=== PATIENT | male | born 1965 | race Caucasian/White ===

== ENCOUNTER → 2017-12-08 09:07 | Day surgery (SDC) | payer MEDICARE, MEDICAID, SELFPAY ==
[2017-12-07 08:44] VITALS: BMI 56.6
[2017-12-08 09:28] LABS: Hematocrit 47.7 % (40-54); Hemoglobin 14.8 g/dl (13.0-16.5); Mean Corpuscular Hgb 25.6 pg (27.0-32.0); Mean Corpuscular Volume 82.5 fL (80-94); Mean Platelet Vol. 8.6 fl (6.2-12.0); Platelet Count 389 K/mm3 (150-450); RBC Distribution Width CV 14.2 % (11.6-14.6); RBC Distribution Width SD 42.3 fl (35.1-43.9); Red Blood Count 5.78 M/mm3 (4.6-6.2)
[2017-12-08 09:31] LABS: Scan Indicated on CBC? Y/N NO
[2017-12-08 09:52] LABS: Albumin, Serum 3.7 g/dL (3.2-5.0); BUN 19 mg/dL (7-18); BUN/Creat Ratio 35.6 RATIO (10-20); Calcium,Total 9.1 mg/dL (8.5-10.1); Chloride 105 mmol/L (98-107); Creatinine, Serum 0.53 mg/dL (0.70-1.30); EST Glomerular Filtration Rate 173 mL/min (>60); Est Glom Filt Rate - Afr Amer 210 mL/min (>60); Estimated Creatinine Clearance 117.92 ml/min; Glucose 90 mg/dL (74-106); Phosphorus 3.8 mg/dL (2.5-4.9); Potassium 3.9 mmol/L (3.5-5.1); Sodium Level 138 mmol/L (136-145)
--- NOTE | 2017-12-08 11:00 | PCM.OPRPT ---
Problem List (1) Venous stasis Status: Acute Report of Operation Date of Procedure: 12/08/17 Pre-Operative Diagnosis: Patient with duplex report at his facility stating SFA popliteal occlusive disease Post-Operative Diagnosis: Normal right lower extremity arterial angiogram no stenosis visualized Surgery/Procedure Performed:: 1. Ultrasound-guided access left common femoral artery. 2. Right lower extremity angiogram with catheter placed in the third order right popliteal artery. 3. Closure with Star close Type of Anesthesia:: Sedation,Conscious Description of Procedure: Patient brought to the Audio/Video Technician. Underwent the appropriate timeout consent. Underwent sedation. We did ultrasound-guided access retrograde left common femoral artery and put in a 6 Romanian sheath. We used an Omni and got up and over the bifurcation and placed this to the right external iliac artery. We gave 5000 units of heparin. We then did an angiogram from here showing the common femoral artery profunda SFA widely patent with good flow. With the wire and catheter down into the popliteal artery imaged from there showing the popliteal to all 3 tibial vessels were widely patent all the way into the foot filling the arch little bit incomplete at the level of the plantars but had good filling throughout. We then removed out the catheter over a wire and removed the sheath brought in a Star close deflated with good hemostasis. He was brought to recovery in stable condition. Sedation: This 52-year-old gentleman underwent moderate sedation given by Dr. Ke Pearl. He was monitored with EKG blood pressure and pulse ox. He was given fentanyl and versed. See the EMR for more complete record. He tolerated the procedure well was brought to recovery in stable condition
== END ==
PROVIDERS: Family Provider Family Medicine; PCP Family Medicine; Visit Provider Surgery Vascular Surgery
DX: I70.235 Atherosclerosis of native arteries of right leg with ulceration of other part of foot (principal); M79.671 Pain in right foot; M79.89 Other specified soft tissue disorders; G80.9 Cerebral palsy, unspecified; Z79.899 Other long term (current) drug therapy
CPT/HCPCS: 36245; 36415; 75710; 76937; 80069; 85027; 99152; J7040; Q9967; C1760; C1769; C1887

== ENCOUNTER 2018-06-17 14:30 | Outpatient (RCR) | payer MEDICAID, SELFPAY ==
[2018-06-10 14:03] VITALS: BP 135/81; PULSE 111; RESP 16; TEMP 37.4; BMI 33.2
--- NOTE | 2018-06-10 14:38 | WC ---
ADMIT ASSESSMENT VERY LIMITED D/T PT'S EXTREME ANXIETY/PAIN. CAME IN W/C FROM [facility], VERY DIFFICULT FOR HIM TO MOVE HIS LEGS FOR STAFF TO VIEW WOUNDS. NOT RECEPTIVE TO STAFF ASSISTING W/ MOVEMENT OF LEGS D/T PAIN. 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
--- NOTE | 2018-06-10 17:57 | HP.PCM_ITS ---
(1) Spina bifida Status: Chronic Current Visit: Yes Qualifiers: Spinal region: unspecified Presence of hydrocephalus: without hydrocephalus Qualified Code(s): Q05.9 - Spina bifida, unspecified Code(s): Q05.9 - Spina bifida, unspecified (2) Venous stasis dermatitis of both lower extremities Status: Chronic Current Visit: Yes Code(s): I83.11 - Varicose veins of right lower extremity with inflammation; I83.12 - Varicose veins of left lower extremity with inflammation (3) History of cerebral palsy Status: Chronic Current Visit: Yes Code(s): Z86.69 - Personal history of other diseases of the nervous system and sense organs (4) Venous stasis ulcer of right ankle with fat layer exposed Status: Chronic Current Visit: Yes Qualifiers: Varicose vein presence: without varicose veins Qualified Code(s): I87.2 - Venous insufficiency (chronic) (peripheral); L97.312 - Non-pressure chronic ulc er of right ankle with fat layer exposed Code(s): I83.013 - Varicose veins of right lower extremity with ulcer of ankle; L97.312 - Non-pressure chronic ulcer of right ankle with fat layer exposed History of Present Illness Date of Service: 06/10/18 Chief Complaint: recurrent R posterior and lateral ankle, 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 He has very damaged tissues of his legs and this is one of multiple recurrent pressure ulcers that he develops in this edematous R lower leg/ankle. He isn't sure when this reoccurred but thinks it has been since January or February. He has been treated by wound care nurse at [facility] where he resides. He has almost been healed several times but has never healed completely. It looks like Drawtex is what they have been using on the ulcer. A culture was done April 2018 which was positive for Pseudomonas. He was on an antibiotic but is no longer taking it. He reports that the ulcer is very painful. He reports that he has been in his bed mostly and elevates his legs/feet with a pillow under his calf and denies pressure on his heel. He also states that he has tubigrips that he usually wears but did not wear them today due to coming here for evaluation. Past Medical History Past Medical History: Chronic Problems Venous stasis ulcer of right ankle with fat layer exposed (Chronic) Spina bifida (Chronic) Venous stasis dermatitis of both lower extremities (Chronic) History of cerebral palsy (Chronic) Surgical History: - - fasciotomies to both feet, surgical debridement Allergies/Adverse Reactions: Allergies clindamycin Allergy (Verified 06/10/18 14:54) Other Penicillins Allergy (Verified 06/10/18 14:54) Other Home Medications: Ambulatory Orders Medication Instructions Recorded Acetaminophen [Tylenol Suppository] 650 mg RECTAL Q4H PRN PRN 01/23/13 Acetaminophen [Tylenol Tablet] 325 - 650 mg PO Q6H PRN PRN 01/23/13 Montelukast [Singulair] 10 mg PO DAILY 01/23/13 Multivitamins,Ther W-Minerals 1 tab PO DAILY 01/23/13 Omeprazole [Prilosec] 20 mg PO DAILY 01/23/13 Pseudoephedrine [Sudafed] 60 mg PO Q4H PRN PRN 01/23/13 Magnesium Hydroxide [Milk Of 30 ml PO DAILY PRN PRN 06/05/14 Magnesia] Ammonium Lactate [Amlactin] 1 applicatio TP UD 12/07/17 Bisacodyl 10 mg RC DAILY PRN 12/07/17 Fluticasone/Vilanterol [Breo 1 each IH DAILY 12/07/17 Ellipta Inhaler] Guaifenesin [Robitussin] 10 ml PO Q4H PRN PRN 12/07/17 Nystatin Powder 1 dose TOPICAL BID 12/07/17 Tramadol HCl [Ultram] 100 mg PO Q8H PRN 12/07/17 Cholecalciferol (Vitamin D3) 2,000 unit PO DAILY 06/10/18 [Vitamin D3] Gabapentin [Neurontin] 300 mg PO BIDCM 06/10/18 Ibuprofen 600 mg PO 4X/DAY PRN 06/10/18 Mag Hydrox/Al Hydrox/Simeth 30 ml PO Q4H PRN PRN 06/10/18 [Mylanta II] Na Phos,M-B/Na Phos,Di-Ba [Fleet 1 bottle RECTAL DAILY PRN 06/10/18 Enema] - Family History Paternal Dementia Maternal No pertinent history Lives: Detention Smoking Status: Never smoker Tobacco Use: Non-smoker Alcohol: None Drugs: None Review of Systems Constitutional: Denies: Chills, Fever, Weight Change Eyes: Denies: Pain, Vision Change HEENT: Denies: Difficulty Hearing, Difficulty Swallowing, Sinus Congestion Cardiovascular: Denies: Chest Pain, Palpitations Respiratory: Denies: Cough, Shortness of Breath Gastrointestinal: Denies: Diarrhea, Nausea, Vomiting Genitourinary: Denies: Dysuria, Hematuria Musculoskeletal: Reports: Leg Pain Neurological: Reports: Numbness, Tingling Endocrine: Denies: Heat/ Cold Intolerance, Polydipsia, Polyuria Hematologic/ Lymphatic: Denies: Easy Bruising, Easy Bleeding - Physical Exam Vital Signs Temp Pulse Resp BP 99.3 F H 111 H 16 135/81 H 06/10/18 14:03 06/10/18 14:03 06/10/18 14:03 06/10/18 14:03 General: Alert, Oriented x3, Cooperative, No apparent distress HEENT: Atraumatic, Normocephalic Oral: Moist Mucosa Lungs: Clear to auscultation Cardiovascular: Regular rate, Regular Rhythm Abdomen: Obese Extremities: Edema Skin: Ulcer/ Wound Wound Measurements and Assessment WC - Nurse 1 - General Ulcer Measurement Start: 06/10/18 14:02 Freq: Status: Active Protocol: Activity Type Activity Date Activity User E-Sign Co-Sign Detail Recorded Client Recorded Date Recorded By Document 06/10/18 14:03 [facility] [id number] 06/10/18 14:38 [facility] 06/10/18 14:03 Wound Center Nurse 1 [Ulcer Assessment] #4 Right Achilles -Current Size (cm) - Length 9.7 -Current Size (cm) - Width 9.0 -Current Size (cm) - Depth 0.2 -Total Square Cm 87.30 -Date of Last Picture (Recall this 06/10/18 field) -Photo Taken Yes -Epithelialization None Present -Tunneling No -Undermining/Tunneling No -Circular Undermining No -Exudate Amt Large -Exudate Type Sanguineous -Wound Margin Flat & Intact -Granulation Amt Large (67-100%) -Granulation Quality Red -Slough/Fibrin No -Necrosis Amt None Present (0 %) -Texture (Sanam-wound Skin Appearance) Scarring -Moisture (Sanam-wound Skin Appearance Dry/Scaly ) -Color (Sanam-wound Skin Appearance) Erythema Hemosiderin Staining -Temperature (Sanam-wound Skin No Abnormality Appearance) (Pt Warm) -Tenderness on Palpation (Sanam-wound Yes Skin Appearance) -Ulcer Cleansing Wound Cleanser -Foul Odor after Cleansing No -Anesthetic Used 4% Lidocaine Solution 5% Lidocaine Gel #3 Lateral RLE -Current Size (cm) - Length 5 -Current Size (cm) - Width 6 -Current Size (cm) - Depth 0.1 -Total Square Cm 30 -Date of Last Picture (Recall this 06/10/18 field) -Photo Taken Yes -Exudate Amt Large -Exudate Type Sanguineous -Wound Margin Flat & Intact -Granulation Amt Large (67-100%) -Granulation Quality Red -Texture (Sanam-wound Skin Appearance) Assessed -Moisture (Sanam-wound Skin Appearance Assessed ) -Color (Sanam-wound Skin Appearance) Assessed Ecchymosis Hemosiderin Staining -Temperature (Sanam-wound Skin No Abnormality Appearance) (Pt Warm) -Tenderness on Palpation (Sanam-wound No Skin Appearance) -Ulcer Cleansing Wound Cleanser -Foul Odor after Cleansing No -Anesthetic Used 4% Lidocaine Solution [Edema Assessment] -Right Calf (cm) 42.1 -Right Ankle (cm) 25.5 WC - Nurse 2 - General Ulcer CM Notes Start: 06/10/18 14:02 Freq: Status: Active Protocol: Activity Type Activity Date Activity User E-Sign Co-Sign Detail Recorded Client Recorded Date Recorded By Document 06/10/18 16:17 DV [id number] 06/10/18 16:26 DV 06/10/18 16:17 Wound Center Nurse 2 [Procedure/Treatment] #4 Right Achilles -Time 16:18 -Correct Patient Yes -Correct Side, Site, Position Yes -Procedure Performed No -Wound/Ulcer Outcome Not Healed #3 Lateral RLE -Time 16:22 -Correct Patient Yes -Correct Side, Site, Position Yes -Procedure Performed No -Wound/Ulcer Outcome Not Healed [See Physician Procedure note for Specifics] Pain Scale: 0-10 Numeric [Pain] -Is Patient Pain Free? Yes Psych/Mental Status: Normal Affect, Appropriate Debridement Note Post-Debridement Measurements/Treatment WC - Nurse 2 - General Ulcer CM Notes Start: 06/10/18 14:02 Freq: Status: Active Protocol: Activity Type Activity Date Activity User E-Sign Co-Sign Detail Recorded Client Recorded Date Recorded By Document 06/10/18 16:17 DV [id number] 06/10/18 16:26 DV 06/10/18 16:17 Wound Center Nurse 2 #4 Right Achilles -Time 16:18 -Correct Patient Yes -Correct Side, Site, Position Yes -Procedure Performed No -Wound/Ulcer Outcome Not Healed #3 Lateral RLE -Time 16:22 -Correct Patient Yes -Correct Side, Site, Position Yes -Procedure Performed No -Wound/Ulcer Outcome Not Healed Pain Scale: 0-10 Numeric Is Patient Pain Free? Yes Wound debrided: right achilles Laterality: Right No debridement was completed today - due to nothing to debride - Additional Wound Wound debrided: lateral RLE Laterality: Right Operative Diagnosis: no debridement completed as there is nothing to debride Assessment/Plan Active Problems Venous stasis ulcer of right ankle with fat layer exposed (Chronic) Spina bifida (Chronic) Venous stasis dermatitis of both lower extremities (Chronic) History of cerebral palsy (Chronic) Assessment: 1) recurrent pressure ulcer of posterior leg in paraplegic w/spina bifida. Healing is very slow and likely because of poor quality of tissues. Offload boots seem very adequate. 2) venous stasis and edema Plan: Shahzad's ulcers were evaluated today. He has chronic edema and noncompliance. His dressings were adherent to his ulcers today. Will change his dressings to Santyl changed daily and prescribe offloading booties to decrease pressure to his heels. He will continue tubigrips for compression. A wound culture was also taken today and will treat based on results. Will f/u in 1 week.
[2018-06-10 23:52] LABS: M R Staph aureus DNA By PCR Negative (Negative); Staph aureus DNA By PCR POSITIVE (Negative)
[2018-06-10 23:53] LABS: Probe Check PASS; Specimen Processing Control PASS
[2018-06-17 15:33] VITALS: BP 132/76; PULSE 101; RESP 20; TEMP 37.2; BMI 33.2
--- NOTE | 2018-06-17 19:10 | PCM.WC.PN ---
(1) Spina bifida Status: Chronic Current Visit: Yes Qualifiers: Spinal region: unspecified Presence of hydrocephalus: without hydrocephalus Qualified Code(s): Q05.9 - Spina bifida, unspecified Code(s): Q05.9 - Spina bifida, unspecified (2) Venous stasis dermatitis of both lower extremities Status: Chronic Current Visit: Yes Code(s): I83.11 - Varicose veins of right lower extremity with inflammation; I83.12 - Varicose veins of left lower extremity with inflammation (3) History of cerebral palsy Status: Chronic Current Visit: Yes Code(s): Z86.69 - Personal history of other diseases of the nervous system and sense organs (4) Venous stasis ulcer of right ankle with fat layer exposed Status: Chronic Current Visit: Yes Qualifiers: Varicose vein presence: without varicose veins Qualified Code(s): I87.2 - Venous insufficiency (chronic) (peripheral); L97.312 - Non-pressure chronic ulcer of right ankle with fat layer exposed Code(s): I83.013 - Varicose veins of right lower extremity with ulcer of ankle; L97.312 - Non-pressure chronic ulcer of right ankle with fat layer exposed Type of Wound Date of Service: 06/17/18 Chief Complaint: recurrent R posterior and lateral ankle, 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 He has very damaged tissues of his legs and this is one of multiple recurrent pressure ulcers that he develops in this edematous R lower leg/ankle. He isn't sure when this reoccurred but thinks it has been since January or February. He has been treated by wound care nurse at [facility] where he resides. He has almost been healed several times but has never healed completely. It looks like Drawtex is what they have been using on the ulcer. A culture was done April 2018 which was positive for Pseudomonas. He was on an antibiotic but is no longer taking it. He reports that the ulcer is very painful. He reports that he has been in his bed mostly and elevates his legs/feet with a pillow under his calf and denies pressure on his heel. He also states that he has tubigrips that he usually wears but did not wear them today due to coming here for evaluation. Progress of Wound: Shahzad is here for follow up for wound care of ulcers of his right lower leg. He had positive wound cultures and was started on ciprofloxacin for Pseudomonas and MRSA. He is tolerating antibiotics but still is in pain. He is tolerating Santyl and tubigrips and using a foam bootie to offload his posterior leg. He denies fever or chills, increased drainage. - Physical Exam Vital Signs Temp Pulse Resp BP 98.9 F 101 H 20 H 132/76 H 06/17/18 15:33 06/17/18 15:33 06/17/18 15:33 06/17/18 15:33 General: Alert, Oriented x3, Cooperative, No apparent distress HEENT: Atraumatic, Normocephalic Oral: Moist Mucosa Extremities: Edema Skin: Ulcer/ Wound Wound Measurements and Assessment WC - Nurse 1 - General Ulcer Measurement Start: 06/10/18 14:02 Freq: Status: Active Protocol: Activity Type Activity Date Activity User E-Sign Co-Sign Detail Recorded Client Recorded Date Recorded By Document 06/17/18 15:33 AN [id number] 06/17/18 15:48 AN 06/17/18 15:33 Wound Center Nurse 1 [Ulcer Assessment] #5 Right Achilles -Current Size (cm) - Length 8.2 -Current Size (cm) - Width 8.8 -Current Size (cm) - Depth 0.1 -Total Square Cm 72.16 -Classification - Thickness Full Thickness without Exposed Support Structure -Exudate Amt Medium -Exudate Type Serosanguineous -Wound Margin Distinct, Outline Attached -Granulation Amt Large (67-100%) -Granulation Quality Red -Slough/Fibrin Yes -Necrosis Amt Small (1-33%) -Necrotic Tissue Type Adherent Slough -Texture (Sanam-wound Skin Appearance) Assessed Localized Edema -Moisture (Sanam-wound Skin Appearance Assessed ) Maceration -Color (Sanam-wound Skin Appearance) Assessed Erythema -Temperature (Sanam-wound Skin No Abnormality Appearance) (Pt Warm) -Tenderness on Palpation (Sanam-wound Yes Skin Appearance) -Ulcer Cleansing Rinsed/ Irrigated with Saline -Foul Odor after Cleansing No -Anesthetic Used 4% Lidocaine Solution #4 Lateral RLE -Current Size (cm) - Length 5.5 -Current Size (cm) - Width 5.5 -Current Size (cm) - Depth 0.1 -Total Square Cm 30.25 -Classification - Thickness Full Thickness without Exposed Support Structure -Exudate Amt Medium -Exudate Type Serosanguineous -Wound Margin Distinct, Outline Attached -Granulation Amt Large (67-100%) -Granulation Quality Red -Slough/Fibrin Yes -Necrosis Amt Small (1-33%) -Necrotic Tissue Type Adherent Slough -Structure Exposed None/Limited to Skin Breakdown -Texture (Sanam-wound Skin Appearance) Assessed Localized Edema -Moisture (Sanam-wound Skin Appearance Assessed ) -Color (Sanam-wound Skin Appearance) Assessed Erythema -Temperature (Sanam-wound Skin No Abnormality Appearance) (Pt Warm) -Tenderness on Palpation (Sanam-wound Yes Skin Appearance) -Ulcer Cleansing Rinsed/ Irrigated with Saline -Foul Odor after Cleansing No -Anesthetic Used 4% Lidocaine Solution WC - Nurse 2 - General Ulcer CM Notes Start: 06/10/18 14:02 Freq: Status: Active Protocol: Activity Type Activity Date Activity User E-Sign Co-Sign Detail Recorded Client Recorded Date Recorded By Document 06/17/18 16:17 DV [id number] 06/17/18 16:21 DV 06/17/18 16:17 Wound Center Nurse 2 [Procedure/Treatment] #5 Right Achilles -Time 16:17 -Correct Patient Yes -Correct Side, Site, Position Yes -Correct Procedure Yes -Procedure Performed Yes -Type of Procedure Debridement -Clinical Debridement Subcutaneous -Post Debridement Size (cm) - Length 10.4 -Post Debridement Size (cm) - Width 8.2 -Post Debridement Size (cm) - Depth 0.2 -Total Square Cm 85.28 -Wound/Ulcer Outcome Not Healed -Ulcer Cleansing Rinsed/ Irrigated with Saline -Foul Odor after Cleansing No -Bioengineered Tissue No -Bleeding Controlled with Pressure -Offloading Yes -Treatment Response Procedure Tolerated Well #4 Lateral RLE -Time 16:18 -Correct Patient Yes -Correct Side, Site, Position Yes -Correct Procedure Yes -Procedure Performed Yes -Type of Procedure Debridement -Clinical Debridement Subcutaneous -Post Debridement Size (cm) - Length 6.0 -Post Debridement Size (cm) - Width 6.2 -Post Debridement Size (cm) - Depth 0.1 -Total Square Cm 37.20 -Wound/Ulcer Outcome Not Healed -Ulcer Cleansing Rinsed/ Irrigated with Saline -Foul Odor after Cleansing No -Bioengineered Tissue No -Bleeding Controlled with Pressure -Offloading No -Treatment Response Procedure Tolerated Well [See Physician Procedure note for Specifics] Pain Scale: 0-10 Numeric [Pain] -Is Patient Pain Free? Yes Psych/Mental Status: Normal Affect, Appropriate Debridement Note Post-Debridement Measurements/Treatment WC - Nurse 2 - General Ulcer CM Notes Start: 06/10/18 14:02 Freq: Status: Active Protocol: Activity Type Activity Date Activity User E-Sign Co-Sign Detail Recorded Client Recorded Date Recorded By Document 06/10/18 16:17 DV [id number] 06/10/18 16:26 DV Document 06/17/18 16:17 DV [id number] 06/17/18 16:21 DV 06/10/18 06/17/18 16:17 16:17 Wound Center Nurse 2 #5 Right Achilles -Time 16:18 16:17 -Correct Patient Yes Yes -Correct Side, Site, Position Yes Yes -Correct Procedure Yes -Procedure Performed No Yes -Type of Procedure Debridement -Clinical Debridement Subcutaneous -Post Debridement Size (cm) - Length 10.4 -Post Debridement Size (cm) - Width 8.2 -Post Debridement Size (cm) - Depth 0.2 -Total Square Cm 85.28 -Wound/Ulcer Outcome Not Healed Not Healed -Ulcer Cleansing Rinsed/ Irrigated with Saline -Foul Odor after Cleansing No -Bioengineered Tissue No -Bleeding Controlled with Pressure -Offloading Yes -Treatment Response Procedure Tolerated Well #4 Lateral RLE -Time 16:22 16:18 -Correct Patient Yes Yes -Correct Side, Site, Position Yes Yes -Correct Procedure Yes -Procedure Performed No Yes -Type of Procedure Debridement -Clinical Debridement Subcutaneous -Post Debridement Size (cm) - Length 6.0 -Post Debridement Size (cm) - Width 6.2 -Post Debridement Size (cm) - Depth 0.1 -Total Square Cm 37.20 -Wound/Ulcer Outcome Not Healed Not Healed -Ulcer Cleansing Rinsed/ Irrigated with Saline -Foul Odor after Cleansing No -Bioengineered Tissue No -Bleeding Controlled with Pressure -Offloading No -Treatment Response Procedure Tolerated Well Pain Scale: 0-10 Numeric Is Patient Pain Free? Yes Yes Wound debrided: right Achilles Laterality: Right Wound Grade/Stage: Stage 2 Type of Debridement: Excisional debridement Anesthesia Used: 4% Lidocaine Solution, 5% Lidocaine Gel Depth: Down to and including healthy tissue, in the subcutaneous layer Percentage of wound debrided: 100 Instrument Used: 5mm curette Tissue Removed: yellow slough, devitalized tissue Severity: Fat Layer Exposed Amount of bleeding with debridement: Mild Bleeding Controlled with: Compression and gauze Patient tolerated procedure well - Additional Wound Wound debrided: Lateral R LE Laterality: Right Wound Grade/Stage: Stage 2 Type of Debridement: Excisional debridement Anesthesia Used: 4% Lidocaine Solution, 5% Lidocaine Gel Depth: Down to and including healthy tissue, in the subcutaneous layer Percentage of wound debrided: 100 Instrument Used: 5mm curette Tissue Removed: yellow slough, devitalized tissue Severity: Fat Layer Exposed Amount of bleeding with debridement: Mild Bleeding Controlled with: Compression and gauze Patient tolerated procedure: Patient tolerated procedure well Assessment/Plan Active Problems Venous stasis ulcer of right ankle with fat layer exposed (Chronic) Spina bifida (Chronic) Venous stasis dermatitis of both lower extremities (Chronic) History of cerebral palsy (Chronic) Assessment: 1) recurrent pressure ulcer of posterior leg in paraplegic w/spina bifida. Healing is very slow and likely because of poor quality of tissues. Offload boots seem very adequate. 2) venous stasis and edema Plan: Shahzad's ulcers were evaluated today. He has chronic edema and noncompliance. He tolerated Santyl changed daily and offloading booties to decrease pressure to his heels. He will continue tubigrips for compression. Continue antibiotics for positive wound cultures. Encouraged increased protein intake and offloading. Will f/u in 1 week.
== END 2018-06-23 23:59 ==
LOC: WC 14:30
PROVIDERS: Family Provider Family Medicine; PCP Family Medicine; Visit Provider Family Medicine
DX: I83.013 Varicose veins of right lower extremity with ulcer of ankle (principal); L97.312 Non-pressure chronic ulcer of right ankle with fat layer exposed; Q05.9 Spina bifida, unspecified; G80.9 Cerebral palsy, unspecified; Z91.19 Patient's noncompliance with other medical treatment and regimen; L89.892 Pressure ulcer of other site, stage 2
CPT/HCPCS: 11042; 11045; 87070; 87075; 87077; 87186; 87205; 87640; 97602; 99214; G0463

== ENCOUNTER 2018-07-22 13:00 | Outpatient (RCR) | payer MEDICARE, MEDICAID, SELFPAY ==
[2018-06-24 01:38] VITALS: BP 132/76; PULSE 101; RESP 20; TEMP 37.2
[2018-06-24 12:18] VITALS: BP 161/97; PULSE 97; RESP 18; TEMP 36.1; BMI 33.2
[2018-06-24 17:23] LABS: M R Staph aureus DNA By PCR POSITIVE (Negative); Probe Check PASS; Staph aureus DNA By PCR POSITIVE (Negative)
--- NOTE | 2018-06-24 19:32 | PN.PCM_ITS ---
(1) Venous stasis ulcer of right ankle with fat layer exposed Status: Chronic Current Visit: Yes Qualifiers: Varicose vein presence: without varicose veins Code(s): I83.013 - Varicose veins of right lower extremity with ulcer of ankle; L97.312 - Non-pressure chronic ulcer of right ankle with fat layer exposed Comment: posterior and medial ankle (2) MRSA cellulitis Status: Acute Current Visit: Yes Code(s): L03.90 - Cellulitis, unspecified; B95.62 - Methicillin resistant Staphylococcus aureus infection as the cause of diseases classified elsewhere (3) Spina bifida Status: Chronic Current Visit: Yes Qualifiers: Spinal region: unspecified Presence of hydrocephalus: unspecified hydrocephalus presence Qualified Code(s): Q05.9 - Spina bifida, unspecified Code(s): Q05.9 - Spina bifida, unspecified (4) Venous stasis dermatitis of both lower extremities Status: Chronic Current Visit: Yes Code(s): I83.11 - Varicose veins of right lower extremity with inflammation; I83.12 - Varicose veins of left lower extremity with inflammation (5) History of cerebral palsy Status: Chronic Current Visit: Yes Code(s): Z86.69 - Personal history of other diseases of the nervous system and sense organs Type of Wound Date of Service: 06/24/18 Chief Complaint: recurrent R posterior and lateral ankle, 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 He has very damaged tissues of his legs and this is one of multiple recurrent pressure ulcers that he develops in this edematous R lower leg/ankle. He isn't sure when this reoccurred but thinks it has been since January or February. He has been treated by wound care nurse at [facility] where he resides. He has almost been healed several times but has never healed completely. It looks like Drawtex is what they have been using on the ulcer. A culture was done April 2018 which was positive for Pseudomonas. He was on an antibiotic but is no longer taking it. He reports that the ulcer is very painful. He reports that he has been in his bed mostly and elevates his legs/feet with a pillow under his calf and denies pressure on his heel. He also states that he has tubigrips that he usually wears but did not wear them today due to coming here for evaluation. Progress of Wound: Shahzad is here for follow up for wound care of ulcers of his right lower leg. He had positive wound cultures and was treated with ciprofloxacin for Pseudomonas and MRSA but he has increased erythema and pain today. He is completed antibiotics but still is in pain. He is tolerating Santyl and tubigrips and using a foam bootie to offload his posterior leg. He denies fever or chills, increased drainage. - Physical Exam Vital Signs Temp Pulse Resp BP 97.0 F L 97 18 161/97 H 06/24/18 12:18 06/24/18 12:18 06/24/18 12:18 06/24/18 12:18 General: Alert, Oriented x3, Cooperative, No apparent distress HEENT: Atraumatic, Normocephalic Oral: Moist Mucosa Abdomen: Obese Extremities: Edema Skin: Ulcer/ Wound Wound Measurements and Assessment WC - Nurse 1 - General Ulcer Measurement Start: 06/24/18 12:18 Freq: Status: Active Protocol: Activity Type Activity Date Activity User E-Sign Co-Sign Detail Recorded Client Recorded Date Recorded By Document 06/24/18 12:18 MW [id number] 06/24/18 12:33 MW 06/24/18 12:18 Wound Center Nurse 1 [Ulcer Assessment] #5 Right Achilles -Combined with other wound No -Current Size (cm) - Length 10.0 -Current Size (cm) - Width 8.2 -Current Size (cm) - Depth 0.1 -Total Square Cm 82.00 -Photo Taken No -Epithelialization None Present -Tunneling No -Undermining/Tunneling No -Circular Undermining No -Exudate Amt Large -Exudate Type Yellow/Green -Wound Margin Flat & Intact -Granulation Amt Medium (34-66%) -Granulation Quality Red -Slough/Fibrin Yes -Necrosis Amt Medium (34-66%) -Necrotic Tissue Type Adherent Slough -Structure Exposed N/A -Texture (Sanam-wound Skin Appearance) Assessed Localized Edema -Moisture (Sanam-wound Skin Appearance No Abnormality ) Assessed -Color (Sanam-wound Skin Appearance) Assessed Rubor -Temperature (Sanam-wound Skin Hot Appearance) -Tenderness on Palpation (Sanam-wound Yes Skin Appearance) -Ulcer Cleansing SOAP AND WATER -Foul Odor after Cleansing No -Anesthetic Used 4% Lidocaine Solution 5% Lidocaine Gel #4 Lateral RLE -Combined with other wound No -Current Size (cm) - Length 5.7 -Current Size (cm) - Width 5.5 -Current Size (cm) - Depth 0.1 -Total Square Cm 31.35 -Photo Taken No -Epithelialization None Present -Tunneling No -Undermining/Tunneling No -Circular Undermining No -Exudate Amt Large -Exudate Type Yellow/Green -Wound Margin Flat & Intact -Granulation Amt Medium (34-66%) -Granulation Quality Red -Slough/Fibrin Yes -Necrosis Amt Medium (34-66%) -Necrotic Tissue Type Adherent Slough -Structure Exposed N/A -Texture (Sanam-wound Skin Appearance) Assessed Localized Edema -Moisture (Sanam-wound Skin Appearance No Abnormality ) Assessed -Color (Sanam-wound Skin Appearance) Assessed Rubor -Temperature (Sanam-wound Skin Hot Appearance) -Tenderness on Palpation (Sanam-wound Yes Skin Appearance) -Ulcer Cleansing SOAP AND WATER -Anesthetic Used 4% Lidocaine Solution 5% Lidocaine Gel [Edema Assessment] -Lower Limb Edema Present Yes -Right Calf (cm) 44.0 -Right Ankle (cm) 23.2 WC - Nurse 2 - General Ulcer CM Notes Start: 06/24/18 12:18 Freq: Status: Active Protocol: Activity Type Activity Date Activity User E-Sign Co-Sign Detail Recorded Client Recorded Date Recorded By Document 06/24/18 13:17 DV [id number] 06/24/18 13:25 DV 06/24/18 13:17 Wound Center Nurse 2 [Procedure/Treatment] #5 Right Achilles -Time 13:19 -Correct Patient Yes -Correct Side, Site, Position Yes -Correct Procedure Yes -Procedure Performed Yes -Type of Procedure Debridement -Clinical Debridement Subcutaneous -Post Debridement Size (cm) - Length 9.8 -Post Debridement Size (cm) - Width 7.7 -Post Debridement Size (cm) - Depth 0.1 -Total Square Cm 75.46 -Wound/Ulcer Outcome Not Healed -Ulcer Cleansing Rinsed/ Irrigated with Saline -Foul Odor after Cleansing No -Bioengineered Tissue No -Bleeding Controlled with Pressure -Offloading No -Treatment Response Procedure Tolerated Well #4 Lateral RLE -Time 13:19 -Correct Patient Yes -Correct Side, Site, Position Yes -Correct Procedure Yes -Procedure Performed Yes -Type of Procedure Debridement -Clinical Debridement Subcutaneous -Post Debridement Size (cm) - Length 5.6 -Post Debridement Size (cm) - Width 6.0 -Post Debridement Size (cm) - Depth 0.1 -Total Square Cm 33.60 -Wound/Ulcer Outcome Not Healed -Ulcer Cleansing Rinsed/ Irrigated with Saline -Foul Odor after Cleansing No -Bioengineered Tissue No -Bleeding Controlled with Pressure -Offloading No -Treatment Response Procedure Tolerated Well [See Physician Procedure note for Specifics] Pain Scale: 0-10 Numeric [Pain] -Is Patient Pain Free? Yes Psych/Mental Status: Normal Affect, Appropriate Debridement Note Post-Debridement Measurements/Treatment WC - Nurse 2 - General Ulcer CM Notes Start: 06/24/18 12:18 Freq: Status: Active Protocol: Activity Type Activity Date Activity User E-Sign Co-Sign Detail Recorded Client Recorded Date Recorded By Document 06/24/18 13:17 DV [id number] 06/24/18 13:25 DV 06/24/18 13:17 Wound Center Nurse 2 #5 Right Achilles -Time 13:19 -Correct Patient Yes -Correct Side, Site, Position Yes -Correct Procedure Yes -Procedure Performed Yes -Type of Procedure Debridement -Clinical Debridement Subcutaneous -Post Debridement Size (cm) - Length 9.8 -Post Debridement Size (cm) - Width 7.7 -Post Debridement Size (cm) - Depth 0.1 -Total Square Cm 75.46 -Wound/Ulcer Outcome Not Healed -Ulcer Cleansing Rinsed/ Irrigated with Saline -Foul Odor after Cleansing No -Bioengineered Tissue No -Bleeding Controlled with Pressure -Offloading No -Treatment Response Procedure Tolerated Well #4 Lateral RLE -Time 13:19 -Correct Patient Yes -Correct Side, Site, Position Yes -Correct Procedure Yes -Procedure Performed Yes -Type of Procedure Debridement -Clinical Debridement Subcutaneous -Post Debridement Size (cm) - Length 5.6 -Post Debridement Size (cm) - Width 6.0 -Post Debridement Size (cm) - Depth 0.1 -Total Square Cm 33.60 -Wound/Ulcer Outcome Not Healed -Ulcer Cleansing Rinsed/ Irrigated with Saline -Foul Odor after Cleansing No -Bioengineered Tissue No -Bleeding Controlled with Pressure -Offloading No -Treatment Response Procedure Tolerated Well Pain Scale: 0-10 Numeric Is Patient Pain Free? Yes Wound debrided: right achilles Laterality: Right Type of Debridement: Excisional debridement Anesthesia Used: 4% Lidocaine Solution, 5% Lidocaine Gel Depth: Down to and including healthy tissue, in the subcutaneous layer Percentage of wound debrided: 100 Instrument Used: 5mm curette Tissue Removed: yellow slough, devitalized tissue Severity: Fat Layer Exposed Amount of bleeding with debridement: Mild Bleeding Controlled with: Compression and gauze Patient tolerated procedure well - Additional Wound Wound debrided: right lateral LE Laterality: Right Type of Debridement: Excisional debridement Anesthesia Used: 4% Lidocaine Solution, 5% Lidocaine Gel Depth: Down to and including healthy tissue, in the subcutaneous layer Percentage of wound debrided: 100 Instrument Used: 5mm curette Tissue Removed: yellow slough, devitalized tissue Severity: Fat Layer Exposed Amount of bleeding with debridement: Mild Bleeding Controlled with: Compression and gauze Patient tolerated procedure: Patient tolerated procedure well Assessment/Plan Active Problems Venous stasis ulcer of right ankle with fat layer exposed (Chronic) posterior and medial ankle MRSA cellulitis (Acute) Spina bifida (Chronic) Venous stasis dermatitis of both lower extremities (Chronic) History of cerebral palsy (Chronic) Assessment: 1) recurrent pressure ulcer of posterior leg in paraplegic w/spina bifida. Healing is very slow and likely because of poor quality of tissues. Offload boots seem very adequate. 2) venous stasis and edema Plan: Shahzad's ulcers were evaluated today. He has chronic edema and noncompliance. He is tolerating Santyl changed daily and offloading booties to decrease pressure to his heels. He will continue tubigrips for compression. Wound culture repeated today and will treat based on results. Encouraged increased protein intake and offloading. Will f/u in 1 week.
[2018-07-01 13:48] VITALS: BP 168/92; PULSE 110; RESP 16; TEMP 36.6; BMI 33.2
--- NOTE | 2018-07-01 18:00 | PCM.WC.PN ---
(1) Venous stasis ulcer of right ankle with fat layer exposed Status: Chronic Current Visit: Yes Qualifiers: Varicose vein presence: without varicose veins Code(s): I83.013 - Varicose veins of right lower extremity with ulcer of ankle; L97.312 - Non-pressure chronic ulcer of right ankle with fat layer exposed Comment: posterior and medial ankle (2) MRSA cellulitis Status: Acute Current Visit: Yes Code(s): L03.90 - Cellulitis, unspecified; B95.62 - Methicillin resistant Staphylococcus aureus infection as the cause of diseases classified elsewhere (3) Spina bifida Status: Chronic Current Visit: Yes Qualifiers: Spinal region: unspecified Presence of hydrocephalus: unspecified hydrocephalus presence Qualified Code(s): Q05.9 - Spina bifida, unspecified Code(s): Q05.9 - Spina bifida, unspecified (4) Venous stasis dermatitis of both lower extremities Status: Chronic Current Visit: Yes Code(s): I83.11 - Varicose veins of right lower extremity with inflammation; I83.12 - Varicose veins of left lower extremity with inflammation (5) History of cerebral palsy Status: Chronic Current Visit: Yes Code(s): Z86.69 - Personal history of other diseases of the nervous system and sense organs Type of Wound Date of Service: 07/01/18 Chief Complaint: recurrent R posterior and lateral ankle, 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 He has very damaged tissues of his legs and this is one of multiple recurrent pressure ulcers that he develops in this edematous R lower leg/ankle. He isn't sure when this reoccurred but thinks it has been since January or February. He has been treated by wound care nurse at [facility] where he resides. He has almost been healed several times but has never healed completely. It looks like Drawtex is what they have been using on the ulcer. A culture was done April 2018 which was positive for Pseudomonas. He was on an antibiotic but is no longer taking it. He reports that the ulcer is very painful. He reports that he has been in his bed mostly and elevates his legs/feet with a pillow under his calf and denies pressure on his heel. He also states that he has tubigrips that he usually wears but did not wear them today due to coming here for evaluation. Progress of Wound: Shahzad is here for follow up for wound care of ulcers of his right lower leg. He had positive wound cultures and is tolerating antibiotic treatment with cefdinir. He is tolerating Aquacel xtra and tubigrips and using a foam bootie to offload his posterior leg. He denies fever or chills, increased drainage. - Physical Exam Vital Signs Temp Pulse Resp BP 97.8 F 110 H 16 168/92 H 07/01/18 13:48 07/01/18 13:48 07/01/18 13:48 07/01/18 13:48 General: Alert, Oriented x3, Cooperative, No apparent distress HEENT: Atraumatic, Normocephalic Oral: Moist Mucosa Abdomen: Obese Extremities: Edema Skin: Ulcer/ Wound Wound Measurements and Assessment WC - Nurse 1 - General Ulcer Measurement Start: 06/24/18 12:18 Freq: Status: Active Protocol: Activity Type Activity Date Activity User E-Sign Co-Sign Detail Recorded Client Recorded Date Recorded By Document 07/01/18 13:48 [facility] [id number] 07/01/18 13:55 [facility] 07/01/18 13:48 Wound Center Nurse 1 [Ulcer Assessment] #5 Right Achilles -Combined with other wound No -Current Size (cm) - Length 9.5 -Current Size (cm) - Width 7.5 -Current Size (cm) - Depth 0.1 -Total Square Cm 71.25 -Photo Taken No -Epithelialization Small 1-33% -Tunneling No -Undermining/Tunneling No -Circular Undermining No -Exudate Amt Large -Exudate Type Purulent -Wound Margin Flat & Intact -Granulation Amt Large (67-100%) -Granulation Quality Red -Slough/Fibrin Yes -Necrosis Amt Small (1-33%) -Necrotic Tissue Type Adherent Slough -Texture (Sanam-wound Skin Appearance) Assessed Scarring -Moisture (Sanam-wound Skin Appearance Assessed ) Dry/Scaly -Color (Sanam-wound Skin Appearance) Assessed -Temperature (Sanam-wound Skin No Abnormality Appearance) (Pt Warm) -Tenderness on Palpation (Sanam-wound Yes Skin Appearance) -Ulcer Cleansing Wound Cleanser -Foul Odor after Cleansing No -Anesthetic Used 4% Lidocaine Solution 5% Lidocaine Gel #4 Lateral RLE -Combined with other wound No -Current Size (cm) - Length 5.5 -Current Size (cm) - Width 5.2 -Current Size (cm) - Depth 0.1 -Total Square Cm 28.60 -Photo Taken No -Epithelialization Small 1-33% -Tunneling No -Undermining/Tunneling No -Circular Undermining No -Exudate Amt Large -Exudate Type Purulent -Wound Margin Flat & Intact -Granulation Amt Large (67-100%) -Granulation Quality Red -Slough/Fibrin Yes -Necrosis Amt Small (1-33%) -Necrotic Tissue Type Adherent Slough -Texture (Sanam-wound Skin Appearance) Scarring -Moisture (Sanam-wound Skin Appearance Dry/Scaly ) -Color (Sanam-wound Skin Appearance) Assessed -Temperature (Sanam-wound Skin No Abnormality Appearance) (Pt Warm) -Tenderness on Palpation (Sanam-wound Yes Skin Appearance) -Ulcer Cleansing Wound Cleanser -Foul Odor after Cleansing No -Anesthetic Used 4% Lidocaine Solution 5% Lidocaine Gel [Edema Assessment] -Lower Limb Edema Present Yes -Right Calf (cm) 39.5 -Right Ankle (cm) 21 WC - Nurse 2 - General Ulcer CM Notes Start: 06/24/18 12:18 Freq: Status: Active Protocol: Activity Type Activity Date Activity User E-Sign Co-Sign Detail Recorded Client Recorded Date Recorded By Document 07/01/18 14:14 DV [id number] 07/01/18 14:29 DV 07/01/18 14:14 Wound Center Nurse 2 [Procedure/Treatment] #5 Right Achilles -Time 14:14 -Correct Patient Yes -Correct Side, Site, Position Yes -Correct Procedure Yes -Procedure Performed Yes -Type of Procedure Debridement -Clinical Debridement Subcutaneous -Post Debridement Size (cm) - Length 9.7 -Post Debridement Size (cm) - Width 7.5 -Post Debridement Size (cm) - Depth 0.1 -Total Square Cm 72.75 -Wound/Ulcer Outcome Not Healed -Ulcer Cleansing Rinsed/ Irrigated with Saline -Foul Odor after Cleansing No -Bioengineered Tissue No -Bleeding Controlled with Pressure -Offloading No -Treatment Response Procedure Tolerated Well #4 Lateral RLE -Time 14:16 -Correct Patient Yes -Correct Side, Site, Position Yes -Correct Procedure Yes -Procedure Performed Yes -Type of Procedure Debridement -Clinical Debridement Subcutaneous -Post Debridement Size (cm) - Length 5.4 -Post Debridement Size (cm) - Width 5.1 -Post Debridement Size (cm) - Depth 0.1 -Total Square Cm 27.54 -Wound/Ulcer Outcome Not Healed -Ulcer Cleansing Rinsed/ Irrigated with Saline -Foul Odor after Cleansing No -Bioengineered Tissue No -Bleeding Controlled with Pressure -Offloading No -Treatment Response Procedure Tolerated Well [See Physician Procedure note for Specifics] Pain Scale: 0-10 Numeric [Pain] -Is Patient Pain Free? Yes Psych/Mental Status: Normal Affect, Appropriate Debridement Note Post-Debridement Measurements/Treatment WC - Nurse 2 - General Ulcer CM Notes Start: 06/24/18 12:18 Freq: Status: Active Protocol: Activity Type Activity Date Activity User E-Sign Co-Sign Detail Recorded Client Recorded Date Recorded By Document 06/24/18 13:17 DV [id number] 06/24/18 13:25 DV Document 07/01/18 14:14 DV [id number] 07/01/18 14:29 DV 06/24/18 07/01/18 13:17 14:14 Wound Center Nurse 2 #5 Right Achilles -Time 13:19 14:14 -Correct Patient Yes Yes -Correct Side, Site, Position Yes Yes -Correct Procedure Yes Yes -Procedure Performed Yes Yes -Type of Procedure Debridement Debridement -Clinical Debridement Subcutaneous Subcutaneous -Post Debridement Size (cm) - Length 9.8 9.7 -Post Debridement Size (cm) - Width 7.7 7.5 -Post Debridement Size (cm) - Depth 0.1 0.1 -Total Square Cm 75.46 72.75 -Wound/Ulcer Outcome Not Healed Not Healed -Ulcer Cleansing Rinsed/ Rinsed/ Irrigated with Irrigated with Saline Saline -Foul Odor after Cleansing No No -Bioengineered Tissue No No -Bleeding Controlled with Pressure Pressure -Offloading No No -Treatment Response Procedure Procedure Tolerated Well Tolerated Well #4 Lateral RLE -Time 13:19 14:16 -Correct Patient Yes Yes -Correct Side, Site, Position Yes Yes -Correct Procedure Yes Yes -Procedure Performed Yes Yes -Type of Procedure Debridement Debridement -Clinical Debridement Subcutaneous Subcutaneous -Post Debridement Size (cm) - Length 5.6 5.4 -Post Debridement Size (cm) - Width 6.0 5.1 -Post Debridement Size (cm) - Depth 0.1 0.1 -Total Square Cm 33.60 27.54 -Wound/Ulcer Outcome Not Healed Not Healed -Ulcer Cleansing Rinsed/ Rinsed/ Irrigated with Irrigated with Saline Saline -Foul Odor after Cleansing No No -Bioengineered Tissue No No -Bleeding Controlled with Pressure Pressure -Offloading No No -Treatment Response Procedure Procedure Tolerated Well Tolerated Well Pain Scale: 0-10 Numeric Is Patient Pain Free? Yes Yes Wound debrided: right achilles Laterality: Right Type of Debridement: Excisional debridement Anesthesia Used: 4% Lidocaine Solution, 5% Lidocaine Gel Depth: Down to and including healthy tissue, in the subcutaneous layer Percentage of wound debrided: 100 Instrument Used: 5mm curette Tissue Removed: yellow slough, devitalized tissue Severity: Fat Layer Exposed Amount of bleeding with debridement: Mild Bleeding Controlled with: Compression and gauze Patient tolerated procedure well - Additional Wound Wound debrided: right medial LE Laterality: Right Type of Debridement: Excisional debridement Anesthesia Used: 4% Lidocaine Solution, 5% Lidocaine Gel Depth: Down to and including healthy tissue, in the subcutaneous layer Percentage of wound debrided: 100 Instrument Used: 5mm curette Tissue Removed: yellow slough, devitalized tissue Severity: Fat Layer Exposed Amount of bleeding with debridement: Mild Bleeding Controlled with: Compression and gauze Patient tolerated procedure: Patient tolerated procedure well Assessment/Plan Active Problems Venous stasis ulcer of right ankle with fat layer exposed (Chronic) posterior and medial ankle MRSA cellulitis (Acute) Spina bifida (Chronic) Venous stasis dermatitis of both lower extremities (Chronic) History of cerebral palsy (Chronic) Assessment: 1) recurrent pressure ulcer of posterior leg in paraplegic w/spina bifida. Healing is very slow and likely because of poor quality of tissues. Offload boots seem very adequate. 2) venous stasis and edema Plan: Shahzad's ulcers were evaluated today. He has chronic edema and noncompliance. He is tolerating Aquacel Extra changed daily and offloading booties to decrease pressure to his heels. He will continue tubigrips for compression. Encouraged increased protein intake and offloading. Will f/u in 1 week.
[2018-07-08 12:50] VITALS: BP 141/72; PULSE 118; RESP 20; TEMP 36.9; BMI 33.2
--- NOTE | 2018-07-08 17:08 | PCM.WC.PN ---
(1) Venous stasis ulcer of right ankle with fat layer exposed Status: Chronic Current Visit: Yes Qualifiers: Varicose vein presence: without varicose veins Code(s): I83.013 - Varicose veins of right lower extremity with ulcer of ankle; L97.312 - Non-pressure chronic ulcer of right ankle with fat layer exposed Comment: posterior and medial ankle (2) MRSA cellulitis Status: Acute Current Visit: Yes Code(s): L03.90 - Cellulitis, unspecified; B95.62 - Methicillin resistant Staphylococcus aureus infection as the cause of diseases classified elsewhere (3) Spina bifida Status: Chronic Current Visit: Yes Qualifiers: Spinal region: unspecified Presence of hydrocephalus: unspecified hydrocephalus presence Qualified Code(s): Q05.9 - Spina bifida, unspecified Code(s): Q05.9 - Spina bifida, unspecified (4) Venous stasis dermatitis of both lower extremities Status: Chronic Current Visit: Yes Code(s): I83.11 - Varicose veins of right lower extremity with inflammation; I83.12 - Varicose veins of left lower extremity with inflammation (5) History of cerebral palsy Status: Chronic Current Visit: Yes Code(s): Z86.69 - Personal history of other diseases of the nervous system and sense organs Type of Wound Date of Service: 07/08/18 Chief Complaint: recurrent R posterior and lateral ankle, 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 He has very damaged tissues of his legs and this is one of multiple recurrent pressure ulcers that he develops in this edematous R lower leg/ankle. He isn't sure when this reoccurred but thinks it has been since January or February. He has been treated by wound care nurse at [facility] where he resides. He has almost been healed several times but has never healed completely. It looks like Drawtex is what they have been using on the ulcer. A culture was done April 2018 which was positive for Pseudomonas. He was on an antibiotic but is no longer taking it. He reports that the ulcer is very painful. He reports that he has been in his bed mostly and elevates his legs/feet with a pillow under his calf and denies pressure on his heel. He also states that he has tubigrips that he usually wears but did not wear them today due to coming here for evaluation. Progress of Wound: Shahzad is here for follow up for wound care of ulcers of his right lower leg. He completed antibiotic treatment. There has been improvement of his ulcers. He is tolerating Aquacel xtra and tubigrips and using a foam bootie to offload his posterior leg. He denies fever or chills, increased drainage. - Physical Exam Vital Signs Temp Pulse Resp BP 98.4 F 118 H 20 H 141/72 H 07/08/18 12:50 07/08/18 12:50 07/08/18 12:50 07/08/18 12:50 General: Alert, Oriented x3, Cooperative, No apparent distress HEENT: Atraumatic, Normocephalic Oral: Moist Mucosa Extremities: Edema Skin: Ulcer/ Wound Wound Measurements and Assessment WC - Nurse 1 - General Ulcer Measurement Start: 06/24/18 12:18 Freq: Status: Active Protocol: Activity Type Activity Date Activity User E-Sign Co-Sign Detail Recorded Client Recorded Date Recorded By Document 07/08/18 12:50 [facility] [id number] 07/08/18 12:58 [facility] 07/08/18 12:50 Wound Center Nurse 1 [Ulcer Assessment] #5 Right Achilles -Combined with other wound No -Current Size (cm) - Length 6.8 -Current Size (cm) - Width 5.3 -Current Size (cm) - Depth 0.1 -Total Square Cm 36.04 -Date of Last Picture (Recall this 07/08/18 field) -Photo Taken Yes -Epithelialization Small 1-33% -Tunneling No -Undermining/Tunneling No -Circular Undermining No -Exudate Amt Medium -Exudate Type Serosanguineous -Wound Margin Flat & Intact -Granulation Amt Large (67-100%) -Granulation Quality Red -Slough/Fibrin Yes -Necrosis Amt Small (1-33%) -Necrotic Tissue Type Adherent Slough -Texture (Sanam-wound Skin Appearance) Scarring -Moisture (Sanam-wound Skin Appearance Dry/Scaly ) -Color (Sanam-wound Skin Appearance) Ecchymosis Erythema -Temperature (Sanam-wound Skin No Abnormality Appearance) (Pt Warm) -Tenderness on Palpation (Sanam-wound Yes Skin Appearance) -Ulcer Cleansing Wound Cleanser -Foul Odor after Cleansing No -Anesthetic Used 4% Lidocaine Solution 5% Lidocaine Gel #4 Lateral RLE -Combined with other wound No -Current Size (cm) - Length 4.6 -Current Size (cm) - Width 3.9 -Current Size (cm) - Depth 0.1 -Total Square Cm 17.94 -Date of Last Picture (Recall this 07/08/18 field) -Photo Taken Yes -Epithelialization Small 1-33% -Tunneling No -Undermining/Tunneling No -Circular Undermining No -Exudate Amt Medium -Exudate Type Serosanguineous -Wound Margin Flat & Intact -Granulation Amt Large (67-100%) -Granulation Quality Red -Slough/Fibrin Yes -Necrosis Amt Small (1-33%) -Necrotic Tissue Type Adherent Slough -Texture (Sanam-wound Skin Appearance) Scarring -Moisture (Sanam-wound Skin Appearance Dry/Scaly ) -Color (Sanam-wound Skin Appearance) Ecchymosis Erythema -Temperature (Sanam-wound Skin No Abnormality Appearance) (Pt Warm) -Tenderness on Palpation (Sanam-wound Yes Skin Appearance) -Ulcer Cleansing Wound Cleanser -Foul Odor after Cleansing No -Anesthetic Used 4% Lidocaine Solution 5% Lidocaine Gel [Edema Assessment] -Lower Limb Edema Present Yes -Right Calf (cm) 43.7 -Right Ankle (cm) 21.7 WC - Nurse 2 - General Ulcer CM Notes Start: 06/24/18 12:18 Freq: Status: Active Protocol: Activity Type Activity Date Activity User E-Sign Co-Sign Detail Recorded Client Recorded Date Recorded By Document 07/08/18 14:06 DV [id number] 07/08/18 14:15 DV 07/08/18 14:06 Wound Center Nurse 2 [Procedure/Treatment] #5 Right Achilles -Time 14:08 -Correct Patient Yes -Correct Side, Site, Position Yes -Correct Procedure Yes -Procedure Performed Yes -Type of Procedure Debridement -Clinical Debridement Subcutaneous -Post Debridement Size (cm) - Length 6.8 -Post Debridement Size (cm) - Width 6.8 -Post Debridement Size (cm) - Depth 0.1 -Total Square Cm 46.24 -Wound/Ulcer Outcome Healed- Epithelialized -Ulcer Cleansing Rinsed/ Irrigated with Saline -Foul Odor after Cleansing No -Bleeding Controlled with Pressure -Offloading No -Treatment Response Procedure Tolerated Well #4 Lateral RLE -Time 14:10 -Correct Patient Yes -Correct Side, Site, Position Yes -Correct Procedure Yes -Procedure Performed Yes -Type of Procedure Debridement -Clinical Debridement Subcutaneous -Post Debridement Size (cm) - Length 4.4 -Post Debridement Size (cm) - Width 4.0 -Post Debridement Size (cm) - Depth 0.1 -Total Square Cm 17.60 -Wound/Ulcer Outcome Not Healed -Ulcer Cleansing Rinsed/ Irrigated with Saline -Foul Odor after Cleansing No -Bioengineered Tissue No -Bleeding Controlled with Pressure -Offloading No -Treatment Response Procedure Tolerated Well [See Physician Procedure note for Specifics] Pain Scale: 0-10 Numeric [Pain] -Is Patient Pain Free? Yes Psych/Mental Status: Normal Affect, Appropriate Debridement Note Post-Debridement Measurements/Treatment WC - Nurse 2 - General Ulcer CM Notes Start: 06/24/18 12:18 Freq: Status: Active Protocol: Activity Type Activity Date Activity User E-Sign Co-Sign Detail Recorded Client Recorded Date Recorded By Document 06/24/18 13:17 DV [id number] 06/24/18 13:25 DV Document 07/01/18 14:14 DV [id number] 07/01/18 14:29 DV Document 07/08/18 14:06 DV [id number] 07/08/18 14:15 DV 06/24/18 07/01/18 07/08/18 13:17 14:14 14:06 Wound Center Nurse 2 #5 Right Achilles -Time 13:19 14:14 14:08 -Correct Patient Yes Yes Yes -Correct Side, Site, Position Yes Yes Yes -Correct Procedure Yes Yes Yes -Procedure Performed Yes Yes Yes -Type of Procedure Debridement Debridement Debridement -Clinical Debridement Subcutaneous Subcutaneous Subcutaneous -Post Debridement Size (cm) - Length 9.8 9.7 6.8 -Post Debridement Size (cm) - Width 7.7 7.5 6.8 -Post Debridement Size (cm) - Depth 0.1 0.1 0.1 -Total Square Cm 75.46 72.75 46.24 -Wound/Ulcer Outcome Not Healed Not Healed Healed- Epithelialized -Ulcer Cleansing Rinsed/ Rinsed/ Rinsed/ Irrigated with Irrigated with Irrigated with Saline Saline Saline -Foul Odor after Cleansing No No No -Bioengineered Tissue No No -Bleeding Controlled with Pressure Pressure Pressure -Offloading No No No -Treatment Response Procedure Procedure Procedure Tolerated Well Tolerated Well Tolerated Well #4 Lateral RLE -Time 13:19 14:16 14:10 -Correct Patient Yes Yes Yes -Correct Side, Site, Position Yes Yes Yes -Correct Procedure Yes Yes Yes -Procedure Performed Yes Yes Yes -Type of Procedure Debridement Debridement Debridement -Clinical Debridement Subcutaneous Subcutaneous Subcutaneous -Post Debridement Size (cm) - Length 5.6 5.4 4.4 -Post Debridement Size (cm) - Width 6.0 5.1 4.0 -Post Debridement Size (cm) - Depth 0.1 0.1 0.1 -Total Square Cm 33.60 27.54 17.60 -Wound/Ulcer Outcome Not Healed Not Healed Not Healed -Ulcer Cleansing Rinsed/ Rinsed/ Rinsed/ Irrigated with Irrigated with Irrigated with Saline Saline Saline -Foul Odor after Cleansing No No No -Bioengineered Tissue No No No -Bleeding Controlled with Pressure Pressure Pressure -Offloading No No No -Treatment Response Procedure Procedure Procedure Tolerated Well Tolerated Well Tolerated Well Pain Scale: 0-10 Numeric Is Patient Pain Free? Yes Yes Yes Wound debrided: right achilles Laterality: Right Type of Debridement: Excisional debridement Anesthesia Used: 4% Lidocaine Solution, 5% Lidocaine Gel Depth: Down to and including healthy tissue, in the subcutaneous layer Percentage of wound debrided: 100 Instrument Used: 5mm curette Tissue Removed: yellow slough, devitalized tissue Severity: Fat Layer Exposed Amount of bleeding with debridement: Mild Bleeding Controlled with: Compression and gauze Patient tolerated procedure well - Additional Wound Wound debrided: lateral RLE Laterality: Right Type of Debridement: Excisional debridement Anesthesia Used: 4% Lidocaine Solution, 5% Lidocaine Gel Depth: Down to and including healthy tissue, in the subcutaneous layer Percentage of wound debrided: 100 Instrument Used: 5mm curette Tissue Removed: yellow slough, devitalized tissue Severity: Fat Layer Exposed Amount of bleeding with debridement: Mild Bleeding Controlled with: Compression and gauze Patient tolerated procedure: Patient tolerated procedure well Assessment/Plan Active Problems Venous stasis ulcer of right ankle with fat layer exposed (Chronic) posterior and medial ankle MRSA cellulitis (Acute) Spina bifida (Chronic) Venous stasis dermatitis of both lower extremities (Chronic) History of cerebral palsy (Chronic) Assessment: 1) recurrent pressure ulcer of posterior leg in paraplegic w/spina bifida. Healing is very slow and likely because of poor quality of tissues. Offload boots seem very adequate. 2) venous stasis and edema Plan: Shahzad's ulcers were evaluated today. He has chronic edema and noncompliance. He is tolerating Aquacel Extra changed daily and offloading booties to decrease pressure to his heels. Will add adaptic to the right lateral ulcer. He will continue tubigrips for compression. Encouraged increased protein intake and offloading. Will f/u in 1 week.
--- NOTE | 2018-07-08 17:13 | PN.PCM_ITS ---
(1) Venous stasis ulcer of right ankle with fat layer exposed Status: Chronic Current Visit: Yes Qualifiers: Varicose vein presence: without varicose veins Code(s): I83.013 - Varicose veins of right lower extremity with ulcer of ankle; L97.312 - Non-pressure chronic ulcer of right ankle with fat layer exposed Comment: posterior and medial ankle (2) MRSA cellulitis Status: Acute Current Visit: Yes Code(s): L03.90 - Cellulitis, unspecified; B95.62 - Methicillin resistant Staphylococcus aureus infection as the cause of diseases classified elsewhere (3) Spina bifida Status: Chronic Current Visit: Yes Qualifiers: Spinal region: unspecified Presence of hydrocephalus: unspecified hydrocephalus presence Qualified Code(s): Q05.9 - Spina bifida, unspecified Code(s): Q05.9 - Spina bifida, unspecified (4) Venous stasis dermatitis of both lower extremities Status: Chronic Current Visit: Yes Code(s): I83.11 - Varicose veins of right lower extremity with inflammation; I83.12 - Varicose veins of left lower extremity with inflammation (5) History of cerebral palsy Status: Chronic Current Visit: Yes Code(s): Z86.69 - Personal history of other diseases of the nervous system and sense organs Type of Wound Date of Service: 07/08/18 Chief Complaint: recurrent R posterior and lateral ankle, 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 He has very damaged tissues of his legs and this is one of multiple recurrent pressure ulcers that he develops in this edematous R lower leg/ankle. He isn't sure when this reoccurred but thinks it has been since January or February. He has been treated by wound care nurse at [facility] where he resides. He has almost been healed several times but has never healed completely. It looks like Drawtex is what they have been using on the ulcer. A culture was done April 2018 which was positive for Pseudomonas. He was on an antibiotic but is no longer taking it. He reports that the ulcer is very painful. He reports that he has been in his bed mostly and elevates his legs/feet with a pillow under his calf and denies pressure on his heel. He also states that he has tubigrips that he usually wears but did not wear them today due to coming here for evaluation. Progress of Wound: Shahzad is here for follow up for wound care of ulcers of his right lower leg. He completed antibiotic treatment. There has been improvement of his ulcers. He is tolerating Aquacel xtra and tubigrips and using a foam bootie to offload his posterior leg. He denies fever or chills, increased drainage. - Physical Exam Vital Signs Temp Pulse Resp BP 98.4 F 118 H 20 H 141/72 H 07/08/18 12:50 07/08/18 12:50 07/08/18 12:50 07/08/18 12:50 General: Alert, Oriented x3, Cooperative, No apparent distress HEENT: Atraumatic, Normocephalic Oral: Moist Mucosa Extremities: Edema Skin: Ulcer/ Wound Wound Measurements and Assessment WC - Nurse 1 - General Ulcer Measurement Start: 06/24/18 12:18 Freq: Status: Active Protocol: Activity Type Activity Date Activity User E-Sign Co-Sign Detail Recorded Client Recorded Date Recorded By Document 07/08/18 12:50 [facility] [id number] 07/08/18 12:58 [facility] 07/08/18 12:50 Wound Center Nurse 1 [Ulcer Assessment] #5 Right Achilles -Combined with other wound No -Current Size (cm) - Length 6.8 -Current Size (cm) - Width 5.3 -Current Size (cm) - Depth 0.1 -Total Square Cm 36.04 -Date of Last Picture (Recall this 07/08/18 field) -Photo Taken Yes -Epithelialization Small 1-33% -Tunneling No -Undermining/Tunneling No -Circular Undermining No -Exudate Amt Medium -Exudate Type Serosanguineous -Wound Margin Flat & Intact -Granulation Amt Large (67-100%) -Granulation Quality Red -Slough/Fibrin Yes -Necrosis Amt Small (1-33%) -Necrotic Tissue Type Adherent Slough -Texture (Sanam-wound Skin Appearance) Scarring -Moisture (Sanam-wound Skin Appearance Dry/Scaly ) -Color (Sanam-wound Skin Appearance) Ecchymosis Erythema -Temperature (Sanam-wound Skin No Abnormality Appearance) (Pt Warm) -Tenderness on Palpation (Sanam-wound Yes Skin Appearance) -Ulcer Cleansing Wound Cleanser -Foul Odor after Cleansing No -Anesthetic Used 4% Lidocaine Solution 5% Lidocaine Gel #4 Lateral RLE -Combined with other wound No -Current Size (cm) - Length 4.6 -Current Size (cm) - Width 3.9 -Current Size (cm) - Depth 0.1 -Total Square Cm 17.94 -Date of Last Picture (Recall this 07/08/18 field) -Photo Taken Yes -Epithelialization Small 1-33% -Tunneling No -Undermining/Tunneling No -Circular Undermining No -Exudate Amt Medium -Exudate Type Serosanguineous -Wound Margin Flat & Intact -Granulation Amt Large (67-100%) -Granulation Quality Red -Slough/Fibrin Yes -Necrosis Amt Small (1-33%) -Necrotic Tissue Type Adherent Slough -Texture (Sanam-wound Skin Appearance) Scarring -Moisture (Sanam-wound Skin Appearance Dry/Scaly ) -Color (Sanam-wound Skin Appearance) Ecchymosis Erythema -Temperature (Sanam-wound Skin No Abnormality Appearance) (Pt Warm) -Tenderness on Palpation (Sanam-wound Yes Skin Appearance) -Ulcer Cleansing Wound Cleanser -Foul Odor after Cleansing No -Anesthetic Used 4% Lidocaine Solution 5% Lidocaine Gel [Edema Assessment] -Lower Limb Edema Present Yes -Right Calf (cm) 43.7 -Right Ankle (cm) 21.7 WC - Nurse 2 - General Ulcer CM Notes Start: 06/24/18 12:18 Freq: Status: Active Protocol: Activity Type Activity Date Activity User E-Sign Co-Sign Detail Recorded Client Recorded Date Recorded By Document 07/08/18 14:06 DV [id number] 07/08/18 14:15 DV 07/08/18 14:06 Wound Center Nurse 2 [Procedure/Treatment] #5 Right Achilles -Time 14:08 -Correct Patient Yes -Correct Side, Site, Position Yes -Correct Procedure Yes -Procedure Performed Yes -Type of Procedure Debridement -Clinical Debridement Subcutaneous -Post Debridement Size (cm) - Length 6.8 -Post Debridement Size (cm) - Width 6.8 -Post Debridement Size (cm) - Depth 0.1 -Total Square Cm 46.24 -Wound/Ulcer Outcome Healed- Epithelialized -Ulcer Cleansing Rinsed/ Irrigated with Saline -Foul Odor after Cleansing No -Bleeding Controlled with Pressure -Offloading No -Treatment Response Procedure Tolerated Well #4 Lateral RLE -Time 14:10 -Correct Patient Yes -Correct Side, Site, Position Yes -Correct Procedure Yes -Procedure Performed Yes -Type of Procedure Debridement -Clinical Debridement Subcutaneous -Post Debridement Size (cm) - Length 4.4 -Post Debridement Size (cm) - Width 4.0 -Post Debridement Size (cm) - Depth 0.1 -Total Square Cm 17.60 -Wound/Ulcer Outcome Not Healed -Ulcer Cleansing Rinsed/ Irrigated with Saline -Foul Odor after Cleansing No -Bioengineered Tissue No -Bleeding Controlled with Pressure -Offloading No -Treatment Response Procedure Tolerated Well [See Physician Procedure note for Specifics] Pain Scale: 0-10 Numeric [Pain] -Is Patient Pain Free? Yes Psych/Mental Status: Normal Affect, Appropriate Debridement Note Post-Debridement Measurements/Treatment WC - Nurse 2 - General Ulcer CM Notes Start: 06/24/18 12:18 Freq: Status: Active Protocol: Activity Type Activity Date Activity User E-Sign Co-Sign Detail Recorded Client Recorded Date Recorded By Document 06/24/18 13:17 DV [id number] 06/24/18 13:25 DV Document 07/01/18 14:14 DV [id number] 07/01/18 14:29 DV Document 07/08/18 14:06 DV [id number] 07/08/18 14:15 DV 06/24/18 07/01/18 07/08/18 13:17 14:14 14:06 Wound Center Nurse 2 #5 Right Achilles -Time 13:19 14:14 14:08 -Correct Patient Yes Yes Yes -Correct Side, Site, Position Yes Yes Yes -Correct Procedure Yes Yes Yes -Procedure Performed Yes Yes Yes -Type of Procedure Debridement Debridement Debridement -Clinical Debridement Subcutaneous Subcutaneous Subcutaneous -Post Debridement Size (cm) - Length 9.8 9.7 6.8 -Post Debridement Size (cm) - Width 7.7 7.5 6.8 -Post Debridement Size (cm) - Depth 0.1 0.1 0.1 -Total Square Cm 75.46 72.75 46.24 -Wound/Ulcer Outcome Not Healed Not Healed Healed- Epithelialized -Ulcer Cleansing Rinsed/ Rinsed/ Rinsed/ Irrigated with Irrigated with Irrigated with Saline Saline Saline -Foul Odor after Cleansing No No No -Bioengineered Tissue No No -Bleeding Controlled with Pressure Pressure Pressure -Offloading No No No -Treatment Response Procedure Procedure Procedure Tolerated Well Tolerated Well Tolerated Well #4 Lateral RLE -Time 13:19 14:16 14:10 -Correct Patient Yes Yes Yes -Correct Side, Site, Position Yes Yes Yes -Correct Procedure Yes Yes Yes -Procedure Performed Yes Yes Yes -Type of Procedure Debridement Debridement Debridement -Clinical Debridement Subcutaneous Subcutaneous Subcutaneous -Post Debridement Size (cm) - Length 5.6 5.4 4.4 -Post Debridement Size (cm) - Width 6.0 5.1 4.0 -Post Debridement Size (cm) - Depth 0.1 0.1 0.1 -Total Square Cm 33.60 27.54 17.60 -Wound/Ulcer Outcome Not Healed Not Healed Not Healed -Ulcer Cleansing Rinsed/ Rinsed/ Rinsed/ Irrigated with Irrigated with Irrigated with Saline Saline Saline -Foul Odor after Cleansing No No No -Bioengineered Tissue No No No -Bleeding Controlled with Pressure Pressure Pressure -Offloading No No No -Treatment Response Procedure Procedure Procedure Tolerated Well Tolerated Well Tolerated Well Pain Scale: 0-10 Numeric Is Patient Pain Free? Yes Yes Yes Wound debrided: right achilles Laterality: Right Type of Debridement: Excisional debridement Anesthesia Used: 4% Lidocaine Solution, 5% Lidocaine Gel Depth: Down to and including healthy tissue, in the subcutaneous layer Percentage of wound debrided: 100 Instrument Used: 5mm curette Tissue Removed: yellow slough, devitalized tissue Severity: Fat Layer Exposed Amount of bleeding with debridement: Mild Bleeding Controlled with: Compression and gauze Patient tolerated procedure well - Additional Wound Wound debrided: lateral RLE Laterality: Right Type of Debridement: Excisional debridement Anesthesia Used: 4% Lidocaine Solution, 5% Lidocaine Gel Depth: Down to and including healthy tissue, in the subcutaneous layer Percentage of wound debrided: 100 Instrument Used: 5mm curette Tissue Removed: yellow slough, devitalized tissue Severity: Fat Layer Exposed Amount of bleeding with debridement: Mild Bleeding Controlled with: Compression and gauze Patient tolerated procedure: Patient tolerated procedure well Assessment/Plan Active Problems Venous stasis ulcer of right ankle with fat layer exposed (Chronic) posterior and medial ankle MRSA cellulitis (Acute) Spina bifida (Chronic) Venous stasis dermatitis of both lower extremities (Chronic) History of cerebral palsy (Chronic) Assessment: 1) recurrent pressure ulcer of posterior leg in paraplegic w/spina bifida. Healing is very slow and likely because of poor quality of tissues. Offload boots seem very adequate. 2) venous stasis and edema Plan: Shahzad's ulcers were evaluated today. He has chronic edema and noncompliance. He is tolerating Aquacel Extra changed daily and offloading booties to decrease pressure to his heels. Will add adaptic to the right lateral ulcer. He will continue tubigrips for compression. Encouraged increased protein intake and offloading. Will f/u in 1 week.
[2018-07-15 13:00] VITALS: BP 126/69; PULSE 112; RESP 16; TEMP 36.4; BMI 33.2
--- NOTE | 2018-07-15 17:27 | PCM.WC.PN ---
(1) Venous stasis ulcer of right ankle with fat layer exposed Status: Chronic Current Visit: Yes Qualifiers: Varicose vein presence: without varicose veins Code(s): I83.013 - Varicose veins of right lower extremity with ulcer of ankle; L97.312 - Non-pressure chronic ulcer of right ankle with fat layer exposed Comment: posterior and medial ankle (2) MRSA cellulitis Status: Resolved Current Visit: Yes Code(s): L03.90 - Cellulitis, unspecified; B95.62 - Methicillin resistant Staphylococcus aureus infection as the cause of diseases classified elsewhere (3) Spina bifida Status: Chronic Current Visit: Yes Qualifiers: Spinal region: unspecified Presence of hydrocephalus: unspecified hydrocephalus presence Qualified Code(s): Q05.9 - Spina bifida, unspecified Code(s): Q05.9 - Spina bifida, unspecified (4) Venous stasis dermatitis of both lower extremities Status: Chronic Current Visit: Yes Code(s): I83.11 - Varicose veins of right lower extremity with inflammation; I83.12 - Varicose veins of left lower extremity with inflammation (5) History of cerebral palsy Status: Chronic Current Visit: Yes Code(s): Z86.69 - Personal history of other diseases of the nervous system and sense organs Type of Wound Date of Service: 07/15/18 Chief Complaint: recurrent R posterior and lateral ankle, 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 He has very damaged tissues of his legs and this is one of multiple recurrent pressure ulcers that he develops in this edematous R lower leg/ankle. He isn't sure when this reoccurred but thinks it has been since January or February. He has been treated by wound care nurse at [facility] where he resides. He has almost been healed several times but has never healed completely. It looks like Drawtex is what they have been using on the ulcer. A culture was done April 2018 which was positive for Pseudomonas. He was on an antibiotic but is no longer taking it. He reports that the ulcer is very painful. He reports that he has been in his bed mostly and elevates his legs/feet with a pillow under his calf and denies pressure on his heel. He also states that he has tubigrips that he usually wears but did not wear them today due to coming here for evaluation. Progress of Wound: Shahzad is here for follow up for wound care of ulcers of his right lower leg. He completed antibiotic treatment. There has been improvement of his ulcers. He is tolerating Aquacel xtra and tubigrips and using a foam bootie to offload his posterior leg. He denies fever or chills, increased drainage. - Physical Exam Vital Signs Temp Pulse Resp BP 97.5 F L 112 H 16 126/69 H 07/15/18 13:00 07/15/18 13:00 07/15/18 13:00 07/15/18 13:00 General: Alert, Oriented x3, Cooperative, No apparent distress HEENT: Atraumatic, Normocephalic Oral: Moist Mucosa Abdomen: Obese Extremities: Edema Skin: Ulcer/ Wound Wound Measurements and Assessment WC - Nurse 1 - General Ulcer Measurement Start: 06/24/18 12:18 Freq: Status: Active Protocol: Activity Type Activity Date Activity User E-Sign Co-Sign Detail Recorded Client Recorded Date Recorded By Document 07/15/18 13:00 [facility] [id number] 07/15/18 13:09 [facility] 07/15/18 13:00 Wound Center Nurse 1 [Ulcer Assessment] #5 Right Achilles -Combined with other wound No -Current Size (cm) - Length 6.7 -Current Size (cm) - Width 5 -Current Size (cm) - Depth 0.1 -Total Square Cm 33.5 -Photo Taken No -Epithelialization Small 1-33% -Tunneling No -Undermining/Tunneling No -Circular Undermining No -Exudate Amt Large -Exudate Type Purulent -Wound Margin Distinct, Outline Attached -Granulation Amt Large (67-100%) -Granulation Quality Red -Slough/Fibrin Yes -Necrosis Amt Small (1-33%) -Necrotic Tissue Type Adherent Slough -Texture (Sanam-wound Skin Appearance) Assessed Scarring -Moisture (Sanam-wound Skin Appearance Assessed ) Maceration -Color (Sanam-wound Skin Appearance) Assessed Erythema Hemosiderin Staining Palor -Temperature (Sanam-wound Skin No Abnormality Appearance) (Pt Warm) -Tenderness on Palpation (Sanam-wound Yes Skin Appearance) -Ulcer Cleansing Wound Cleanser -Foul Odor after Cleansing No -Anesthetic Used 4% Lidocaine Solution #4 Lateral RLE -Combined with other wound No -Current Size (cm) - Length 4.1 -Current Size (cm) - Width 4.1 -Current Size (cm) - Depth 0.1 -Total Square Cm 16.81 -Photo Taken No -Epithelialization Small 1-33% -Tunneling No -Undermining/Tunneling No -Circular Undermining No -Exudate Amt Large -Exudate Type Purulent -Wound Margin Distinct, Outline Attached -Granulation Amt Large (67-100%) -Granulation Quality Red -Slough/Fibrin Yes -Necrosis Amt Small (1-33%) -Necrotic Tissue Type Adherent Slough -Texture (Sanam-wound Skin Appearance) Assessed Scarring -Moisture (Sanam-wound Skin Appearance Assessed ) Maceration Dry/Scaly -Color (Sanam-wound Skin Appearance) Assessed Erythema Hemosiderin Staining Palor -Temperature (Sanam-wound Skin No Abnormality Appearance) (Pt Warm) -Tenderness on Palpation (Sanam-wound Yes Skin Appearance) -Ulcer Cleansing Wound Cleanser -Foul Odor after Cleansing No -Anesthetic Used 4% Lidocaine Solution [Edema Assessment] -Lower Limb Edema Present Yes -Right Calf (cm) 45 -Right Ankle (cm) 21.8 WC - Nurse 2 - General Ulcer CM Notes Start: 06/24/18 12:18 Freq: Status: Active Protocol: Activity Type Activity Date Activity User E-Sign Co-Sign Detail Recorded Client Recorded Date Recorded By Document 07/15/18 13:44 DV [id number] 07/15/18 13:51 DV 07/15/18 13:44 Wound Center Nurse 2 [Procedure/Treatment] #5 Right Achilles -Time 13:44 -Correct Patient Yes -Correct Side, Site, Position Yes -Correct Procedure Yes -Procedure Performed Yes -Type of Procedure Debridement -Clinical Debridement Subcutaneous -Post Debridement Size (cm) - Length 7.5 -Post Debridement Size (cm) - Width 7.0 -Post Debridement Size (cm) - Depth 0.1 -Total Square Cm 52.50 -Wound/Ulcer Outcome Not Healed -Ulcer Cleansing Rinsed/ Irrigated with Saline -Foul Odor after Cleansing No -Bioengineered Tissue No -Bleeding Controlled with Pressure -Offloading Yes -Treatment Response Procedure Not Tolerated Well #4 Lateral RLE -Time 13:44 -Correct Patient Yes -Correct Side, Site, Position Yes -Correct Procedure Yes -Procedure Performed Yes -Type of Procedure Debridement -Clinical Debridement Subcutaneous -Post Debridement Size (cm) - Length 4.3 -Post Debridement Size (cm) - Width 3.8 -Post Debridement Size (cm) - Depth 0.1 -Total Square Cm 16.34 -Wound/Ulcer Outcome Not Healed -Ulcer Cleansing Rinsed/ Irrigated with Saline -Foul Odor after Cleansing No -Bioengineered Tissue No -Bleeding Controlled with Pressure -Offloading Yes -Treatment Response Procedure Not Tolerated Well [See Physician Procedure note for Specifics] Pain Scale: 0-10 Numeric [Pain] -Is Patient Pain Free? Yes Psych/Mental Status: Normal Affect, Appropriate Debridement Note Post-Debridement Measurements/Treatment WC - Nurse 2 - General Ulcer CM Notes Start: 06/24/18 12:18 Freq: Status: Active Protocol: Activity Type Activity Date Activity User E-Sign Co-Sign Detail Recorded Client Recorded Date Recorded By Document 06/24/18 13:17 DV [id number] 06/24/18 13:25 DV Document 07/01/18 14:14 DV [id number] 07/01/18 14:29 DV Document 07/08/18 14:06 DV [id number] 07/08/18 14:15 DV Document 07/15/18 13:44 DV [id number] 07/15/18 13:51 DV 06/24/18 07/01/18 07/08/18 13:17 14:14 14:06 Wound Center Nurse 2 #5 Right Achilles -Time 13:19 14:14 14:08 -Correct Patient Yes Yes Yes -Correct Side, Site, Position Yes Yes Yes -Correct Procedure Yes Yes Yes -Procedure Performed Yes Yes Yes -Type of Procedure Debridement Debridement Debridement -Clinical Debridement Subcutaneous Subcutaneous Subcutaneous -Post Debridement Size (cm) - Length 9.8 9.7 6.8 -Post Debridement Size (cm) - Width 7.7 7.5 6.8 -Post Debridement Size (cm) - Depth 0.1 0.1 0.1 -Total Square Cm 75.46 72.75 46.24 -Wound/Ulcer Outcome Not Healed Not Healed Healed- Epithelialized -Ulcer Cleansing Rinsed/ Rinsed/ Rinsed/ Irrigated with Irrigated with Irrigated with Saline Saline Saline -Foul Odor after Cleansing No No No -Bioengineered Tissue No No -Bleeding Controlled with Pressure Pressure Pressure -Offloading No No No -Treatment Response Procedure Procedure Procedure Tolerated Well Tolerated Well Tolerated Well #4 Lateral RLE -Time 13:19 14:16 14:10 -Correct Patient Yes Yes Yes -Correct Side, Site, Position Yes Yes Yes -Correct Procedure Yes Yes Yes -Procedure Performed Yes Yes Yes -Type of Procedure Debridement Debridement Debridement -Clinical Debridement Subcutaneous Subcutaneous Subcutaneous -Post Debridement Size (cm) - Length 5.6 5.4 4.4 -Post Debridement Size (cm) - Width 6.0 5.1 4.0 -Post Debridement Size (cm) - Depth 0.1 0.1 0.1 -Total Square Cm 33.60 27.54 17.60 -Wound/Ulcer Outcome Not Healed Not Healed Not Healed -Ulcer Cleansing Rinsed/ Rinsed/ Rinsed/ Irrigated with Irrigated with Irrigated with Saline Saline Saline -Foul Odor after Cleansing No No No -Bioengineered Tissue No No No -Bleeding Controlled with Pressure Pressure Pressure -Offloading No No No -Treatment Response Procedure Procedure Procedure Tolerated Well Tolerated Well Tolerated Well Pain Scale: 0-10 Numeric Is Patient Pain Free? Yes Yes Yes 07/15/18 13:44 Wound Center Nurse 2 #5 Right Achilles -Time 13:44 -Correct Patient Yes -Correct Side, Site, Position Yes -Correct Procedure Yes -Procedure Performed Yes -Type of Procedure Debridement -Clinical Debridement Subcutaneous -Post Debridement Size (cm) - Length 7.5 -Post Debridement Size (cm) - Width 7.0 -Post Debridement Size (cm) - Depth 0.1 -Total Square Cm 52.50 -Wound/Ulcer Outcome Not Healed -Ulcer Cleansing Rinsed/ Irrigated with Saline -Foul Odor after Cleansing No -Bioengineered Tissue No -Bleeding Controlled with Pressure -Offloading Yes -Treatment Response Procedure Not Tolerated Well #4 Lateral RLE -Time 13:44 -Correct Patient Yes -Correct Side, Site, Position Yes -Correct Procedure Yes -Procedure Performed Yes -Type of Procedure Debridement -Clinical Debridement Subcutaneous -Post Debridement Size (cm) - Length 4.3 -Post Debridement Size (cm) - Width 3.8 -Post Debridement Size (cm) - Depth 0.1 -Total Square Cm 16.34 -Wound/Ulcer Outcome Not Healed -Ulcer Cleansing Rinsed/ Irrigated with Saline -Foul Odor after Cleansing No -Bioengineered Tissue No -Bleeding Controlled with Pressure -Offloading Yes -Treatment Response Procedure Not Tolerated Well Pain Scale: 0-10 Numeric Is Patient Pain Free? Yes Wound debrided: right Achilles Laterality: Right Type of Debridement: Excisional debridement Anesthesia Used: 4% Lidocaine Solution Depth: Down to and including healthy tissue, in the subcutaneous layer Percentage of wound debrided: 100 Instrument Used: 5mm curette Tissue Removed: yellow slough, devitalized tissue Severity: Fat Layer Exposed Amount of bleeding with debridement: Mild Bleeding Controlled with: Compression and gauze Patient tolerated procedure well - Additional Wound Wound debrided: lateral RLE Laterality: Right Type of Debridement: Excisional debridement Anesthesia Used: 4% Lidocaine Solution Depth: Down to and including healthy tissue, in the subcutaneous layer Percentage of wound debrided: 100 Instrument Used: 5mm curette Tissue Removed: yellow slough, devitalized tissue Severity: Fat Layer Exposed Amount of bleeding with debridement: Mild Bleeding Controlled with: Compression and gauze Patient tolerated procedure: Patient tolerated procedure well Assessment/Plan Active Problems Venous stasis ulcer of right ankle with fat layer exposed (Chronic) posterior and medial ankle Spina bifida (Chronic) Venous stasis dermatitis of both lower extremities (Chronic) History of cerebral palsy (Chronic) Assessment: 1) recurrent pressure ulcer of posterior leg in paraplegic w/spina bifida. Healing is very slow and likely because of poor quality of tissues. Offload boots seem very adequate. 2) venous stasis and edema Plan: Shahzad's ulcers were evaluated today. He has chronic edema and noncompliance. He is tolerating Aquacel Extra changed daily and offloading booties to decrease pressure to his heels. His wounds are more granulated/hypergranulated. Will try Hydrofera blue instead of the Aquacel Extra to see if this improves the hypergranulation. He will continue tubigrips for compression. Encouraged increased protein intake and offloading. Will f/u in 1 week.
--- NOTE | 2018-07-15 17:32 | PN.PCM_ITS ---
(1) Venous stasis ulcer of right ankle with fat layer exposed Status: Chronic Current Visit: Yes Qualifiers: Varicose vein presence: without varicose veins Code(s): I83.013 - Varicose veins of right lower extremity with ulcer of ankle; L97.312 - Non-pressure chronic ulcer of right ankle with fat layer exposed Comment: posterior and medial ankle (2) MRSA cellulitis Status: Resolved Current Visit: Yes Code(s): L03.90 - Cellulitis, unspecified; B95.62 - Methicillin resistant Staphylococcus aureus infection as the cause of diseases classified elsewhere (3) Spina bifida Status: Chronic Current Visit: Yes Qualifiers: Spinal region: unspecified Presence of hydrocephalus: unspecified hydrocephalus presence Qualified Code(s): Q05.9 - Spina bifida, unspecified Code(s): Q05.9 - Spina bifida, unspecified (4) Venous stasis dermatitis of both lower extremities Status: Chronic Current Visit: Yes Code(s): I83.11 - Varicose veins of right lower extremity with inflammation; I83.12 - Varicose veins of left lower extremity with inflammation (5) History of cerebral palsy Status: Chronic Current Visit: Yes Code(s): Z86.69 - Personal history of other diseases of the nervous system and sense organs Type of Wound Date of Service: 07/15/18 Chief Complaint: recurrent R posterior and lateral ankle, lower leg pressure 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 He has very damaged tissues of his legs and this is one of multiple recurrent pressure ulcers that he develops in this edematous R lower leg/ankle. He isn't sure when this reoccurred but thinks it has been since January or February. He has been treated by wound care nurse at [facility] [place] where he resides. He has almost been healed several times but has never healed completely. It looks like Drawtex is what they have been using on the ulcer. A culture was done April 2018 which was positive for Pseudomonas. He was on an antibiotic but is no longer taking it. He reports that the ulcer is very painful. He reports that he has been in his bed mostly and elevates his legs/feet with a pillow under his calf and denies pressure on his heel. He also states that he has tubigrips that he usually wears but did not wear them today due to coming here for evaluation. Progress of Wound: Shahzad is here for follow up for wound care of ulcers of his right lower leg. He completed antibiotic treatment. There has been improvement of his ulcers. He is tolerating Aquacel xtra and tubigrips and using a foam bootie to offload his posterior leg. He denies fever or chills, increased drainage. - Physical Exam Vital Signs Temp Pulse Resp BP 97.5 F L 112 H 16 126/69 H 07/15/18 13:00 07/15/18 13:00 07/15/18 13:00 07/15/18 13:00 General: Alert, Oriented x3, Cooperative, No apparent distress HEENT: Atraumatic, Normocephalic Oral: Moist Mucosa Abdomen: Obese Extremities: Edema Skin: Ulcer/ Wound Wound Measurements and Assessment WC - Nurse 1 - General Ulcer Measurement Start: 06/24/18 12:18 Freq: Status: Active Protocol: Activity Type Activity Date Activity User E-Sign Co-Sign Detail Recorded Client Recorded Date Recorded By Document 07/15/18 13:00 [facility] [id number] 07/15/18 13:09 [facility] 07/15/18 13:00 Wound Center Nurse 1 [Ulcer Assessment] #5 Right Achilles -Combined with other wound No -Current Size (cm) - Length 6.7 -Current Size (cm) - Width 5 -Current Size (cm) - Depth 0.1 -Total Square Cm 33.5 -Photo Taken No -Epithelialization Small 1-33% -Tunneling No -Undermining/Tunneling No -Circular Undermining No -Exudate Amt Large -Exudate Type Purulent -Wound Margin Distinct, Outline Attached -Granulation Amt Large (67-100%) -Granulation Quality Red -Slough/Fibrin Yes -Necrosis Amt Small (1-33%) -Necrotic Tissue Type Adherent Slough -Texture (Sanam-wound Skin Appearance) Assessed Scarring -Moisture (Sanam-wound Skin Appearance Assessed ) Maceration -Color (Sanam-wound Skin Appearance) Assessed Erythema Hemosiderin Staining Palor -Temperature (Sanam-wound Skin No Abnormality Appearance) (Pt Warm) -Tenderness on Palpation (Sanam-wound Yes Skin Appearance) -Ulcer Cleansing Wound Cleanser -Foul Odor after Cleansing No -Anesthetic Used 4% Lidocaine Solution #4 Lateral RLE -Combined with other wound No -Current Size (cm) - Length 4.1 -Current Size (cm) - Width 4.1 -Current Size (cm) - Depth 0.1 -Total Square Cm 16.81 -Photo Taken No -Epithelialization Small 1-33% -Tunneling No -Undermining/Tunneling No -Circular Undermining No -Exudate Amt Large -Exudate Type Purulent -Wound Margin Distinct, Outline Attached -Granulation Amt Large (67-100%) -Granulation Quality Red -Slough/Fibrin Yes -Necrosis Amt Small (1-33%) -Necrotic Tissue Type Adherent Slough -Texture (Sanam-wound Skin Appearance) Assessed Scarring -Moisture (Sanam-wound Skin Appearance Assessed ) Maceration Dry/Scaly -Color (Sanam-wound Skin Appearance) Assessed Erythema Hemosiderin Staining Palor -Temperature (Sanam-wound Skin No Abnormality Appearance) (Pt Warm) -Tenderness on Palpation (Sanam-wound Yes Skin Appearance) -Ulcer Cleansing Wound Cleanser -Foul Odor after Cleansing No -Anesthetic Used 4% Lidocaine Solution [Edema Assessment] -Lower Limb Edema Present Yes -Right Calf (cm) 45 -Right Ankle (cm) 21.8 WC - Nurse 2 - General Ulcer CM Notes Start: 06/24/18 12:18 Freq: Status: Active Protocol: Activity Type Activity Date Activity User E-Sign Co-Sign Detail Recorded Client Recorded Date Recorded By Document 07/15/18 13:44 DV [id number] 07/15/18 13:51 DV 07/15/18 13:44 Wound Center Nurse 2 [Procedure/Treatment] #5 Right Achilles -Time 13:44 -Correct Patient Yes -Correct Side, Site, Position Yes -Correct Procedure Yes -Procedure Performed Yes -Type of Procedure Debridement -Clinical Debridement Subcutaneous -Post Debridement Size (cm) - Length 7.5 -Post Debridement Size (cm) - Width 7.0 -Post Debridement Size (cm) - Depth 0.1 -Total Square Cm 52.50 -Wound/Ulcer Outcome Not Healed -Ulcer Cleansing Rinsed/ Irrigated with Saline -Foul Odor after Cleansing No -Bioengineered Tissue No -Bleeding Controlled with Pressure -Offloading Yes -Treatment Response Procedure Not Tolerated Well #4 Lateral RLE -Time 13:44 -Correct Patient Yes -Correct Side, Site, Position Yes -Correct Procedure Yes -Procedure Performed Yes -Type of Procedure Debridement -Clinical Debridement Subcutaneous -Post Debridement Size (cm) - Length 4.3 -Post Debridement Size (cm) - Width 3.8 -Post Debridement Size (cm) - Depth 0.1 -Total Square Cm 16.34 -Wound/Ulcer Outcome Not Healed -Ulcer Cleansing Rinsed/ Irrigated with Saline -Foul Odor after Cleansing No -Bioengineered Tissue No -Bleeding Controlled with Pressure -Offloading Yes -Treatment Response Procedure Not Tolerated Well [See Physician Procedure note for Specifics] Pain Scale: 0-10 Numeric [Pain] -Is Patient Pain Free? Yes Psych/Mental Status: Normal Affect, Appropriate Debridement Note Post-Debridement Measurements/Treatment WC - Nurse 2 - General Ulcer CM Notes Start: 06/24/18 12:18 Freq: Status: Active Protocol: Activity Type Activity Date Activity User E-Sign Co-Sign Detail Recorded Client Recorded Date Recorded By Document 06/24/18 13:17 DV [id number] 06/24/18 13:25 DV Document 07/01/18 14:14 DV [id number] 07/01/18 14:29 DV Document 07/08/18 14:06 DV [id number] 07/08/18 14:15 DV Document 07/15/18 13:44 DV [id number] 07/15/18 13:51 DV 06/24/18 07/01/18 07/08/18 13:17 14:14 14:06 Wound Center Nurse 2 #5 Right Achilles -Time 13:19 14:14 14:08 -Correct Patient Yes Yes Yes -Correct Side, Site, Position Yes Yes Yes -Correct Procedure Yes Yes Yes -Procedure Performed Yes Yes Yes -Type of Procedure Debridement Debridement Debridement -Clinical Debridement Subcutaneous Subcutaneous Subcutaneous -Post Debridement Size (cm) - Length 9.8 9.7 6.8 -Post Debridement Size (cm) - Width 7.7 7.5 6.8 -Post Debridement Size (cm) - Depth 0.1 0.1 0.1 -Total Square Cm 75.46 72.75 46.24 -Wound/Ulcer Outcome Not Healed Not Healed Healed- Epithelialized -Ulcer Cleansing Rinsed/ Rinsed/ Rinsed/ Irrigated with Irrigated with Irrigated with Saline Saline Saline -Foul Odor after Cleansing No No No -Bioengineered Tissue No No -Bleeding Controlled with Pressure Pressure Pressure -Offloading No No No -Treatment Response Procedure Procedure Procedure Tolerated Well Tolerated Well Tolerated Well #4 Lateral RLE -Time 13:19 14:16 14:10 -Correct Patient Yes Yes Yes -Correct Side, Site, Position Yes Yes Yes -Correct Procedure Yes Yes Yes -Procedure Performed Yes Yes Yes -Type of Procedure Debridement Debridement Debridement -Clinical Debridement Subcutaneous Subcutaneous Subcutaneous -Post Debridement Size (cm) - Length 5.6 5.4 4.4 -Post Debridement Size (cm) - Width 6.0 5.1 4.0 -Post Debridement Size (cm) - Depth 0.1 0.1 0.1 -Total Square Cm 33.60 27.54 17.60 -Wound/Ulcer Outcome Not Healed Not Healed Not Healed -Ulcer Cleansing Rinsed/ Rinsed/ Rinsed/ Irrigated with Irrigated with Irrigated with Saline Saline Saline -Foul Odor after Cleansing No No No -Bioengineered Tissue No No No -Bleeding Controlled with Pressure Pressure Pressure -Offloading No No No -Treatment Response Procedure Procedure Procedure Tolerated Well Tolerated Well Tolerated Well Pain Scale: 0-10 Numeric Is Patient Pain Free? Yes Yes Yes 07/15/18 13:44 Wound Center Nurse 2 #5 Right Achilles -Time 13:44 -Correct Patient Yes -Correct Side, Site, Position Yes -Correct Procedure Yes -Procedure Performed Yes -Type of Procedure Debridement -Clinical Debridement Subcutaneous -Post Debridement Size (cm) - Length 7.5 -Post Debridement Size (cm) - Width 7.0 -Post Debridement Size (cm) - Depth 0.1 -Total Square Cm 52.50 -Wound/Ulcer Outcome Not Healed -Ulcer Cleansing Rinsed/ Irrigated with Saline -Foul Odor after Cleansing No -Bioengineered Tissue No -Bleeding Controlled with Pressure -Offloading Yes -Treatment Response Procedure Not Tolerated Well #4 Lateral RLE -Time 13:44 -Correct Patient Yes -Correct Side, Site, Position Yes -Correct Procedure Yes -Procedure Performed Yes -Type of Procedure Debridement -Clinical Debridement Subcutaneous -Post Debridement Size (cm) - Length 4.3 -Post Debridement Size (cm) - Width 3.8 -Post Debridement Size (cm) - Depth 0.1 -Total Square Cm 16.34 -Wound/Ulcer Outcome Not Healed -Ulcer Cleansing Rinsed/ Irrigated with Saline -Foul Odor after Cleansing No -Bioengineered Tissue No -Bleeding Controlled with Pressure -Offloading Yes -Treatment Response Procedure Not Tolerated Well Pain Scale: 0-10 Numeric Is Patient Pain Free? Yes Wound debrided: right Achilles Laterality: Right Type of Debridement: Excisional debridement Anesthesia Used: 4% Lidocaine Solution Depth: Down to and including healthy tissue, in the subcutaneous layer Percentage of wound debrided: 100 Instrument Used: 5mm curette Tissue Removed: yellow slough, devitalized tissue Severity: Fat Layer Exposed Amount of bleeding with debridement: Mild Bleeding Controlled with: Compression and gauze Patient tolerated procedure well - Additional Wound Wound debrided: lateral RLE Laterality: Right Type of Debridement: Excisional debridement Anesthesia Used: 4% Lidocaine Solution Depth: Down to and including healthy tissue, in the subcutaneous layer Percentage of wound debrided: 100 Instrument Used: 5mm curette Tissue Removed: yellow slough, devitalized tissue Severity: Fat Layer Exposed Amount of bleeding with debridement: Mild Bleeding Controlled with: Compression and gauze Patient tolerated procedure: Patient tolerated procedure well Assessment/Plan Active Problems Venous stasis ulcer of right ankle with fat layer exposed (Chronic) posterior and medial ankle Spina bifida (Chronic) Venous stasis dermatitis of both lower extremities (Chronic) History of cerebral palsy (Chronic) Assessment: 1) recurrent pressure ulcer of posterior leg in paraplegic w/spina bifida. Healing is very slow and likely because of poor quality of tissues. Offload boots seem very adequate. 2) venous stasis and edema Plan: Shahzad's ulcers were evaluated today. He has chronic edema and noncompliance. He is tolerating Aquacel Extra changed daily and offloading booties to decrease pressure to his heels. His wounds are more granulated/hypergranulated. Will try Hydrofera blue instead of the Aquacel Extra to see if this improves the hypergranulation. He will continue tubigrips for compression. Encouraged increased protein intake and offloading. Will f/u in 1 week.
[2018-07-22 13:01] VITALS: BP 122/78; PULSE 118; RESP 20; TEMP 37.3; BMI 33.2
--- NOTE | 2018-07-22 17:57 | PCM.WC.PN ---
(1) Venous stasis ulcer of right ankle with fat layer exposed Status: Chronic Current Visit: Yes Qualifiers: Varicose vein presence: without varicose veins Code(s): I83.013 - Varicose veins of right lower extremity with ulcer of ankle; L97.312 - Non-pressure chronic ulcer of right ankle with fat layer exposed Comment: posterior and medial ankle (2) MRSA cellulitis Status: Resolved Current Visit: Yes Code(s): L03.90 - Cellulitis, unspecified; B95.62 - Methicillin resistant Staphylococcus aureus infection as the cause of diseases classified elsewhere (3) Spina bifida Status: Chronic Current Visit: Yes Qualifiers: Spinal region: unspecified Presence of hydrocephalus: unspecified hydrocephalus presence Qualified Code(s): Q05.9 - Spina bifida, unspecified Code(s): Q05.9 - Spina bifida, unspecified (4) Venous stasis dermatitis of both lower extremities Status: Chronic Current Visit: Yes Code(s): I83.11 - Varicose veins of right lower extremity with inflammation; I83.12 - Varicose veins of left lower extremity with inflammation (5) History of cerebral palsy Status: Chronic Current Visit: Yes Code(s): Z86.69 - Personal history of other diseases of the nervous system and sense organs Type of Wound Date of Service: 07/22/18 Chief Complaint: recurrent R posterior and lateral ankle, 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 He has very damaged tissues of his legs and this is one of multiple recurrent pressure ulcers that he develops in this edematous R lower leg/ankle. He isn't sure when this reoccurred but thinks it has been since January or February. He has been treated by wound care nurse at [facility] where he resides. He has almost been healed several times but has never healed completely. It looks like Drawtex is what they have been using on the ulcer. A culture was done April 2018 which was positive for Pseudomonas. He was on an antibiotic but is no longer taking it. He reports that the ulcer is very painful. He reports that he has been in his bed mostly and elevates his legs/feet with a pillow under his calf and denies pressure on his heel. He also states that he has tubigrips that he usually wears but did not wear them today due to coming here for evaluation. Progress of Wound: Shahzad is here for follow up for wound care of ulcers of his right lower leg. He tolerated the change to hydrofera blue dressings. There has been improvement of his ulcers. He is tolerating tubigrips and using a foam bootie to offload his posterior leg. He denies fever or chills, increased drainage. - Physical Exam Vital Signs Temp Pulse Resp BP 99.1 F 118 H 20 H 122/78 H 07/22/18 13:01 07/22/18 13:01 07/22/18 13:01 07/22/18 13:01 General: Alert, Oriented x3, Cooperative, No apparent distress HEENT: Atraumatic, Normocephalic Oral: Moist Mucosa Abdomen: Obese Extremities: Edema Skin: Ulcer/ Wound Wound Measurements and Assessment WC - Nurse 1 - General Ulcer Measurement Start: 06/24/18 12:18 Freq: Status: Active Protocol: Activity Type Activity Date Activity User E-Sign Co-Sign Detail Recorded Client Recorded Date Recorded By Document 07/22/18 13:01 [facility] [id number] 07/22/18 13:06 [facility] 07/22/18 13:01 Wound Center Nurse 1 [Ulcer Assessment] #5 Right Achilles -Combined with other wound No -Current Size (cm) - Length 6.2 -Current Size (cm) - Width 3 -Current Size (cm) - Depth 0.1 -Total Square Cm 18.6 -Photo Taken No -Epithelialization Small 1-33% -Tunneling No -Undermining/Tunneling No -Circular Undermining No -Exudate Amt Medium -Exudate Type Serosanguineous -Wound Margin Flat & Intact -Granulation Amt Large (67-100%) -Granulation Quality Red -Slough/Fibrin Yes -Necrosis Amt Small (1-33%) -Necrotic Tissue Type Adherent Slough -Texture (Sanam-wound Skin Appearance) Assessed Scarring -Moisture (Sanam-wound Skin Appearance Assessed ) -Color (Sanam-wound Skin Appearance) Assessed -Temperature (Sanam-wound Skin No Abnormality Appearance) (Pt Warm) -Tenderness on Palpation (Sanam-wound Yes Skin Appearance) -Ulcer Cleansing Wound Cleanser -Foul Odor after Cleansing No -Anesthetic Used 4% Lidocaine Solution #4 Lateral RLE -Combined with other wound No -Current Size (cm) - Length 3.7 -Current Size (cm) - Width 3.4 -Current Size (cm) - Depth 0.1 -Total Square Cm 12.58 -Photo Taken No -Epithelialization Small 1-33% -Tunneling No -Undermining/Tunneling No -Circular Undermining No -Exudate Amt Medium -Exudate Type Serosanguineous -Wound Margin Flat & Intact -Granulation Amt Large (67-100%) -Granulation Quality Red -Slough/Fibrin Yes -Necrosis Amt Small (1-33%) -Necrotic Tissue Type Adherent Slough -Texture (Sanam-wound Skin Appearance) Assessed Scarring -Moisture (Sanam-wound Skin Appearance Assessed ) Dry/Scaly -Color (Sanam-wound Skin Appearance) Assessed Ecchymosis Erythema -Tenderness on Palpation (Sanam-wound Yes Skin Appearance) -Ulcer Cleansing Wound Cleanser -Foul Odor after Cleansing No -Anesthetic Used 4% Lidocaine Solution [Edema Assessment] -Lower Limb Edema Present Yes -Right Calf (cm) 42.5 -Right Ankle (cm) 25.5 WC - Nurse 2 - General Ulcer CM Notes Start: 06/24/18 12:18 Freq: Status: Active Protocol: Activity Type Activity Date Activity User E-Sign Co-Sign Detail Recorded Client Recorded Date Recorded By Document 07/22/18 14:03 DV [id number] 07/22/18 14:10 DV 07/22/18 14:03 Wound Center Nurse 2 [Procedure/Treatment] #5 Right Achilles -Time 14:04 -Correct Patient Yes -Correct Side, Site, Position Yes -Correct Procedure Yes -Procedure Performed Yes -Type of Procedure Debridement -Clinical Debridement Subcutaneous -Post Debridement Size (cm) - Length 6.3 -Post Debridement Size (cm) - Width 5.0 -Post Debridement Size (cm) - Depth 0.1 -Total Square Cm 31.50 -Wound/Ulcer Outcome Not Healed -Ulcer Cleansing Rinsed/ Irrigated with Saline -Foul Odor after Cleansing No -Bioengineered Tissue No -Bleeding Controlled with Pressure -Offloading No -Treatment Response Procedure Tolerated Well #4 Lateral RLE -Time 14:05 -Correct Patient Yes -Correct Side, Site, Position Yes -Correct Procedure Yes -Procedure Performed Yes -Type of Procedure Debridement -Clinical Debridement Subcutaneous -Post Debridement Size (cm) - Length 3.9 -Post Debridement Size (cm) - Width 3.0 -Post Debridement Size (cm) - Depth 0.1 -Total Square Cm 11.70 -Wound/Ulcer Outcome Failed Flap -Ulcer Cleansing Rinsed/ Irrigated with Saline -Foul Odor after Cleansing No -Bioengineered Tissue No -Bleeding Controlled with Pressure -Offloading No -Treatment Response Procedure Tolerated Well [See Physician Procedure note for Specifics] Pain Scale: 0-10 Numeric [Pain] -Is Patient Pain Free? Yes Psych/Mental Status: Normal Affect, Appropriate Debridement Note Post-Debridement Measurements/Treatment WC - Nurse 2 - General Ulcer CM Notes Start: 06/24/18 12:18 Freq: Status: Active Protocol: Activity Type Activity Date Activity User E-Sign Co-Sign Detail Recorded Client Recorded Date Recorded By Document 06/24/18 13:17 DV [id number] 06/24/18 13:25 DV Document 07/01/18 14:14 DV [id number] 07/01/18 14:29 DV Document 07/08/18 14:06 DV [id number] 07/08/18 14:15 DV Document 07/15/18 13:44 DV [id number] 07/15/18 13:51 DV Document 07/22/18 14:03 DV [id number] 07/22/18 14:10 DV 06/24/18 07/01/18 07/08/18 13:17 14:14 14:06 Wound Center Nurse 2 #5 Right Achilles -Time 13:19 14:14 14:08 -Correct Patient Yes Yes Yes -Correct Side, Site, Position Yes Yes Yes -Correct Procedure Yes Yes Yes -Procedure Performed Yes Yes Yes -Type of Procedure Debridement Debridement Debridement -Clinical Debridement Subcutaneous Subcutaneous Subcutaneous -Post Debridement Size (cm) - Length 9.8 9.7 6.8 -Post Debridement Size (cm) - Width 7.7 7.5 6.8 -Post Debridement Size (cm) - Depth 0.1 0.1 0.1 -Total Square Cm 75.46 72.75 46.24 -Wound/Ulcer Outcome Not Healed Not Healed Healed- Epithelialized -Ulcer Cleansing Rinsed/ Rinsed/ Rinsed/ Irrigated with Irrigated with Irrigated with Saline Saline Saline -Foul Odor after Cleansing No No No -Bioengineered Tissue No No -Bleeding Controlled with Pressure Pressure Pressure -Offloading No No No -Treatment Response Procedure Procedure Procedure Tolerated Well Tolerated Well Tolerated Well #4 Lateral RLE -Time 13:19 14:16 14:10 -Correct Patient Yes Yes Yes -Correct Side, Site, Position Yes Yes Yes -Correct Procedure Yes Yes Yes -Procedure Performed Yes Yes Yes -Type of Procedure Debridement Debridement Debridement -Clinical Debridement Subcutaneous Subcutaneous Subcutaneous -Post Debridement Size (cm) - Length 5.6 5.4 4.4 -Post Debridement Size (cm) - Width 6.0 5.1 4.0 -Post Debridement Size (cm) - Depth 0.1 0.1 0.1 -Total Square Cm 33.60 27.54 17.60 -Wound/Ulcer Outcome Not Healed Not Healed Not Healed -Ulcer Cleansing Rinsed/ Rinsed/ Rinsed/ Irrigated with Irrigated with Irrigated with Saline Saline Saline -Foul Odor after Cleansing No No No -Bioengineered Tissue No No No -Bleeding Controlled with Pressure Pressure Pressure -Offloading No No No -Treatment Response Procedure Procedure Procedure Tolerated Well Tolerated Well Tolerated Well Pain Scale: 0-10 Numeric Is Patient Pain Free? Yes Yes Yes 07/15/18 03 13:44 14:03 Wound Center Nurse 2 #5 Right Achilles -Time 13:44 14:04 -Correct Patient Yes Yes -Correct Side, Site, Position Yes Yes -Correct Procedure Yes Yes -Procedure Performed Yes Yes -Type of Procedure Debridement Debridement -Clinical Debridement Subcutaneous Subcutaneous -Post Debridement Size (cm) - Length 7.5 6.3 -Post Debridement Size (cm) - Width 7.0 5.0 -Post Debridement Size (cm) - Depth 0.1 0.1 -Total Square Cm 52.50 31.50 -Wound/Ulcer Outcome Not Healed Not Healed -Ulcer Cleansing Rinsed/ Rinsed/ Irrigated with Irrigated with Saline Saline -Foul Odor after Cleansing No No -Bioengineered Tissue No No -Bleeding Controlled with Pressure Pressure -Offloading Yes No -Treatment Response Procedure Not Procedure Tolerated Well Tolerated Well #4 Lateral RLE -Time 13:44 14:05 -Correct Patient Yes Yes -Correct Side, Site, Position Yes Yes -Correct Procedure Yes Yes -Procedure Performed Yes Yes -Type of Procedure Debridement Debridement -Clinical Debridement Subcutaneous Subcutaneous -Post Debridement Size (cm) - Length 4.3 3.9 -Post Debridement Size (cm) - Width 3.8 3.0 -Post Debridement Size (cm) - Depth 0.1 0.1 -Total Square Cm 16.34 11.70 -Wound/Ulcer Outcome Not Healed Failed Flap -Ulcer Cleansing Rinsed/ Rinsed/ Irrigated with Irrigated with Saline Saline -Foul Odor after Cleansing No No -Bioengineered Tissue No No -Bleeding Controlled with Pressure Pressure -Offloading Yes No -Treatment Response Procedure Not Procedure Tolerated Well Tolerated Well Pain Scale: 0-10 Numeric Is Patient Pain Free? Yes Yes Wound debrided: right lateral LE Laterality: Right Type of Debridement: Excisional debridement Anesthesia Used: 4% Lidocaine Solution, 5% Lidocaine Gel Depth: Down to and including healthy tissue, in the subcutaneous layer Percentage of wound debrided: 100 Instrument Used: 5mm curette Tissue Removed: yellow slough, devitalized tissue Severity: Fat Layer Exposed Amount of bleeding with debridement: Mild Bleeding Controlled with: Compression and gauze Patient tolerated procedure well - Additional Wound Wound debrided: right achilles Type of Debridement: Excisional debridement Anesthesia Used: 4% Lidocaine Solution, 5% Lidocaine Gel Depth: Down to and including healthy tissue, in the subcutaneous layer Percentage of wound debrided: 100 Instrument Used: 5mm curette Tissue Removed: yellow slough, devitalized tissue Severity: Fat Layer Exposed Amount of bleeding with debridement: Mild Bleeding Controlled with: Compression and gauze Patient tolerated procedure: Patient tolerated procedure well Assessment/Plan Active Problems Venous stasis ulcer of right ankle with fat layer exposed (Chronic) posterior and medial ankle Spina bifida (Chronic) Venous stasis dermatitis of both lower extremities (Chronic) History of cerebral palsy (Chronic) Assessment: 1) recurrent pressure ulcer of posterior leg in paraplegic w/spina bifida. Healing is very slow and likely because of poor quality of tissues. Offload boots seem very adequate. 2) venous stasis and edema Plan: Shahzad's ulcers were evaluated and debrided today. He has chronic edema and noncompliance. He is wearing offloading booties to decrease pressure to his heels. His wounds are improved. Will continue Hydrofera blue. He will continue tubigrips for compression. Encouraged increased protein intake and offloading. Will f/u in 1 week.
--- NOTE | 2018-07-22 18:02 | PN.PCM_ITS ---
(1) Venous stasis ulcer of right ankle with fat layer exposed Status: Chronic Current Visit: Yes Qualifiers: Varicose vein presence: without varicose veins Code(s): I83.013 - Varicose veins of right lower extremity with ulcer of ankle; L97.312 - Non-pressure chronic ulcer of right ankle with fat layer exposed Comment: posterior and medial ankle (2) MRSA cellulitis Status: Resolved Current Visit: Yes Code(s): L03.90 - Cellulitis, unspecified; B95.62 - Methicillin resistant Staphylococcus aureus infection as the cause of diseases classified elsewhere (3) Spina bifida Status: Chronic Current Visit: Yes Qualifiers: Spinal region: unspecified Presence of hydrocephalus: unspecified hydrocephalus presence Qualified Code(s): Q05.9 - Spina bifida, unspecified Code(s): Q05.9 - Spina bifida, unspecified (4) Venous stasis dermatitis of both lower extremities Status: Chronic Current Visit: Yes Code(s): I83.11 - Varicose veins of right lower extremity with inflammation; I83.12 - Varicose veins of left lower extremity with inflammation (5) History of cerebral palsy Status: Chronic Current Visit: Yes Code(s): Z86.69 - Personal history of other diseases of the nervous system and sense organs Type of Wound Date of Service: 07/22/18 Chief Complaint: recurrent R posterior and lateral ankle, 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 He has very damaged tissues of his legs and this is one of multiple recurrent pressure ulcers that he develops in this edematous R lower leg/ankle. He isn't sure when this reoccurred but thinks it has been since January or February. He has been treated by wound care nurse at [facility] where he resides. He has almost been healed several times but has never healed completely. It looks like Drawtex is what they have been using on the ulcer. A culture was done April 2018 which was positive for Pseudomonas. He was on an antibiotic but is no longer taking it. He reports that the ulcer is very painful. He reports that he has been in his bed mostly and elevates his legs/feet with a pillow under his calf and denies pressure on his heel. He also states that he has tubigrips that he usually wears but did not wear them today due to coming here for evaluation. Progress of Wound: Shahzad is here for follow up for wound care of ulcers of his right lower leg. He tolerated the change to hydrofera blue dressings. There has been improvement of his ulcers. He is tolerating tubigrips and using a foam bootie to offload his posterior leg. He denies fever or chills, increased drainage. - Physical Exam Vital Signs Temp Pulse Resp BP 99.1 F 118 H 20 H 122/78 H 07/22/18 13:01 07/22/18 13:01 07/22/18 13:01 07/22/18 13:01 General: Alert, Oriented x3, Cooperative, No apparent distress HEENT: Atraumatic, Normocephalic Oral: Moist Mucosa Abdomen: Obese Extremities: Edema Skin: Ulcer/ Wound Wound Measurements and Assessment WC - Nurse 1 - General Ulcer Measurement Start: 06/24/18 12:18 Freq: Status: Active Protocol: Activity Type Activity Date Activity User E-Sign Co-Sign Detail Recorded Client Recorded Date Recorded By Document 07/22/18 13:01 [facility] [id number] 07/22/18 13:06 [facility] 07/22/18 13:01 Wound Center Nurse 1 [Ulcer Assessment] #5 Right Achilles -Combined with other wound No -Current Size (cm) - Length 6.2 -Current Size (cm) - Width 3 -Current Size (cm) - Depth 0.1 -Total Square Cm 18.6 -Photo Taken No -Epithelialization Small 1-33% -Tunneling No -Undermining/Tunneling No -Circular Undermining No -Exudate Amt Medium -Exudate Type Serosanguineous -Wound Margin Flat & Intact -Granulation Amt Large (67-100%) -Granulation Quality Red -Slough/Fibrin Yes -Necrosis Amt Small (1-33%) -Necrotic Tissue Type Adherent Slough -Texture (Sanam-wound Skin Appearance) Assessed Scarring -Moisture (Sanam-wound Skin Appearance Assessed ) -Color (Sanam-wound Skin Appearance) Assessed -Temperature (Sanam-wound Skin No Abnormality Appearance) (Pt Warm) -Tenderness on Palpation (Sanam-wound Yes Skin Appearance) -Ulcer Cleansing Wound Cleanser -Foul Odor after Cleansing No -Anesthetic Used 4% Lidocaine Solution #4 Lateral RLE -Combined with other wound No -Current Size (cm) - Length 3.7 -Current Size (cm) - Width 3.4 -Current Size (cm) - Depth 0.1 -Total Square Cm 12.58 -Photo Taken No -Epithelialization Small 1-33% -Tunneling No -Undermining/Tunneling No -Circular Undermining No -Exudate Amt Medium -Exudate Type Serosanguineous -Wound Margin Flat & Intact -Granulation Amt Large (67-100%) -Granulation Quality Red -Slough/Fibrin Yes -Necrosis Amt Small (1-33%) -Necrotic Tissue Type Adherent Slough -Texture (Sanam-wound Skin Appearance) Assessed Scarring -Moisture (Sanam-wound Skin Appearance Assessed ) Dry/Scaly -Color (Sanam-wound Skin Appearance) Assessed Ecchymosis Erythema -Tenderness on Palpation (Sanam-wound Yes Skin Appearance) -Ulcer Cleansing Wound Cleanser -Foul Odor after Cleansing No -Anesthetic Used 4% Lidocaine Solution [Edema Assessment] -Lower Limb Edema Present Yes -Right Calf (cm) 42.5 -Right Ankle (cm) 25.5 WC - Nurse 2 - General Ulcer CM Notes Start: 06/24/18 12:18 Freq: Status: Active Protocol: Activity Type Activity Date Activity User E-Sign Co-Sign Detail Recorded Client Recorded Date Recorded By Document 07/22/18 14:03 DV [id number] 07/22/18 14:10 DV 07/22/18 14:03 Wound Center Nurse 2 [Procedure/Treatment] #5 Right Achilles -Time 14:04 -Correct Patient Yes -Correct Side, Site, Position Yes -Correct Procedure Yes -Procedure Performed Yes -Type of Procedure Debridement -Clinical Debridement Subcutaneous -Post Debridement Size (cm) - Length 6.3 -Post Debridement Size (cm) - Width 5.0 -Post Debridement Size (cm) - Depth 0.1 -Total Square Cm 31.50 -Wound/Ulcer Outcome Not Healed -Ulcer Cleansing Rinsed/ Irrigated with Saline -Foul Odor after Cleansing No -Bioengineered Tissue No -Bleeding Controlled with Pressure -Offloading No -Treatment Response Procedure Tolerated Well #4 Lateral RLE -Time 14:05 -Correct Patient Yes -Correct Side, Site, Position Yes -Correct Procedure Yes -Procedure Performed Yes -Type of Procedure Debridement -Clinical Debridement Subcutaneous -Post Debridement Size (cm) - Length 3.9 -Post Debridement Size (cm) - Width 3.0 -Post Debridement Size (cm) - Depth 0.1 -Total Square Cm 11.70 -Wound/Ulcer Outcome Failed Flap -Ulcer Cleansing Rinsed/ Irrigated with Saline -Foul Odor after Cleansing No -Bioengineered Tissue No -Bleeding Controlled with Pressure -Offloading No -Treatment Response Procedure Tolerated Well [See Physician Procedure note for Specifics] Pain Scale: 0-10 Numeric [Pain] -Is Patient Pain Free? Yes Psych/Mental Status: Normal Affect, Appropriate Debridement Note Post-Debridement Measurements/Treatment WC - Nurse 2 - General Ulcer CM Notes Start: 06/24/18 12:18 Freq: Status: Active Protocol: Activity Type Activity Date Activity User E-Sign Co-Sign Detail Recorded Client Recorded Date Recorded By Document 06/24/18 13:17 DV [id number] 06/24/18 13:25 DV Document 07/01/18 14:14 DV [id number] 07/01/18 14:29 DV Document 07/08/18 14:06 DV [id number] 07/08/18 14:15 DV Document 07/15/18 13:44 DV [id number] 07/15/18 13:51 DV Document 07/22/18 14:03 DV [id number] 07/22/18 14:10 DV 06/24/18 07/01/18 07/08/18 13:17 14:14 14:06 Wound Center Nurse 2 #5 Right Achilles -Time 13:19 14:14 14:08 -Correct Patient Yes Yes Yes -Correct Side, Site, Position Yes Yes Yes -Correct Procedure Yes Yes Yes -Procedure Performed Yes Yes Yes -Type of Procedure Debridement Debridement Debridement -Clinical Debridement Subcutaneous Subcutaneous Subcutaneous -Post Debridement Size (cm) - Length 9.8 9.7 6.8 -Post Debridement Size (cm) - Width 7.7 7.5 6.8 -Post Debridement Size (cm) - Depth 0.1 0.1 0.1 -Total Square Cm 75.46 72.75 46.24 -Wound/Ulcer Outcome Not Healed Not Healed Healed- Epithelialized -Ulcer Cleansing Rinsed/ Rinsed/ Rinsed/ Irrigated with Irrigated with Irrigated with Saline Saline Saline -Foul Odor after Cleansing No No No -Bioengineered Tissue No No -Bleeding Controlled with Pressure Pressure Pressure -Offloading No No No -Treatment Response Procedure Procedure Procedure Tolerated Well Tolerated Well Tolerated Well #4 Lateral RLE -Time 13:19 14:16 14:10 -Correct Patient Yes Yes Yes -Correct Side, Site, Position Yes Yes Yes -Correct Procedure Yes Yes Yes -Procedure Performed Yes Yes Yes -Type of Procedure Debridement Debridement Debridement -Clinical Debridement Subcutaneous Subcutaneous Subcutaneous -Post Debridement Size (cm) - Length 5.6 5.4 4.4 -Post Debridement Size (cm) - Width 6.0 5.1 4.0 -Post Debridement Size (cm) - Depth 0.1 0.1 0.1 -Total Square Cm 33.60 27.54 17.60 -Wound/Ulcer Outcome Not Healed Not Healed Not Healed -Ulcer Cleansing Rinsed/ Rinsed/ Rinsed/ Irrigated with Irrigated with Irrigated with Saline Saline Saline -Foul Odor after Cleansing No No No -Bioengineered Tissue No No No -Bleeding Controlled with Pressure Pressure Pressure -Offloading No No No -Treatment Response Procedure Procedure Procedure Tolerated Well Tolerated Well Tolerated Well Pain Scale: 0-10 Numeric Is Patient Pain Free? Yes Yes Yes 07/15/18 03 13:44 14:03 Wound Center Nurse 2 #5 Right Achilles -Time 13:44 14:04 -Correct Patient Yes Yes -Correct Side, Site, Position Yes Yes -Correct Procedure Yes Yes -Procedure Performed Yes Yes -Type of Procedure Debridement Debridement -Clinical Debridement Subcutaneous Subcutaneous -Post Debridement Size (cm) - Length 7.5 6.3 -Post Debridement Size (cm) - Width 7.0 5.0 -Post Debridement Size (cm) - Depth 0.1 0.1 -Total Square Cm 52.50 31.50 -Wound/Ulcer Outcome Not Healed Not Healed -Ulcer Cleansing Rinsed/ Rinsed/ Irrigated with Irrigated with Saline Saline -Foul Odor after Cleansing No No -Bioengineered Tissue No No -Bleeding Controlled with Pressure Pressure -Offloading Yes No -Treatment Response Procedure Not Procedure Tolerated Well Tolerated Well #4 Lateral RLE -Time 13:44 14:05 -Correct Patient Yes Yes -Correct Side, Site, Position Yes Yes -Correct Procedure Yes Yes -Procedure Performed Yes Yes -Type of Procedure Debridement Debridement -Clinical Debridement Subcutaneous Subcutaneous -Post Debridement Size (cm) - Length 4.3 3.9 -Post Debridement Size (cm) - Width 3.8 3.0 -Post Debridement Size (cm) - Depth 0.1 0.1 -Total Square Cm 16.34 11.70 -Wound/Ulcer Outcome Not Healed Failed Flap -Ulcer Cleansing Rinsed/ Rinsed/ Irrigated with Irrigated with Saline Saline -Foul Odor after Cleansing No No -Bioengineered Tissue No No -Bleeding Controlled with Pressure Pressure -Offloading Yes No -Treatment Response Procedure Not Procedure Tolerated Well Tolerated Well Pain Scale: 0-10 Numeric Is Patient Pain Free? Yes Yes Wound debrided: right lateral LE Laterality: Right Type of Debridement: Excisional debridement Anesthesia Used: 4% Lidocaine Solution, 5% Lidocaine Gel Depth: Down to and including healthy tissue, in the subcutaneous layer Percentage of wound debrided: 100 Instrument Used: 5mm curette Tissue Removed: yellow slough, devitalized tissue Severity: Fat Layer Exposed Amount of bleeding with debridement: Mild Bleeding Controlled with: Compression and gauze Patient tolerated procedure well - Additional Wound Wound debrided: right achilles Type of Debridement: Excisional debridement Anesthesia Used: 4% Lidocaine Solution, 5% Lidocaine Gel Depth: Down to and including healthy tissue, in the subcutaneous layer Percentage of wound debrided: 100 Instrument Used: 5mm curette Tissue Removed: yellow slough, devitalized tissue Severity: Fat Layer Exposed Amount of bleeding with debridement: Mild Bleeding Controlled with: Compression and gauze Patient tolerated procedure: Patient tolerated procedure well Assessment/Plan Active Problems Venous stasis ulcer of right ankle with fat layer exposed (Chronic) posterior and medial ankle Spina bifida (Chronic) Venous stasis dermatitis of both lower extremities (Chronic) History of cerebral palsy (Chronic) Assessment: 1) recurrent pressure ulcer of posterior leg in paraplegic w/spina bifida. Healing is very slow and likely because of poor quality of tissues. Offload boots seem very adequate. 2) venous stasis and edema Plan: Shahzad's ulcers were evaluated and debrided today. He has chronic edema and noncompliance. He is wearing offloading booties to decrease pressure to his heels. His wounds are improved. Will continue Hydrofera blue. He will continue tubigrips for compression. Encouraged increased protein intake and offloading. Will f/u in 1 week.
== END 2018-07-24 23:59 ==
LOC: WC 13:00
PROVIDERS: Family Provider Family Medicine; PCP Family Medicine; Visit Provider Family Medicine
DX: I83.013 Varicose veins of right lower extremity with ulcer of ankle (principal); L97.312 Non-pressure chronic ulcer of right ankle with fat layer exposed; Q05.9 Spina bifida, unspecified; L89.892 Pressure ulcer of other site, stage 2; Z91.19 Patient's noncompliance with other medical treatment and regimen; L03.115 Cellulitis of right lower limb; Z86.69 Personal history of other diseases of the nervous system and sense organs
CPT/HCPCS: 11042; 11045; 87070; 87075; 87077; 87186; 87205; 87640

== ENCOUNTER 2018-08-12 13:30 | Outpatient (RCR) | payer MEDICARE, MEDICAID, SELFPAY ==
[2018-07-25 01:15] VITALS: BP 122/78; PULSE 118; RESP 20; TEMP 37.3
[2018-07-29 12:49] VITALS: BP 125/81; PULSE 123; RESP 16; TEMP 37; BMI 33.2
--- NOTE | 2018-07-29 18:37 | PN.PCM_ITS ---
(1) Venous stasis ulcer of right ankle with fat layer exposed Status: Chronic Current Visit: Yes Qualifiers: Varicose vein presence: with varicose veins Qualified Code(s): I83.013 - Varicose veins of right lower extremity with ulcer of ankle; L97.312 - Non-pressure chronic ulcer of right ankle with fat layer exposed Code(s): I83.013 - Varicose veins of right lower extremity with ulcer of ankle; L97.312 - Non-pressure chronic ulcer of right ankle with fat layer exposed Comment: posterior and medial ankle (2) MRSA cellulitis Status: Acute Current Visit: Yes Code(s): L03.90 - Cellulitis, unspecified; B95.62 - Methicillin resistant Staphylococcus aureus infection as the cause of diseases classified elsewhere (3) Venous stasis dermatitis of both lower extremities Status: Chronic Current Visit: Yes Code(s): I83.11 - Varicose veins of right lower extremity with inflammation; I83.12 - Varicose veins of left lower extremity with inflammation Type of Wound Date of Service: 07/29/18 Chief Complaint: recurrent R posterior and lateral ankle, 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 He has very damaged tissues of his legs and this is one of multiple recurrent pressure ulcers that he develops in this edematous R lower leg/ankle. He isn't sure when this reoccurred but thinks it has been since January or February. He has been treated by wound care nurse at [facility] where he resides. He has almost been healed several times but has never healed completely. It looks like Drawtex is what they have been using on the ulcer. A culture was done April 2018 which was positive for Pseudomonas. He was on an antibiotic but is no longer taking it. He reports that the ulcer is very painful. He reports that he has been in his bed mostly and elevates his legs/feet with a pillow under his calf and denies pressure on his heel. He also states that he has tubigrips that he usually wears but did not wear them today due to coming here for evaluation. Progress of Wound: Shahzad is here for follow up for wound care of ulcers of his right lower leg. He tolerated hydrofera blue dressings. There has been less improvement of his ulcers. He has had increased drainage and has erythema surrounding his wounds. He is tolerating tubigrips and using a foam bootie to offload his posterior leg. He denies fever or chills. - Physical Exam Vital Signs Temp Pulse Resp BP 98.6 F 123 H 16 125/81 H 07/29/18 12:49 07/29/18 12:49 07/29/18 12:49 07/29/18 12:49 General: Alert, Oriented x3, Cooperative, No apparent distress HEENT: Atraumatic, Normocephalic Oral: Moist Mucosa Abdomen: Obese Extremities: Edema Skin: Ulcer/ Wound Wound Measurements and Assessment WC - Nurse 1 - General Ulcer Measurement Start: 07/29/18 12:47 Freq: Status: Active Protocol: Activity Type Activity Date Activity User E-Sign Co-Sign Detail Recorded Client Recorded Date Recorded By Document 07/29/18 12:49 OK [id number] 07/29/18 12:56 OK 07/29/18 12:49 Wound Center Nurse 1 [Ulcer Assessment] #5 Right Achilles -Combined with other wound No -Current Size (cm) - Length 7.3 -Current Size (cm) - Width 7 -Current Size (cm) - Depth 0.1 -Total Square Cm 51.1 -Photo Taken No -Epithelialization Small 1-33% -Tunneling No -Undermining/Tunneling No -Circular Undermining No -Classification - Thickness Full Thickness without Exposed Support Structure -Exudate Amt Medium -Exudate Type Serosanguineous -Wound Margin Distinct, Outline Attached -Granulation Amt Large (67-100%) -Granulation Quality Red -Slough/Fibrin Yes -Necrosis Amt Small (1-33%) -Necrotic Tissue Type Adherent Slough -Texture (Sanam-wound Skin Appearance) Assessed Scarring -Moisture (Sanam-wound Skin Appearance Assessed ) Dry/Scaly -Color (Sanam-wound Skin Appearance) Assessed Erythema -Temperature (Sanam-wound Skin No Abnormality Appearance) (Pt Warm) -Tenderness on Palpation (Sanam-wound Yes Skin Appearance) -Ulcer Cleansing Wound Cleanser -Foul Odor after Cleansing No -Anesthetic Used 4% Lidocaine Solution #4 Lateral RLE -Combined with other wound No -Current Size (cm) - Length 3.9 -Current Size (cm) - Width 3.9 -Current Size (cm) - Depth 0.1 -Total Square Cm 15.21 -Photo Taken No -Epithelialization Small 1-33% -Tunneling No -Undermining/Tunneling No -Circular Undermining No -Classification - Thickness Full Thickness without Exposed Support Structure -Exudate Amt Medium -Exudate Type Serosanguineous -Wound Margin Distinct, Outline Attached -Granulation Amt Large (67-100%) -Granulation Quality Red -Slough/Fibrin Yes -Necrosis Amt Small (1-33%) -Necrotic Tissue Type Adherent Slough -Texture (Sanam-wound Skin Appearance) Assessed Scarring -Moisture (Sanam-wound Skin Appearance Assessed ) Dry/Scaly -Color (Sanam-wound Skin Appearance) Assessed Erythema -Temperature (Sanam-wound Skin No Abnormality Appearance) (Pt Warm) -Tenderness on Palpation (Sanam-wound Yes Skin Appearance) -Ulcer Cleansing Wound Cleanser -Foul Odor after Cleansing No -Anesthetic Used 4% Lidocaine Solution [Edema Assessment] -Lower Limb Edema Present Yes -Right Calf (cm) 41.5 -Right Ankle (cm) 23 -Left Calf (cm) 36 -Left Ankle (cm) 23.5 WC - Nurse 2 - General Ulcer CM Notes Start: 07/29/18 12:47 Freq: Status: Active Protocol: Activity Type Activity Date Activity User E-Sign Co-Sign Detail Recorded Client Recorded Date Recorded By Document 07/29/18 13:42 DV [id number] 07/29/18 13:46 DV 07/29/18 13:42 Wound Center Nurse 2 [Procedure/Treatment] #5 Right Achilles -Time 13:43 -Correct Patient Yes -Correct Side, Site, Position Yes -Correct Procedure Yes -Procedure Performed Yes -Type of Procedure Debridement -Clinical Debridement Subcutaneous -Post Debridement Size (cm) - Length 7.3 -Post Debridement Size (cm) - Width 5.2 -Post Debridement Size (cm) - Depth 0.1 -Total Square Cm 37.96 -Wound/Ulcer Outcome Not Healed -Ulcer Cleansing Rinsed/ Irrigated with Saline -Bleeding Controlled with Pressure -Offloading No -Treatment Response Procedure Tolerated Well #4 Lateral RLE -Time 13:44 -Correct Patient Yes -Correct Side, Site, Position Yes -Correct Procedure Yes -Procedure Performed Yes -Type of Procedure Debridement -Clinical Debridement Subcutaneous -Post Debridement Size (cm) - Length 3.4 -Post Debridement Size (cm) - Width 3.4 -Post Debridement Size (cm) - Depth 0.1 -Total Square Cm 11.56 -Wound/Ulcer Outcome Not Healed -Bioengineered Tissue No -Bleeding Controlled with Pressure -Offloading No -Treatment Response Procedure Tolerated Well [See Physician Procedure note for Specifics] Pain Scale: 0-10 Numeric [Pain] -Is Patient Pain Free? Yes Psych/Mental Status: Normal Affect, Appropriate Debridement Note Post-Debridement Measurements/Treatment WC - Nurse 2 - General Ulcer CM Notes Start: 07/29/18 12:47 Freq: Status: Active Protocol: Activity Type Activity Date Activity User E-Sign Co-Sign Detail Recorded Client Recorded Date Recorded By Document 07/29/18 13:42 DV [id number] 07/29/18 13:46 DV 07/29/18 13:42 Wound Center Nurse 2 #5 Right Achilles -Time 13:43 -Correct Patient Yes -Correct Side, Site, Position Yes -Correct Procedure Yes -Procedure Performed Yes -Type of Procedure Debridement -Clinical Debridement Subcutaneous -Post Debridement Size (cm) - Length 7.3 -Post Debridement Size (cm) - Width 5.2 -Post Debridement Size (cm) - Depth 0.1 -Total Square Cm 37.96 -Wound/Ulcer Outcome Not Healed -Ulcer Cleansing Rinsed/ Irrigated with Saline -Bleeding Controlled with Pressure -Offloading No -Treatment Response Procedure Tolerated Well #4 Lateral RLE -Time 13:44 -Correct Patient Yes -Correct Side, Site, Position Yes -Correct Procedure Yes -Procedure Performed Yes -Type of Procedure Debridement -Clinical Debridement Subcutaneous -Post Debridement Size (cm) - Length 3.4 -Post Debridement Size (cm) - Width 3.4 -Post Debridement Size (cm) - Depth 0.1 -Total Square Cm 11.56 -Wound/Ulcer Outcome Not Healed -Bioengineered Tissue No -Bleeding Controlled with Pressure -Offloading No -Treatment Response Procedure Tolerated Well Pain Scale: 0-10 Numeric Is Patient Pain Free? Yes Wound debrided: right achilles Laterality: Right Type of Debridement: Excisional debridement Anesthesia Used: 4% Lidocaine Solution, 5% Lidocaine Gel Depth: Down to and including healthy tissue, in the subcutaneous layer Percentage of wound debrided: 100 Instrument Used: 5mm curette Tissue Removed: yellow slough, devitalized tissue Severity: Fat Layer Exposed Amount of bleeding with debridement: Mild Bleeding Controlled with: Compression and gauze Patient tolerated procedure well - Additional Wound Wound debrided: right lateral LE Laterality: Right Type of Debridement: Excisional debridement Anesthesia Used: 4% Lidocaine Solution, 5% Lidocaine Gel Depth: Down to and including healthy tissue, in the subcutaneous layer Percentage of wound debrided: 100 Instrument Used: 5mm curette Tissue Removed: yellow slough, devitalized tissue Severity: Fat Layer Exposed Amount of bleeding with debridement: Mild Bleeding Controlled with: Compression and gauze Patient tolerated procedure: Patient tolerated procedure well Assessment/Plan Active Problems Venous stasis ulcer of right ankle with fat layer exposed (Chronic) posterior and medial ankle MRSA cellulitis (Acute) Venous stasis dermatitis of both lower extremities (Chronic) Assessment: 1) recurrent pressure ulcer of posterior leg in paraplegic w/spina bifida. Healing is very slow and likely because of poor quality of tissues. Offload boots seem very adequate. 2) venous stasis and edema Plan: Shahzad's ulcers were evaluated and debrided today. He has chronic edema and noncompliance. He is wearing offloading booties to decrease pressure to his heels. His wounds are only slightly improved. Will restart treatment with cefdinir for possible infection. Will continue Hydrofera blue. He will continue tubigrips for compression. Encouraged increased protein intake and offloading. Will f/u in 1 week.
[2018-08-05 13:04] VITALS: BP 127/79; PULSE 119; RESP 20; TEMP 37.3; BMI 33.2
--- NOTE | 2018-08-05 16:36 | PN.PCM_ITS ---
(1) Venous stasis ulcer of right ankle with fat layer exposed Status: Chronic Current Visit: Yes Qualifiers: Varicose vein presence: with varicose veins Qualified Code(s): I83.013 - Varicose veins of right lower extremity with ulcer of ankle; L97.312 - Non-pressure chronic ulcer of right ankle with fat layer exposed Code(s): I83.013 - Varicose veins of right lower extremity with ulcer of ankle; L97.312 - Non-pressure chronic ulcer of right ankle with fat layer exposed Comment: posterior and medial ankle (2) MRSA cellulitis Status: Acute Current Visit: Yes Code(s): L03.90 - Cellulitis, unspecified; B95.62 - Methicillin resistant Staphylococcus aureus infection as the cause of diseases classified elsewhere (3) Venous stasis dermatitis of both lower extremities Status: Chronic Current Visit: Yes Code(s): I83.11 - Varicose veins of right lower extremity with inflammation; I83.12 - Varicose veins of left lower extremity with inflammation Type of Wound Date of Service: 08/05/18 Chief Complaint: recurrent R posterior and lateral ankle, 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 He has very damaged tissues of his legs and this is one of multiple recurrent pressure ulcers that he develops in this edematous R lower leg/ankle. He isn't sure when this reoccurred but thinks it has been since January or February. He has been treated by wound care nurse at [facility] where he resides. He has almost been healed several times but has never healed completely. It looks like Drawtex is what they have been using on the ulcer. A culture was done April 2018 which was positive for Pseudomonas. He was on an antibiotic but is no longer taking it. He reports that the ulcer is very painful. He reports that he has been in his bed mostly and elevates his legs/feet with a pillow under his calf and denies pressure on his heel. He also states that he has tubigrips that he usually wears but did not wear them today due to coming here for evaluation. Progress of Wound: Shahzad is here for follow up for wound care of ulcers of his right lower leg. He tolerated hydrofera blue dressings. There has been less improvement of his ulcers as far as size but they look healthier. He is tolerating tubigrips and using a foam bootie to offload his posterior leg. He denies fever or chills. - Physical Exam Vital Signs Temp Pulse Resp BP 99.1 F 119 H 20 H 127/79 H 08/05/18 13:04 08/05/18 13:04 08/05/18 13:04 08/05/18 13:04 General: Alert, Oriented x3, Cooperative, No apparent distress HEENT: Atraumatic, Normocephalic Oral: Moist Mucosa Abdomen: Obese Extremities: Edema Skin: Ulcer/ Wound Wound Measurements and Assessment WC - Nurse 1 - General Ulcer Measurement Start: 07/29/18 12:47 Freq: Status: Active Protocol: Activity Type Activity Date Activity User E-Sign Co-Sign Detail Recorded Client Recorded Date Recorded By Document 08/05/18 13:04 AN [id number] 08/05/18 13:11 AN 08/05/18 13:04 Wound Center Nurse 1 [Ulcer Assessment] #5 Right Achilles -Current Size (cm) - Length 7 -Current Size (cm) - Width 7 -Current Size (cm) - Depth 0.1 -Total Square Cm 49 -Epithelialization None Present -Tunneling No -Undermining/Tunneling No -Classification - Thickness Full Thickness without Exposed Support Structure -Exudate Amt Medium -Exudate Type Serosanguineous -Wound Margin Flat & Intact -Granulation Amt Large (67-100%) -Granulation Quality Red -Slough/Fibrin Yes -Necrosis Amt Small (1-33%) -Necrotic Tissue Type Adherent Slough -Structure Exposed None/Limited to Skin Breakdown -Texture (Sanam-wound Skin Appearance) Assessed -Moisture (Sanam-wound Skin Appearance Assessed ) Maceration -Color (Sanam-wound Skin Appearance) Assessed Erythema -Temperature (Sanam-wound Skin Hot Appearance) -Foul Odor after Cleansing No -Anesthetic Used 4% Lidocaine Solution #4 Lateral RLE -Current Size (cm) - Length 4.0 -Current Size (cm) - Width 4.4 -Current Size (cm) - Depth 0.1 -Total Square Cm 17.60 -Epithelialization None Present -Tunneling No -Undermining/Tunneling No -Classification - Thickness Full Thickness without Exposed Support Structure -Exudate Amt Medium -Exudate Type Serosanguineous -Wound Margin Flat & Intact -Granulation Amt Large (67-100%) -Granulation Quality Red -Slough/Fibrin Yes -Necrosis Amt Small (1-33%) -Necrotic Tissue Type Adherent Slough -Structure Exposed None/Limited to Skin Breakdown -Texture (Sanam-wound Skin Appearance) Assessed -Moisture (Sanam-wound Skin Appearance Assessed ) Maceration -Color (Sanam-wound Skin Appearance) Erythema -Temperature (Sanam-wound Skin Hot Appearance) -Tenderness on Palpation (Sanam-wound Yes Skin Appearance) -Ulcer Cleansing Rinsed/ Irrigated with Saline -Foul Odor after Cleansing No -Anesthetic Used 4% Lidocaine Solution [Edema Assessment] -Right Calf (cm) 43.5 -Right Ankle (cm) 21.2 WC - Nurse 2 - General Ulcer CM Notes Start: 07/29/18 12:47 Freq: Status: Active Protocol: Activity Type Activity Date Activity User E-Sign Co-Sign Detail Recorded Client Recorded Date Recorded By Document 08/05/18 13:52 DV [id number] 08/05/18 13:59 DV 08/05/18 13:52 Wound Center Nurse 2 [Procedure/Treatment] #5 Right Achilles -Time 13:52 -Correct Patient Yes -Correct Side, Site, Position Yes -Correct Procedure Yes -Procedure Performed Yes -Type of Procedure Debridement -Clinical Debridement Subcutaneous -Post Debridement Size (cm) - Length 8.5 -Post Debridement Size (cm) - Width 6.4 -Post Debridement Size (cm) - Depth 0.1 -Total Square Cm 54.40 -Wound/Ulcer Outcome Not Healed -Ulcer Cleansing Rinsed/ Irrigated with Saline -Foul Odor after Cleansing No -Bioengineered Tissue No -Bleeding Controlled with Pressure -Offloading No -Treatment Response Procedure Tolerated Well #4 Lateral RLE -Time 13:53 -Correct Patient Yes -Correct Side, Site, Position Yes -Correct Procedure Yes -Procedure Performed Yes -Type of Procedure Debridement -Clinical Debridement Subcutaneous -Post Debridement Size (cm) - Length 4.3 -Post Debridement Size (cm) - Width 4.2 -Post Debridement Size (cm) - Depth 0.1 -Total Square Cm 18.06 -Wound/Ulcer Outcome Not Healed -Ulcer Cleansing Rinsed/ Irrigated with Saline -Foul Odor after Cleansing No -Bioengineered Tissue No -Bleeding Controlled with Pressure -Offloading No -Treatment Response Procedure Tolerated Well [See Physician Procedure note for Specifics] Pain Scale: 0-10 Numeric [Pain] -Is Patient Pain Free? Yes Psych/Mental Status: Normal Affect, Appropriate Debridement Note Post-Debridement Measurements/Treatment WC - Nurse 2 - General Ulcer CM Notes Start: 07/29/18 12:47 Freq: Status: Active Protocol: Activity Type Activity Date Activity User E-Sign Co-Sign Detail Recorded Client Recorded Date Recorded By Document 07/29/18 13:42 DV [id number] 07/29/18 13:46 DV Document 08/05/18 13:52 DV [id number] 08/05/18 13:59 DV 07/29/18 08/05/18 13:42 13:52 Wound Center Nurse 2 #5 Right Achilles -Time 13:43 13:52 -Correct Patient Yes Yes -Correct Side, Site, Position Yes Yes -Correct Procedure Yes Yes -Procedure Performed Yes Yes -Type of Procedure Debridement Debridement -Clinical Debridement Subcutaneous Subcutaneous -Post Debridement Size (cm) - Length 7.3 8.5 -Post Debridement Size (cm) - Width 5.2 6.4 -Post Debridement Size (cm) - Depth 0.1 0.1 -Total Square Cm 37.96 54.40 -Wound/Ulcer Outcome Not Healed Not Healed -Ulcer Cleansing Rinsed/ Rinsed/ Irrigated with Irrigated with Saline Saline -Foul Odor after Cleansing No -Bioengineered Tissue No -Bleeding Controlled with Pressure Pressure -Offloading No No -Treatment Response Procedure Procedure Tolerated Well Tolerated Well #4 Lateral RLE -Time 13:44 13:53 -Correct Patient Yes Yes -Correct Side, Site, Position Yes Yes -Correct Procedure Yes Yes -Procedure Performed Yes Yes -Type of Procedure Debridement Debridement -Clinical Debridement Subcutaneous Subcutaneous -Post Debridement Size (cm) - Length 3.4 4.3 -Post Debridement Size (cm) - Width 3.4 4.2 -Post Debridement Size (cm) - Depth 0.1 0.1 -Total Square Cm 11.56 18.06 -Wound/Ulcer Outcome Not Healed Not Healed -Ulcer Cleansing Rinsed/ Irrigated with Saline -Foul Odor after Cleansing No -Bioengineered Tissue No No -Bleeding Controlled with Pressure Pressure -Offloading No No -Treatment Response Procedure Procedure Tolerated Well Tolerated Well Pain Scale: 0-10 Numeric Is Patient Pain Free? Yes Yes Wound debrided: right achilles Laterality: Right Type of Debridement: Excisional debridement Anesthesia Used: 4% Lidocaine Solution, 5% Lidocaine Gel Depth: Down to and including healthy tissue, in the subcutaneous layer Percentage of wound debrided: 100 Instrument Used: 5mm curette Tissue Removed: yellow slough, devitalized tissue Severity: Fat Layer Exposed Amount of bleeding with debridement: Mild Bleeding Controlled with: Compression and gauze Patient tolerated procedure well - Additional Wound Wound debrided: Lateral right LE Laterality: Right Type of Debridement: Excisional debridement Anesthesia Used: 4% Lidocaine Solution, 5% Lidocaine Gel Depth: Down to and including healthy tissue, in the subcutaneous layer Percentage of wound debrided: 100 Instrument Used: 5mm curette Tissue Removed: yellow slough, devitalized tissue Severity: Fat Layer Exposed Amount of bleeding with debridement: Mild Bleeding Controlled with: Compression and gauze Patient tolerated procedure: Patient tolerated procedure well Assessment/Plan Active Problems Venous stasis ulcer of right ankle with fat layer exposed (Chronic) posterior and medial ankle MRSA cellulitis (Acute) Venous stasis dermatitis of both lower extremities (Chronic) Assessment: 1) recurrent pressure ulcer of posterior leg in paraplegic w/spina bifida. Healing is very slow and likely because of poor quality of tissues. Offload boots seem very adequate. 2) venous stasis and edema Plan: Shahzad's ulcers were evaluated and debrided today. He has chronic edema and noncompliance. He is wearing offloading booties to decrease pressure to his heels. His wounds are only slightly improved. Will continue with cefdinir. Will continue Hydrofera blue to wounds. He will continue tubigrips for compression. Encouraged increased protein intake and offloading. Will f/u in 1 week.
[2018-08-12 13:20] VITALS: BP 111/45; PULSE 116; RESP 18; TEMP 35.8; BMI 33.2
--- NOTE | 2018-08-12 17:41 | PCM.WC.PN ---
(1) Venous stasis ulcer of right ankle with fat layer exposed Status: Chronic Current Visit: Yes Qualifiers: Varicose vein presence: with varicose veins Qualified Code(s): I83.013 - Varicose veins of right lower extremity with ulcer of ankle; L97.312 - Non-pressure chronic ulcer of right ankle with fat layer exposed Code(s): I83.013 - Varicose veins of right lower extremity with ulcer of ankle; L97.312 - Non-pressure chronic ulcer of right ankle with fat layer exposed Comment: posterior and medial ankle (2) MRSA cellulitis Status: Acute Current Visit: Yes Code(s): L03.90 - Cellulitis, unspecified; B95.62 - Methicillin resistant Staphylococcus aureus infection as the cause of diseases classified elsewhere (3) Venous stasis dermatitis of both lower extremities Status: Chronic Current Visit: Yes Code(s): I83.11 - Varicose veins of right lower extremity with inflammation; I83.12 - Varicose veins of left lower extremity with inflammation (4) Pressure ulcer of right ankle, stage 2 Status: Chronic Current Visit: Yes Code(s): L89.512 - Pressure ulcer of right ankle, stage 2 Type of Wound Date of Service: 08/12/18 Chief Complaint: recurrent R posterior and lateral ankle, 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 He has very damaged tissues of his legs and this is one of multiple recurrent pressure ulcers that he develops in this edematous R lower leg/ankle. He isn't sure when this reoccurred but thinks it has been since January or February. He has been treated by wound care nurse at [facility] where he resides. He has almost been healed several times but has never healed completely. It looks like Drawtex is what they have been using on the ulcer. A culture was done April 2018 which was positive for Pseudomonas. He was on an antibiotic but is no longer taking it. He reports that the ulcer is very painful. He reports that he has been in his bed mostly and elevates his legs/feet with a pillow under his calf and denies pressure on his heel. He also states that he has tubigrips that he usually wears but did not wear them today due to coming here for evaluation. Progress of Wound: Shahzad is here for follow up for wound care of ulcers of his right lower leg. He tolerated hydrofera blue dressings. There has been less improvement of his ulcers as far as size but they look healthier. He is tolerating tubigrips and using a foam bootie to offload his posterior leg. He denies fever or chills. He completed antibiotics. - Physical Exam Vital Signs Temp Pulse Resp BP 96.4 F L 116 H 18 111/45 L 08/12/18 13:20 08/12/18 13:20 08/12/18 13:20 08/12/18 13:20 General: Alert, Oriented x3, Cooperative, No apparent distress HEENT: Atraumatic, Normocephalic Oral: Moist Mucosa Abdomen: Obese Extremities: Edema Skin: Ulcer/ Wound Wound Measurements and Assessment WC - Nurse 1 - General Ulcer Measurement Start: 07/29/18 12:47 Freq: Status: Active Protocol: Activity Type Activity Date Activity User E-Sign Co-Sign Detail Recorded Client Recorded Date Recorded By Document 08/12/18 13:20 [facility] [id number] 08/12/18 13:32 [facility] 08/12/18 13:20 Wound Center Nurse 1 [Ulcer Assessment] #5 Right Achilles -Current Size (cm) - Length 7.2 -Current Size (cm) - Width 6.8 -Current Size (cm) - Depth 0.2 -Total Square Cm 48.96 -Photo Taken No -Exudate Amt Medium -Exudate Type Serosanguineous -Wound Margin Flat & Intact -Granulation Amt Large (67-100%) -Granulation Quality Red -Necrosis Amt Small (1-33%) -Necrotic Tissue Type Adherent Slough -Structure Exposed N/A -Texture (Sanam-wound Skin Appearance) Scarring -Moisture (Sanam-wound Skin Appearance No Abnormality ) -Color (Sanam-wound Skin Appearance) Hemosiderin Staining Rubor -Temperature (Sanam-wound Skin No Abnormality Appearance) (Pt Warm) -Tenderness on Palpation (Sanam-wound No Skin Appearance) -Ulcer Cleansing Wound Cleanser -Foul Odor after Cleansing No -Anesthetic Used 5% Lidocaine Gel #4 Lateral RLE -Current Size (cm) - Length 4 -Current Size (cm) - Width 3.2 -Current Size (cm) - Depth 0.1 -Total Square Cm 12.8 -Photo Taken No -Exudate Amt Small -Exudate Type Serosanguineous -Wound Margin Flat & Intact -Granulation Amt Large (67-100%) -Granulation Quality Red -Necrosis Amt Small (1-33%) -Necrotic Tissue Type Adherent Slough -Texture (Sanam-wound Skin Appearance) Scarring -Moisture (Sanam-wound Skin Appearance No Abnormality ) -Color (Sanam-wound Skin Appearance) Hemosiderin Staining Rubor -Temperature (Sanam-wound Skin No Abnormality Appearance) (Pt Warm) -Tenderness on Palpation (Sanam-wound No Skin Appearance) -Ulcer Cleansing Wound Cleanser -Foul Odor after Cleansing No -Anesthetic Used 5% Lidocaine Gel [Edema Assessment] -Lower Limb Edema Present Yes -Right Calf (cm) 43.3 -Right Ankle (cm) 21.2 WC - Nurse 2 - General Ulcer CM Notes Start: 07/29/18 12:47 Freq: Status: Active Protocol: Activity Type Activity Date Activity User E-Sign Co-Sign Detail Recorded Client Recorded Date Recorded By Document 08/12/18 13:48 DV [id number] 08/12/18 13:51 DV 08/12/18 13:48 Wound Center Nurse 2 [Procedure/Treatment] #5 Right Achilles -Time 13:48 -Correct Patient Yes -Correct Side, Site, Position Yes -Correct Procedure Yes -Procedure Performed Yes -Type of Procedure Debridement -Clinical Debridement Subcutaneous -Post Debridement Size (cm) - Length 3.1 -Post Debridement Size (cm) - Width 7.0 -Post Debridement Size (cm) - Depth 0.1 -Total Square Cm 21.70 -Wound/Ulcer Outcome Not Healed -Ulcer Cleansing Rinsed/ Irrigated with Saline -Foul Odor after Cleansing No -Bioengineered Tissue No -Bleeding Controlled with Pressure -Offloading Yes -Treatment Response Procedure Tolerated Well #4 Lateral RLE -Time 13:50 -Correct Patient Yes -Correct Side, Site, Position Yes -Correct Procedure Yes -Procedure Performed Yes -Type of Procedure Debridement -Clinical Debridement Subcutaneous -Post Debridement Size (cm) - Length 4.2 -Post Debridement Size (cm) - Width 2.8 -Post Debridement Size (cm) - Depth 0.1 -Total Square Cm 11.76 -Wound/Ulcer Outcome Not Healed -Ulcer Cleansing Rinsed/ Irrigated with Saline -Foul Odor after Cleansing No -Bioengineered Tissue No -Bleeding Controlled with Pressure -Offloading Yes -Treatment Response Procedure Tolerated Well [See Physician Procedure note for Specifics] Pain Scale: 0-10 Numeric [Pain] -Is Patient Pain Free? Yes Psych/Mental Status: Normal Affect, Appropriate Debridement Note Post-Debridement Measurements/Treatment WC - Nurse 2 - General Ulcer CM Notes Start: 07/29/18 12:47 Freq: Status: Active Protocol: Activity Type Activity Date Activity User E-Sign Co-Sign Detail Recorded Client Recorded Date Recorded By Document 07/29/18 13:42 DV [id number] 07/29/18 13:46 DV Document 08/05/18 13:52 DV [id number] 08/05/18 13:59 DV Document 08/12/18 13:48 DV [id number] 08/12/18 13:51 DV 07/29/18 08/05/18 08/12/18 13:42 13:52 13:48 Wound Center Nurse 2 #5 Right Achilles -Time 13:43 13:52 13:48 -Correct Patient Yes Yes Yes -Correct Side, Site, Position Yes Yes Yes -Correct Procedure Yes Yes Yes -Procedure Performed Yes Yes Yes -Type of Procedure Debridement Debridement Debridement -Clinical Debridement Subcutaneous Subcutaneous Subcutaneous -Post Debridement Size (cm) - Length 7.3 8.5 3.1 -Post Debridement Size (cm) - Width 5.2 6.4 7.0 -Post Debridement Size (cm) - Depth 0.1 0.1 0.1 -Total Square Cm 37.96 54.40 21.70 -Wound/Ulcer Outcome Not Healed Not Healed Not Healed -Ulcer Cleansing Rinsed/ Rinsed/ Rinsed/ Irrigated with Irrigated with Irrigated with Saline Saline Saline -Foul Odor after Cleansing No No -Bioengineered Tissue No No -Bleeding Controlled with Pressure Pressure Pressure -Offloading No No Yes -Treatment Response Procedure Procedure Procedure Tolerated Well Tolerated Well Tolerated Well #4 Lateral RLE -Time 13:44 13:53 13:50 -Correct Patient Yes Yes Yes -Correct Side, Site, Position Yes Yes Yes -Correct Procedure Yes Yes Yes -Procedure Performed Yes Yes Yes -Type of Procedure Debridement Debridement Debridement -Clinical Debridement Subcutaneous Subcutaneous Subcutaneous -Post Debridement Size (cm) - Length 3.4 4.3 4.2 -Post Debridement Size (cm) - Width 3.4 4.2 2.8 -Post Debridement Size (cm) - Depth 0.1 0.1 0.1 -Total Square Cm 11.56 18.06 11.76 -Wound/Ulcer Outcome Not Healed Not Healed Not Healed -Ulcer Cleansing Rinsed/ Rinsed/ Irrigated with Irrigated with Saline Saline -Foul Odor after Cleansing No No -Bioengineered Tissue No No No -Bleeding Controlled with Pressure Pressure Pressure -Offloading No No Yes -Treatment Response Procedure Procedure Procedure Tolerated Well Tolerated Well Tolerated Well Pain Scale: 0-10 Numeric Is Patient Pain Free? Yes Yes Yes Wound debrided: right achilles Laterality: Right Wound Grade/Stage: Stage 2 Type of Debridement: Excisional debridement Anesthesia Used: 4% Lidocaine Solution, 5% Lidocaine Gel Depth: Down to and including healthy tissue, in the subcutaneous layer Percentage of wound debrided: 100 Instrument Used: 7mm curette, #10 blade Tissue Removed: yellow slough, devitalized tissue Severity: Fat Layer Exposed Amount of bleeding with debridement: Mild Bleeding Controlled with: Compression and gauze Patient tolerated procedure well - Additional Wound Wound debrided: Latreal right LE Laterality: Right Wound Grade/Stage: Stage 2 Type of Debridement: Excisional debridement Depth: Down to and including healthy tissue, in the subcutaneous layer Percentage of wound debrided: 100 Instrument Used: 7mm curette Tissue Removed: yellow slough, devitalized tissue Severity: Fat Layer Exposed Amount of bleeding with debridement: Mild Bleeding Controlled with: Compression and gauze Patient tolerated procedure: Patient tolerated procedure well Assessment/Plan Active Problems Venous stasis ulcer of right ankle with fat layer exposed (Chronic) posterior and medial ankle Pressure ulcer of right ankle, stage 2 (Chronic) MRSA cellulitis (Acute) Venous stasis dermatitis of both lower extremities (Chronic) Assessment: 1) recurrent pressure ulcer of posterior leg in paraplegic w/spina bifida. Healing is very slow and likely because of poor quality of tissues. Offload boots seem very adequate. 2) venous stasis and edema Plan: Shahzad's ulcers were evaluated and debrided today. He has chronic edema and noncompliance. He is wearing offloading booties to decrease pressure to his heels. His wounds are only slightly improved. Will continue with cefdinir. Will continue Hydrofera blue to wounds. He will continue tubigrips for compression. Encouraged increased protein intake and offloading. Will f/u in 2 weeks.
== END 2018-08-23 23:59 ==
LOC: WC 13:30
PROVIDERS: Family Provider Family Medicine; PCP Family Medicine; Visit Provider Family Medicine
DX: I83.013 Varicose veins of right lower extremity with ulcer of ankle (principal); Q05.9 Spina bifida, unspecified; Z91.19 Patient's noncompliance with other medical treatment and regimen; Z86.69 Personal history of other diseases of the nervous system and sense organs; L03.90 Cellulitis, unspecified; B95.62 Methicillin resistant Staphylococcus aureus infection as the cause of diseases classified elsewhere; R60.0 Localized edema; L89.512 Pressure ulcer of right ankle, stage 2
CPT/HCPCS: 11042; 11045

== ENCOUNTER 2018-09-23 14:00 | Outpatient (RCR) | payer MEDICARE, MEDICAID, SELFPAY ==
[2018-08-24 01:19] VITALS: BP 111/45; PULSE 116; RESP 18; TEMP 35.8
[2018-08-26 13:27] VITALS: BP 119/78; PULSE 111; RESP 16; TEMP 37.4; BMI 33.2
--- NOTE | 2018-08-26 18:04 | PN.PCM_ITS ---
(1) Venous stasis ulcer of right ankle with fat layer exposed Status: Chronic Current Visit: Yes Qualifiers: Varicose vein presence: with varicose veins Code(s): I83.013 - Varicose veins of right lower extremity with ulcer of ankle; L97.312 - Non-pressure chronic ulcer of right ankle with fat layer exposed Comment: posterior and medial ankle (2) Pressure ulcer of right ankle, stage 2 Status: Chronic Current Visit: Yes Code(s): L89.512 - Pressure ulcer of right ankle, stage 2 Type of Wound Date of Service: 08/26/18 Chief Complaint: recurrent R posterior and lateral ankle, 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 He has very damaged tissues of his legs and this is one of multiple recurrent pressure ulcers that he develops in this edematous R lower leg/ankle. He isn't sure when this reoccurred but thinks it has been since January or February. He has been treated by wound care nurse at [facility] where he resides. He has almost been healed several times but has never healed completely. It looks like Drawtex is what they have been using on the ulcer. A culture was done April 2018 which was positive for Pseudomonas. He was on an antibiotic but is no longer taking it. He reports that the ulcer is very painful. He reports that he has been in his bed mostly and elevates his legs/feet with a pillow under his calf and denies pressure on his heel. He also states that he has tubigrips that he usually wears but did not wear them today due to coming here for evaluation. Progress of Wound: Shahzad is here for follow up for wound care of ulcers of his right lower leg. He tolerated hydrofera blue dressings. There has been less improvement of his ulcers as far as size and the achilles ulcer looks like it is suffereing pressure. He is tolerating tubigrips and using a foam bootie to offload his posterior leg. He denies fever or chills. He completed antibiotics. - Physical Exam Vital Signs Temp Pulse Resp BP 99.3 F H 111 H 16 119/78 08/26/18 13:27 08/26/18 13:27 08/26/18 13:27 08/26/18 13:27 General: Alert, Oriented x3, Cooperative, No apparent distress HEENT: Atraumatic, Normocephalic Oral: Moist Mucosa Abdomen: Obese Extremities: Edema Skin: Ulcer/ Wound Wound Measurements and Assessment WC - Nurse 1 - General Ulcer Measurement Start: 08/26/18 13:27 Freq: Status: Active Protocol: Activity Type Activity Date Activity User E-Sign Co-Sign Detail Recorded Client Recorded Date Recorded By Document 08/26/18 13:27 [facility] [id number] 08/26/18 13:37 [facility] 08/26/18 13:27 Wound Center Nurse 1 [Ulcer Assessment] #5 Right Achilles -Combined with other wound No -Current Size (cm) - Length 5.9 -Current Size (cm) - Width 5.1 -Current Size (cm) - Depth 0.1 -Total Square Cm 30.09 -Photo Taken No -Epithelialization Small 1-33% -Tunneling No -Undermining/Tunneling No -Circular Undermining No -Exudate Amt Medium -Exudate Type Serosanguineous -Wound Margin Distinct, Outline Attached -Granulation Amt Large (67-100%) -Granulation Quality Red -Slough/Fibrin Yes -Necrosis Amt Small (1-33%) -Necrotic Tissue Type Adherent Slough -Texture (Sanam-wound Skin Appearance) Assessed Scarring -Moisture (Sanam-wound Skin Appearance Assessed ) Dry/Scaly -Color (Sanam-wound Skin Appearance) Assessed Erythema Hemosiderin Staining -Temperature (Sanam-wound Skin No Abnormality Appearance) (Pt Warm) -Tenderness on Palpation (Sanam-wound No Skin Appearance) -Ulcer Cleansing Wound Cleanser -Foul Odor after Cleansing No -Anesthetic Used 4% Lidocaine Solution #4 Lateral RLE -Combined with other wound No -Current Size (cm) - Length 3.7 -Current Size (cm) - Width 2 -Current Size (cm) - Depth 0.1 -Total Square Cm 7.4 -Photo Taken No -Epithelialization Small 1-33% -Tunneling No -Undermining/Tunneling No -Circular Undermining No -Exudate Amt Medium -Exudate Type Serosanguineous -Wound Margin Flat & Intact -Granulation Amt Large (67-100%) -Granulation Quality Red -Slough/Fibrin Yes -Necrosis Amt Small (1-33%) -Necrotic Tissue Type Adherent Slough -Texture (Sanam-wound Skin Appearance) Assessed Scarring -Moisture (Sanam-wound Skin Appearance Assessed ) -Color (Sanam-wound Skin Appearance) Assessed Erythema Hemosiderin Staining -Temperature (Sanam-wound Skin No Abnormality Appearance) (Pt Warm) -Tenderness on Palpation (Sanam-wound No Skin Appearance) -Ulcer Cleansing Wound Cleanser -Foul Odor after Cleansing No -Anesthetic Used 4% Lidocaine Solution [Edema Assessment] -Lower Limb Edema Present Yes -Right Calf (cm) 39.5 -Right Ankle (cm) 21.1 WC - Nurse 2 - General Ulcer CM Notes Start: 08/26/18 13:27 Freq: Status: Active Protocol: Activity Type Activity Date Activity User E-Sign Co-Sign Detail Recorded Client Recorded Date Recorded By Document 08/26/18 13:54 DV [id number] 08/26/18 13:56 DV 08/26/18 13:54 Wound Center Nurse 2 [Procedure/Treatment] #5 Right Achilles -Time 13:54 -Correct Patient Yes -Correct Side, Site, Position Yes -Correct Procedure Yes -Procedure Performed Yes -Type of Procedure Debridement -Clinical Debridement Subcutaneous -Post Debridement Size (cm) - Length 7.3 -Post Debridement Size (cm) - Width 6.0 -Post Debridement Size (cm) - Depth 0.1 -Total Square Cm 43.80 -Wound/Ulcer Outcome Not Healed -Ulcer Cleansing Rinsed/ Irrigated with Saline -Foul Odor after Cleansing No -Bioengineered Tissue No -Bleeding Controlled with Pressure -Offloading Yes -Treatment Response Procedure Tolerated Well #4 Lateral RLE -Time 13:55 -Correct Patient Yes -Correct Side, Site, Position Yes -Correct Procedure Yes -Procedure Performed Yes -Type of Procedure Debridement -Clinical Debridement Subcutaneous -Post Debridement Size (cm) - Length 3.2 -Post Debridement Size (cm) - Width 2.0 -Post Debridement Size (cm) - Depth 0.1 -Total Square Cm 6.40 -Wound/Ulcer Outcome Not Healed -Ulcer Cleansing Rinsed/ Irrigated with Saline -Foul Odor after Cleansing No -Bioengineered Tissue No -Bleeding Controlled with Pressure -Offloading Yes -Treatment Response Procedure Tolerated Well [See Physician Procedure note for Specifics] Pain Scale: 0-10 Numeric [Pain] -Is Patient Pain Free? Yes Psych/Mental Status: Normal Affect, Appropriate Debridement Note Post-Debridement Measurements/Treatment WC - Nurse 2 - General Ulcer CM Notes Start: 08/26/18 13:27 Freq: Status: Active Protocol: Activity Type Activity Date Activity User E-Sign Co-Sign Detail Recorded Client Recorded Date Recorded By Document 08/26/18 13:54 DV [id number] 08/26/18 13:56 DV 08/26/18 13:54 Wound Center Nurse 2 #5 Right Achilles -Time 13:54 -Correct Patient Yes -Correct Side, Site, Position Yes -Correct Procedure Yes -Procedure Performed Yes -Type of Procedure Debridement -Clinical Debridement Subcutaneous -Post Debridement Size (cm) - Length 7.3 -Post Debridement Size (cm) - Width 6.0 -Post Debridement Size (cm) - Depth 0.1 -Total Square Cm 43.80 -Wound/Ulcer Outcome Not Healed -Ulcer Cleansing Rinsed/ Irrigated with Saline -Foul Odor after Cleansing No -Bioengineered Tissue No -Bleeding Controlled with Pressure -Offloading Yes -Treatment Response Procedure Tolerated Well #4 Lateral RLE -Time 13:55 -Correct Patient Yes -Correct Side, Site, Position Yes -Correct Procedure Yes -Procedure Performed Yes -Type of Procedure Debridement -Clinical Debridement Subcutaneous -Post Debridement Size (cm) - Length 3.2 -Post Debridement Size (cm) - Width 2.0 -Post Debridement Size (cm) - Depth 0.1 -Total Square Cm 6.40 -Wound/Ulcer Outcome Not Healed -Ulcer Cleansing Rinsed/ Irrigated with Saline -Foul Odor after Cleansing No -Bioengineered Tissue No -Bleeding Controlled with Pressure -Offloading Yes -Treatment Response Procedure Tolerated Well Pain Scale: 0-10 Numeric Is Patient Pain Free? Yes Wound debrided: right achilles Laterality: Right Wound Grade/Stage: Stage 2 Type of Debridement: Excisional debridement Anesthesia Used: 4% Lidocaine Solution, 5% Lidocaine Gel Depth: Down to and including healthy tissue, in the subcutaneous layer Percentage of wound debrided: 100 Instrument Used: 5mm curette Tissue Removed: yellow slough, devitalized tissue Severity: Fat Layer Exposed Amount of bleeding with debridement: Mild Bleeding Controlled with: Compression and gauze Patient tolerated procedure well - Additional Wound Wound debrided: right lateral LE Laterality: Right Wound Grade/Stage: Stage 2 Type of Debridement: Excisional debridement Anesthesia Used: 4% Lidocaine Solution, 5% Lidocaine Gel Depth: Down to and including healthy tissue, in the subcutaneous layer Percentage of wound debrided: 100 Instrument Used: 7mm curette Tissue Removed: yellow slough, devitalized tissue Severity: Fat Layer Exposed Amount of bleeding with debridement: Mild Bleeding Controlled with: Compression and gauze Patient tolerated procedure: Patient tolerated procedure well Assessment/Plan Active Problems Venous stasis ulcer of right ankle with fat layer exposed (Chronic) posterior and medial ankle Pressure ulcer of right ankle, stage 2 (Chronic) Assessment: 1) recurrent pressure ulcer of posterior leg in paraplegic w/spina bifida. Healing is very slow and likely because of poor quality of tissues. Offload boots seem very adequate. 2) venous stasis and edema Plan: Shahzad's ulcers were evaluated and debrided today. He has chronic edema and noncompliance. He is wearing offloading booties to decrease pressure to his heels. His wounds are only slightly improved. Will check wound culture of Achilles and treat accordingly. Will continue Hydrofera blue to wounds. He will continue tubigrips for compression. Encouraged increased protein intake and offloading was again reviewed. Will f/u in 1 week.
[2018-09-02 13:17] VITALS: BP 116/75; PULSE 99; RESP 16; TEMP 37.4; BMI 33.2
--- NOTE | 2018-09-02 17:02 | PCM.WC.PN ---
(1) Venous stasis ulcer of right ankle with fat layer exposed Status: Chronic Qualifiers: Varicose vein presence: with varicose veins Code(s): I83.013 - Varicose veins of right lower extremity with ulcer of ankle; L97.312 - Non-pressure chronic ulcer of right ankle with fat layer exposed Comment: posterior and medial ankle (2) Pressure ulcer of right ankle, stage 2 Status: Chronic Code(s): L89.512 - Pressure ulcer of right ankle, stage 2 Type of Wound Date of Service: 09/02/18 Chief Complaint: recurrent R posterior and lateral ankle, 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 He has very damaged tissues of his legs and this is one of multiple recurrent pressure ulcers that he develops in this edematous R lower leg/ankle. He isn't sure when this reoccurred but thinks it has been since January or February. He has been treated by wound care nurse at [facility] where he resides. He has almost been healed several times but has never healed completely. It looks like Drawtex is what they have been using on the ulcer. A culture was done April 2018 which was positive for Pseudomonas. He was on an antibiotic but is no longer taking it. He reports that the ulcer is very painful. He reports that he has been in his bed mostly and elevates his legs/feet with a pillow under his calf and denies pressure on his heel. He also states that he has tubigrips that he usually wears but did not wear them today due to coming here for evaluation. Progress of Wound: Shahzad is here for follow up for wound care of ulcers of his right lower leg. He is tolerating hydrofera blue dressings. There has been significant improvement of his ulcers. His wound culture was positive for multiple bacteria. He is tolerating tubigrips and using a foam bootie to offload his posterior leg. He denies fever or chills. He started IV antibiotics yesterday and is tolerating them so far. PICC is in place right antecubital fossa. - Physical Exam Vital Signs Temp Pulse Resp BP 99.3 F H 99 16 116/75 09/02/18 13:17 09/02/18 13:17 09/02/18 13:17 09/02/18 13:17 General: Alert, Oriented x3, Cooperative, No apparent distress HEENT: Atraumatic, Normocephalic Oral: Moist Mucosa Abdomen: Obese Extremities: Edema Skin: Ulcer/ Wound Wound Measurements and Assessment WC - Nurse 1 - General Ulcer Measurement Start: 08/26/18 13:27 Freq: Status: Active Protocol: Activity Type Activity Date Activity User E-Sign Co-Sign Detail Recorded Client Recorded Date Recorded By Document 09/02/18 13:17 [facility] [id number] 09/02/18 13:26 [facility] 09/02/18 13:17 Wound Center Nurse 1 [Ulcer Assessment] #5 Right Achilles -Combined with other wound No -Current Size (cm) - Length 3.8 -Current Size (cm) - Width 5.3 -Current Size (cm) - Depth 0.1 -Total Square Cm 20.14 -Photo Taken No -Epithelialization Medium 34-66% -Tunneling No -Undermining/Tunneling No -Circular Undermining No -Exudate Amt Small -Exudate Type Sanguineous -Wound Margin Flat & Intact -Granulation Amt Large (67-100%) -Granulation Quality Red -Slough/Fibrin Yes -Necrosis Amt Small (1-33%) -Necrotic Tissue Type Adherent Slough -Texture (Sanam-wound Skin Appearance) Assessed Scarring -Moisture (Sanam-wound Skin Appearance Assessed ) -Color (Sanam-wound Skin Appearance) Assessed Hemosiderin Staining -Temperature (Sanam-wound Skin No Abnormality Appearance) (Pt Warm) -Tenderness on Palpation (Sanam-wound Yes Skin Appearance) -Ulcer Cleansing Wound Cleanser -Foul Odor after Cleansing No -Anesthetic Used 4% Lidocaine Solution #4 Lateral RLE -Combined with other wound No -Current Size (cm) - Length 0.5 -Current Size (cm) - Width 0.4 -Current Size (cm) - Depth 0.1 -Total Square Cm 0.20 -Photo Taken No -Epithelialization Medium 34-66% -Tunneling No -Undermining/Tunneling No -Circular Undermining No -Exudate Amt Small -Exudate Type Sanguineous -Wound Margin Flat & Intact -Granulation Amt Large (67-100%) -Granulation Quality Red -Slough/Fibrin Yes -Necrosis Amt Small (1-33%) -Necrotic Tissue Type Adherent Slough -Texture (Sanam-wound Skin Appearance) Assessed Scarring -Moisture (Sanam-wound Skin Appearance Assessed ) -Color (Sanam-wound Skin Appearance) Assessed Hemosiderin Staining -Temperature (Sanam-wound Skin No Abnormality Appearance) (Pt Warm) -Tenderness on Palpation (Sanam-wound Yes Skin Appearance) -Ulcer Cleansing Wound Cleanser -Foul Odor after Cleansing No -Anesthetic Used 4% Lidocaine Solution [Edema Assessment] -Lower Limb Edema Present Yes -Right Calf (cm) 43 -Right Ankle (cm) 20.7 WC - Nurse 2 - General Ulcer CM Notes Start: 08/26/18 13:27 Freq: Status: Active Protocol: Activity Type Activity Date Activity User E-Sign Co-Sign Detail Recorded Client Recorded Date Recorded By Document 09/02/18 14:02 MW [id number] 09/02/18 14:06 MW 09/02/18 14:02 Wound Center Nurse 2 [Procedure/Treatment] #5 Right Achilles -Time 14:02 -Correct Patient Yes -Correct Side, Site, Position Yes -Correct Procedure Yes -Procedure Performed Yes -Type of Procedure Debridement -Clinical Debridement Subcutaneous -Post Debridement Size (cm) - Length 5.0 -Post Debridement Size (cm) - Width 4.8 -Post Debridement Size (cm) - Depth 0.1 -Total Square Cm 24.00 -Wound/Ulcer Outcome Not Healed -Ulcer Cleansing Rinsed/ Irrigated with Saline -Foul Odor after Cleansing No -Bioengineered Tissue No -Bleeding Controlled with Pressure -Offloading No -Treatment Response Procedure Tolerated Well #4 Lateral RLE -Time 14:02 -Correct Patient Yes -Correct Side, Site, Position Yes -Correct Procedure Yes -Procedure Performed Yes -Type of Procedure Debridement -Clinical Debridement Subcutaneous -Post Debridement Size (cm) - Length 0.7 -Post Debridement Size (cm) - Width 0.3 -Post Debridement Size (cm) - Depth 0.1 -Total Square Cm 0.21 -Wound/Ulcer Outcome Not Healed -Ulcer Cleansing Rinsed/ Irrigated with Saline -Foul Odor after Cleansing No -Bioengineered Tissue No -Bleeding Controlled with Pressure -Offloading No -Treatment Response Procedure Tolerated Well [See Physician Procedure note for Specifics] Pain Scale: 0-10 Numeric [Pain] -Is Patient Pain Free? Yes Psych/Mental Status: Normal Affect, Appropriate Debridement Note Post-Debridement Measurements/Treatment WC - Nurse 2 - General Ulcer CM Notes Start: 08/26/18 13:27 Freq: Status: Active Protocol: Activity Type Activity Date Activity User E-Sign Co-Sign Detail Recorded Client Recorded Date Recorded By Document 08/26/18 13:54 DV [id number] 08/26/18 13:56 DV Document 09/02/18 14:02 MW [id number] 09/02/18 14:06 MW 08/26/18 09/02/18 13:54 14:02 Wound Center Nurse 2 #5 Right Achilles -Time 13:54 14:02 -Correct Patient Yes Yes -Correct Side, Site, Position Yes Yes -Correct Procedure Yes Yes -Procedure Performed Yes Yes -Type of Procedure Debridement Debridement -Clinical Debridement Subcutaneous Subcutaneous -Post Debridement Size (cm) - Length 7.3 5.0 -Post Debridement Size (cm) - Width 6.0 4.8 -Post Debridement Size (cm) - Depth 0.1 0.1 -Total Square Cm 43.80 24.00 -Wound/Ulcer Outcome Not Healed Not Healed -Ulcer Cleansing Rinsed/ Rinsed/ Irrigated with Irrigated with Saline Saline -Foul Odor after Cleansing No No -Bioengineered Tissue No No -Bleeding Controlled with Pressure Pressure -Offloading Yes No -Treatment Response Procedure Procedure Tolerated Well Tolerated Well #4 Lateral RLE -Time 13:55 14:02 -Correct Patient Yes Yes -Correct Side, Site, Position Yes Yes -Correct Procedure Yes Yes -Procedure Performed Yes Yes -Type of Procedure Debridement Debridement -Clinical Debridement Subcutaneous Subcutaneous -Post Debridement Size (cm) - Length 3.2 0.7 -Post Debridement Size (cm) - Width 2.0 0.3 -Post Debridement Size (cm) - Depth 0.1 0.1 -Total Square Cm 6.40 0.21 -Wound/Ulcer Outcome Not Healed Not Healed -Ulcer Cleansing Rinsed/ Rinsed/ Irrigated with Irrigated with Saline Saline -Foul Odor after Cleansing No No -Bioengineered Tissue No No -Bleeding Controlled with Pressure Pressure -Offloading Yes No -Treatment Response Procedure Procedure Tolerated Well Tolerated Well Pain Scale: 0-10 Numeric Is Patient Pain Free? Yes Yes Wound debrided: right achilles Laterality: Right Wound Grade/Stage: stage 2 Type of Debridement: Excisional debridement Anesthesia Used: 4% Lidocaine Solution, 5% Lidocaine Gel Depth: Down to and including healthy tissue, in the subcutaneous layer Percentage of wound debrided: 100 Instrument Used: 5mm curette Tissue Removed: yellow slough, devitalized tissue Severity: Fat Layer Exposed Amount of bleeding with debridement: Mild Bleeding Controlled with: Compression and gauze Patient tolerated procedure well - Additional Wound Wound debrided: lateral right LE Laterality: Right Wound Grade/Stage: Stage 2 Type of Debridement: Excisional debridement Anesthesia Used: 4% Lidocaine Solution Depth: Down to and including healthy tissue, in the subcutaneous layer Percentage of wound debrided: 100 Instrument Used: 5mm curette Tissue Removed: yellow slough, devitalized tissue Severity: Fat Layer Exposed Amount of bleeding with debridement: Mild Bleeding Controlled with: Compression and gauze Patient tolerated procedure: Patient tolerated procedure well Assessment/Plan Assessment: 1) recurrent pressure ulcer of posterior leg in paraplegic w/spina bifida. Healing is very slow and likely because of poor quality of tissues. Offload boots seem very adequate. 2) venous stasis and edema Plan: Shahzad's ulcers were evaluated and debrided today. He has chronic edema and noncompliance. He is wearing offloading booties to decrease pressure to his heels. His wounds are much improved. Will continue IV antibiotics. Will continue Hydrofera blue to wounds. He will continue tubigrips for compression. Encouraged increased protein intake and offloading was again reviewed. Will f/u in 1 week.
--- NOTE | 2018-09-02 17:06 | PN.PCM_ITS ---
(1) Venous stasis ulcer of right ankle with fat layer exposed Status: Chronic Qualifiers: Varicose vein presence: with varicose veins Code(s): I83.013 - Varicose veins of right lower extremity with ulcer of ankle; L97.312 - Non-pressure chronic ulcer of right ankle with fat layer exposed Comment: posterior and medial ankle (2) Pressure ulcer of right ankle, stage 2 Status: Chronic Code(s): L89.512 - Pressure ulcer of right ankle, stage 2 Type of Wound Date of Service: 09/02/18 Chief Complaint: recurrent R posterior and lateral ankle, 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 He has very damaged tissues of his legs and this is one of multiple recurrent pressure ulcers that he develops in this edematous R lower leg/ankle. He isn't sure when this reoccurred but thinks it has been since January or February. He has been treated by wound care nurse at [facility] where he resides. He has almost been healed several times but has never healed completely. It looks like Drawtex is what they have been using on the ulcer. A culture was done April 2018 which was positive for Pseudomonas. He was on an antibiotic but is no longer taking it. He reports that the ulcer is very painful. He reports that he has been in his bed mostly and elevates his legs/feet with a pillow under his calf and denies pressure on his heel. He also states that he has tubigrips that he usually wears but did not wear them today due to coming here for evaluation. Progress of Wound: Shahzad is here for follow up for wound care of ulcers of his right lower leg. He is tolerating hydrofera blue dressings. There has been sign ificant improvement of his ulcers. His wound culture was positive for multiple bacteria. He is tolerating tubigrips and using a foam bootie to offload his posterior leg. He denies fever or chills. He started IV antibiotics yesterday and is tolerating them so far. PICC is in place right antecubital fossa. - Physical Exam Vital Signs Temp Pulse Resp BP 99.3 F H 99 16 116/75 09/02/18 13:17 09/02/18 13:17 09/02/18 13:17 09/02/18 13:17 General: Alert, Oriented x3, Cooperative, No apparent distress HEENT: Atraumatic, Normocephalic Oral: Moist Mucosa Abdomen: Obese Extremities: Edema Skin: Ulcer/ Wound Wound Measurements and Assessment WC - Nurse 1 - General Ulcer Measurement Start: 08/26/18 13:27 Freq: Status: Active Protocol: Activity Type Activity Date Activity User E-Sign Co-Sign Detail Recorded Client Recorded Date Recorded By Document 09/02/18 13:17 [facility] [id number] 09/02/18 13:26 [facility] 09/02/18 13:17 Wound Center Nurse 1 [Ulcer Assessment] #5 Right Achilles -Combined with other wound No -Current Size (cm) - Length 3.8 -Current Size (cm) - Width 5.3 -Current Size (cm) - Depth 0.1 -Total Square Cm 20.14 -Photo Taken No -Epithelialization Medium 34-66% -Tunneling No -Undermining/Tunneling No -Circular Undermining No -Exudate Amt Small -Exudate Type Sanguineous -Wound Margin Flat & Intact -Granulation Amt Large (67-100%) -Granulation Quality Red -Slough/Fibrin Yes -Necrosis Amt Small (1-33%) -Necrotic Tissue Type Adherent Slough -Texture (Sanam-wound Skin Appearance) Assessed Scarring -Moisture (Sanam-wound Skin Appearance Assessed ) -Color (Sanam-wound Skin Appearance) Assessed Hemosiderin Staining -Temperature (Sanam-wound Skin No Abnormality Appearance) (Pt Warm) -Tenderness on Palpation (Sanam-wound Yes Skin Appearance) -Ulcer Cleansing Wound Cleanser -Foul Odor after Cleansing No -Anesthetic Used 4% Lidocaine Solution #4 Lateral RLE -Combined with other wound No -Current Size (cm) - Length 0.5 -Current Size (cm) - Width 0.4 -Current Size (cm) - Depth 0.1 -Total Square Cm 0.20 -Photo Taken No -Epithelialization Medium 34-66% -Tunneling No -Undermining/Tunneling No -Circular Undermining No -Exudate Amt Small -Exudate Type Sanguineous -Wound Margin Flat & Intact -Granulation Amt Large (67-100%) -Granulation Quality Red -Slough/Fibrin Yes -Necrosis Amt Small (1-33%) -Necrotic Tissue Type Adherent Slough -Texture (Sanam-wound Skin Appearance) Assessed Scarring -Moisture (Sanam-wound Skin Appearance Assessed ) -Color (Sanam-wound Skin Appearance) Assessed Hemosiderin Staining -Temperature (Sanam-wound Skin No Abnormality Appearance) (Pt Warm) -Tenderness on Palpation (Sanam-wound Yes Skin Appearance) -Ulcer Cleansing Wound Cleanser -Foul Odor after Cleansing No -Anesthetic Used 4% Lidocaine Solution [Edema Assessment] -Lower Limb Edema Present Yes -Right Calf (cm) 43 -Right Ankle (cm) 20.7 WC - Nurse 2 - General Ulcer CM Notes Start: 08/26/18 13:27 Freq: Status: Active Protocol: Activity Type Activity Date Activity User E-Sign Co-Sign Detail Recorded Client Recorded Date Recorded By Document 09/02/18 14:02 MW [id number] 09/02/18 14:06 MW 09/02/18 14:02 Wound Center Nurse 2 [Procedure/Treatment] #5 Right Achilles -Time 14:02 -Correct Patient Yes -Correct Side, Site, Position Yes -Correct Procedure Yes -Procedure Performed Yes -Type of Procedure Debridement -Clinical Debridement Subcutaneous -Post Debridement Size (cm) - Length 5.0 -Post Debridement Size (cm) - Width 4.8 -Post Debridement Size (cm) - Depth 0.1 -Total Square Cm 24.00 -Wound/Ulcer Outcome Not Healed -Ulcer Cleansing Rinsed/ Irrigated with Saline -Foul Odor after Cleansing No -Bioengineered Tissue No -Bleeding Controlled with Pressure -Offloading No -Treatment Response Procedure Tolerated Well #4 Lateral RLE -Time 14:02 -Correct Patient Yes -Correct Side, Site, Position Yes -Correct Procedure Yes -Procedure Performed Yes -Type of Procedure Debridement -Clinical Debridement Subcutaneous -Post Debridement Size (cm) - Length 0.7 -Post Debridement Size (cm) - Width 0.3 -Post Debridement Size (cm) - Depth 0.1 -Total Square Cm 0.21 -Wound/Ulcer Outcome Not Healed -Ulcer Cleansing Rinsed/ Irrigated with Saline -Foul Odor after Cleansing No -Bioengineered Tissue No -Bleeding Controlled with Pressure -Offloading No -Treatment Response Procedure Tolerated Well [See Physician Procedure note for Specifics] Pain Scale: 0-10 Numeric [Pain] -Is Patient Pain Free? Yes Psych/Mental Status: Normal Affect, Appropriate Debridement Note Post-Debridement Measurements/Treatment WC - Nurse 2 - General Ulcer CM Notes Start: 08/26/18 13:27 Freq: Status: Active Protocol: Activity Type Activity Date Activity User E-Sign Co-Sign Detail Recorded Client Recorded Date Recorded By Document 08/26/18 13:54 DV [id number] 08/26/18 13:56 DV Document 09/02/18 14:02 MW [id number] 09/02/18 14:06 MW 08/26/18 09/02/18 13:54 14:02 Wound Center Nurse 2 #5 Right Achilles -Time 13:54 14:02 -Correct Patient Yes Yes -Correct Side, Site, Position Yes Yes -Correct Procedure Yes Yes -Procedure Performed Yes Yes -Type of Procedure Debridement Debridement -Clinical Debridement Subcutaneous Subcutaneous -Post Debridement Size (cm) - Length 7.3 5.0 -Post Debridement Size (cm) - Width 6.0 4.8 -Post Debridement Size (cm) - Depth 0.1 0.1 -Total Square Cm 43.80 24.00 -Wound/Ulcer Outcome Not Healed Not Healed -Ulcer Cleansing Rinsed/ Rinsed/ Irrigated with Irrigated with Saline Saline -Foul Odor after Cleansing No No -Bioengineered Tissue No No -Bleeding Controlled with Pressure Pressure -Offloading Yes No -Treatment Response Procedure Procedure Tolerated Well Tolerated Well #4 Lateral RLE -Time 13:55 14:02 -Correct Patient Yes Yes -Correct Side, Site, Position Yes Yes -Correct Procedure Yes Yes -Procedure Performed Yes Yes -Type of Procedure Debridement Debridement -Clinical Debridement Subcutaneous Subcutaneous -Post Debridement Size (cm) - Length 3.2 0.7 -Post Debridement Size (cm) - Width 2.0 0.3 -Post Debridement Size (cm) - Depth 0.1 0.1 -Total Square Cm 6.40 0.21 -Wound/Ulcer Outcome Not Healed Not Healed -Ulcer Cleansing Rinsed/ Rinsed/ Irrigated with Irrigated with Saline Saline -Foul Odor after Cleansing No No -Bioengineered Tissue No No -Bleeding Controlled with Pressure Pressure -Offloading Yes No -Treatment Response Procedure Procedure Tolerated Well Tolerated Well Pain Scale: 0-10 Numeric Is Patient Pain Free? Yes Yes Wound debrided: right achilles Laterality: Right Wound Grade/Stage: stage 2 Type of Debridement: Excisional debridement Anesthesia Used: 4% Lidocaine Solution, 5% Lidocaine Gel Depth: Down to and including healthy tissue, in the subcutaneous layer Percentage of wound debrided: 100 Instrument Used: 5mm curette Tissue Removed: yellow slough, devitalized tissue Severity: Fat Layer Exposed Amount of bleeding with debridement: Mild Bleeding Controlled with: Compression and gauze Patient tolerated procedure well - Additional Wound Wound debrided: lateral right LE Laterality: Right Wound Grade/Stage: Stage 2 Type of Debridement: Excisional debridement Anesthesia Used: 4% Lidocaine Solution Depth: Down to and including healthy tissue, in the subcutaneous layer Percentage of wound debrided: 100 Instrument Used: 5mm curette Tissue Removed: yellow slough, devitalized tissue Severity: Fat Layer Exposed Amount of bleeding with debridement: Mild Bleeding Controlled with: Compression and gauze Patient tolerated procedure: Patient tolerated procedure well Assessment/Plan Assessment: 1) recurrent pressure ulcer of posterior leg in paraplegic w/spina bifida. Healing is very slow and likely because of poor quality of tissues. Offload boots seem very adequate. 2) venous stasis and edema Plan: Shahzad's ulcers were evaluated and debrided today. He has chronic edema and noncompliance. He is wearing offloading booties to decrease pressure to his heels. His wounds are much improved. Will continue IV antibiotics. Will continue Hydrofera blue to wounds. He will continue tubigrips for compression. Encouraged increased protein intake and offloading was again reviewed. Will f/u in 1 week.
[2018-09-09 13:44] VITALS: BP 112/70; PULSE 110; RESP 18; TEMP 36.8; BMI 33.2
--- NOTE | 2018-09-09 19:35 | PN.PCM_ITS ---
(1) Venous stasis ulcer of right ankle with fat layer exposed Status: Chronic Current Visit: Yes Qualifiers: Varicose vein presence: with varicose veins Code(s): I83.013 - Varicose veins of right lower extremity with ulcer of ankle; L97.312 - Non-pressure chronic ulcer of right ankle with fat layer exposed Comment: posterior and medial ankle (2) Pressure ulcer of right ankle, stage 2 Status: Chronic Current Visit: Yes Code(s): L89.512 - Pressure ulcer of right ankle, stage 2 Type of Wound Date of Service: 09/09/18 Chief Complaint: recurrent R posterior and lateral ankle, 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 He has very damaged tissues of his legs and this is one of multiple recurrent pressure ulcers that he develops in this edematous R lower leg/ankle. He isn't sure when this reoccurred but thinks it has been since January or February. He has been treated by wound care nurse at [facility] where he resides. He has almost been healed several times but has never healed completely. It looks like Drawtex is what they have been using on the ulcer. A culture was done April 2018 which was positive for Pseudomonas. He was on an antibiotic but is no longer taking it. He reports that the ulcer is very painful. He reports that he has been in his bed mostly and elevates his legs/feet with a pillow under his calf and denies pressure on his heel. He also states that he has tubigrips that he usually wears but did not wear them today due to coming here for evaluation. Progress of Wound: Shahzad is here for follow up for wound care of ulcers of his right lower leg. He is tolerating hydrofera blue dressings. There has been significant improvement of his ulcers overall but they are measuring larger due to new pressure injuries to the areas around the ulcers. He also has developed a rash likely from the Cefepime. This started on Wednesday and is itchy and all over his chest and legs and arms. He is tolerating tubigrips and using a foam bootie to offload his posterior leg and he insists that he does not have any pressure on his leg. He denies fever or chills. PICC is in place right antecubital fossa but was removed in clinic today by nursing staff because the dressing was coming off. - Physical Exam Vital Signs Temp Pulse Resp BP 98.2 F 110 H 18 112/70 09/09/18 13:44 09/09/18 13:44 09/09/18 13:44 09/09/18 13:44 General: Alert, Oriented x3, Cooperative, No apparent distress HEENT: Atraumatic, Normocephalic Oral: Moist Mucosa Abdomen: Soft, Obese Extremities: Edema Skin: Ulcer/ Wound Wound Measurements and Assessment WC - Nurse 1 - General Ulcer Measurement Start: 08/26/18 13:27 Freq: Status: Active Protocol: Activity Type Activity Date Activity User E-Sign Co-Sign Detail Recorded Client Recorded Date Recorded By Document 09/09/18 13:44 [id number] 09/09/18 13:54 09/09/18 13:44 Wound Center Nurse 1 [Ulcer Assessment] #5 Right Achilles -Combined with other wound No -Current Size (cm) - Length 3.4 -Current Size (cm) - Width 3.7 -Current Size (cm) - Depth 0.1 -Total Square Cm 12.58 -Photo Taken No -Epithelialization Small 1-33% -Tunneling No -Undermining/Tunneling No -Circular Undermining No -Exudate Amt Small -Exudate Type Serosanguineous -Wound Margin Flat & Intact -Granulation Amt Medium (34-66%) -Granulation Quality Pale Zachary -Necrosis Amt Medium (34-66%) -Necrotic Tissue Type Adherent Slough -Structure Exposed None/Limited to Skin Breakdown -Texture (Sanam-wound Skin Appearance) Scarring -Moisture (Sanam-wound Skin Appearance Dry/Scaly ) -Color (Sanam-wound Skin Appearance) Erythema -Temperature (Sanam-wound Skin No Abnormality Appearance) (Pt Warm) -Tenderness on Palpation (Sanam-wound Yes Skin Appearance) -Ulcer Cleansing Rinsed/ Irrigated with Saline -Foul Odor after Cleansing No -Anesthetic Used 4% Lidocaine Solution #4 Lateral RLE -Combined with other wound No -Current Size (cm) - Length 2.4 -Current Size (cm) - Width 1.3 -Current Size (cm) - Depth 0.1 -Total Square Cm 3.12 -Photo Taken No -Epithelialization Small 1-33% -Tunneling No -Undermining/Tunneling No -Circular Undermining No -Exudate Amt Small -Exudate Type Serosanguineous -Wound Margin Flat & Intact -Granulation Amt Medium (34-66%) -Granulation Quality Red -Slough/Fibrin Yes -Necrosis Amt Large (67-100%) -Necrotic Tissue Type Eschar -Structure Exposed None/Limited to Skin Breakdown -Texture (Sanam-wound Skin Appearance) Assessed Scarring -Moisture (Sanam-wound Skin Appearance Dry/Scaly ) -Color (Sanam-wound Skin Appearance) No Abnormality Assessed -Temperature (Sanam-wound Skin No Abnormality Appearance) (Pt Warm) -Tenderness on Palpation (Sanam-wound Yes Skin Appearance) -Ulcer Cleansing Rinsed/ Irrigated with Saline -Foul Odor after Cleansing No -Anesthetic Used 4% Lidocaine Solution WC - Nurse 2 - General Ulcer CM Notes Start: 08/26/18 13:27 Freq: Status: Active Protocol: Activity Type Activity Date Activity User E-Sign Co-Sign Detail Recorded Client Recorded Date Recorded By Document 09/09/18 14:09 DV [id number] 09/09/18 14:18 DV 09/09/18 14:09 Wound Center Nurse 2 [Procedure/Treatment] #5 Right Achilles -Time 14:10 -Correct Patient Yes -Correct Side, Site, Position Yes -Correct Procedure Yes -Procedure Performed Yes -Type of Procedure Debridement -Clinical Debridement Subcutaneous -Post Debridement Size (cm) - Length 6.5 -Post Debridement Size (cm) - Width 3.5 -Post Debridement Size (cm) - Depth 0.1 -Total Square Cm 22.75 -Wound/Ulcer Outcome Not Healed -Ulcer Cleansing Rinsed/ Irrigated with Saline -Foul Odor after Cleansing No -Bioengineered Tissue No -Bleeding Controlled with Pressure -Offloading Yes -Treatment Response Procedure Tolerated Well #4 Lateral RLE -Time 14:10 -Correct Patient Yes -Correct Side, Site, Position Yes -Correct Procedure Yes -Procedure Performed Yes -Type of Procedure Debridement -Clinical Debridement Subcutaneous -Post Debridement Size (cm) - Length 1.8 -Post Debridement Size (cm) - Width 2.2 -Post Debridement Size (cm) - Depth 0.1 -Total Square Cm 3.96 -Wound/Ulcer Outcome Not Healed -Ulcer Cleansing Rinsed/ Irrigated with Saline -Foul Odor after Cleansing No -Bioengineered Tissue No -Bleeding Controlled with Pressure -Offloading Yes -Treatment Response Procedure Tolerated Well [See Physician Procedure note for Specifics] Pain Scale: 0-10 Numeric [Pain] -Is Patient Pain Free? Yes Psych/Mental Status: Normal Affect, Appropriate Debridement Note Post-Debridement Measurements/Treatment WC - Nurse 2 - General Ulcer CM Notes Start: 08/26/18 13:27 Freq: Status: Active Protocol: Activity Type Activity Date Activity User E-Sign Co-Sign Detail Recorded Client Recorded Date Recorded By Document 08/26/18 13:54 DV [id number] 08/26/18 13:56 DV Document 09/02/18 14:02 MW [id number] 09/02/18 14:06 MW Document 09/09/18 14:09 DV [id number] 09/09/18 14:18 DV 08/26/18 09/02/18 09/09/18 13:54 14:02 14:09 Wound Center Nurse 2 #5 Right Achilles -Time 13:54 14:02 14:10 -Correct Patient Yes Yes Yes -Correct Side, Site, Position Yes Yes Yes -Correct Procedure Yes Yes Yes -Procedure Performed Yes Yes Yes -Type of Procedure Debridement Debridement Debridement -Clinical Debridement Subcutaneous Subcutaneous Subcutaneous -Post Debridement Size (cm) - Length 7.3 5.0 6.5 -Post Debridement Size (cm) - Width 6.0 4.8 3.5 -Post Debridement Size (cm) - Depth 0.1 0.1 0.1 -Total Square Cm 43.80 24.00 22.75 -Wound/Ulcer Outcome Not Healed Not Healed Not Healed -Ulcer Cleansing Rinsed/ Rinsed/ Rinsed/ Irrigated with Irrigated with Irrigated with Saline Saline Saline -Foul Odor after Cleansing No No No -Bioengineered Tissue No No No -Bleeding Controlled with Pressure Pressure Pressure -Offloading Yes No Yes -Treatment Response Procedure Procedure Procedure Tolerated Well Tolerated Well Tolerated Well #4 Lateral RLE -Time 13:55 14:02 14:10 -Correct Patient Yes Yes Yes -Correct Side, Site, Position Yes Yes Yes -Correct Procedure Yes Yes Yes -Procedure Performed Yes Yes Yes -Type of Procedure Debridement Debridement Debridement -Clinical Debridement Subcutaneous Subcutaneous Subcutaneous -Post Debridement Size (cm) - Length 3.2 0.7 1.8 -Post Debridement Size (cm) - Width 2.0 0.3 2.2 -Post Debridement Size (cm) - Depth 0.1 0.1 0.1 -Total Square Cm 6.40 0.21 3.96 -Wound/Ulcer Outcome Not Healed Not Healed Not Healed -Ulcer Cleansing Rinsed/ Rinsed/ Rinsed/ Irrigated with Irrigated with Irrigated with Saline Saline Saline -Foul Odor after Cleansing No No No -Bioengineered Tissue No No No -Bleeding Controlled with Pressure Pressure Pressure -Offloading Yes No Yes -Treatment Response Procedure Procedure Procedure Tolerated Well Tolerated Well Tolerated Well Pain Scale: 0-10 Numeric Is Patient Pain Free? Yes Yes Yes Wound debrided: right achilles Laterality: Right Wound Grade/Stage: Stage 2 Type of Debridement: Excisional debridement Anesthesia Used: 4% Lidocaine Solution, 5% Lidocaine Gel Depth: Down to and including healthy tissue, in the subcutaneous layer Percentage of wound debrided: 100 Instrument Used: 5mm curette Tissue Removed: yellow slough, devitalized tissue Severity: Fat Layer Exposed Amount of bleeding with debridement: Mild Bleeding Controlled with: Compression and gauze Patient tolerated procedure well - Additional Wound Wound debrided: right lateral LE Laterality: Right Wound Grade/Stage: Stage 2 Type of Debridement: Excisional debridement Anesthesia Used: 4% Lidocaine Solution, 5% Lidocaine Gel Depth: Down to and including healthy tissue, in the subcutaneous layer Percentage of wound debrided: 100 Instrument Used: 5mm curette Tissue Removed: yellow slough, devitalized tissue Severity: Fat Layer Exposed Amount of bleeding with debridement: Mild Bleeding Controlled with: Compression and gauze Patient tolerated procedure: Patient tolerated procedure well Assessment/Plan Active Problems Venous stasis ulcer of right ankle with fat layer exposed (Chronic) posterior and medial ankle Pressure ulcer of right ankle, stage 2 (Chronic) Assessment: 1) recurrent pressure ulcer of posterior leg in paraplegic w/spina bifida. Healing is very slow and likely because of poor quality of tissues. Offload boots seem very adequate. 2) venous stasis and edema Plan: Shahzad's ulcers were evaluated and debrided today. He has chronic edema and noncompliance. He is wearing offloading booties to decrease pressure to his heels. His wounds are somewhat improved. Will discontinue IV antibiotics due to rash. Picc line was removed today. Will continue Hydrofera blue to wounds and have them apply gentamicin ointment topically when changing dressings. He will continue tubigrips for compression. Encouraged increased protein intake and offloading was again reviewed. Will f/u in 1 week.
[2018-09-16 13:42] VITALS: BP 122/70; PULSE 100; RESP 18; TEMP 36.2; BMI 33.2
--- NOTE | 2018-09-16 19:49 | PCM.WC.PN ---
(1) Venous stasis ulcer of right ankle with fat layer exposed Status: Chronic Current Visit: Yes Qualifiers: Varicose vein presence: with varicose veins Code(s): I83.013 - Varicose veins of right lower extremity with ulcer of ankle; L97.312 - Non-pressure chronic ulcer of right ankle with fat layer exposed Comment: posterior and medial ankle (2) Pressure ulcer of right ankle, stage 2 Status: Chronic Current Visit: Yes Code(s): L89.512 - Pressure ulcer of right ankle, stage 2 Type of Wound Date of Service: 09/16/18 Chief Complaint: recurrent R posterior and lateral ankle, 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 He has very damaged tissues of his legs and this is one of multiple recurrent pressure ulcers that he develops in this edematous R lower leg/ankle. He isn't sure when this reoccurred but thinks it has been since January or February. He has been treated by wound care nurse at [facility], [place] where he resides. He has almost been healed several times but has never healed completely. It looks like Drawtex is what they have been using on the ulcer. A culture was done April 2018 which was positive for Pseudomonas. He was on an antibiotic but is no longer taking it. He reports that the ulcer is very painful. He reports that he has been in his bed mostly and elevates his legs/feet with a pillow under his calf and denies pressure on his heel. He also states that he has tubigrips that he usually wears but did not wear them today due to coming here for evaluation. Progress of Wound: Shahzad is here for follow up for wound care of ulcers of his right lower leg. He is tolerating hydrofera blue dressings. There has been significant improvement of his ulcers overall. He is tolerating tubigrips and using a foam bootie to offload his posterior leg and he insists that he does not have any pressure on his leg. He denies fever or chills. - Physical Exam Vital Signs Temp Pulse Resp BP 97.1 F L 100 18 122/70 H 09/16/18 13:42 09/16/18 13:42 09/16/18 13:42 09/16/18 13:42 General: Alert, Oriented x3, Cooperative, No apparent distress HEENT: Atraumatic, Normocephalic Oral: Moist Mucosa Neck: Supple Abdomen: Obese Extremities: Edema Skin: Ulcer/ Wound Wound Measurements and Assessment WC - Nurse 1 - General Ulcer Measurement Start: 08/26/18 13:27 Freq: Status: Active Protocol: Activity Type Activity Date Activity User E-Sign Co-Sign Detail Recorded Client Recorded Date Recorded By Document 09/16/18 13:42 MW [id number] 09/16/18 13:57 MW 09/16/18 13:42 Wound Center Nurse 1 [Ulcer Assessment] #5 Right Achilles -Combined with other wound No -Current Size (cm) - Length 4.0 -Current Size (cm) - Width 5.0 -Current Size (cm) - Depth 0.1 -Total Square Cm 20.00 -Photo Taken No -Epithelialization None Present -Tunneling No -Undermining/Tunneling No -Circular Undermining No -Exudate Amt Small -Exudate Type Serosanguineous -Wound Margin Flat & Intact -Granulation Amt None Present (0 %) -Granulation Quality [place] -Slough/Fibrin Yes -Necrosis Amt Large (67-100%) -Necrotic Tissue Type Adherent Slough -Structure Exposed N/A -Texture (Sanam-wound Skin Appearance) Assessed Localized Edema Scarring -Moisture (Sanam-wound Skin Appearance Assessed ) Dry/Scaly -Color (Sanam-wound Skin Appearance) Assessed Hemosiderin Staining -Temperature (Sanam-wound Skin No Abnormality Appearance) (Pt Warm) -Tenderness on Palpation (Sanam-wound Yes Skin Appearance) -Ulcer Cleansing soap and water -Foul Odor after Cleansing No -Anesthetic Used 4% Lidocaine Solution 5% Lidocaine Gel #4 Lateral RLE -Combined with other wound No -Current Size (cm) - Length 0.5 -Current Size (cm) - Width 1.0 -Current Size (cm) - Depth 0.1 -Total Square Cm 0.50 -Photo Taken No -Epithelialization None Present -Tunneling No -Undermining/Tunneling No -Circular Undermining No -Exudate Amt Small -Exudate Type Serosanguineous -Wound Margin Flat & Intact -Granulation Amt Large (67-100%) -Granulation Quality [place] -Slough/Fibrin Yes -Necrosis Amt None Present (0 %) -Necrotic Tissue Type Adherent Slough -Structure Exposed N/A -Texture (Sanam-wound Skin Appearance) Assessed Localized Edema Scarring -Moisture (Sanam-wound Skin Appearance Assessed ) Dry/Scaly -Color (Sanam-wound Skin Appearance) Assessed Hemosiderin Staining -Temperature (Sanam-wound Skin No Abnormality Appearance) (Pt Warm) -Tenderness on Palpation (Sanam-wound Yes Skin Appearance) -Ulcer Cleansing soap and water -Foul Odor after Cleansing No -Anesthetic Used 4% Lidocaine Solution 5% Lidocaine Gel [Edema Assessment] -Lower Limb Edema Present No WC - Nurse 2 - General Ulcer CM Notes Start: 08/26/18 13:27 Freq: Status: Active Protocol: Activity Type Activity Date Activity User E-Sign Co-Sign Detail Recorded Client Recorded Date Recorded By Document 09/16/18 14:50 DV [id number] 09/16/18 14:57 DV 09/16/18 14:50 Wound Center Nurse 2 [Procedure/Treatment] #5 Right Achilles -Time 14:51 -Correct Patient Yes -Correct Side, Site, Position Yes -Correct Procedure Yes -Procedure Performed Yes -Type of Procedure Debridement -Clinical Debridement Subcutaneous -Post Debridement Size (cm) - Length 2.4 -Post Debridement Size (cm) - Width 0.7 -Post Debridement Size (cm) - Depth 0.1 -Total Square Cm 1.68 -Wound/Ulcer Outcome Not Healed -Ulcer Cleansing Rinsed/ Irrigated with Saline -Foul Odor after Cleansing No -Bioengineered Tissue No -Bleeding Controlled with Pressure -Offloading Yes -Treatment Response Procedure Tolerated Well #4 Lateral RLE -Time 14:51 -Correct Patient Yes -Correct Side, Site, Position Yes -Correct Procedure Yes -Procedure Performed Yes -Type of Procedure Debridement -Clinical Debridement Subcutaneous -Post Debridement Size (cm) - Length 0.5 -Post Debridement Size (cm) - Width 1.5 -Post Debridement Size (cm) - Depth 0.1 -Total Square Cm 0.75 -Wound/Ulcer Outcome Not Healed -Ulcer Cleansing Rinsed/ Irrigated with Saline -Foul Odor after Cleansing No -Bioengineered Tissue No -Bleeding Controlled with Pressure -Offloading Yes -Treatment Response Procedure Tolerated Well [See Physician Procedure note for Specifics] Pain Scale: 0-10 Numeric [Pain] -Is Patient Pain Free? Yes Psych/Mental Status: Normal Affect, Appropriate Debridement Note Post-Debridement Measurements/Treatment WC - Nurse 2 - General Ulcer CM Notes Start: 08/26/18 13:27 Freq: Status: Active Protocol: Activity Type Activity Date Activity User E-Sign Co-Sign Detail Recorded Client Recorded Date Recorded By Document 08/26/18 13:54 DV [id number] 08/26/18 13:56 DV Document 09/02/18 14:02 MW [id number] 09/02/18 14:06 MW Document 09/09/18 14:09 DV [id number] 09/09/18 14:18 DV Document 09/16/18 14:50 DV [id number] 09/16/18 14:57 DV 08/26/18 09/02/18 09/09/18 13:54 14:02 14:09 Wound Center Nurse 2 #5 Right Achilles -Time 13:54 14:02 14:10 -Correct Patient Yes Yes Yes -Correct Side, Site, Position Yes Yes Yes -Correct Procedure Yes Yes Yes -Procedure Performed Yes Yes Yes -Type of Procedure Debridement Debridement Debridement -Clinical Debridement Subcutaneous Subcutaneous Subcutaneous -Post Debridement Size (cm) - Length 7.3 5.0 6.5 -Post Debridement Size (cm) - Width 6.0 4.8 3.5 -Post Debridement Size (cm) - Depth 0.1 0.1 0.1 -Total Square Cm 43.80 24.00 22.75 -Wound/Ulcer Outcome Not Healed Not Healed Not Healed -Ulcer Cleansing Rinsed/ Rinsed/ Rinsed/ Irrigated with Irrigated with Irrigated with Saline Saline Saline -Foul Odor after Cleansing No No No -Bioengineered Tissue No No No -Bleeding Controlled with Pressure Pressure Pressure -Offloading Yes No Yes -Treatment Response Procedure Procedure Procedure Tolerated Well Tolerated Well Tolerated Well #4 Lateral RLE -Time 13:55 14:02 14:10 -Correct Patient Yes Yes Yes -Correct Side, Site, Position Yes Yes Yes -Correct Procedure Yes Yes Yes -Procedure Performed Yes Yes Yes -Type of Procedure Debridement Debridement Debridement -Clinical Debridement Subcutaneous Subcutaneous Subcutaneous -Post Debridement Size (cm) - Length 3.2 0.7 1.8 -Post Debridement Size (cm) - Width 2.0 0.3 2.2 -Post Debridement Size (cm) - Depth 0.1 0.1 0.1 -Total Square Cm 6.40 0.21 3.96 -Wound/Ulcer Outcome Not Healed Not Healed Not Healed -Ulcer Cleansing Rinsed/ Rinsed/ Rinsed/ Irrigated with Irrigated with Irrigated with Saline Saline Saline -Foul Odor after Cleansing No No No -Bioengineered Tissue No No No -Bleeding Controlled with Pressure Pressure Pressure -Offloading Yes No Yes -Treatment Response Procedure Procedure Procedure Tolerated Well Tolerated Well Tolerated Well Pain Scale: 0-10 Numeric Is Patient Pain Free? Yes Yes Yes 09/16/18 14:50 Wound Center Nurse 2 #5 Right Achilles -Time 14:51 -Correct Patient Yes -Correct Side, Site, Position Yes -Correct Procedure Yes -Procedure Performed Yes -Type of Procedure Debridement -Clinical Debridement Subcutaneous -Post Debridement Size (cm) - Length 2.4 -Post Debridement Size (cm) - Width 0.7 -Post Debridement Size (cm) - Depth 0.1 -Total Square Cm 1.68 -Wound/Ulcer Outcome Not Healed -Ulcer Cleansing Rinsed/ Irrigated with Saline -Foul Odor after Cleansing No -Bioengineered Tissue No -Bleeding Controlled with Pressure -Offloading Yes -Treatment Response Procedure Tolerated Well #4 Lateral RLE -Time 14:51 -Correct Patient Yes -Correct Side, Site, Position Yes -Correct Procedure Yes -Procedure Performed Yes -Type of Procedure Debridement -Clinical Debridement Subcutaneous -Post Debridement Size (cm) - Length 0.5 -Post Debridement Size (cm) - Width 1.5 -Post Debridement Size (cm) - Depth 0.1 -Total Square Cm 0.75 -Wound/Ulcer Outcome Not Healed -Ulcer Cleansing Rinsed/ Irrigated with Saline -Foul Odor after Cleansing No -Bioengineered Tissue No -Bleeding Controlled with Pressure -Offloading Yes -Treatment Response Procedure Tolerated Well Pain Scale: 0-10 Numeric Is Patient Pain Free? Yes Wound debrided: right achilles Laterality: Right Wound Grade/Stage: Stage 2 Type of Debridement: Excisional debridement Anesthesia Used: 4% Lidocaine Solution Depth: Down to and including healthy tissue, in the subcutaneous layer Percentage of wound debrided: 100 Instrument Used: 5mm curette Tissue Removed: yellow slough, devitalized tissue Severity: Fat Layer Exposed Amount of bleeding with debridement: Mild Bleeding Controlled with: Compression and gauze Patient tolerated procedure well - Additional Wound Wound debrided: right lateral LE Laterality: Right Wound Grade/Stage: Stage 2 Type of Debridement: Excisional debridement Anesthesia Used: 4% Lidocaine Solution, 5% Lidocaine Gel Depth: Down to and including healthy tissue, in the subcutaneous layer Percentage of wound debrided: 100 Instrument Used: 5mm curette Tissue Removed: yellow slough, devitalized tissue Severity: Fat Layer Exposed Amount of bleeding with debridement: Mild Bleeding Controlled with: Compression and gauze Patient tolerated procedure: Patient tolerated procedure well Assessment/Plan Active Problems Venous stasis ulcer of right ankle with fat layer exposed (Chronic) posterior and medial ankle Pressure ulcer of right ankle, stage 2 (Chronic) Assessment: 1) recurrent pressure ulcer of posterior leg in paraplegic w/spina bifida. Healing is very slow and likely because of poor quality of tissues. Offload boots seem very adequate. 2) venous stasis and edema Plan: Shahzad's ulcers were evaluated and debrided today. He has chronic edema and noncompliance. He is wearing offloading booties to decrease pressure to his heels. His wounds are improved. Will change to [place]n to wounds and have them apply gentamicin ointment topically when changing dressings. He will continue tubigrips for compression. Encouraged increased protein intake and offloading was again reviewed. Will f/u in 1 week.
--- NOTE | 2018-09-16 19:54 | PN.PCM_ITS ---
(1) Venous stasis ulcer of right ankle with fat layer exposed Status: Chronic Current Visit: Yes Qualifiers: Varicose vein presence: with varicose veins Code(s): I83.013 - Varicose veins of right lower extremity with ulcer of ankle; L97.312 - Non-pressure chronic ulcer of right ankle with fat layer exposed Comment: posterior and medial ankle (2) Pressure ulcer of right ankle, stage 2 Status: Chronic Current Visit: Yes Code(s): L89.512 - Pressure ulcer of right ankle, stage 2 Type of Wound Date of Service: 09/16/18 Chief Complaint: recurrent R posterior and lateral ankle, 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 He has very damaged tissues of his legs and this is one of multiple recurrent pressure ulcers that he develops in this edematous R lower leg/ankle. He isn't sure when this reoccurred but thinks it has been since January or February. He has been treated by wound care nurse at [facility] where he resides. He has almost been healed several times but has never healed completely. It looks like Drawtex is what they have been using on the ulcer. A culture was done April 2018 which was positive for Pseudomonas. He was on an antibiotic but is no longer taking it. He reports that the ulcer is very painful. He reports that he has been in his bed mostly and elevates his legs/feet with a pillow under his calf and denies pressure on his heel. He also states that he has tubigrips that he usually wears but did not wear them today due to coming here for evaluation. Progress of Wound: Shahzad is here for follow up for wound care of ulcers of his right lower leg. He is tolerating hydrofera blue dressings. There has been significant improvement of his ulcers overall. He is tolerating tubigrips and using a foam bootie to offload his posterior leg and he insists that he does not have any pressure on his leg. He denies fever or chills. - Physical Exam Vital Signs Temp Pulse Resp BP 97.1 F L 100 18 122/70 H 09/16/18 13:42 09/16/18 13:42 09/16/18 13:42 09/16/18 13:42 General: Alert, Oriented x3, Cooperative, No apparent distress HEENT: Atraumatic, Normocephalic Oral: Moist Mucosa Neck: Supple Abdomen: Obese Extremities: Edema Skin: Ulcer/ Wound Wound Measurements and Assessment WC - Nurse 1 - General Ulcer Measurement Start: 08/26/18 13:27 Freq: Status: Active Protocol: Activity Type Activity Date Activity User E-Sign Co-Sign Detail Recorded Client Recorded Date Recorded By Document 09/16/18 13:42 MW [id number] 09/16/18 13:57 MW 09/16/18 13:42 Wound Center Nurse 1 [Ulcer Assessment] #5 Right Achilles -Combined with other wound No -Current Size (cm) - Length 4.0 -Current Size (cm) - Width 5.0 -Current Size (cm) - Depth 0.1 -Total Square Cm 20.00 -Photo Taken No -Epithelialization None Present -Tunneling No -Undermining/Tunneling No -Circular Undermining No -Exudate Amt Small -Exudate Type Serosanguineous -Wound Margin Flat & Intact -Granulation Amt None Present (0 %) -Granulation Quality [place] -Slough/Fibrin Yes -Necrosis Amt Large (67-100%) -Necrotic Tissue Type Adherent Slough -Structure Exposed N/A -Texture (Sanam-wound Skin Appearance) Assessed Localized Edema Scarring -Moisture (Sanam-wound Skin Appearance Assessed ) Dry/Scaly -Color (Sanam-wound Skin Appearance) Assessed Hemosiderin Staining -Temperature (Sanam-wound Skin No Abnormality Appearance) (Pt Warm) -Tenderness on Palpation (Sanam-wound Yes Skin Appearance) -Ulcer Cleansing soap and water -Foul Odor after Cleansing No -Anesthetic Used 4% Lidocaine Solution 5% Lidocaine Gel #4 Lateral RLE -Combined with other wound No -Current Size (cm) - Length 0.5 -Current Size (cm) - Width 1.0 -Current Size (cm) - Depth 0.1 -Total Square Cm 0.50 -Photo Taken No -Epithelialization None Present -Tunneling No -Undermining/Tunneling No -Circular Undermining No -Exudate Amt Small -Exudate Type Serosanguineous -Wound Margin Flat & Intact -Granulation Amt Large (67-100%) -Granulation Quality [place] -Slough/Fibrin Yes -Necrosis Amt None Present (0 %) -Necrotic Tissue Type Adherent Slough -Structure Exposed N/A -Texture (Sanam-wound Skin Appearance) Assessed Localized Edema Scarring -Moisture (Sanam-wound Skin Appearance Assessed ) Dry/Scaly -Color (Sanam-wound Skin Appearance) Assessed Hemosiderin Staining -Temperature (Sanam-wound Skin No Abnormality Appearance) (Pt Warm) -Tenderness on Palpation (Sanam-wound Yes Skin Appearance) -Ulcer Cleansing soap and water -Foul Odor after Cleansing No -Anesthetic Used 4% Lidocaine Solution 5% Lidocaine Gel [Edema Assessment] -Lower Limb Edema Present No WC - Nurse 2 - General Ulcer CM Notes Start: 08/26/18 13:27 Freq: Status: Active Protocol: Activity Type Activity Date Activity User E-Sign Co-Sign Detail Recorded Client Recorded Date Recorded By Document 09/16/18 14:50 DV [id number] 09/16/18 14:57 DV 09/16/18 14:50 Wound Center Nurse 2 [Procedure/Treatment] #5 Right Achilles -Time 14:51 -Correct Patient Yes -Correct Side, Site, Position Yes -Correct Procedure Yes -Procedure Performed Yes -Type of Procedure Debridement -Clinical Debridement Subcutaneous -Post Debridement Size (cm) - Length 2.4 -Post Debridement Size (cm) - Width 0.7 -Post Debridement Size (cm) - Depth 0.1 -Total Square Cm 1.68 -Wound/Ulcer Outcome Not Healed -Ulcer Cleansing Rinsed/ Irrigated with Saline -Foul Odor after Cleansing No -Bioengineered Tissue No -Bleeding Controlled with Pressure -Offloading Yes -Treatment Response Procedure Tolerated Well #4 Lateral RLE -Time 14:51 -Correct Patient Yes -Correct Side, Site, Position Yes -Correct Procedure Yes -Procedure Performed Yes -Type of Procedure Debridement -Clinical Debridement Subcutaneous -Post Debridement Size (cm) - Length 0.5 -Post Debridement Size (cm) - Width 1.5 -Post Debridement Size (cm) - Depth 0.1 -Total Square Cm 0.75 -Wound/Ulcer Outcome Not Healed -Ulcer Cleansing Rinsed/ Irrigated with Saline -Foul Odor after Cleansing No -Bioengineered Tissue No -Bleeding Controlled with Pressure -Offloading Yes -Treatment Response Procedure Tolerated Well [See Physician Procedure note for Specifics] Pain Scale: 0-10 Numeric [Pain] -Is Patient Pain Free? Yes Psych/Mental Status: Normal Affect, Appropriate Debridement Note Post-Debridement Measurements/Treatment WC - Nurse 2 - General Ulcer CM Notes Start: 08/26/18 13:27 Freq: Status: Active Protocol: Activity Type Activity Date Activity User E-Sign Co-Sign Detail Recorded Client Recorded Date Recorded By Document 08/26/18 13:54 DV [id number] 08/26/18 13:56 DV Document 09/02/18 14:02 MW [id number] 09/02/18 14:06 MW Document 09/09/18 14:09 DV [id number] 09/09/18 14:18 DV Document 09/16/18 14:50 DV [id number] 09/16/18 14:57 DV 08/26/18 09/02/18 09/09/18 13:54 14:02 14:09 Wound Center Nurse 2 #5 Right Achilles -Time 13:54 14:02 14:10 -Correct Patient Yes Yes Yes -Correct Side, Site, Position Yes Yes Yes -Correct Procedure Yes Yes Yes -Procedure Performed Yes Yes Yes -Type of Procedure Debridement Debridement Debridement -Clinical Debridement Subcutaneous Subcutaneous Subcutaneous -Post Debridement Size (cm) - Length 7.3 5.0 6.5 -Post Debridement Size (cm) - Width 6.0 4.8 3.5 -Post Debridement Size (cm) - Depth 0.1 0.1 0.1 -Total Square Cm 43.80 24.00 22.75 -Wound/Ulcer Outcome Not Healed Not Healed Not Healed -Ulcer Cleansing Rinsed/ Rinsed/ Rinsed/ Irrigated with Irrigated with Irrigated with Saline Saline Saline -Foul Odor after Cleansing No No No -Bioengineered Tissue No No No -Bleeding Controlled with Pressure Pressure Pressure -Offloading Yes No Yes -Treatment Response Procedure Procedure Procedure Tolerated Well Tolerated Well Tolerated Well #4 Lateral RLE -Time 13:55 14:02 14:10 -Correct Patient Yes Yes Yes -Correct Side, Site, Position Yes Yes Yes -Correct Procedure Yes Yes Yes -Procedure Performed Yes Yes Yes -Type of Procedure Debridement Debridement Debridement -Clinical Debridement Subcutaneous Subcutaneous Subcutaneous -Post Debridement Size (cm) - Length 3.2 0.7 1.8 -Post Debridement Size (cm) - Width 2.0 0.3 2.2 -Post Debridement Size (cm) - Depth 0.1 0.1 0.1 -Total Square Cm 6.40 0.21 3.96 -Wound/Ulcer Outcome Not Healed Not Healed Not Healed -Ulcer Cleansing Rinsed/ Rinsed/ Rinsed/ Irrigated with Irrigated with Irrigated with Saline Saline Saline -Foul Odor after Cleansing No No No -Bioengineered Tissue No No No -Bleeding Controlled with Pressure Pressure Pressure -Offloading Yes No Yes -Treatment Response Procedure Procedure Procedure Tolerated Well Tolerated Well Tolerated Well Pain Scale: 0-10 Numeric Is Patient Pain Free? Yes Yes Yes 09/16/18 14:50 Wound Center Nurse 2 #5 Right Achilles -Time 14:51 -Correct Patient Yes -Correct Side, Site, Position Yes -Correct Procedure Yes -Procedure Performed Yes -Type of Procedure Debridement -Clinical Debridement Subcutaneous -Post Debridement Size (cm) - Length 2.4 -Post Debridement Size (cm) - Width 0.7 -Post Debridement Size (cm) - Depth 0.1 -Total Square Cm 1.68 -Wound/Ulcer Outcome Not Healed -Ulcer Cleansing Rinsed/ Irrigated with Saline -Foul Odor after Cleansing No -Bioengineered Tissue No -Bleeding Controlled with Pressure -Offloading Yes -Treatment Response Procedure Tolerated Well #4 Lateral RLE -Time 14:51 -Correct Patient Yes -Correct Side, Site, Position Yes -Correct Procedure Yes -Procedure Performed Yes -Type of Procedure Debridement -Clinical Debridement Subcutaneous -Post Debridement Size (cm) - Length 0.5 -Post Debridement Size (cm) - Width 1.5 -Post Debridement Size (cm) - Depth 0.1 -Total Square Cm 0.75 -Wound/Ulcer Outcome Not Healed -Ulcer Cleansing Rinsed/ Irrigated with Saline -Foul Odor after Cleansing No -Bioengineered Tissue No -Bleeding Controlled with Pressure -Offloading Yes -Treatment Response Procedure Tolerated Well Pain Scale: 0-10 Numeric Is Patient Pain Free? Yes Wound debrided: right achilles Laterality: Right Wound Grade/Stage: Stage 2 Type of Debridement: Excisional debridement Anesthesia Used: 4% Lidocaine Solution Depth: Down to and including healthy tissue, in the subcutaneous layer Percentage of wound debrided: 100 Instrument Used: 5mm curette Tissue Removed: yellow slough, devitalized tissue Severity: Fat Layer Exposed Amount of bleeding with debridement: Mild Bleeding Controlled with: Compression and gauze Patient tolerated procedure well - Additional Wound Wound debrided: right lateral LE Laterality: Right Wound Grade/Stage: Stage 2 Type of Debridement: Excisional debridement Anesthesia Used: 4% Lidocaine Solution, 5% Lidocaine Gel Depth: Down to and including healthy tissue, in the subcutaneous layer Percentage of wound debrided: 100 Instrument Used: 5mm curette Tissue Removed: yellow slough, devitalized tissue Severity: Fat Layer Exposed Amount of bleeding with debridement: Mild Bleeding Controlled with: Compression and gauze Patient tolerated procedure: Patient tolerated procedure well Assessment/Plan Active Problems Venous stasis ulcer of right ankle with fat layer exposed (Chronic) posterior and medial ankle Pressure ulcer of right ankle, stage 2 (Chronic) Assessment: 1) recurrent pressure ulcer of posterior leg in paraplegic w/spina bifida. Healing is very slow and likely because of poor quality of tissues. Offload boots seem very adequate. 2) venous stasis and edema Plan: Shahzad's ulcers were evaluated and debrided today. He has chronic edema and noncompliance. He is wearing offloading booties to decrease pressure to his heels. His wounds are improved. Will change to [place]yn to wounds and have them apply gentamicin ointment topically when changing dressings. He will continue tubigrips for compression. Encouraged increased protein intake and offloading was again reviewed. Will f/u in 1 week.
[2018-09-23 14:06] VITALS: BP 107/76; PULSE 98; RESP 16; TEMP 36.6; BMI 33.2
--- NOTE | 2018-09-23 16:59 | PCM.WC.PN ---
(1) Venous stasis ulcer of right ankle with fat layer exposed Status: Chronic Current Visit: Yes Qualifiers: Varicose vein presence: with varicose veins Code(s): I83.013 - Varicose veins of right lower extremity with ulcer of ankle; L97.312 - Non-pressure chronic ulcer of right ankle with fat layer exposed Comment: posterior and medial ankle (2) Pressure ulcer of right ankle, stage 2 Status: Chronic Current Visit: Yes Code(s): L89.512 - Pressure ulcer of right ankle, stage 2 Type of Wound Date of Service: 09/23/18 Chief Complaint: recurrent R posterior and lateral ankle, 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 He has very damaged tissues of his legs and this is one of multiple recurrent pressure ulcers that he develops in this edematous R lower leg/ankle. He isn't sure when this reoccurred but thinks it has been since January or February. He has been treated by wound care nurse at [facility] where he resides. He has almost been healed several times but has never healed completely. It looks like Drawtex is what they have been using on the ulcer. A culture was done April 2018 which was positive for Pseudomonas. He was on an antibiotic but is no longer taking it. He reports that the ulcer is very painful. He reports that he has been in his bed mostly and elevates his legs/feet with a pillow under his calf and denies pressure on his heel. He also states that he has tubigrips that he usually wears but did not wear them today due to coming here for evaluation. Progress of Wound: Shahzad is here for follow up for wound care of ulcers of his right lower leg. He tolerated Marlyn dressings but there was not significant improvement. He is tolerating tubigrips and using a foam bootie to offload his posterior leg and he insists that he does not have any pressure on his ulcers but there continues to be evidence of pressure. He denies fever or chills. - Physical Exam Vital Signs Temp Pulse Resp BP 97.8 F 98 16 107/76 09/23/18 14:06 09/23/18 14:06 09/23/18 14:06 09/23/18 14:06 General: Alert, Oriented x3, Cooperative, No apparent distress HEENT: Atraumatic, Normocephalic Oral: Moist Mucosa Abdomen: Obese Extremities: Edema Skin: Ulcer/ Wound Wound Measurements and Assessment WC - Nurse 1 - General Ulcer Measurement Start: 08/26/18 13:27 Freq: Status: Active Protocol: Activity Type Activity Date Activity User E-Sign Co-Sign Detail Recorded Client Recorded Date Recorded By Document 09/23/18 14:[address] [facility] [id number] 09/23/18 14:[address] [facility] 09/23/18 14:06 Wound Center Nurse 1 [Ulcer Assessment] #5 Right Achilles -Combined with other wound No -Current Size (cm) - Length 1.1 -Current Size (cm) - Width 1 -Current Size (cm) - Depth 0.1 -Total Square Cm 1.1 -Photo Taken No -Epithelialization None Present -Tunneling No -Undermining/Tunneling No -Circular Undermining No -Exudate Amt None Present -Wound Margin Flat & Intact -Granulation Amt None Present (0 %) -Slough/Fibrin Yes -Necrosis Amt Large (67-100%) -Necrotic Tissue Type Adherent Slough -Texture (Sanam-wound Skin Appearance) Assessed Scarring -Moisture (Sanam-wound Skin Appearance Assessed ) Dry/Scaly -Color (Sanam-wound Skin Appearance) Assessed Erythema -Temperature (Sanam-wound Skin No Abnormality Appearance) (Pt Warm) -Tenderness on Palpation (Sanam-wound Yes Skin Appearance) -Ulcer Cleansing Rinsed/ Irrigated with Saline -Foul Odor after Cleansing No -Anesthetic Used 5% Lidocaine Gel #4 Lateral RLE -Combined with other wound No -Current Size (cm) - Length 0.1 -Current Size (cm) - Width 0.1 -Current Size (cm) - Depth 0.1 -Total Square Cm 0.01 -Photo Taken No -Epithelialization Large 67-100% -Tunneling No -Undermining/Tunneling No -Circular Undermining No -Exudate Amt None Present -Texture (Sanam-wound Skin Appearance) Assessed Scarring -Moisture (Sanam-wound Skin Appearance Assessed ) Dry/Scaly -Color (Sanam-wound Skin Appearance) Assessed -Temperature (Sanam-wound Skin No Abnormality Appearance) (Pt Warm) -Tenderness on Palpation (Sanam-wound Yes Skin Appearance) -Ulcer Cleansing Rinsed/ Irrigated with Saline -Foul Odor after Cleansing No -Anesthetic Used 5% Lidocaine Gel [Edema Assessment] -Lower Limb Edema Present Yes -Right Calf (cm) 42.8 -Right Ankle (cm) 21.5 WC - Nurse 2 - General Ulcer CM Notes Start: 08/26/18 13:27 Freq: Status: Active Protocol: Activity Type Activity Date Activity User E-Sign Co-Sign Detail Recorded Client Recorded Date Recorded By Document 09/23/18 14:54 MW [id number] 09/23/18 15:06 MW 09/23/18 14:54 Wound Center Nurse 2 [Procedure/Treatment] #5 Right Achilles -Time 14:54 -Correct Patient Yes -Correct Side, Site, Position Yes -Correct Procedure Yes -Procedure Performed Yes -Type of Procedure Debridement -Clinical Debridement Subcutaneous -Post Debridement Size (cm) - Length 3.4 -Post Debridement Size (cm) - Width 5.5 -Post Debridement Size (cm) - Depth 0.1 -Total Square Cm 18.70 -Wound/Ulcer Outcome Not Healed -Ulcer Cleansing Rinsed/ Irrigated with Saline -Foul Odor after Cleansing No -Bioengineered Tissue No -Bleeding Controlled with Pressure -Offloading No -Treatment Response Procedure Tolerated Well #4 Lateral RLE -Time 14:54 -Correct Patient Yes -Correct Side, Site, Position Yes -Correct Procedure Yes -Procedure Performed Yes -Type of Procedure Debridement -Clinical Debridement Subcutaneous -Post Debridement Size (cm) - Length 2.5 -Post Debridement Size (cm) - Width 2.0 -Post Debridement Size (cm) - Depth 0.1 -Total Square Cm 5.00 -Wound/Ulcer Outcome Not Healed -Ulcer Cleansing Rinsed/ Irrigated with Saline -Foul Odor after Cleansing No -Bioengineered Tissue No -Bleeding Controlled with Pressure -Offloading No -Treatment Response Procedure Tolerated Well [See Physician Procedure note for Specifics] Pain Scale: 0-10 Numeric [Pain] -Is Patient Pain Free? Yes Psych/Mental Status: Normal Affect, Appropriate Debridement Note Post-Debridement Measurements/Treatment WC - Nurse 2 - General Ulcer CM Notes Start: 08/26/18 13:27 Freq: Status: Active Protocol: Activity Type Activity Date Activity User E-Sign Co-Sign Detail Recorded Client Recorded Date Recorded By Document 08/26/18 13:54 DV [id number] 08/26/18 13:56 DV Document 09/02/18 14:02 MW [id number] 09/02/18 14:06 MW Document 09/09/18 14:09 DV [id number] 09/09/18 14:18 DV Document 09/16/18 14:50 DV [id number] 09/16/18 14:57 DV Document 09/23/18 14:54 MW [id number] 09/23/18 15:06 MW 08/26/18 09/02/18 09/09/18 13:54 14:02 14:09 Wound Center Nurse 2 #5 Right Achilles -Time 13:54 14:02 14:10 -Correct Patient Yes Yes Yes -Correct Side, Site, Position Yes Yes Yes -Correct Procedure Yes Yes Yes -Procedure Performed Yes Yes Yes -Type of Procedure Debridement Debridement Debridement -Clinical Debridement Subcutaneous Subcutaneous Subcutaneous -Post Debridement Size (cm) - Length 7.3 5.0 6.5 -Post Debridement Size (cm) - Width 6.0 4.8 3.5 -Post Debridement Size (cm) - Depth 0.1 0.1 0.1 -Total Square Cm 43.80 24.00 22.75 -Wound/Ulcer Outcome Not Healed Not Healed Not Healed -Ulcer Cleansing Rinsed/ Rinsed/ Rinsed/ Irrigated with Irrigated with Irrigated with Saline Saline Saline -Foul Odor after Cleansing No No No -Bioengineered Tissue No No No -Bleeding Controlled with Pressure Pressure Pressure -Offloading Yes No Yes -Treatment Response Procedure Procedure Procedure Tolerated Well Tolerated Well Tolerated Well #4 Lateral RLE -Time 13:55 14:02 14:10 -Correct Patient Yes Yes Yes -Correct Side, Site, Position Yes Yes Yes -Correct Procedure Yes Yes Yes -Procedure Performed Yes Yes Yes -Type of Procedure Debridement Debridement Debridement -Clinical Debridement Subcutaneous Subcutaneous Subcutaneous -Post Debridement Size (cm) - Length 3.2 0.7 1.8 -Post Debridement Size (cm) - Width 2.0 0.3 2.2 -Post Debridement Size (cm) - Depth 0.1 0.1 0.1 -Total Square Cm 6.40 0.21 3.96 -Wound/Ulcer Outcome Not Healed Not Healed Not Healed -Ulcer Cleansing Rinsed/ Rinsed/ Rinsed/ Irrigated with Irrigated with Irrigated with Saline Saline Saline -Foul Odor after Cleansing No No No -Bioengineered Tissue No No No -Bleeding Controlled with Pressure Pressure Pressure -Offloading Yes No Yes -Treatment Response Procedure Procedure Procedure Tolerated Well Tolerated Well Tolerated Well Pain Scale: 0-10 Numeric Is Patient Pain Free? Yes Yes Yes 09/16/18 09/23/18 14:50 14:54 Wound Center Nurse 2 #5 Right Achilles -Time 14:51 14:54 -Correct Patient Yes Yes -Correct Side, Site, Position Yes Yes -Correct Procedure Yes Yes -Procedure Performed Yes Yes -Type of Procedure Debridement Debridement -Clinical Debridement Subcutaneous Subcutaneous -Post Debridement Size (cm) - Length 2.4 3.4 -Post Debridement Size (cm) - Width 0.7 5.5 -Post Debridement Size (cm) - Depth 0.1 0.1 -Total Square Cm 1.68 18.70 -Wound/Ulcer Outcome Not Healed Not Healed -Ulcer Cleansing Rinsed/ Rinsed/ Irrigated with Irrigated with Saline Saline -Foul Odor after Cleansing No No -Bioengineered Tissue No No -Bleeding Controlled with Pressure Pressure -Offloading Yes No -Treatment Response Procedure Procedure Tolerated Well Tolerated Well #4 Lateral RLE -Time 14:51 14:54 -Correct Patient Yes Yes -Correct Side, Site, Position Yes Yes -Correct Procedure Yes Yes -Procedure Performed Yes Yes -Type of Procedure Debridement Debridement -Clinical Debridement Subcutaneous Subcutaneous -Post Debridement Size (cm) - Length 0.5 2.5 -Post Debridement Size (cm) - Width 1.5 2.0 -Post Debridement Size (cm) - Depth 0.1 0.1 -Total Square Cm 0.75 5.00 -Wound/Ulcer Outcome Not Healed Not Healed -Ulcer Cleansing Rinsed/ Rinsed/ Irrigated with Irrigated with Saline Saline -Foul Odor after Cleansing No No -Bioengineered Tissue No No -Bleeding Controlled with Pressure Pressure -Offloading Yes No -Treatment Response Procedure Procedure Tolerated Well Tolerated Well Pain Scale: 0-10 Numeric Is Patient Pain Free? Yes Yes Wound debrided: right achilles Laterality: Right Type of Debridement: Excisional debridement Anesthesia Used: 4% Lidocaine Solution, 5% Lidocaine Gel Depth: Down to and including healthy tissue, in the subcutaneous layer Percentage of wound debrided: 50 Instrument Used: 5mm curette Tissue Removed: yellow slough, devitalized tissue Severity: Fat Layer Exposed Amount of bleeding with debridement: Mild Bleeding Controlled with: Compression and gauze Patient tolerated procedure well - Additional Wound Wound debrided: right lateral LE Laterality: Right Type of Debridement: Excisional debridement Anesthesia Used: 4% Lidocaine Solution, 5% Lidocaine Gel Depth: Down to and including healthy tissue, in the subcutaneous layer Percentage of wound debrided: 50 Instrument Used: 5mm curette Tissue Removed: yellow slough, devitalized tissue Severity: Fat Layer Exposed Amount of bleeding with debridement: Mild Bleeding Controlled with: Pressure Patient tolerated procedure: Patient tolerated procedure well Assessment/Plan Active Problems Venous stasis ulcer of right ankle with fat layer exposed (Chronic) posterior and medial ankle Pressure ulcer of right ankle, stage 2 (Chronic) Assessment: 1) recurrent pressure ulcer of posterior leg in paraplegic w/spina bifida. Healing is very slow and likely because of poor quality of tissues. Offload boots seem very adequate. 2) venous stasis and edema Plan: Shahzad's ulcers were evaluated and debrided today. He has chronic edema and noncompliance. He is wearing offloading booties to decrease pressure to his heels. His wounds are improved. Will change back to Hydrofera Blue to his wounds and have them apply gentamicin ointment topically when changing dressings. He will continue tubigrips for compression. Encouraged increased protein intake and offloading was again reviewed. Will f/u in 1 week.
--- NOTE | 2018-09-23 17:03 | PN.PCM_ITS ---
(1) Venous stasis ulcer of right ankle with fat layer exposed Status: Chronic Current Visit: Yes Qualifiers: Varicose vein presence: with varicose veins Code(s): I83.013 - Varicose veins of right lower extremity with ulcer of ankle; L97.312 - Non-pressure chronic ulcer of right ankle with fat layer exposed Comment: posterior and medial ankle (2) Pressure ulcer of right ankle, stage 2 Status: Chronic Current Visit: Yes Code(s): L89.512 - Pressure ulcer of right ankle, stage 2 Type of Wound Date of Service: 09/23/18 Chief Complaint: recurrent R posterior and lateral ankle, 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 He has very damaged tissues of his legs and this is one of multiple recurrent pressure ulcers that he develops in this edematous R lower leg/ankle. He isn't sure when this reoccurred but thinks it has been since January or February. He has been treated by wound care nurse at [facility] where he resides. He has almost been healed several times but has never healed completely. It looks like Drawtex is what they have been using on the ulcer. A culture was done April 2018 which was positive for Pseudomonas. He was on an antibiotic but is no longer taking it. He reports that the ulcer is very painful. He reports that he has been in his bed mostly and elevates his legs/feet with a pillow under his calf and denies pressure on his heel. He also states that he has tubigrips that he usually wears but did not wear them today due to coming here for evaluation. Progress of Wound: Shahzad is here for follow up for wound care of ulcers of his right lower leg. He tolerated Marlyn dressings but there was not significant improvement. He is tolerating tubigrips and using a foam bootie to offload his posterior leg and he insists that he does not have any pressure on his ulcers but there continues to be evidence of pressure. He denies fever or chills. - Physical Exam Vital Signs Temp Pulse Resp BP 97.8 F 98 16 107/76 09/23/18 14:06 09/23/18 14:06 09/23/18 14:06 09/23/18 14:06 General: Alert, Oriented x3, Cooperative, No apparent distress HEENT: Atraumatic, Normocephalic Oral: Moist Mucosa Abdomen: Obese Extremities: Edema Skin: Ulcer/ Wound Wound Measurements and Assessment WC - Nurse 1 - General Ulcer Measurement Start: 08/26/18 13:27 Freq: Status: Active Protocol: Activity Type Activity Date Activity User E-Sign Co-Sign Detail Recorded Client Recorded Date Recorded By Document 09/23/18 14:06 [facility] [id number] 09/23/18 14:14 [facility] 09/23/18 14:06 Wound Center Nurse 1 [Ulcer Assessment] #5 Right Achilles -Combined with other wound No -Current Size (cm) - Length 1.1 -Current Size (cm) - Width 1 -Current Size (cm) - Depth 0.1 -Total Square Cm 1.1 -Photo Taken No -Epithelialization None Present -Tunneling No -Undermining/Tunneling No -Circular Undermining No -Exudate Amt None Present -Wound Margin Flat & Intact -Granulation Amt None Present (0 %) -Slough/Fibrin Yes -Necrosis Amt Large (67-100%) -Necrotic Tissue Type Adherent Slough -Texture (Sanam-wound Skin Appearance) Assessed Scarring -Moisture (Sanam-wound Skin Appearance Assessed ) Dry/Scaly -Color (Sanam-wound Skin Appearance) Assessed Erythema -Temperature (Sanam-wound Skin No Abnormality Appearance) (Pt Warm) -Tenderness on Palpation (Sanam-wound Yes Skin Appearance) -Ulcer Cleansing Rinsed/ Irrigated with Saline -Foul Odor after Cleansing No -Anesthetic Used 5% Lidocaine Gel #4 Lateral RLE -Combined with other wound No -Current Size (cm) - Length 0.1 -Current Size (cm) - Width 0.1 -Current Size (cm) - Depth 0.1 -Total Square Cm 0.01 -Photo Taken No -Epithelialization Large 67-100% -Tunneling No -Undermining/Tunneling No -Circular Undermining No -Exudate Amt None Present -Texture (Sanam-wound Skin Appearance) Assessed Scarring -Moisture (Sanam-wound Skin Appearance Assessed ) Dry/Scaly -Color (Sanam-wound Skin Appearance) Assessed -Temperature (Sanam-wound Skin No Abnormality Appearance) (Pt Warm) -Tenderness on Palpation (Sanam-wound Yes Skin Appearance) -Ulcer Cleansing Rinsed/ Irrigated with Saline -Foul Odor after Cleansing No -Anesthetic Used 5% Lidocaine Gel [Edema Assessment] -Lower Limb Edema Present Yes -Right Calf (cm) 42.8 -Right Ankle (cm) 21.5 WC - Nurse 2 - General Ulcer CM Notes Start: 08/26/18 13:27 Freq: Status: Active Protocol: Activity Type Activity Date Activity User E-Sign Co-Sign Detail Recorded Client Recorded Date Recorded By Document 09/23/18 14:54 MW [id number] 09/23/18 15:06 MW 09/23/18 14:54 Wound Center Nurse 2 [Procedure/Treatment] #5 Right Achilles -Time 14:54 -Correct Patient Yes -Correct Side, Site, Position Yes -Correct Procedure Yes -Procedure Performed Yes -Type of Procedure Debridement -Clinical Debridement Subcutaneous -Post Debridement Size (cm) - Length 3.4 -Post Debridement Size (cm) - Width 5.5 -Post Debridement Size (cm) - Depth 0.1 -Total Square Cm 18.70 -Wound/Ulcer Outcome Not Healed -Ulcer Cleansing Rinsed/ Irrigated with Saline -Foul Odor after Cleansing No -Bioengineered Tissue No -Bleeding Controlled with Pressure -Offloading No -Treatment Response Procedure Tolerated Well #4 Lateral RLE -Time 14:54 -Correct Patient Yes -Correct Side, Site, Position Yes -Correct Procedure Yes -Procedure Performed Yes -Type of Procedure Debridement -Clinical Debridement Subcutaneous -Post Debridement Size (cm) - Length 2.5 -Post Debridement Size (cm) - Width 2.0 -Post Debridement Size (cm) - Depth 0.1 -Total Square Cm 5.00 -Wound/Ulcer Outcome Not Healed -Ulcer Cleansing Rinsed/ Irrigated with Saline -Foul Odor after Cleansing No -Bioengineered Tissue No -Bleeding Controlled with Pressure -Offloading No -Treatment Response Procedure Tolerated Well [See Physician Procedure note for Specifics] Pain Scale: 0-10 Numeric [Pain] -Is Patient Pain Free? Yes Psych/Mental Status: Normal Affect, Appropriate Debridement Note Post-Debridement Measurements/Treatment WC - Nurse 2 - General Ulcer CM Notes Start: 08/26/18 13:27 Freq: Status: Active Protocol: Activity Type Activity Date Activity User E-Sign Co-Sign Detail Recorded Client Recorded Date Recorded By Document 08/26/18 13:54 DV [id number] 08/26/18 13:56 DV Document 09/02/18 14:02 MW [id number] 09/02/18 14:06 MW Document 09/09/18 14:09 DV [id number] 09/09/18 14:18 DV Document 09/16/18 14:50 DV [id number] 09/16/18 14:57 DV Document 09/23/18 14:54 MW [id number] 09/23/18 15:06 MW 08/26/18 09/02/18 09/09/18 13:54 14:02 14:09 Wound Center Nurse 2 #5 Right Achilles -Time 13:54 14:02 14:10 -Correct Patient Yes Yes Yes -Correct Side, Site, Position Yes Yes Yes -Correct Procedure Yes Yes Yes -Procedure Performed Yes Yes Yes -Type of Procedure Debridement Debridement Debridement -Clinical Debridement Subcutaneous Subcutaneous Subcutaneous -Post Debridement Size (cm) - Length 7.3 5.0 6.5 -Post Debridement Size (cm) - Width 6.0 4.8 3.5 -Post Debridement Size (cm) - Depth 0.1 0.1 0.1 -Total Square Cm 43.80 24.00 22.75 -Wound/Ulcer Outcome Not Healed Not Healed Not Healed -Ulcer Cleansing Rinsed/ Rinsed/ Rinsed/ Irrigated with Irrigated with Irrigated with Saline Saline Saline -Foul Odor after Cleansing No No No -Bioengineered Tissue No No No -Bleeding Controlled with Pressure Pressure Pressure -Offloading Yes No Yes -Treatment Response Procedure Procedure Procedure Tolerated Well Tolerated Well Tolerated Well #4 Lateral RLE -Time 13:55 14:02 14:10 -Correct Patient Yes Yes Yes -Correct Side, Site, Position Yes Yes Yes -Correct Procedure Yes Yes Yes -Procedure Performed Yes Yes Yes -Type of Procedure Debridement Debridement Debridement -Clinical Debridement Subcutaneous Subcutaneous Subcutaneous -Post Debridement Size (cm) - Length 3.2 0.7 1.8 -Post Debridement Size (cm) - Width 2.0 0.3 2.2 -Post Debridement Size (cm) - Depth 0.1 0.1 0.1 -Total Square Cm 6.40 0.21 3.96 -Wound/Ulcer Outcome Not Healed Not Healed Not Healed -Ulcer Cleansing Rinsed/ Rinsed/ Rinsed/ Irrigated with Irrigated with Irrigated with Saline Saline Saline -Foul Odor after Cleansing No No No -Bioengineered Tissue No No No -Bleeding Controlled with Pressure Pressure Pressure -Offloading Yes No Yes -Treatment Response Procedure Procedure Procedure Tolerated Well Tolerated Well Tolerated Well Pain Scale: 0-10 Numeric Is Patient Pain Free? Yes Yes Yes 09/16/18 09/23/18 14:50 14:54 Wound Center Nurse 2 #5 Right Achilles -Time 14:51 14:54 -Correct Patient Yes Yes -Correct Side, Site, Position Yes Yes -Correct Procedure Yes Yes -Procedure Performed Yes Yes -Type of Procedure Debridement Debridement -Clinical Debridement Subcutaneous Subcutaneous -Post Debridement Size (cm) - Length 2.4 3.4 -Post Debridement Size (cm) - Width 0.7 5.5 -Post Debridement Size (cm) - Depth 0.1 0.1 -Total Square Cm 1.68 18.70 -Wound/Ulcer Outcome Not Healed Not Healed -Ulcer Cleansing Rinsed/ Rinsed/ Irrigated with Irrigated with Saline Saline -Foul Odor after Cleansing No No -Bioengineered Tissue No No -Bleeding Controlled with Pressure Pressure -Offloading Yes No -Treatment Response Procedure Procedure Tolerated Well Tolerated Well #4 Lateral RLE -Time 14:51 14:54 -Correct Patient Yes Yes -Correct Side, Site, Position Yes Yes -Correct Procedure Yes Yes -Procedure Performed Yes Yes -Type of Procedure Debridement Debridement -Clinical Debridement Subcutaneous Subcutaneous -Post Debridement Size (cm) - Length 0.5 2.5 -Post Debridement Size (cm) - Width 1.5 2.0 -Post Debridement Size (cm) - Depth 0.1 0.1 -Total Square Cm 0.75 5.00 -Wound/Ulcer Outcome Not Healed Not Healed -Ulcer Cleansing Rinsed/ Rinsed/ Irrigated with Irrigated with Saline Saline -Foul Odor after Cleansing No No -Bioengineered Tissue No No -Bleeding Controlled with Pressure Pressure -Offloading Yes No -Treatment Response Procedure Procedure Tolerated Well Tolerated Well Pain Scale: 0-10 Numeric Is Patient Pain Free? Yes Yes Wound debrided: right achilles Laterality: Right Type of Debridement: Excisional debridement Anesthesia Used: 4% Lidocaine Solution, 5% Lidocaine Gel Depth: Down to and including healthy tissue, in the subcutaneous layer Percentage of wound debrided: 50 Instrument Used: 5mm curette Tissue Removed: yellow slough, devitalized tissue Severity: Fat Layer Exposed Amount of bleeding with debridement: Mild Bleeding Controlled with: Compression and gauze Patient tolerated procedure well - Additional Wound Wound debrided: right lateral LE Laterality: Right Type of Debridement: Excisional debridement Anesthesia Used: 4% Lidocaine Solution, 5% Lidocaine Gel Depth: Down to and including healthy tissue, in the subcutaneous layer Percentage of wound debrided: 50 Instrument Used: 5mm curette Tissue Removed: yellow slough, devitalized tissue Severity: Fat Layer Exposed Amount of bleeding with debridement: Mild Bleeding Controlled with: Pressure Patient tolerated procedure: Patient tolerated procedure well Assessment/Plan Active Problems Venous stasis ulcer of right ankle with fat layer exposed (Chronic) posterior and medial ankle Pressure ulcer of right ankle, stage 2 (Chronic) Assessment: 1) recurrent pressure ulcer of posterior leg in paraplegic w/spina bifida. Healing is very slow and likely because of poor quality of tissues. Offload boots seem very adequate. 2) venous stasis and edema Plan: Shahzad's ulcers were evaluated and debrided today. He has chronic edema and noncompliance. He is wearing offloading booties to decrease pressure to his heels. His wounds are improved. Will change back to Hydrofera Blue to his wounds and have them apply gentamicin ointment topically when changing dressings. He will continue tubigrips for compression. Encouraged increased protein intake and offloading was again reviewed. Will f/u in 1 week.
== END 2018-09-23 23:59 ==
LOC: WC 14:00
PROVIDERS: Family Provider Family Medicine; PCP Family Medicine; Visit Provider Family Medicine
DX: I83.013 Varicose veins of right lower extremity with ulcer of ankle (principal); L89.512 Pressure ulcer of right ankle, stage 2; Q05.9 Spina bifida, unspecified; L89.892 Pressure ulcer of other site, stage 2; Z91.19 Patient's noncompliance with other medical treatment and regimen; G82.20 Paraplegia, unspecified
CPT/HCPCS: 11042; 11045; 87070; 87075; 87077; 87186; 87205

== ENCOUNTER 2018-10-21 13:30 | Outpatient (RCR) | payer MEDICARE, MEDICAID, SELFPAY ==
[2018-09-24 00:53] VITALS: BP 107/76; PULSE 98; RESP 16; TEMP 36.6
[2018-09-30 14:14] VITALS: BP 108/69; PULSE 107; RESP 18; TEMP 36.9; BMI 33.2
--- NOTE | 2018-09-30 18:07 | PCM.WC.PN ---
(1) Venous stasis ulcer of right ankle with fat layer exposed Status: Chronic Current Visit: Yes Qualifiers: Varicose vein presence: without varicose veins Qualified Code(s): I87.2 - Venous insufficiency (chronic) (peripheral); L97.312 - Non-pressure chronic ulcer of right ankle with fat layer exposed Code(s): I83.013 - Varicose veins of right lower extremity with ulcer of ankle; L97.312 - Non-pressure chronic ulcer of right ankle with fat layer exposed Comment: posterior and medial ankle (2) Pressure ulcer of right ankle, stage 2 Status: Chronic Current Visit: Yes Code(s): L89.512 - Pressure ulcer of right ankle, stage 2 (3) Spina bifida Status: Chronic Current Visit: Yes Qualifiers: Code(s): Q05.9 - Spina bifida, unspecified Type of Wound Date of Service: 09/30/18 Chief Complaint: recurrent R posterior and lateral ankle, 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 He has very damaged tissues of his legs and this is one of multiple recurrent pressure ulcers that he develops in this edematous R lower leg/ankle. He isn't sure when this reoccurred but thinks it has been since January or February. He has been treated by wound care nurse at [facility] where he resides. He has almost been healed several times but has never healed completely. It looks like Drawtex is what they have been using on the ulcer. A culture was done April 2018 which was positive for Pseudomonas. He was on an antibiotic but is no longer taking it. He reports that the ulcer is very painful. He reports that he has been in his bed mostly and elevates his legs/feet with a pillow under his calf and denies pressure on his heel. He also states that he has tubigrips that he usually wears but did not wear them today due to coming here for evaluation. Progress of Wound: Shahzad is here for follow up for wound care of ulcers of his right lower leg. He is tolerating dressings and has had significant improvement. He is tolerating tubigrips and using a foam bootie to offload his posterior leg and he insists that he does not have any pressure on his ulcers but there continues to be evidence of pressure. He denies fever or chills. - Physical Exam Vital Signs Temp Pulse Resp BP 98.4 F 107 H 18 108/69 09/30/18 14:14 09/30/18 14:14 09/30/18 14:14 09/30/18 14:14 General: Alert, Oriented x3, Cooperative, No apparent distress HEENT: Atraumatic, Normocephalic Oral: Moist Mucosa Abdomen: Obese Extremities: Edema Skin: Ulcer/ Wound Wound Measurements and Assessment WC - Nurse 1 - General Ulcer Measurement Start: 09/30/18 14:13 Freq: Status: Active Protocol: Activity Type Activity Date Activity User E-Sign Co-Sign Detail Recorded Client Recorded Date Recorded By Document 09/30/18 14:14 RB [id number] 09/30/18 14:17 RB 09/30/18 14:14 Wound Center Nurse 1 [Ulcer Assessment] #5 Right Achilles -Combined with other wound No -Current Size (cm) - Length 1.1 -Current Size (cm) - Width 1 -Current Size (cm) - Depth 0.1 -Total Square Cm 1.1 -Tunneling No -Undermining/Tunneling No -Circular Undermining No -Exudate Amt Small -Exudate Type Serosanguineous -Wound Margin Flat & Intact -Granulation Amt Medium (34-66%) -Granulation Quality [place] -Slough/Fibrin Yes -Necrosis Amt Medium (34-66%) -Necrotic Tissue Type Adherent Slough -Structure Exposed N/A -Texture (Sanam-wound Skin Appearance) Assessed -Moisture (Sanam-wound Skin Appearance Dry/Scaly ) -Color (Sanam-wound Skin Appearance) Assessed -Temperature (Sanam-wound Skin No Abnormality Appearance) (Pt Warm) -Tenderness on Palpation (Sanam-wound No Skin Appearance) -Ulcer Cleansing Rinsed/ Irrigated with Saline -Foul Odor after Cleansing No -Anesthetic Used 5% Lidocaine Gel #4 Lateral RLE -Combined with other wound No -Current Size (cm) - Length 0.1 -Current Size (cm) - Width 0.1 -Current Size (cm) - Depth 0.1 -Total Square Cm 0.01 -Epithelialization Large 67-100% -Tunneling No -Undermining/Tunneling No -Circular Undermining No -Exudate Amt None Present -Wound Margin Flat & Intact -Granulation Amt Large (67-100%) -Granulation Quality [place] -Slough/Fibrin No -Necrosis Amt None Present (0 %) -Structure Exposed N/A -Texture (Sanam-wound Skin Appearance) Assessed -Moisture (Sanam-wound Skin Appearance Assessed ) -Color (Sanam-wound Skin Appearance) Assessed -Temperature (Sanam-wound Skin No Abnormality Appearance) (Pt Warm) -Tenderness on Palpation (Sanam-wound No Skin Appearance) -Ulcer Cleansing Wound Cleanser -Foul Odor after Cleansing No -Anesthetic Used 5% Lidocaine Gel [Edema Assessment] -Lower Limb Edema Present Yes -Right Calf (cm) 43.1 -Right Ankle (cm) 21.5 WC - Nurse 2 - General Ulcer CM Notes Start: 09/30/18 14:13 Freq: Status: Active Protocol: Activity Type Activity Date Activity User E-Sign Co-Sign Detail Recorded Client Recorded Date Recorded By Document 09/30/18 14:58 DV [id number] 09/30/18 15:00 DV 09/30/18 14:58 Wound Center Nurse 2 [Procedure/Treatment] #5 Right Achilles -Time 14:58 -Correct Patient Yes -Correct Side, Site, Position Yes -Correct Procedure Yes -Procedure Performed Yes -Type of Procedure Debridement -Clinical Debridement Subcutaneous -Post Debridement Size (cm) - Length 1.9 -Post Debridement Size (cm) - Width 1.5 -Post Debridement Size (cm) - Depth 0.1 -Total Square Cm 2.85 -Wound/Ulcer Outcome Not Healed -Ulcer Cleansing Rinsed/ Irrigated with Saline -Foul Odor after Cleansing No -Bioengineered Tissue No -Bleeding Controlled with Pressure -Offloading No #4 Lateral RLE -Time 14:58 -Correct Patient Yes -Correct Side, Site, Position Yes -Correct Procedure No -Procedure Performed No -Post Debridement Size (cm) - Length 0 -Post Debridement Size (cm) - Width 0 -Post Debridement Size (cm) - Depth 0 -Total Square Cm 0 -Wound/Ulcer Outcome Healed- Epithelialized [See Physician Procedure note for Specifics] Psych/Mental Status: Normal Affect, Appropriate Debridement Note Post-Debridement Measurements/Treatment WC - Nurse 2 - General Ulcer CM Notes Start: 09/30/18 14:13 Freq: Status: Active Protocol: Activity Type Activity Date Activity User E-Sign Co-Sign Detail Recorded Client Recorded Date Recorded By Document 09/30/18 14:58 DV [id number] 09/30/18 15:00 DV 09/30/18 14:58 Wound Center Nurse 2 #5 Right Achilles -Time 14:58 -Correct Patient Yes -Correct Side, Site, Position Yes -Correct Procedure Yes -Procedure Performed Yes -Type of Procedure Debridement -Clinical Debridement Subcutaneous -Post Debridement Size (cm) - Length 1.9 -Post Debridement Size (cm) - Width 1.5 -Post Debridement Size (cm) - Depth 0.1 -Total Square Cm 2.85 -Wound/Ulcer Outcome Not Healed -Ulcer Cleansing Rinsed/ Irrigated with Saline -Foul Odor after Cleansing No -Bioengineered Tissue No -Bleeding Controlled with Pressure -Offloading No #4 Lateral RLE -Time 14:58 -Correct Patient Yes -Correct Side, Site, Position Yes -Correct Procedure No -Procedure Performed No -Post Debridement Size (cm) - Length 0 -Post Debridement Size (cm) - Width 0 -Post Debridement Size (cm) - Depth 0 -Total Square Cm 0 -Wound/Ulcer Outcome Healed- Epithelialized Wound debrided: right achilles Laterality: Right Wound Grade/Stage: Stage 2 Type of Debridement: Excisional debridement Anesthesia Used: 4% Lidocaine Solution, 5% Lidocaine Gel Depth: Down to and including healthy tissue, in the subcutaneous layer Percentage of wound debrided: 100 Instrument Used: 5mm curette Tissue Removed: yellow slough, devitalized tissue Severity: Fat Layer Exposed Amount of bleeding with debridement: Mild Bleeding Controlled with: Compression and gauze Patient tolerated procedure well - Additional Wound Wound debrided: right lateral LE Laterality: Right Type of Debridement: Excisional debridement Anesthesia Used: 4% Lidocaine Solution, 5% Lidocaine Gel Depth: Down to and including healthy tissue, in the subcutaneous layer Percentage of wound debrided: 100 Instrument Used: 5mm curette Tissue Removed: yellow slough, devitalized tissue Severity: Fat Layer Exposed Amount of bleeding with debridement: Mild Bleeding Controlled with: Compression and gauze Patient tolerated procedure: Patient tolerated procedure well Assessment/Plan Active Problems Venous stasis ulcer of right ankle with fat layer exposed (Chronic) posterior and medial ankle Pressure ulcer of right ankle, stage 2 (Chronic) Spina bifida (Chronic) Assessment: 1) recurrent pressure ulcer of posterior leg in paraplegic w/spina bifida. Healing is very slow and likely because of poor quality of tissues. Offload boots seem very adequate. 2) venous stasis and edema Plan: Shahzad's ulcers were evaluated and debrided today. He has chronic edema and noncompliance. He is wearing offloading booties to decrease pressure to his heels. His wounds are improved, the right lateral LE is healed. Will continue Hydrofera Blue to his wound and have them apply gentamicin ointment topically when changing dressings. He will continue tubigrips for compression. Encouraged increased protein intake and offloading was again reviewed. Will f/u in 1 week.
--- NOTE | 2018-09-30 18:11 | PN.PCM_ITS ---
(1) Venous stasis ulcer of right ankle with fat layer exposed Status: Chronic Current Visit: Yes Qualifiers: Varicose vein presence: without varicose veins Qualified Code(s): I87.2 - Venous insufficiency (chronic) (peripheral); L97.312 - Non-pressure chronic ulce r of right ankle with fat layer exposed Code(s): I83.013 - Varicose veins of right lower extremity with ulcer of ankle; L97.312 - Non-pressure chronic ulcer of right ankle with fat layer exposed Comment: posterior and medial ankle (2) Pressure ulcer of right ankle, stage 2 Status: Chronic Current Visit: Yes Code(s): L89.512 - Pressure ulcer of right ankle, stage 2 (3) Spina bifida Status: Chronic Current Visit: Yes Qualifiers: Code(s): Q05.9 - Spina bifida, unspecified Type of Wound Date of Service: 09/30/18 Chief Complaint: recurrent R posterior and lateral ankle, 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 He has very damaged tissues of his legs and this is one of multiple recurrent pressure ulcers that he develops in this edematous R lower leg/ankle. He isn't sure when this reoc curred but thinks it has been since January or February. He has been treated by wound care nurse at [facility] where he resides. He has almost been healed several times but has never healed completely. It looks like Drawtex is what they have been using on the ulcer. A culture was done April 2018 which was positive for Pseudomonas. He was on an antibiotic but is no longer taking it. He reports that the ulcer is very painful. He reports that he has been in his bed mostly and elevates his legs/feet with a pillow under his calf and denies pressure on his heel. He also states that he has tubigrips that he usually wears but did not wear them today due to coming here for evaluation. Progress of Wound: Shahzad is here for follow up for wound care of ulcers of his r ight lower leg. He is tolerating dressings and has had significant improvement. He is tolerating tubigrips and using a foam bootie to offload his posterior leg and he insists that he does not have any pressure on his ulcers but there continues to be evidence of pressure. He denies fever or chills. - Physical Exam Vital Signs Temp Pulse Resp BP 98.4 F 107 H 18 108/69 09/30/18 14:14 09/30/18 14:14 09/30/18 14:14 09/30/18 14:14 General: Alert, Oriented x3, Cooperative, No apparent distress HEENT: Atraumatic, Normocephalic Oral: Moist Mucosa Abdomen: Obese Extremities: Edema Skin: Ulcer/ Wound Wound Measurements and Assessment WC - Nurse 1 - General Ulcer Measurement Start: 09/30/18 14:13 Freq: Status: Active Protocol: Activity Type Activity Date Activity User E-Sign Co-Sign Detail Recorded Client Recorded Date Recorded By Document 09/30/18 14:14 RB [id number] 09/30/18 14:17 RB 09/30/18 14:14 Wound Center Nurse 1 [Ulcer Assessment] #5 Right Achilles -Combined with other wound No -Current Size (cm) - Length 1.1 -Current Size (cm) - Width 1 -Current Size (cm) - Depth 0.1 -Total Square Cm 1.1 -Tunneling No -Undermining/Tunneling No -Circular Undermining No -Exudate Amt Small -Exudate Type Serosanguineous -Wound Margin Flat & Intact -Granulation Amt Medium (34-66%) -Granulation Quality [place] -Slough/Fibrin Yes -Necrosis Amt Medium (34-66%) -Necrotic Tissue Type Adherent Slough -Structure Exposed N/A -Texture (Sanam-wound Skin Appearance) Assessed -Moisture (Sanam-wound Skin Appearance Dry/Scaly ) -Color (Sanam-wound Skin Appearance) Assessed -Temperature (Sanam-wound Skin No Abnormality Appearance) (Pt Warm) -Tenderness on Palpation (Sanam-wound No Skin Appearance) -Ulcer Cleansing Rinsed/ Irrigated with Saline -Foul Odor after Cleansing No -Anesthetic Used 5% Lidocaine Gel #4 Lateral RLE -Combined with other wound No -Current Size (cm) - Length 0.1 -Current Size (cm) - Width 0.1 -Current Size (cm) - Depth 0.1 -Total Square Cm 0.01 -Epithelialization Large 67-100% -Tunneling No -Undermining/Tunneling No -Circular Undermining No -Exudate Amt None Present -Wound Margin Flat & Intact -Granulation Amt Large (67-100%) -Granulation Quality [place] -Slough/Fibrin No -Necrosis Amt None Present (0 %) -Structure Exposed N/A -Texture (Sanam-wound Skin Appearance) Assessed -Moisture (Sanam-wound Skin Appearance Assessed ) -Color (Sanam-wound Skin Appearance) Assessed -Temperature (Sanam-wound Skin No Abnormality Appearance) (Pt Warm) -Tenderness on Palpation (Sanam-wound No Skin Appearance) -Ulcer Cleansing Wound Cleanser -Foul Odor after Cleansing No -Anesthetic Used 5% Lidocaine Gel [Edema Assessment] -Lower Limb Edema Present Yes -Right Calf (cm) 43.1 -Right Ankle (cm) 21.5 WC - Nurse 2 - General Ulcer CM Notes Start: 09/30/18 14:13 Freq: Status: Active Protocol: Activity Type Activity Date Activity User E-Sign Co-Sign Detail Recorded Client Recorded Date Recorded By Document 09/30/18 14:58 DV [id number] 09/30/18 15:00 DV 09/30/18 14:58 Wound Center Nurse 2 [Procedure/Treatment] #5 Right Achilles -Time 14:58 -Correct Patient Yes -Correct Side, Site, Position Yes -Correct Procedure Yes -Procedure Performed Yes -Type of Procedure Debridement -Clinical Debridement Subcutaneous -Post Debridement Size (cm) - Length 1.9 -Post Debridement Size (cm) - Width 1.5 -Post Debridement Size (cm) - Depth 0.1 -Total Square Cm 2.85 -Wound/Ulcer Outcome Not Healed -Ulcer Cleansing Rinsed/ Irrigated with Saline -Foul Odor after Cleansing No -Bioengineered Tissue No -Bleeding Controlled with Pressure -Offloading No #4 Lateral RLE -Time 14:58 -Correct Patient Yes -Correct Side, Site, Position Yes -Correct Procedure No -Procedure Performed No -Post Debridement Size (cm) - Length 0 -Post Debridement Size (cm) - Width 0 -Post Debridement Size (cm) - Depth 0 -Total Square Cm 0 -Wound/Ulcer Outcome Healed- Epithelialized [See Physician Procedure note for Specifics] Psych/Mental Status: Normal Affect, Appropriate Debridement Note Post-Debridement Measurements/Treatment WC - Nurse 2 - General Ulcer CM Notes Start: 06/07/19 14:13 Freq: Status: Active Protocol: Activity Type Activity Date Activity User E-Sign Co-Sign Detail Recorded Client Recorded Date Recorded By Document 09/30/18 14:58 DV [id number] 09/30/18 15:00 DV 09/30/18 14:58 Wound Center Nurse 2 #5 Right Achilles -Time 14:58 -Correct Patient Yes -Correct Side, Site, Position Yes -Correct Procedure Yes -Procedure Performed Yes -Type of Procedure Debridement -Clinical Debridement Subcutaneous -Post Debridement Size (cm) - Length 1.9 -Post Debridement Size (cm) - Width 1.5 -Post Debridement Size (cm) - Depth 0.1 -Total Square Cm 2.85 -Wound/Ulcer Outcome Not Healed -Ulcer Cleansing Rinsed/ Irrigated with Saline -Foul Odor after Cleansing No -Bioengineered Tissue No -Bleeding Controlled with Pressure -Offloading No #4 Lateral RLE -Time 14:58 -Correct Patient Yes -Correct Side, Site, Position Yes -Correct Procedure No -Procedure Performed No -Post Debridement Size (cm) - Length 0 -Post Debridement Size (cm) - Width 0 -Post Debridement Size (cm) - Depth 0 -Total Square Cm 0 -Wound/Ulcer Outcome Healed- Epithelialized Wound debrided: right achilles Laterality: Right Wound Grade/Stage: Stage 2 Type of Debridement: Excisional debridement Anesthesia Used: 4% Lidocaine Solution, 5% Lidocaine Gel Depth: Down to and including healthy tissue, in the subcutaneous layer Percentage of wound debrided: 100 Instrument Used: 5mm curette Tissue Removed: yellow slough, devitalized tissue Severity: Fat Layer Exposed Amount of bleeding with debridement: Mild Bleeding Controlled with: Compression and gauze Patient tolerated procedure well - Additional Wound Wound debrided: right lateral LE Laterality: Right Type of Debridement: Excisional debridement Anesthesia Used: 4% Lidocaine Solution, 5% Lidocaine Gel Depth: Down to and including healthy tissue, in the subcutaneous layer Percentage of wound debrided: 100 Instrument Used: 5mm curette Tissue Removed: yellow slough, devitalized tissue Severity: Fat Layer Exposed Amount of bleeding with debridement: Mild Bleeding Controlled with: Compression and gauze Patient tolerated procedure: Patient tolerated procedure well Assessment/Plan Active Problems Venous stasis ulcer of right ankle with fat layer exposed (Chronic) posterior and medial ankle Pressure ulcer of right ankle, stage 2 (Chronic) Spina bifida (Chronic) Assessment: 1) recurrent pressure ulcer of posterior leg in paraplegic w/spina bifida. Healing is very slow and likely because of poor quality of tissues. Offload boots seem very adequate. 2) venous stasis and edema Plan: Shahzad's ulcers were evaluated and debrided today. He has chronic edema and noncompliance. He is wearing offloading booties to decrease pressure to his heels. His wounds are improved, the right lateral LE is healed. Will continue Hydrofera Blue to his wound and have them apply gentamicin ointment topically when changing dressings. He will continue tubigrips for compression. Encouraged increased protein intake and offloading was again reviewed. Will f/u in 1 week.
[2018-10-07 13:43] VITALS: BP 125/90; PULSE 108; RESP 16; TEMP 36.5; BMI 33.2
--- NOTE | 2018-10-07 19:29 | PN.PCM_ITS ---
(1) Venous stasis ulcer of right ankle with fat layer exposed Status: Chronic Current Visit: Yes Qualifiers: Varicose vein presence: without varicose veins Qualified Code(s): I87.2 - Venous insufficiency (chronic) (peripheral); L97.312 - Non-pressure chronic ulce r of right ankle with fat layer exposed Code(s): I83.013 - Varicose veins of right lower extremity with ulcer of ankle; L97.312 - Non-pressure chronic ulcer of right ankle with fat layer exposed Comment: posterior and medial ankle (2) Pressure ulcer of right ankle, stage 2 Status: Chronic Current Visit: Yes Code(s): L89.512 - Pressure ulcer of right ankle, stage 2 (3) Spina bifida Status: Chronic Current Visit: Yes Qualifiers: Spinal region: unspecified Presence of hydrocephalus: unspecified hydrocephalus presence Qualified Code(s): Q05.9 - Spina bifida, unspecified Code(s): Q05.9 - Spina bifida, unspecified Type of Wound Date of Service: 10/07/18 Chief Complaint: recurrent R posterior and lateral ankle, 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 He has very damaged tissues of his legs and this is one of multiple recurrent pressure ulcers that he develops in this edematous R lower leg/ankle. He isn't sure when this reoccurred but thinks it has been since January or February. He has been treated by wound care nurse at [facility] where he resides. He has almost been healed several times but has never healed completely. It looks like Drawtex is what they have been using on the ulcer. A culture was done April 2018 which was positive for Pseudomonas. He was on an antibiotic but is no longer taking it. He reports that the ulcer is very painful. He reports that he has been in his bed mostly and elevates his legs/feet with a pillow under his calf and denies pressure on his heel. He also states that he has tubigrips that he usually wears but did not wear them today due to coming here for evaluation. Progress of Wound: Shahzad is here for follow up for wound care of ulcers of his right lower leg. He is tolerating dressings and has significant improvement. He is tolerating tubigrips and using a foam bootie to offload his posterior leg and he insists that he does not have any pressure on his ulcers but there continues to be evidence of pressure. He denies fever or chills. - Physical Exam Vital Signs Temp Pulse Resp BP 97.7 F L 108 H 16 125/90 H 10/07/18 13:43 10/07/18 13:43 10/07/18 13:43 10/07/18 13:43 General: Alert, Oriented x3, Cooperative, No apparent distress HEENT: Atraumatic, Normocephalic Oral: Moist Mucosa Abdomen: Obese Extremities: Edema Skin: Ulcer/ Wound Wound Measurements and Assessment WC - Nurse 1 - General Ulcer Measurement Start: 09/30/18 14:13 Freq: Status: Active Protocol: Activity Type Activity Date Activity User E-Sign Co-Sign Detail Recorded Client Recorded Date Recorded By Document 10/07/18 13:43 [facility] [id number] 10/07/18 13:50 [facility] 10/07/18 13:43 Wound Center Nurse 1 [Ulcer Assessment] #5 Right Achilles -Combined with other wound No -Current Size (cm) - Length 0.7 -Current Size (cm) - Width 0.7 -Current Size (cm) - Depth 0.1 -Total Square Cm 0.49 -Photo Taken No -Epithelialization None Present -Tunneling No -Undermining/Tunneling No -Circular Undermining No -Exudate Amt None Present -Wound Margin Flat & Intact -Granulation Amt Medium (34-66%) -Granulation Quality Red -Slough/Fibrin Yes -Necrosis Amt Small (1-33%) -Necrotic Tissue Type Adherent Slough -Texture (Sanam-wound Skin Appearance) Assessed Scarring Rash -Moisture (Sanam-wound Skin Appearance Assessed ) Dry/Scaly -Color (Sanam-wound Skin Appearance) Assessed Hemosiderin Staining -Temperature (Sanam-wound Skin No Abnormality Appearance) (Pt Warm) -Tenderness on Palpation (Sanam-wound Yes Skin Appearance) -Ulcer Cleansing Rinsed/ Irrigated with Saline -Foul Odor after Cleansing No -Anesthetic Used 5% Lidocaine Gel [Edema Assessment] -Lower Limb Edema Present Yes -Right Calf (cm) 39.6 -Right Ankle (cm) 21 WC - Nurse 2 - General Ulcer CM Notes Start: 09/30/18 14:13 Freq: Status: Active Protocol: Activity Type Activity Date Activity User E-Sign Co-Sign Detail Recorded Client Recorded Date Recorded By Document 10/07/18 15:05 DV [id number] 10/07/18 15:07 DV 10/07/18 15:05 Wound Center Nurse 2 [Procedure/Treatment] #5 Right Achilles -Time 15:05 -Correct Patient Yes -Correct Side, Site, Position Yes -Correct Procedure Yes -Procedure Performed Yes -Type of Procedure Debridement -Clinical Debridement Subcutaneous -Post Debridement Size (cm) - Length 0.8 -Post Debridement Size (cm) - Width 0.8 -Post Debridement Size (cm) - Depth 0.1 -Total Square Cm 0.64 -Wound/Ulcer Outcome Not Healed -Ulcer Cleansing Rinsed/ Irrigated with Saline -Foul Odor after Cleansing No -Bioengineered Tissue No -Bleeding Controlled with Pressure -Offloading No -Treatment Response Procedure Tolerated Well [See Physician Procedure note for Specifics] Pain Scale: 0-10 Numeric [Pain] -Is Patient Pain Free? Yes Psych/Mental Status: Normal Affect, Appropriate Debridement Note Post-Debridement Measurements/Treatment - Nurse 2 - General Ulcer CM Notes Start: 09/30/18 14:13 Freq: Status: Active Protocol: Activity Type Activity Date Activity User E-Sign Co-Sign Detail Recorded Client Recorded Date Recorded By Document 09/30/18 14:58 DV [id number] 09/30/18 15:00 DV Document 10/07/18 15:05 DV [id number] 10/07/18 15:07 DV 09/30/18 10/07/18 14:58 15:05 Wound Center Nurse 2 #5 Right Achilles -Time 14:58 15:05 -Correct Patient Yes Yes -Correct Side, Site, Position Yes Yes -Correct Procedure Yes Yes -Procedure Performed Yes Yes -Type of Procedure Debridement Debridement -Clinical Debridement Subcutaneous Subcutaneous -Post Debridement Size (cm) - Length 1.9 0.8 -Post Debridement Size (cm) - Width 1.5 0.8 -Post Debridement Size (cm) - Depth 0.1 0.1 -Total Square Cm 2.85 0.64 -Wound/Ulcer Outcome Not Healed Not Healed -Ulcer Cleansing Rinsed/ Rinsed/ Irrigated with Irrigated with Saline Saline -Foul Odor after Cleansing No No -Bioengineered Tissue No No -Bleeding Controlled with Pressure Pressure -Offloading No No -Treatment Response Procedure Tolerated Well #4 Lateral RLE -Time 14:58 -Correct Patient Yes -Correct Side, Site, Position Yes -Correct Procedure No -Procedure Performed No -Post Debridement Size (cm) - Length 0 -Post Debridement Size (cm) - Width 0 -Post Debridement Size (cm) - Depth 0 -Total Square Cm 0 -Wound/Ulcer Outcome Healed- Epithelialized Pain Scale: 0-10 Numeric Is Patient Pain Free? Yes Wound debrided: right achilles Laterality: Right Wound Grade/Stage: Stage 2 Type of Debridement: Excisional debridement Anesthesia Used: 4% Lidocaine Solution, 5% Lidocaine Gel Depth: Down to and including healthy tissue, in the subcutaneous layer Percentage of wound debrided: 100 Instrument Used: 5mm curette Tissue Removed: yellow slough, devitalized tissue Severity: Fat Layer Exposed Amount of bleeding with debridement: Mild Bleeding Controlled with: Compression and gauze Patient tolerated procedure well Assessment/Plan Active Problems Venous stasis ulcer of right ankle with fat layer exposed (Chronic) posterior and medial ankle Pressure ulcer of right ankle, stage 2 (Chronic) Spina bifida (Chronic) Assessment: 1) recurrent pressure ulcer of posterior leg in paraplegic w/spina bifida. Healing is very slow and likely because of poor quality of tissues. Offload boots seem very adequate. 2) venous stasis and edema Plan: Shahzad's ulcers were evaluated and debrided today. He has chronic edema and noncompliance. He is wearing offloading booties to decrease pressure to his heels. His wounds are improved. Will continue Hydrofera Blue to his wound and have them apply gentamicin ointment topically when changing dressings. He will continue tubigrips for compression. Encouraged increased protein intake and offloading was again reviewed. Will f/u in 1 week.
[2018-10-14 08:23] VITALS: BP 127/86; PULSE 96; RESP 18; TEMP 36.9; BMI 33.2
--- NOTE | 2018-10-14 10:45 | PCM.WC.PN ---
(1) Venous stasis ulcer of right ankle with fat layer exposed Status: Chronic Current Visit: Yes Qualifiers: Varicose vein presence: without varicose veins Qualified Code(s): I87.2 - Venous insufficiency (chronic) (peripheral); L97.312 - Non-pressure chronic ulcer of right ankle with fat layer exposed Code(s): I83.013 - Varicose veins of right lower extremity with ulcer of ankle; L97.312 - Non-pressure chronic ulcer of right ankle with fat layer exposed Comment: posterior and medial ankle (2) Pressure ulcer of right ankle, stage 2 Status: Chronic Current Visit: Yes Code(s): L89.512 - Pressure ulcer of right ankle, stage 2 (3) Spina bifida Status: Chronic Current Visit: Yes Qualifiers: Spinal region: unspecified Presence of hydrocephalus: unspecified hydrocephalus presence Qualified Code(s): Q05.9 - Spina bifida, unspecified Code(s): Q05.9 - Spina bifida, unspecified Type of Wound Date of Service: 10/14/18 Chief Complaint: recurrent R posterior and lateral ankle, 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 He has very damaged tissues of his legs and this is one of multiple recurrent pressure ulcers that he develops in this edematous R lower leg/ankle. He isn't sure when this reoccurred but thinks it has been since January or February. He has been treated by wound care nurse at [facility] where he resides. He has almost been healed several times but has never healed completely. It looks like Drawtex is what they have been using on the ulcer. A culture was done April 2018 which was positive for Pseudomonas. He was on an antibiotic but is no longer taking it. He reports that the ulcer is very painful. He reports that he has been in his bed mostly and elevates his legs/feet with a pillow under his calf and denies pressure on his heel. He also states that he has tubigrips that he usually wears but did not wear them today due to coming here for evaluation. Progress of Wound: Shahzad is here for follow up for wound care of ulcers of his right lower leg. He is tolerating dressings and has significant improvement. He is tolerating tubigrips and using a foam bootie to offload his posterior leg and he insists that he does not have any pressure on his ulcers but there continues to be evidence of pressure. He denies fever or chills. - Physical Exam Vital Signs Temp Pulse Resp BP 98.4 F 96 18 127/86 H 10/14/18 08:23 10/14/18 08:23 10/14/18 08:23 10/14/18 08:23 General: Alert, Oriented x3, Cooperative, No apparent distress HEENT: Atraumatic, Normocephalic Oral: Moist Mucosa Abdomen: Obese Extremities: Edema Skin: Ulcer/ Wound Wound Measurements and Assessment - Nurse 1 - General Ulcer Measurement Start: 09/30/18 14:13 Freq: Status: Active Protocol: Activity Type Activity Date Activity User E-Sign Co-Sign Detail Recorded Client Recorded Date Recorded By Document 10/14/18 08:23 RB [id number] 10/14/18 08:25 RB 10/14/18 08:23 Wound Center Nurse 1 [Ulcer Assessment] #5 Right Achilles -Combined with other wound No -Current Size (cm) - Length 0.7 -Current Size (cm) - Width 0.7 -Current Size (cm) - Depth 0.1 -Total Square Cm 0.49 -Photo Taken No -Tunneling No -Undermining/Tunneling No -Circular Undermining No -Exudate Amt Small -Exudate Type Serosanguineous -Wound Margin Distinct, Outline Attached -Granulation Amt Medium (34-66%) -Granulation Quality [place] -Slough/Fibrin Yes -Necrosis Amt Large (67-100%) -Necrotic Tissue Type Adherent Slough -Structure Exposed N/A -Texture (Sanam-wound Skin Appearance) Assessed, Scarring -Moisture (Sanam-wound Skin Appearance Assessed,Dry/ ) Scaly -Color (Sanam-wound Skin Appearance) Assessed -Temperature (Sanam-wound Skin No Abnormality Appearance) (Pt Warm) -Ulcer Cleansing Wound Cleanser -Foul Odor after Cleansing No -Anesthetic Used 5% Lidocaine Gel [Edema Assessment] -Lower Limb Edema Present Yes -Right Calf (cm) 45 -Right Ankle (cm) 21 - Nurse 2 - General Ulcer CM Notes Start: 09/30/18 14:13 Freq: Status: Active Protocol: Activity Type Activity Date Activity User E-Sign Co-Sign Detail Recorded Client Recorded Date Recorded By Document 10/14/18 08:32 AN [id number] 10/14/18 08:38 AN 10/14/18 08:32 Wound Center Nurse 2 [Procedure/Treatment] #5 Right Achilles -Time 08:36 -Correct Patient Yes -Correct Side, Site, Position Yes -Correct Procedure Yes -Procedure Performed Yes -Type of Procedure Debridement -Clinical Debridement Subcutaneous -Post Debridement Size (cm) - Length 0.8 -Post Debridement Size (cm) - Width 0.4 -Post Debridement Size (cm) - Depth 0.1 -Total Square Cm 0.32 -Wound/Ulcer Outcome Not Healed -Ulcer Cleansing Rinsed/ Irrigated with Saline -Foul Odor after Cleansing No -Bioengineered Tissue No -Bleeding Controlled with Pressure -Offloading No -Treatment Response Procedure Tolerated Well [See Physician Procedure note for Specifics] Pain Scale: 0-10 Numeric [Pain] -Is Patient Pain Free? Yes Psych/Mental Status: Normal Affect, Appropriate Debridement Note Post-Debridement Measurements/Treatment WC - Nurse 2 - General Ulcer CM Notes Start: 09/30/18 14:13 Freq: Status: Active Protocol: Activity Type Activity Date Activity User E-Sign Co-Sign Detail Recorded Client Recorded Date Recorded By Document 09/30/18 14:58 DV [id number] 09/30/18 15:00 DV Document 10/07/18 15:05 DV [id number] 10/07/18 15:07 DV Document 10/14/18 08:32 AN [id number] 10/14/18 08:38 AN 09/30/18 10/07/18 10/14/18 14:58 15:05 08:32 Wound Center Nurse 2 #5 Right Achilles -Time 14:58 15:05 08:36 -Correct Patient Yes Yes Yes -Correct Side, Site, Position Yes Yes Yes -Correct Procedure Yes Yes Yes -Procedure Performed Yes Yes Yes -Type of Procedure Debridement Debridement Debridement -Clinical Debridement Subcutaneous Subcutaneous Subcutaneous -Post Debridement Size (cm) - Length 1.9 0.8 0.8 -Post Debridement Size (cm) - Width 1.5 0.8 0.4 -Post Debridement Size (cm) - Depth 0.1 0.1 0.1 -Total Square Cm 2.85 0.64 0.32 -Wound/Ulcer Outcome Not Healed Not Healed Not Healed -Ulcer Cleansing Rinsed/ Rinsed/ Rinsed/ Irrigated with Irrigated with Irrigated with Saline Saline Saline -Foul Odor after Cleansing No No No -Bioengineered Tissue No No No -Bleeding Controlled with Pressure Pressure Pressure -Offloading No No No -Treatment Response Procedure Procedure Tolerated Well Tolerated Well #4 Lateral RLE -Time 14:58 -Correct Patient Yes -Correct Side, Site, Position Yes -Correct Procedure No -Procedure Performed No -Post Debridement Size (cm) - Length 0 -Post Debridement Size (cm) - Width 0 -Post Debridement Size (cm) - Depth 0 -Total Square Cm 0 -Wound/Ulcer Outcome Healed- Epithelialized Pain Scale: 0-10 Numeric Is Patient Pain Free? Yes Yes Wound debrided: right achilles Laterality: Right Wound Grade/Stage: Stage 2 Type of Debridement: Excisional debridement Anesthesia Used: 4% Lidocaine Solution, 5% Lidocaine Gel Depth: Down to and including healthy tissue, in the subcutaneous layer Percentage of wound debrided: 100 Instrument Used: 5mm curette Tissue Removed: yellow slough, devitalized tissue Severity: Fat Layer Exposed Amount of bleeding with debridement: Mild Bleeding Controlled with: Compression and gauze Patient tolerated procedure well Assessment/Plan Active Problems Venous stasis ulcer of right ankle with fat layer exposed (Chronic) posterior and medial ankle Pressure ulcer of right ankle, stage 2 (Chronic) Spina bifida (Chronic) Assessment: 1) recurrent pressure ulcer of posterior leg in paraplegic w/spina bifida. Healing is very slow and likely because of poor quality of tissues. Offload boots seem very adequate. 2) venous stasis and edema Plan: Shahzad's ulcers were evaluated and debrided today. He has chronic edema and noncompliance. He is wearing offloading booties to decrease pressure to his heels. His wounds are improved. Will change to mega to his wound and have them apply gentamicin ointment topically when changing dressings. He will continue tubigrips for compression. Encouraged increased protein intake and offloading was again reviewed. Will f/u in 1 week.
[2018-10-21 12:42] VITALS: BP 152/91; PULSE 100; RESP 18; TEMP 36.7; BMI 33.2
--- NOTE | 2018-10-21 14:39 | PN.PCM_ITS ---
(1) Venous stasis ulcer of right ankle with fat layer exposed Status: Chronic Current Visit: Yes Qualifiers: Varicose vein presence: without varicose veins Qualified Code(s): I87.2 - Venous insufficiency (chronic) (peripheral); L97.312 - Non-pressure chronic ulce r of right ankle with fat layer exposed Code(s): I83.013 - Varicose veins of right lower extremity with ulcer of ankle; L97.312 - Non-pressure chronic ulcer of right ankle with fat layer exposed Comment: posterior and medial ankle (2) Pressure ulcer of right ankle, stage 2 Status: Chronic Current Visit: Yes Code(s): L89.512 - Pressure ulcer of right ankle, stage 2 (3) Spina bifida Status: Chronic Current Visit: Yes Qualifiers: Spinal region: unspecified Presence of hydrocephalus: unspecified hydrocephalus presence Qualified Code(s): Q05.9 - Spina bifida, unspecified Code(s): Q05.9 - Spina bifida, unspecified (4) PAD (peripheral artery disease) Status: Chronic Current Visit: Yes Code(s): I73.9 - Peripheral vascular disease, unspecified (5) Venous (peripheral) insufficiency Status: Chronic Current Visit: Yes Code(s): I87.2 - Venous insufficiency (chronic) (peripheral) (6) Edema of both lower legs due to peripheral venous insufficiency Status: Chronic Current Visit: Yes Code(s): I87.2 - Venous insufficiency (chronic) (peripheral); R60.9 - Edema, unspecified Type of Wound Date of Service: 10/21/18 Chief Complaint: recurrent R posterior and lateral ankle, 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 He has very damaged tissues of his legs and this is one of multiple recurrent pressure ulcers that he develops in this edematous R lower leg/ankle. He isn't sure when this reoccurred but thinks it has been since January or February. He has been treated by wound care nurse at [facility] [place] where he resides. He has almost been healed several times but has never healed completely. It looks like Drawtex is what they have been using on the ulcer. A culture was done April 2018 which was positive for Pseudomonas. He was on an antibiotic but is no longer taking it. He reports that the ulcer is very painful. He reports that he has been in his bed mostly and elevates his legs/feet with a pillow under his calf and denies pressure on his heel. He also states that he has tubigrips that he usually wears but did not wear them today due to coming here for evaluation. Progress of Wound: Shahzad is here for follow up for wound care of ulcers of his right lower leg. He is tolerating dressings with Marlyn but he has recurrence of recently healed area of his achilles. He is tolerating tubigrips and using a foam bootie to offload his posterior leg and he insists that he does not have any pressure on his ulcers but there continues to be evidence of pressure. He denies fever or chills. - Physical Exam Vital Signs Temp Pulse Resp BP 98.0 F 100 18 152/91 H 10/21/18 12:42 10/21/18 12:42 10/21/18 12:42 10/21/18 12:42 General: Alert, Oriented x3, Cooperative, No apparent distress HEENT: Atraumatic, Normocephalic Oral: Moist Mucosa Abdomen: Soft, Obese Extremities: Edema Skin: Ulcer/ Wound, - - superficial thrombophlebitis of spider veins of right achilles/medial ankle area Wound Measurements and Assessment WC - Nurse 1 - General Ulcer Measurement Start: 09/30/18 14:13 Freq: Status: Active Protocol: Activity Type Activity Date Activity User E-Sign Co-Sign Detail Recorded Client Recorded Date Recorded By Document 10/21/18 12:42 [id number] 10/21/18 13:08 10/21/18 12:42 Wound Center Nurse 1 [Ulcer Assessment] #5 Right Achilles -Combined with other wound No -Current Size (cm) - Length 4 -Current Size (cm) - Width 5 -Current Size (cm) - Depth 0.1 -Total Square Cm 20 -Photo Taken No -Tunneling No -Undermining/Tunneling No -Circular Undermining No -Exudate Amt None Present -Wound Margin Flat & Intact -Granulation Amt Large (67-100%) -Granulation Quality N/A -Slough/Fibrin Yes -Necrosis Amt None Present (0 %) -Structure Exposed None/Limited to Skin Breakdown -Texture (Sanam-wound Skin Appearance) Scarring -Moisture (Sanam-wound Skin Appearance Dry/Scaly ) -Color (Sanam-wound Skin Appearance) Erythema -Temperature (Sanam-wound Skin No Abnormality Appearance) (Pt Warm) -Tenderness on Palpation (Sanam-wound Yes Skin Appearance) -Foul Odor after Cleansing No -Anesthetic Used 5% Lidocaine Gel [Edema Assessment] -Lower Limb Edema Present Yes -Right Calf (cm) 43.5 -Right Ankle (cm) 22.6 WC - Nurse 2 - General Ulcer CM Notes Start: 09/30/18 14:13 Freq: Status: Active Protocol: Activity Type Activity Date Activity User E-Sign Co-Sign Detail Recorded Client Recorded Date Recorded By Document 10/21/18 13:18 MW [id number] 10/21/18 13:29 MW 10/21/18 13:18 Wound Center Nurse 2 [Procedure/Treatment] #6 RIGHT ACHILLES SUPERIOR -Time 13:24 -Correct Patient Yes -Correct Side, Site, Position Yes -Correct Procedure Yes -Procedure Performed Yes -Type of Procedure Debridement -Clinical Debridement Subcutaneous -Post Debridement Size (cm) - Length 1.1 -Post Debridement Size (cm) - Width 0.5 -Post Debridement Size (cm) - Depth 0.1 -Total Square Cm 0.55 -Wound/Ulcer Outcome Not Healed -Ulcer Cleansing Rinsed/ Irrigated with Saline -Foul Odor after Cleansing No -Bioengineered Tissue No -Bleeding Controlled with Pressure -Offloading No -Treatment Response Procedure Tolerated Well #5 Right Achilles -Time 13:18 -Correct Patient Yes -Correct Side, Site, Position Yes -Correct Procedure Yes -Procedure Performed Yes -Type of Procedure Debridement -Clinical Debridement Subcutaneous -Post Debridement Size (cm) - Length 0.6 -Post Debridement Size (cm) - Width 0.4 -Post Debridement Size (cm) - Depth 0.1 -Total Square Cm 0.24 -Wound/Ulcer Outcome Not Healed -Ulcer Cleansing Rinsed/ Irrigated with Saline -Foul Odor after Cleansing No -Bioengineered Tissue No -Bleeding Controlled with Pressure -Offloading No -Treatment Response Procedure Tolerated Well [See Physician Procedure note for Specifics] Pain Scale: 0-10 Numeric [Pain] -Is Patient Pain Free? Yes Psych/Mental Status: Normal Affect, Appropriate Debridement Note Post-Debridement Measurements/Treatment WC - Nurse 2 - General Ulcer CM Notes Start: 09/30/18 14:13 Freq: Status: Active Protocol: Activity Type Activity Date Activity User E-Sign Co-Sign Detail Recorded Client Recorded Date Recorded By Document 09/30/18 14:58 DV [id number] 09/30/18 15:00 DV Document 10/07/18 15:05 DV [id number] 10/07/18 15:07 DV Document 10/14/18 08:32 AN [id number] 10/14/18 08:38 AN Document 10/21/18 13:18 MW [id number] 10/21/18 13:29 MW 09/30/18 10/07/18 10/14/18 14:58 15:05 08:32 Wound Center Nurse 2 #6 RIGHT ACHILLES SUPERIOR -Time -Correct Patient -Correct Side, Site, Position -Correct Procedure -Procedure Performed -Type of Procedure -Clinical Debridement -Post Debridement Size (cm) - Length -Post Debridement Size (cm) - Width -Post Debridement Size (cm) - Depth -Total Square Cm -Wound/Ulcer Outcome -Ulcer Cleansing -Foul Odor after Cleansing -Bioengineered Tissue -Bleeding Controlled with -Offloading -Treatment Response #5 Right Achilles -Time 14:58 15:05 08:36 -Correct Patient Yes Yes Yes -Correct Side, Site, Position Yes Yes Yes -Correct Procedure Yes Yes Yes -Procedure Performed Yes Yes Yes -Type of Procedure Debridement Debridement Debridement -Clinical Debridement Subcutaneous Subcutaneous Subcutaneous -Post Debridement Size (cm) - Length 1.9 0.8 0.8 -Post Debridement Size (cm) - Width 1.5 0.8 0.4 -Post Debridement Size (cm) - Depth 0.1 0.1 0.1 -Total Square Cm 2.85 0.64 0.32 -Wound/Ulcer Outcome Not Healed Not Healed Not Healed -Ulcer Cleansing Rinsed/ Rinsed/ Rinsed/ Irrigated with Irrigated with Irrigated with Saline Saline Saline -Foul Odor after Cleansing No No No -Bioengineered Tissue No No No -Bleeding Controlled with Pressure Pressure Pressure -Offloading No No No -Treatment Response Procedure Procedure Tolerated Well Tolerated Well #4 Lateral RLE -Time 14:58 -Correct Patient Yes -Correct Side, Site, Position Yes -Correct Procedure No -Procedure Performed No -Post Debridement Size (cm) - Length 0 -Post Debridement Size (cm) - Width 0 -Post Debridement Size (cm) - Depth 0 -Total Square Cm 0 -Wound/Ulcer Outcome Healed- Epithelialized Pain Scale: 0-10 Numeric Is Patient Pain Free? Yes Yes 10/21/18 13:18 Wound Center Nurse 2 #6 RIGHT ACHILLES SUPERIOR -Time 13:24 -Correct Patient Yes -Correct Side, Site, Position Yes -Correct Procedure Yes -Procedure Performed Yes -Type of Procedure Debridement -Clinical Debridement Subcutaneous -Post Debridement Size (cm) - Length 1.1 -Post Debridement Size (cm) - Width 0.5 -Post Debridement Size (cm) - Depth 0.1 -Total Square Cm 0.55 -Wound/Ulcer Outcome Not Healed -Ulcer Cleansing Rinsed/ Irrigated with Saline -Foul Odor after Cleansing No -Bioengineered Tissue No -Bleeding Controlled with Pressure -Offloading No -Treatment Response Procedure Tolerated Well #5 Right Achilles -Time 13:18 -Correct Patient Yes -Correct Side, Site, Position Yes -Correct Procedure Yes -Procedure Performed Yes -Type of Procedure Debridement -Clinical Debridement Subcutaneous -Post Debridement Size (cm) - Length 0.6 -Post Debridement Size (cm) - Width 0.4 -Post Debridement Size (cm) - Depth 0.1 -Total Square Cm 0.24 -Wound/Ulcer Outcome Not Healed -Ulcer Cleansing Rinsed/ Irrigated with Saline -Foul Odor after Cleansing No -Bioengineered Tissue No -Bleeding Controlled with Pressure -Offloading No -Treatment Response Procedure Tolerated Well #4 Lateral RLE -Time -Correct Patient -Correct Side, Site, Position -Correct Procedure -Procedure Performed -Post Debridement Size (cm) - Length -Post Debridement Size (cm) - Width -Post Debridement Size (cm) - Depth -Total Square Cm -Wound/Ulcer Outcome Pain Scale: 0-10 Numeric Is Patient Pain Free? Yes Wound debrided: right achilles superior Laterality: Right Type of Debridement: Excisional debridement Anesthesia Used: 4% Lidocaine Solution, 5% Lidocaine Gel Depth: Down to and including healthy tissue, in the subcutaneous layer Percentage of wound debrided: 100 Instrument Used: 5mm curette Tissue Removed: yellow slough, devitalized tissue Severity: Fat Layer Exposed Amount of bleeding with debridement: Mild Bleeding Controlled with: Compression and gauze Patient tolerated procedure well - Additional Wound Wound debrided: right achilles Laterality: Right Type of Debridement: Excisional debridement Anesthesia Used: 4% Lidocaine Solution, 5% Lidocaine Gel Depth: Down to and including healthy tissue, in the subcutaneous layer Percentage of wound debrided: 100 Instrument Used: 5mm curette Tissue Removed: yellow slough, devitalized tissue Severity: Fat Layer Exposed Amount of bleeding with debridement: Mild Bleeding Controlled with: Compression and gauze Patient tolerated procedure: Patient tolerated procedure well Assessment/Plan Active Problems Venous stasis ulcer of right ankle with fat layer exposed (Chronic) posterior and medial ankle Pressure ulcer of right ankle, stage 2 (Chronic) PAD (peripheral artery disease) (Chronic) Venous (peripheral) insufficiency (Chronic) Edema of both lower legs due to peripheral venous insufficiency (Chronic) Spina bifida (Chronic) Assessment: 1) recurrent pressure ulcer of posterior leg in paraplegic w/spina bifida. Healing is very slow and likely because of poor quality of tissues. Offload boots seem very adequate. 2) venous stasis and edema. 3) spider veins with thrombosis right LE Plan: Shahzad's ulcers were evaluated and debrided today. He has chronic edema and venous insufficiency. He is wearing offloading booties to decrease pressure to his heels. His wounds are improved but an area that was healed has reopened due to pressure and chronic thrombophlebitis. Vascular testing has been ordered and referral to Dr. Pearl has been made regarding possible intervention to treat the spider veins/thrombophlebitis to prevent recurrence of his ulcers as he has struggled with these intermittently for several years. Will change back to Hydrofera blue to his wound and have them apply gentamicin ointment topically when changing dressings. He will continue tubigrips for compression. Encouraged increased protein intake and offloading was again reviewed. Will f/u in 1 week.
== END 2018-10-23 23:59 ==
LOC: WC 13:30
PROVIDERS: Family Provider Family Medicine; PCP Family Medicine; Visit Provider Family Medicine
DX: I83.013 Varicose veins of right lower extremity with ulcer of ankle (principal); L89.512 Pressure ulcer of right ankle, stage 2; Q05.9 Spina bifida, unspecified; Z91.19 Patient's noncompliance with other medical treatment and regimen; L89.892 Pressure ulcer of other site, stage 2; G82.20 Paraplegia, unspecified
CPT/HCPCS: 11042

== ENCOUNTER 2018-11-18 15:00 | Outpatient (RCR) | payer MEDICARE, MEDICAID, SELFPAY ==
[2018-10-24 00:37] VITALS: BP 152/91; PULSE 100; RESP 18; TEMP 36.7
[2018-10-28 09:52] VITALS: BP 113/73; PULSE 100; RESP 18; TEMP 36.1; BMI 33.2
--- NOTE | 2018-10-28 10:56 | PN.PCM_ITS ---
(1) Venous stasis ulcer of right ankle with fat layer exposed Status: Chronic Current Visit: Yes Qualifiers: Varicose vein presence: without varicose veins Code(s): I83.013 - Varicose veins of right lower extremity with ulcer of ankle; L97.312 - Non-pressure chronic ulcer of right ankle with fat layer exposed Comment: posterior and medial ankle (2) Pressure ulcer of right ankle, stage 2 Status: Chronic Current Visit: Yes Code(s): L89.512 - Pressure ulcer of right ankle, stage 2 (3) Spina bifida Status: Chronic Current Visit: Yes Qualifiers: Spinal region: unspecified Code(s): Q05.9 - Spina bifida, unspecified (4) Venous stasis dermatitis of both lower extremities Status: Chronic Current Visit: Yes Code(s): I83.11 - Varicose veins of right lower extremity with inflammation; I83.12 - Varicose veins of left lower extremity with inflammation Type of Wound Date of Service: 10/28/18 Chief Complaint: recurrent R posterior and lateral ankle, 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 He has very damaged tissues of his legs and this is one of multiple recurrent pressure ulcers that he develops in this edematous R lower leg/ankle. He isn't sure when this reoccurred but thinks it has been since January or February. He has been treated by wound care nurse at [facility] where he resides. He has almost been healed several times but has never healed completely. It looks like Drawtex is what they have been using on the ulcer. A culture was done April 2018 which was positive for Pseudomonas. He was on an antibiotic but is no longer taking it . He reports that the ulcer is very painful. He reports that he has been in his bed mostly and elevates his legs/feet with a pillow under his calf and denies pressure on his heel. He also states that he has tubigrips that he usually wears but did not wear them today due to coming here for evaluation. Progress of Wound: Shahzad is here for follow up for wound care of ulcers of his right lower leg. He is tolerating dressings with hydrofera blue with improvement. He is tolerating tubigrips and using a foam bootie to offload his posterior leg and he insists that he does not have any pressure on his ulcers but there continues to be evidence of pressure. He denies fever or chills. - Physical Exam Vital Signs Temp Pulse Resp BP 97.0 F L 100 18 113/73 10/28/18 09:52 10/28/18 09:52 10/28/18 09:52 10/28/18 09:52 General: Alert, Oriented x3, Cooperative, No apparent distress HEENT: Atraumatic, Normocephalic Oral: Moist Mucosa Abdomen: Obese Extremities: Edema Skin: Ulcer/ Wound Wound Measurements and Assessment WC - Nurse 1 - General Ulcer Measurement Start: 10/28/18 09:50 Freq: Status: Active Protocol: Activity Type Activity Date Activity User E-Sign Co-Sign Detail Recorded Client Recorded Date Recorded By Document 10/28/18 09:52 OK [id number] 10/28/18 10:03 OK 10/28/18 09:52 Wound Center Nurse 1 [Ulcer Assessment] #6 RIGHT ACHILLES SUPERIOR -Current Size (cm) - Length 0.1 -Current Size (cm) - Width 0.1 -Current Size (cm) - Depth 0.1 -Total Square Cm 0.01 -Exudate Amt Small -Exudate Type Serosanguineous -Wound Margin Flat & Intact -Granulation Amt Medium (34-66%) -Granulation Quality Pale,[place] -Necrosis Amt Medium (34-66%) -Necrotic Tissue Type Adherent Slough -Texture (Sanam-wound Skin Appearance) Assessed -Moisture (Sanam-wound Skin Appearance Assessed,Dry/ ) Scaly -Color (Sanam-wound Skin Appearance) Assessed, Erythema -Temperature (Sanam-wound Skin No Abnormality Appearance) (Pt Warm) -Tenderness on Palpation (Sanam-wound No Skin Appearance) -Ulcer Cleansing Rinsed/ Irrigated with Saline -Foul Odor after Cleansing No -Anesthetic Used 4% Lidocaine Solution #5 Right Achilles -Current Size (cm) - Length 3.5 -Current Size (cm) - Width 5.5 -Current Size (cm) - Depth 0.1 -Total Square Cm 19.25 -Exudate Amt Small -Exudate Type Serosanguineous -Wound Margin Flat & Intact -Granulation Amt Medium (34-66%) -Granulation Quality Pale,[place] -Necrosis Amt Medium (34-66%) -Necrotic Tissue Type Adherent Slough -Texture (Sanam-wound Skin Appearance) Assessed, Localized Edema -Moisture (Sanam-wound Skin Appearance Assessed,Dry/ ) Scaly -Color (Sanam-wound Skin Appearance) Assessed, Erythema -Temperature (Sanam-wound Skin No Abnormality Appearance) (Pt Warm) -Tenderness on Palpation (Sanam-wound No Skin Appearance) -Ulcer Cleansing Rinsed/ Irrigated with Saline -Foul Odor after Cleansing No -Anesthetic Used 4% Lidocaine Solution [Edema Assessment] -Lower Limb Edema Present Yes -Right Calf (cm) 44 -Right Ankle (cm) 23 WC - Nurse 2 - General Ulcer CM Notes Start: 10/28/18 09:50 Freq: Status: Active Protocol: Activity Type Activity Date Activity User E-Sign Co-Sign Detail Recorded Client Recorded Date Recorded By Edit Status 10/28/18 10:23 DV Active=>Cancelled [id number] 10/28/18 10:23 DV Edit Status 10/28/18 10:53 BMF Cancelled=>Active [id number] 10/28/18 10:53 BMF Psych/Mental Status: Normal Affect, Appropriate Debridement Note right achilles superior length 0.5 cm width 0.2 cm depth 0.1 cm right achilles inferior length 0.5 cm width 0.2 cm depth 0.1 cm Wound debrided: right achilles inferior Laterality: Right Type of Debridement: Excisional debridement Anesthesia Used: 4% Lidocaine Solution, 5% Lidocaine Gel Depth: Down to and including healthy tissue, in the subcutaneous layer Percentage of wound debrided: 100 Instrument Used: 5mm curette Tissue Removed: yellwo slough, devitalized tissue Severity: Fat Layer Exposed Amount of bleeding with debridement: Mild Bleeding Controlled with: Compression and gauze Patient tolerated procedure well - Additional Wound Wound debrided: right achilles superior Laterality: Right Type of Debridement: Excisional debridement Anesthesia Used: 4% Lidocaine Solution, 5% Lidocaine Gel Depth: Down to and including healthy tissue, in the subcutaneous layer Percentage of wound debrided: 100 Instrument Used: 5mm curette Tissue Removed: yellow slough, devitalized tissue Severity: Fat Layer Exposed Amount of bleeding with debridement: Mild Bleeding Controlled with: Compression and gauze Patient tolerated procedure: Patient tolerated procedure well Assessment/Plan Active Problems Venous stasis ulcer of right ankle with fat layer exposed (Chronic) posterior and medial ankle Pressure ulcer of right ankle, stage 2 (Chronic) Spina bifida (Chronic) Venous stasis dermatitis of both lower extremities (Chronic) Assessment: 1) recurrent pressure ulcer of posterior leg in paraplegic w/spina bifida. Healing is very slow and likely because of poor quality of tissues. Offload boots seem very adequate. 2) venous stasis and edema. 3) spider veins with thrombosis right LE Plan: Shahzad's ulcers were evaluated and debrided today. He has chronic edema and venous insufficiency. He is wearing offloading booties to decrease pressure to his heels. His wounds are improved. Vascular testing has been ordered and referral to Dr. Pearl has been made regarding possible intervention to treat the spider veins/thrombophlebitis to prevent recurrence of his ulcers as he has struggled with these intermittently for several years. Will ccontinue Hydrofera blue to his wound and have them apply gentamicin ointment topically when changing dressings. He will continue tubigrips for compression. Encouraged increased protein intake and offloading was again reviewed. Will f/u in 1 week.
--- NOTE | 2018-11-04 13:20 | VDLE_ITS ---
Reason For Study: LE Edema RIGHT LEFT CFV is compressible, spontaneous, phasic, CFV is compressible, spontaneous, phasic, competent and demonstrates normal competent, and demonstrates normal augmentation. augmentation. FV is compressible, spontaneous, phasic, FV is compressible, spontaneous, phasic, competent and demonstrates normal competent and demonstrates normal augmentation. augmentation. POP V is compressible, spontaneous, phasic, POP V is compressible, spontaneous, phasic, competent and demonstrates normal competent and demonstrates normal augmentation. augmentation. T/P Trunk is compressible. T/P Trunk is compressible. PTV is compressible. PTV is compressible. RT PerV is compressible. LT PerV is compressible. SFJ is competent. SFJ is competent. GSV above knee is competent. GSV above knee is competent. GSV below knee is INCOMPETENT for greater GSV elow knee is INCOMPETENT for greater than than 0.5 seconds and measures 0.35 x 0.38 cm. 0.5 seconds and measures 0.42 x 0.40 cm. SSV is competent. SSV is competent. Procedure Exam performed in department. A preliminary report was called and/or faxed to . Interpretation Summary Deep veins of the lower extremities are bilaterally patent and compressible segmentally. There is no evidence of deep vein thrombosis on either side. Valvular competence appears intact within the proximal deep venous systems bilaterally. The greater saphenous veins appear bilaterally patent and compressible segmentally. Sapheno-femoral junctions are bilaterally competent . The right greater saphenous vein appears competent above the knee. The right greater saphenous vein appears incompetent below the knee. The left greater saphenous vein appears competent above the knee. The left greater saphenous vein appears incompetent below the knee. Small saphenous veins are patent and competent bilaterally. Ordering Physician: Yaritza Mathews Referring Physician: Mulu Cali M.D. Performed By: Tracy Vargas RVT
--- NOTE | 2018-11-04 13:21 | ART_ITS ---
Reason For Study: PAD Procedure A bilateral lower extremity continuous wave Doppler with analog waveform analysis,segmental pressures,and ankle brachial indexes without exercise. Left Segmental Pressures Left brachial= 138mmHg. Left posterior tibial artery = 156mmHg. Left dorsalis pedis artery = 122mmHg. Left digit = 160 mmHg. The left dorsalis pedis waveforms are triphasic. The left posterior tibial artery waveforms are triphasic. Right Segmental Pressures Right brachial= 113mmHg. Right posterior tibial artery = 114mmHg. Right dorsalis pedis artery = 116mmHg. Right digit = 119 mmHg. The right dorsalis pedis waveforms are triphasic. The right posterior tibial artery waveforms are triphasic. Indices The right ankle brachial index by the dorsalis pedis is 0.84. The right ankle brachial index by the posterior tibial artery is 0.83. The right digital-brachial index is 0.86. The left ankle brachial index by the dorsalis pedis is 0.88. The left ankle brachial index by the posterior tibial artery is 1.13. The left digital-brachial index is 1.16. Interpretation Summary Triphasic Doppler waveforms are noted at ankle level bilaterally. Pulse-volume recording waveform amplitudes are satisfactory bilaterally. The resting right ankle-brachial index is mildly diminished. The resting left ankle-brachial index is normal. Digital-brachial indices are normal bilaterally. There is evidence of mild impairment of arterial flow at ankle level on the right. There appears to be normal arterial flow at ankle level on the left. Arterial flow appears normal at digital level bilaterally. Ordering Physician: Yaritza Mathews Referring Physician: Mulu Cali M.D. Performed By: Tracy Vargas RVT
[2018-11-04 15:49] VITALS: BP 141/91; PULSE 89; RESP 18; TEMP 36.6; BMI 33.2
--- NOTE | 2018-11-04 18:38 | PN.PCM_ITS ---
(1) Venous stasis ulcer of right ankle with fat layer exposed Status: Chronic Current Visit: Yes Qualifiers: Varicose vein presence: without varicose veins Code(s): I83.013 - Varicose veins of right lower extremity with ulcer of ankle; L97.312 - Non-pressure chronic ulcer of right ankle with fat layer exposed Comment: posterior and medial ankle (2) Pressure ulcer of right ankle, stage 2 Status: Chronic Current Visit: Yes Code(s): L89.512 - Pressure ulcer of right ankle, stage 2 (3) Spina bifida Status: Chronic Current Visit: Yes Qualifiers: Spinal region: unspecified Code(s): Q05.9 - Spina bifida, unspecified (4) Venous stasis dermatitis of both lower extremities Status: Chronic Current Visit: Yes Code(s): I83.11 - Varicose veins of right lower extremity with inflammation; I83.12 - Varicose veins of left lower extremity with inflammation Type of Wound Date of Service: 11/04/18 Chief Complaint: recurrent R posterior and lateral ankle, 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 He has very damaged tissues of his legs and this is one of multiple recurrent pressure ulcers that he develops in this edematous R lower leg/ankle. He isn't sure when this reoccurred but thinks it has been since January or February. He has been treated by wound care nurse at [facility] where he resides. He has almost been healed several times but has never healed completely. It looks like Drawtex is what they have been using on the ulcer. A culture was done April 2018 which was positive for Pseudomonas. He was on an antibiotic but is no longer taking it . He reports that the ulcer is very painful. He reports that he has been in his bed mostly and elevates his legs/feet with a pillow under his calf and denies pressure on his heel. He also states that he has tubigrips that he usually wears but did not wear them today due to coming here for evaluation. Progress of Wound: Shahzad is here for follow up for wound care of ulcers of his right lower leg. He is tolerating dressings with hydrofera blue with improvement. He is tolerating tubigrips and using a foam bootie to offload his posterior leg and he insists that he does not have any pressure on his ulcers but there continues to be evidence of pressure. He denies fever or chills. 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 - Physical Exam Vital Signs Temp Pulse Resp BP 98 F 89 18 141/91 H 11/04/18 15:49 11/04/18 15:49 11/04/18 15:49 11/04/18 15:49 General: Alert, Oriented x3, Cooperative, No apparent distress HEENT: Atraumatic, Normocephalic Oral: Moist Mucosa Extremities: Edema Skin: Ulcer/ Wound Wound Measurements and Assessment WC - Nurse 1 - General Ulcer Measurement Start: 10/28/18 09:50 Freq: Status: Active Protocol: Activity Type Activity Date Activity User E-Sign Co-Sign Detail Recorded Client Recorded Date Recorded By Document 11/04/18 15:49 [id number] 11/04/18 15:56 RB 11/04/18 15:49 Wound Center Nurse 1 [Ulcer Assessment] #6 RIGHT ACHILLES SUPERIOR -Combined with other wound No -Current Size (cm) - Length 0.1 -Current Size (cm) - Width 0.1 -Current Size (cm) - Depth 0.1 -Total Square Cm 0.01 -Photo Taken No -Epithelialization None Present -Tunneling No -Undermining/Tunneling No -Circular Undermining No -Exudate Amt Small -Exudate Type Serous -Wound Margin Flat & Intact -Granulation Amt Small (1-33%) -Granulation Quality Red -Slough/Fibrin No -Necrosis Amt None Present (0 %) -Texture (Sanam-wound Skin Appearance) Assessed, Scarring -Moisture (Sanam-wound Skin Appearance Assessed,Dry/ ) Scaly -Color (Sanam-wound Skin Appearance) Assessed, Erythema, Hemosiderin Staining -Temperature (Sanam-wound Skin No Abnormality Appearance) (Pt Warm) -Tenderness on Palpation (Sanam-wound Yes Skin Appearance) -Ulcer Cleansing Rinsed/ Irrigated with Saline -Foul Odor after Cleansing No -Anesthetic Used 4% Lidocaine Solution #5 Right Achilles -Combined with other wound No -Current Size (cm) - Length 0.5 -Current Size (cm) - Width 0.5 -Current Size (cm) - Depth 0.1 -Total Square Cm 0.25 -Photo Taken No -Epithelialization Small 1-33% -Tunneling No -Undermining/Tunneling No -Circular Undermining No -Exudate Amt Small -Exudate Type Serous -Wound Margin Flat & Intact -Granulation Amt Large (67-100%) -Granulation Quality Red -Slough/Fibrin Yes -Necrosis Amt Small (1-33%) -Necrotic Tissue Type Adherent Slough -Texture (Sanam-wound Skin Appearance) Assessed, Scarring -Moisture (Sanam-wound Skin Appearance Assessed,Dry/ ) Scaly -Color (Sanam-wound Skin Appearance) Assessed, Erythema, Hemosiderin Staining -Temperature (Sanam-wound Skin No Abnormality Appearance) (Pt Warm) -Tenderness on Palpation (Sanam-wound No Skin Appearance) -Ulcer Cleansing Rinsed/ Irrigated with Saline -Foul Odor after Cleansing No -Anesthetic Used 4% Lidocaine Solution Psych/Mental Status: Normal Affect, Appropriate Debridement Note right achilles superior length 0.1 cm width 0.1 cm depth 0.1 cm right achilles inferior length 0.5 cm width 0.4 cm depth 0.1 cm Wound debrided: right achilles superior Laterality: Right Type of Debridement: Excisional debridement Anesthesia Used: 4% Lidocaine Solution, 5% Lidocaine Gel Depth: Down to and including healthy tissue, in the subcutaneous layer Percentage of wound debrided: 100 Instrument Used: 5mm curette Tissue Removed: yellow slough, devitalized tissue Severity: Fat Layer Exposed Amount of bleeding with debridement: Mild Bleeding Controlled with: Compression and gauze Patient tolerated procedure well - Additional Wound Wound debrided: right achilles inferior Laterality: Right Type of Debridement: Excisional debridement Anesthesia Used: 4% Lidocaine Solution, 5% Lidocaine Gel Depth: Down to and including healthy tissue, in the subcutaneous layer Percentage of wound debrided: 100 Instrument Used: 3mm curette Tissue Removed: yellow slough, devitalized tissue Severity: Fat Layer Exposed Amount of bleeding with debridement: Mild Bleeding Controlled with: Compression and gauze Patient tolerated procedure: Patient tolerated procedure well Assessment/Plan Active Problems Venous stasis ulcer of right ankle with fat layer exposed (Chronic) posterior and medial ankle Pressure ulcer of right ankle, stage 2 (Chronic) Spina bifida (Chronic) Venous stasis dermatitis of both lower extremities (Chronic) Assessment: 1) recurrent pressure ulcer of posterior leg in paraplegic w/spina bifida. Healing is very slow and likely because of poor quality of tissues. Offload boots seem very adequate. 2) venous stasis and edema. 3) spider veins with thrombosis right LE Plan: Shahzad's ulcers were evaluated and debrided today. He has chronic edema and venous insufficiency. He is wearing offloading booties to decrease pressure to his heels. His wounds are improved. [facility] and incompetence of his GSV b/l and referral to Dr. Pearl has been made regarding possible intervention to treat the spider veins/thrombophlebitis to prevent recurrence of his ulcers as he has struggled with these intermittently for several years. Will ccontinue Hydrofera blue to his wound and have them apply gentamicin ointment topically when changing dressings. He will continue tubigrips for compression. Encouraged increased protein intake and offloading was again reviewed. Will f/u in 1 week.
[2018-11-11 09:08] VITALS: BP 129/87; PULSE 90; RESP 18; TEMP 35.6; BMI 33.2
--- NOTE | 2018-11-11 13:31 | PCM.WC.PN ---
(1) Venous stasis ulcer of right ankle with fat layer exposed Status: Chronic Current Visit: Yes Qualifiers: Varicose vein presence: without varicose veins Code(s): I83.013 - Varicose veins of right lower extremity with ulcer of ankle; L97.312 - Non-pressure chronic ulcer of right ankle with fat layer exposed Comment: posterior and medial ankle (2) Pressure ulcer of right ankle, stage 2 Status: Chronic Current Visit: Yes Code(s): L89.512 - Pressure ulcer of right ankle, stage 2 (3) Spina bifida Status: Chronic Current Visit: Yes Qualifiers: Spinal region: unspecified Code(s): Q05.9 - Spina bifida, unspecified (4) Venous stasis dermatitis of both lower extremities Status: Chronic Current Visit: Yes Code(s): I83.11 - Varicose veins of right lower extremity with inflammation; I83.12 - Varicose veins of left lower extremity with inflammation Type of Wound Date of Service: 11/11/18 Chief Complaint: recurrent R posterior and lateral ankle, 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 He has very damaged tissues of his legs and this is one of multiple recurrent pressure ulcers that he develops in this edematous R lower leg/ankle. He isn't sure when this reoccurred but thinks it has been since January or February. He has been treated by wound care nurse at [facility] [place] where he resides. He has almost been healed several times but has never healed completely. It looks like Drawtex is what they have been using on the ulcer. A culture was done April 2018 which was positive for Pseudomonas. He was on an antibiotic but is no longer taking it. He reports that the ulcer is very painful. He reports that he has been in his bed mostly and elevates his legs/feet with a pillow under his calf and denies pressure on his heel. He also states that he has tubigrips that he usually wears but did not wear them today due to coming here for evaluation. Progress of Wound: Shahzad is here for follow up for wound care of ulcers of his right lower leg. He is tolerating dressings with hydrofera blue with improvement. He is tolerating tubigrips and using a foam bootie to offload his posterior leg and he insists that he does not have any pressure on his ulcers but there continues to be evidence of pressure. He denies fever or chills. 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 - Physical Exam Vital Signs Temp Pulse Resp BP 96.0 F L 90 18 129/87 H 11/11/18 09:08 11/11/18 09:08 11/11/18 09:08 11/11/18 09:08 General: Alert, Oriented x3, Cooperative, No apparent distress HEENT: Atraumatic, Normocephalic Oral: Moist Mucosa Neck: Supple Abdomen: Obese Extremities: Edema Skin: Ulcer/ Wound Wound Measurements and Assessment WC - Nurse 1 - General Ulcer Measurement Start: 10/28/18 09:50 Freq: Status: Active Protocol: Activity Type Activity Date Activity User E-Sign Co-Sign Detail Recorded Client Recorded Date Recorded By Document 11/11/18 09:08 MW [id number] 11/11/18 09:21 MW 11/11/18 09:08 Wound Center Nurse 1 [Ulcer Assessment] #6 RIGHT ACHILLES SUPERIOR -Combined with other wound No -Current Size (cm) - Length 0.1 -Current Size (cm) - Width 0.1 -Current Size (cm) - Depth 0.1 -Total Square Cm 0.01 -Photo Taken No -Epithelialization Medium 34-66% -Tunneling No -Undermining/Tunneling No -Circular Undermining No -Exudate Amt None Present -Wound Margin Flat & Intact -Granulation Amt None Present (0 %) -Granulation Quality N/A -Slough/Fibrin Yes -Necrosis Amt Small (1-33%) -Necrotic Tissue Type Adherent Slough -Structure Exposed N/A -Texture (Sanam-wound Skin Appearance) Assessed, Localized Edema -Moisture (Sanam-wound Skin Appearance Assessed,Dry/ ) Scaly -Color (Sanam-wound Skin Appearance) No Abnormality, Assessed -Temperature (Sanam-wound Skin No Abnormality Appearance) (Pt Warm) -Tenderness on Palpation (Sanam-wound No Skin Appearance) -Ulcer Cleansing Rinsed/ Irrigated with Saline -Foul Odor after Cleansing No -Anesthetic Used 4% Lidocaine Solution #5 Right Achilles -Combined with other wound No -Current Size (cm) - Length 0.1 -Current Size (cm) - Width 0.1 -Current Size (cm) - Depth 0.1 -Total Square Cm 0.01 -Photo Taken No -Epithelialization Medium 34-66% -Tunneling No -Undermining/Tunneling No -Circular Undermining No -Exudate Amt None Present -Wound Margin Flat & Intact -Granulation Amt None Present (0 %) -Granulation Quality N/A -Slough/Fibrin Yes -Necrosis Amt Small (1-33%) -Necrotic Tissue Type Adherent Slough -Structure Exposed N/A -Texture (Sanam-wound Skin Appearance) Assessed, Localized Edema -Moisture (Sanam-wound Skin Appearance Assessed,Dry/ ) Scaly -Color (Sanam-wound Skin Appearance) No Abnormality, Assessed -Temperature (Sanam-wound Skin No Abnormality Appearance) (Pt Warm) -Tenderness on Palpation (Sanam-wound Yes Skin Appearance) -Ulcer Cleansing Rinsed/ Irrigated with Saline -Foul Odor after Cleansing No -Anesthetic Used 4% Lidocaine Solution [Edema Assessment] -Lower Limb Edema Present No WC - Nurse 2 - General Ulcer CM Notes Start: 10/28/18 09:50 Freq: Status: Active Protocol: Activity Type Activity Date Activity User E-Sign Co-Sign Detail Recorded Client Recorded Date Recorded By Document 11/11/18 10:01 DV [id number] 11/11/18 10:05 DV 11/11/18 10:01 Wound Center Nurse 2 [Procedure/Treatment] #6 RIGHT ACHILLES SUPERIOR -Time 10:01 -Correct Patient Yes -Correct Side, Site, Position Yes -Correct Procedure No -Procedure Performed No -Post Debridement Size (cm) - Length 0 -Post Debridement Size (cm) - Width 0 -Post Debridement Size (cm) - Depth 0 -Total Square Cm 0 -Wound/Ulcer Outcome Healed- Epithelialized #5 Right Achilles -Time 10:02 -Correct Patient Yes -Correct Side, Site, Position Yes -Correct Procedure Yes -Procedure Performed Yes -Type of Procedure Debridement -Clinical Debridement Subcutaneous -Post Debridement Size (cm) - Length 0.3 -Post Debridement Size (cm) - Width 0.3 -Post Debridement Size (cm) - Depth 0.1 -Total Square Cm 0.09 -Wound/Ulcer Outcome Not Healed -Ulcer Cleansing Rinsed/ Irrigated with Saline -Foul Odor after Cleansing No -Bioengineered Tissue No -Bleeding Controlled with Pressure -Offloading Yes -Treatment Response Procedure Tolerated Well [See Physician Procedure note for Specifics] Pain Scale: 0-10 Numeric [Pain] -Is Patient Pain Free? Yes Psych/Mental Status: Normal Affect, Appropriate Debridement Note Post-Debridement Measurements/Treatment WC - Nurse 2 - General Ulcer CM Notes Start: 10/28/18 09:50 Freq: Status: Active Protocol: Activity Type Activity Date Activity User E-Sign Co-Sign Detail Recorded Client Recorded Date Recorded By Document 11/11/18 10:01 DV [id number] 11/11/18 10:05 DV 11/11/18 10:01 Wound Center Nurse 2 #6 RIGHT ACHILLES SUPERIOR -Time 10:01 -Correct Patient Yes -Correct Side, Site, Position Yes -Correct Procedure No -Procedure Performed No -Post Debridement Size (cm) - Length 0 -Post Debridement Size (cm) - Width 0 -Post Debridement Size (cm) - Depth 0 -Total Square Cm 0 -Wound/Ulcer Outcome Healed- Epithelialized #5 Right Achilles -Time 10:02 -Correct Patient Yes -Correct Side, Site, Position Yes -Correct Procedure Yes -Procedure Performed Yes -Type of Procedure Debridement -Clinical Debridement Subcutaneous -Post Debridement Size (cm) - Length 0.3 -Post Debridement Size (cm) - Width 0.3 -Post Debridement Size (cm) - Depth 0.1 -Total Square Cm 0.09 -Wound/Ulcer Outcome Not Healed -Ulcer Cleansing Rinsed/ Irrigated with Saline -Foul Odor after Cleansing No -Bioengineered Tissue No -Bleeding Controlled with Pressure -Offloading Yes -Treatment Response Procedure Tolerated Well Pain Scale: 0-10 Numeric Is Patient Pain Free? Yes Wound debrided: Right achilles superior Laterality: Right Tissue Removed: yellow slough, devitalized tissue No debridement was completed today - due to the wound being healed - Additional Wound Wound debrided: right inferior Achilles Laterality: Right Type of Debridement: Excisional debridement Anesthesia Used: 4% Lidocaine Solution, 5% Lidocaine Gel Depth: Down to and including healthy tissue, in the subcutaneous layer Percentage of wound debrided: 100 Instrument Used: 5mm curette Tissue Removed: yellow slough, devitalized tissue Severity: Fat Layer Exposed Amount of bleeding with debridement: Mild Bleeding Controlled with: Compression and gauze Patient tolerated procedure: Patient tolerated procedure well Assessment/Plan Active Problems Venous stasis ulcer of right ankle with fat layer exposed (Chronic) posterior and medial ankle Pressure ulcer of right ankle, stage 2 (Chronic) Spina bifida (Chronic) Venous stasis dermatitis of both lower extremities (Chronic) Assessment: 1) recurrent pressure ulcer of posterior leg in paraplegic w/spina bifida. Healing is very slow and likely because of poor quality of tissues. Offload boots seem very adequate. 2) venous stasis and edema. 3) spider veins with thrombosis right LE Plan: Shahzad's ulcers were evaluated and debrided today. He has chronic edema and venous insufficiency. He is wearing offloading booties to decrease pressure to his heels. His wounds are improved. Superior ulcer is healed. Vascular testing showed decreased PATRIC in hi sright leg and incompetence of his GSV b/l and referral to Dr. Pearl has been made regarding possible intervention to treat the spider veins/thrombophlebitis to prevent recurrence of his ulcers as he has struggled with these intermittently for several years. Will ccontinue Hydrofera blue to his wound and have them apply gentamicin ointment topically when changing dressings. He will continue tubigrips for compression. Encouraged increased protein intake and offloading was again reviewed. Will f/u in 1 week.
[2018-11-18 15:00] VITALS: BP 123/73; PULSE 92; RESP 18; TEMP 36.1; BMI 33.2
--- NOTE | 2018-11-18 19:40 | PN.PCM_ITS ---
(1) Venous stasis ulcer of right ankle with fat layer exposed Status: Chronic Current Visit: Yes Qualifiers: Varicose vein presence: without varicose veins Code(s): I83.013 - Varicose veins of right lower extremity with ulcer of ankle; L97.312 - Non-pressure chronic ulcer of right ankle with fat layer exposed Comment: posterior and medial ankle (2) Pressure ulcer of right ankle, stage 2 Status: Chronic Current Visit: Yes Code(s): L89.512 - Pressure ulcer of right ankle, stage 2 (3) Spina bifida Status: Chronic Current Visit: Yes Qualifiers: Spinal region: unspecified Code(s): Q05.9 - Spina bifida, unspecified (4) Venous stasis dermatitis of both lower extremities Status: Chronic Current Visit: Yes Code(s): I83.11 - Varicose veins of right lower extremity with inflammation; I83.12 - Varicose veins of left lower extremity with inflammation Type of Wound Date of Service: 11/18/18 Chief Complaint: recurrent R posterior and lateral ankle, 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 He has very damaged tissues of his legs and this is one of multiple recurrent pressure ulcers that he develops in this edematous R lower leg/ankle. He isn't sure when this reoccurred but thinks it has been since January or February. He has been treated by wound care nurse at [facility] where he resides. He has almost been healed several times but has never healed completely. It looks like Drawtex is what they have been using on the ulcer. A culture was done April 2018 which was positive for Pseudomonas. He was on an antibiotic but is no longer taking it . He reports that the ulcer is very painful. He reports that he has been in his bed mostly and elevates his legs/feet with a pillow under his calf and denies pressure on his heel. He also states that he has tubigrips that he usually wears but did not wear them today due to coming here for evaluation. Progress of Wound: Shahzad is here for follow up for wound care of ulcers of his right lower leg. He is tolerating dressings with hydrofera blue but there has been minimal improvement this week. He is tolerating tubigrips and using a foam bootie to offload his posterior leg and he insists that he does not have any pressure on his ulcers but there continues to be evidence of pressure. He denies fever or chills. 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 - Physical Exam Vital Signs Temp Pulse Resp BP 97 F L 92 18 123/73 H 11/18/18 15:00 11/18/18 15:00 11/18/18 15:00 11/18/18 15:00 General: Alert, Oriented x3, Cooperative, No apparent distress HEENT: Atraumatic, Normocephalic Oral: Moist Mucosa Abdomen: Obese Extremities: Edema Skin: Ulcer/ Wound Wound Measurements and Assessment WC - Nurse 1 - General Ulcer Measurement Start: 10/28/18 09:50 Freq: Status: Active Protocol: Activity Type Activity Date Activity User E-Sign Co-Sign Detail Recorded Client Recorded Date Recorded By Document 11/18/18 15:00 DL [id number] 11/18/18 15:05 DL 11/18/18 15:00 Wound Center Nurse 1 [Ulcer Assessment] #5 Right Achilles -Combined with other wound No -Current Size (cm) - Length 0.1 -Current Size (cm) - Width 0.1 -Current Size (cm) - Depth 0.1 -Total Square Cm 0.01 -Epithelialization Large 67-100% -Tunneling No -Undermining/Tunneling No -Circular Undermining No -Exudate Amt None Present -Texture (Sanam-wound Skin Appearance) Assessed, Scarring -Moisture (Sanam-wound Skin Appearance Assessed,Dry/ ) Scaly -Color (Sanam-wound Skin Appearance) Assessed, Hemosiderin Staining -Temperature (Sanam-wound Skin No Abnormality Appearance) (Pt Warm) -Tenderness on Palpation (Sanam-wound No Skin Appearance) -Ulcer Cleansing Rinsed/ Irrigated with Saline -Foul Odor after Cleansing No -Anesthetic Used 5% Lidocaine Gel [Edema Assessment] -Lower Limb Edema Present Yes -Right Calf (cm) 40.5 -Right Ankle (cm) 23.8 WC - Nurse 2 - General Ulcer CM Notes Start: 10/28/18 09:50 Freq: Status: Active Protocol: Activity Type Activity Date Activity User E-Sign Co-Sign Detail Recorded Client Recorded Date Recorded By Document 11/18/18 16:38 MW [id number] 11/18/18 16:43 MW 11/18/18 16:38 Wound Center Nurse 2 [Procedure/Treatment] #5 Right Achilles -Time 16:39 -Correct Patient Yes -Correct Side, Site, Position Yes -Correct Procedure Yes -Procedure Performed Yes -Type of Procedure Debridement -Clinical Debridement Subcutaneous -Post Debridement Size (cm) - Length 0.4 -Post Debridement Size (cm) - Width 0.2 -Post Debridement Size (cm) - Depth 0.1 -Total Square Cm 0.08 -Wound/Ulcer Outcome Not Healed -Ulcer Cleansing Rinsed/ Irrigated with Saline -Foul Odor after Cleansing No -Bioengineered Tissue No -Bleeding Controlled with Pressure -Offloading No -Treatment Response Procedure Tolerated Well [See Physician Procedure note for Specifics] Pain Scale: 0-10 Numeric [Pain] -Is Patient Pain Free? Yes Psych/Mental Status: Normal Affect, Appropriate Debridement Note Post-Debridement Measurements/Treatment WC - Nurse 2 - General Ulcer CM Notes Start: 10/28/18 09:50 Freq: Status: Active Protocol: Activity Type Activity Date Activity User E-Sign Co-Sign Detail Recorded Client Recorded Date Recorded By Document 11/11/18 10:01 DV [id number] 11/11/18 10:05 DV Document 11/18/18 16:38 MW [id number] 11/18/18 16:43 MW 11/11/18 11/18/18 10:01 16:38 Wound Center Nurse 2 #6 RIGHT ACHILLES SUPERIOR -Time 10:01 -Correct Patient Yes -Correct Side, Site, Position Yes -Correct Procedure No -Procedure Performed No -Post Debridement Size (cm) - Length 0 -Post Debridement Size (cm) - Width 0 -Post Debridement Size (cm) - Depth 0 -Total Square Cm 0 -Wound/Ulcer Outcome Healed- Epithelialized #5 Right Achilles -Time 10:02 16:39 -Correct Patient Yes Yes -Correct Side, Site, Position Yes Yes -Correct Procedure Yes Yes -Procedure Performed Yes Yes -Type of Procedure Debridement Debridement -Clinical Debridement Subcutaneous Subcutaneous -Post Debridement Size (cm) - Length 0.3 0.4 -Post Debridement Size (cm) - Width 0.3 0.2 -Post Debridement Size (cm) - Depth 0.1 0.1 -Total Square Cm 0.09 0.08 -Wound/Ulcer Outcome Not Healed Not Healed -Ulcer Cleansing Rinsed/ Rinsed/ Irrigated with Irrigated with Saline Saline -Foul Odor after Cleansing No No -Bioengineered Tissue No No -Bleeding Controlled with Pressure Pressure -Offloading Yes No -Treatment Response Procedure Procedure Tolerated Well Tolerated Well Pain Scale: 0-10 Numeric Is Patient Pain Free? Yes Yes Wound debrided: right achilles Laterality: Right Type of Debridement: Excisional debridement Anesthesia Used: 4% Lidocaine Solution, 5% Lidocaine Gel Depth: Down to and including healthy tissue, in the subcutaneous layer Percentage of wound debrided: 100 Instrument Used: 3mm curette Tissue Removed: yellow slough, devitalized tissue Severity: Fat Layer Exposed Amount of bleeding with debridement: Mild Bleeding Controlled with: Compression and gauze Patient tolerated procedure well Assessment/Plan Active Problems Venous stasis ulcer of right ankle with fat layer exposed (Chronic) posterior and medial ankle Pressure ulcer of right ankle, stage 2 (Chronic) Spina bifida (Chronic) Venous stasis dermatitis of both lower extremities (Chronic) Assessment: 1) recurrent pressure ulcer of posterior leg in paraplegic w/spina bifida. Healing is very slow and likely because of poor quality of tissues. Offload boots seem very adequate. 2) venous stasis and edema. 3) spider veins with thrombosis right LE Plan: Shahzad's ulcers were evaluated and debrided today. He has chronic edema and venous insufficiency. He is wearing offloading booties to decrease pressure to his heels. His ulcer is unchanged. Vascular testing showed decreased PATRIC in his right leg and incompetence of his GSV b/l and referral to Dr. Pearl has been made regarding possible intervention to treat the spider veins/thrombophlebitis to prevent recurrence of his ulcers as he has struggled with these intermittently for several years. Will change to Marlyn to his wound and have them apply gentamicin ointment topically when changing dressings. He will continue tubigrips for compression. Encouraged increased protein intake and offloading was again reviewed. Will f/u in 1 week.
== END 2018-11-23 23:59 ==
LOC: WC 15:00
PROVIDERS: Family Provider Family Medicine; PCP Family Medicine; Referring Provider Family Medicine; Visit Provider Family Medicine
DX: I83.013 Varicose veins of right lower extremity with ulcer of ankle (principal); L89.512 Pressure ulcer of right ankle, stage 2; Q05.9 Spina bifida, unspecified; Z91.19 Patient's noncompliance with other medical treatment and regimen; I73.9 Peripheral vascular disease, unspecified; I87.2 Venous insufficiency (chronic) (peripheral); R60.0 Localized edema
CPT/HCPCS: 11042; 29581; 93923; 93970

== ENCOUNTER 2018-12-23 15:45 | Outpatient (RCR) | payer MEDICARE, MEDICAID, SELFPAY ==
[2018-11-24 00:41] VITALS: BP 123/73; PULSE 92; RESP 18; TEMP 36.1
[2018-11-25 14:09] VITALS: BP 132/70; PULSE 101; RESP 16; TEMP 36.2; BMI 33.2
--- NOTE | 2018-11-25 17:53 | PCM.WC.PN ---
(1) Venous stasis ulcer of right ankle with fat layer exposed Status: Chronic Current Visit: Yes Qualifiers: Varicose vein presence: with varicose veins Qualified Code(s): I83.013 - Varicose veins of right lower extremity with ulcer of ankle; L97.312 - Non-pressure chronic ulcer of right ankle with fat layer exposed Code(s): I83.013 - Varicose veins of right lower extremity with ulcer of ankle; L97.312 - Non-pressure chronic ulcer of right ankle with fat layer exposed Comment: posterior and medial ankle (2) Pressure ulcer of right ankle, stage 2 Status: Chronic Current Visit: Yes Code(s): L89.512 - Pressure ulcer of right ankle, stage 2 (3) Venous (peripheral) insufficiency Status: Chronic Current Visit: Yes Code(s): I87.2 - Venous insufficiency (chronic) (peripheral) Type of Wound Date of Service: 11/25/18 Chief Complaint: recurrent R posterior and lateral ankle, 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 He has very damaged tissues of his legs and this is one of multiple recurrent pressure ulcers that he develops in this edematous R lower leg/ankle. He isn't sure when this reoccurred but thinks it has been since January or February. He has been treated by wound care nurse at [facility] where he resides. He has almost been healed several times but has never healed completely. It looks like Drawtex is what they have been using on the ulcer. A culture was done April 2018 which was positive for Pseudomonas. He was on an antibiotic but is no longer taking it. He reports that the ulcer is very painful. He reports that he has been in his bed mostly and elevates his legs/feet with a pillow under his calf and denies pressure on his heel. He also states that he has tubigrips that he usually wears but did not wear them today due to coming here for evaluation. Progress of Wound: Shahzad is here for follow up for wound care of ulcers of his right lower leg. He is tolerating dressings with Marlyn and there is marked improvement this week. He is tolerating tubigrips and using a foam bootie to offload his posterior leg and he insists that he does not have any pressure on his ulcers but there continues to be evidence of pressure. He denies fever or chills. 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 - Physical Exam Vital Signs Temp Pulse Resp BP 97.1 F L 101 H 16 132/70 H 11/25/18 14:09 11/25/18 14:09 11/25/18 14:09 11/25/18 14:09 General: Alert, Oriented x3, Cooperative, No apparent distress HEENT: Atraumatic, Normocephalic Oral: Moist Mucosa Neck: Supple Abdomen: Obese Extremities: Edema Skin: Ulcer/ Wound Wound Measurements and Assessment WC - Nurse 1 - General Ulcer Measurement Start: 11/25/18 14:09 Freq: Status: Active Protocol: Activity Type Activity Date Activity User E-Sign Co-Sign Detail Recorded Client Recorded Date Recorded By Document 11/25/18 14:09 [id number] 11/25/18 14:26 11/25/18 14:09 Wound Center Nurse 1 [Ulcer Assessment] #6 RIGHT ACHILLES SUPERIOR -Combined with other wound No -Current Size (cm) - Length 0.4 -Current Size (cm) - Width 0.1 -Total Square Cm 0.04 -Photo Taken No -Undermining/Tunneling No -Exudate Amt None Present -Wound Margin Distinct, Outline Attached -Granulation Amt Large (67-100%) -Granulation Quality Red -Necrosis Amt Large (67-100%) -Necrotic Tissue Type Eschar -Structure Exposed None/Limited to Skin Breakdown -Texture (Sanam-wound Skin Appearance) Assessed, Localized Edema -Moisture (Sanam-wound Skin Appearance Assessed,Dry/ ) Scaly -Color (Sanam-wound Skin Appearance) Assessed, Erythema -Temperature (Sanam-wound Skin No Abnormality Appearance) (Pt Warm) -Tenderness on Palpation (Sanam-wound No Skin Appearance) -Foul Odor after Cleansing No -Anesthetic Used 5% Lidocaine Gel [Edema Assessment] -Lower Limb Edema Present Yes -Right Calf (cm) 43 -Right Ankle (cm) 19 WC - Nurse 2 - General Ulcer CM Notes Start: 11/25/18 14:09 Freq: Status: Active Protocol: Activity Type Activity Date Activity User E-Sign Co-Sign Detail Recorded Client Recorded Date Recorded By Document 11/25/18 15:29 DV [id number] 11/25/18 15:32 DV 11/25/18 15:29 Wound Center Nurse 2 [Procedure/Treatment] #6 RIGHT ACHILLES SUPERIOR -Bleeding Controlled with Pressure #5 Right Achilles -Time 15:31 -Correct Patient Yes -Correct Side, Site, Position Yes -Correct Procedure Yes -Procedure Performed Yes -Type of Procedure Debridement -Clinical Debridement Subcutaneous -Post Debridement Size (cm) - Length 0.1 -Post Debridement Size (cm) - Width 0.1 -Post Debridement Size (cm) - Depth 0.1 -Total Square Cm 0.01 -Wound/Ulcer Outcome Not Healed -Ulcer Cleansing Rinsed/ Irrigated with Saline -Foul Odor after Cleansing No -Bioengineered Tissue No -Bleeding Controlled with Pressure -Offloading No -Treatment Response Procedure Tolerated Well [See Physician Procedure note for Specifics] Pain Scale: 0-10 Numeric [Pain] -Is Patient Pain Free? Yes Psych/Mental Status: Normal Affect, Appropriate Debridement Note Post-Debridement Measurements/Treatment WC - Nurse 2 - General Ulcer CM Notes Start: 11/25/18 14:09 Freq: Status: Active Protocol: Activity Type Activity Date Activity User E-Sign Co-Sign Detail Recorded Client Recorded Date Recorded By Document 11/25/18 15:29 DV [id number] 11/25/18 15:32 DV 11/25/18 15:29 Wound Center Nurse 2 #6 RIGHT ACHILLES SUPERIOR -Bleeding Controlled with Pressure #5 Right Achilles -Time 15:31 -Correct Patient Yes -Correct Side, Site, Position Yes -Correct Procedure Yes -Procedure Performed Yes -Type of Procedure Debridement -Clinical Debridement Subcutaneous -Post Debridement Size (cm) - Length 0.1 -Post Debridement Size (cm) - Width 0.1 -Post Debridement Size (cm) - Depth 0.1 -Total Square Cm 0.01 -Wound/Ulcer Outcome Not Healed -Ulcer Cleansing Rinsed/ Irrigated with Saline -Foul Odor after Cleansing No -Bioengineered Tissue No -Bleeding Controlled with Pressure -Offloading No -Treatment Response Procedure Tolerated Well Pain Scale: 0-10 Numeric Is Patient Pain Free? Yes Wound debrided: right achilles Laterality: Right Wound Grade/Stage: Stage 2 Type of Debridement: Excisional debridement Anesthesia Used: 4% Lidocaine Solution, 5% Lidocaine Gel Depth: Down to and including healthy tissue, in the subcutaneous layer Percentage of wound debrided: 100 Instrument Used: - - 1 mm curette Tissue Removed: yellow slough, devitalized tissue Severity: Fat Layer Exposed Amount of bleeding with debridement: Mild Bleeding Controlled with: Compression and gauze Patient tolerated procedure well Assessment/Plan Active Problems Venous stasis ulcer of right ankle with fat layer exposed (Chronic) posterior and medial ankle Pressure ulcer of right ankle, stage 2 (Chronic) Venous (peripheral) insufficiency (Chronic) Assessment: 1) recurrent pressure ulcer of posterior leg in paraplegic w/spina bifida. Healing is very slow and likely because of poor quality of tissues. Offload boots seem very adequate. 2) venous stasis and edema. 3) spider veins with thrombosis right LE Plan: Shahzad's ulcers were evaluated and debrided today. He has chronic edema and venous insufficiency. He is wearing offloading booties to decrease pressure to his heels. His ulcer is improved. Vascular testing showed decreased PATRIC in his right leg and incompetence of his GSV b/l and referral to Dr. Pearl has seen him and is planning an EVLA once his ulcer is healed. Will continue to use Marlyn to his wound and have them apply gentamicin ointment topically when changing dressings. He will continue tubigrips for compression. Encouraged increased protein intake and offloading was again reviewed. Will f/u in 1 week.
[2018-12-02 15:08] VITALS: BP 124/66; PULSE 85; RESP 18; TEMP 37; BMI 33.2
--- NOTE | 2018-12-02 19:11 | PN.PCM_ITS ---
(1) Venous stasis ulcer of right ankle with fat layer exposed Status: Chronic Current Visit: Yes Qualifiers: Varicose vein presence: with varicose veins Qualified Code(s): I83.013 - Varicose veins of right lower extremity with ulcer of ankle; L97.312 - Non-pressure chronic ulcer of right ankle with fat layer exposed Code(s): I83.013 - Varicose veins of right lower extremity with ulcer of ankle; L97.312 - Non-pressure chronic ulcer of right ankle with fat layer exposed Comment: posterior and medial ankle (2) Pressure ulcer of right ankle, stage 2 Status: Chronic Current Visit: Yes Code(s): L89.512 - Pressure ulcer of right ankle, stage 2 (3) Venous (peripheral) insufficiency Status: Chronic Current Visit: Yes Code(s): I87.2 - Venous insufficiency (chronic) (peripheral) Type of Wound Date of Service: 12/02/18 Chief Complaint: recurrent R posterior and lateral ankle, 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 He has very damaged tissues of his legs and this is one of multiple recurrent pressure ulcers that he develops in this edematous R lower leg/ankle. He isn't sure when this reoccurred but thinks it has been since January or February. He has been treated by wound care nurse at [facility] where he resides. He has almost been healed several times but has never healed completely. It looks like Drawtex is what they have been using on the ulcer. A culture was done April 2018 which was positive for Pseudomonas. He was on an antibiotic but is no longer taking it. He reports that the ulcer is very painful. He reports that he has been in his bed mostly and elevates his legs/feet with a pillow under his calf and denies pressure on his heel. He also states that he has tubigrips that he usually wears but did not wear them today due to coming here for evaluation. Progress of Wound: Shahzad is here for follow up for wound care of ulcers of his right lower leg. He is healed. 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 - Physical Exam Vital Signs Temp Pulse Resp BP 98.6 F 85 18 124/66 H 12/02/18 15:08 12/02/18 15:08 12/02/18 15:08 12/02/18 15:08 General: Alert, Oriented x3, Cooperative, No apparent distress HEENT: Atraumatic, Normocephalic Oral: Moist Mucosa Abdomen: Obese Extremities: Edema Skin: Ulcer/ Wound Wound Measurements and Assessment WC - Nurse 1 - General Ulcer Measurement Start: 11/25/18 14:09 Freq: Status: Active Protocol: Activity Type Activity Date Activity User E-Sign Co-Sign Detail Recorded Client Recorded Date Recorded By Document 12/02/18 15:08 RB [id number] 12/02/18 15:09 RB 12/02/18 15:08 Wound Center Nurse 1 [Ulcer Assessment] #5 Right Achilles -Combined with other wound No -Current Size (cm) - Length 0.1 -Current Size (cm) - Width 0.1 -Current Size (cm) - Depth 0.1 -Total Square Cm 0.01 -Photo Taken No -Tunneling No -Undermining/Tunneling No -Circular Undermining No -Exudate Amt None Present -Wound Margin Distinct, Outline Attached -Granulation Amt Large (67-100%) -Granulation Quality Farnam -Slough/Fibrin Yes -Necrosis Amt Small (1-33%) -Necrotic Tissue Type Adherent Slough -Structure Exposed N/A -Texture (Sanam-wound Skin Appearance) Assessed, Scarring -Moisture (Sanam-wound Skin Appearance Dry/Scaly ) -Color (Sanam-wound Skin Appearance) Assessed -Temperature (Sanam-wound Skin No Abnormality Appearance) (Pt Warm) -Tenderness on Palpation (Sanam-wound No Skin Appearance) -Foul Odor after Cleansing No -Anesthetic Used 5% Lidocaine Gel WC - Nurse 2 - General Ulcer CM Notes Start: 11/25/18 14:09 Freq: Status: Active Protocol: Activity Type Activity Date Activity User E-Sign Co-Sign Detail Recorded Client Recorded Date Recorded By Document 12/02/18 16:36 DV [id number] 12/02/18 16:38 DV 12/02/18 16:36 Wound Center Nurse 2 [Procedure/Treatment] -Time 16:36 -Correct Patient Yes -Correct Side, Site, Position Yes -Correct Procedure No -Procedure Performed No -Post Debridement Size (cm) - Length 0 -Post Debridement Size (cm) - Width 0 -Post Debridement Size (cm) - Depth 0 -Total Square Cm 0 -Wound/Ulcer Outcome Healed- Epithelialized [See Physician Procedure note for Specifics] Pain Scale: 0-10 Numeric [Pain] -Is Patient Pain Free? Yes Psych/Mental Status: Normal Affect, Appropriate Debridement Note Post-Debridement Measurements/Treatment WC - Nurse 2 - General Ulcer CM Notes Start: 11/25/18 14:09 Freq: Status: Active Protocol: Activity Type Activity Date Activity User E-Sign Co-Sign Detail Recorded Client Recorded Date Recorded By Document 11/25/18 15:29 DV [id number] 11/25/18 15:32 DV Document 12/02/18 16:36 DV [id number] 12/02/18 16:38 DV 11/25/18 12/02/18 15:29 16:36 Wound Center Nurse 2 #6 RIGHT ACHILLES SUPERIOR -Bleeding Controlled with Pressure #5 Right Achilles -Time 15:31 16:36 -Correct Patient Yes Yes -Correct Side, Site, Position Yes Yes -Correct Procedure Yes No -Procedure Performed Yes No -Type of Procedure Debridement -Clinical Debridement Subcutaneous -Post Debridement Size (cm) - Length 0.1 0 -Post Debridement Size (cm) - Width 0.1 0 -Post Debridement Size (cm) - Depth 0.1 0 -Total Square Cm 0.01 0 -Wound/Ulcer Outcome Not Healed Healed- Epithelialized -Ulcer Cleansing Rinsed/ Irrigated with Saline -Foul Odor after Cleansing No -Bioengineered Tissue No -Bleeding Controlled with Pressure -Offloading No -Treatment Response Procedure Tolerated Well Pain Scale: 0-10 Numeric Is Patient Pain Free? Yes Yes Wound debrided: right achilles superior Laterality: Right No debridement was completed today Assessment/Plan Active Problems Venous stasis ulcer of right ankle with fat layer exposed (Chronic) posterior and medial ankle Pressure ulcer of right ankle, stage 2 (Chronic) Venous (peripheral) insufficiency (Chronic) Assessment: 1) recurrent pressure ulcer of posterior leg in paraplegic w/spina bifida. Healing is very slow and likely because of poor quality of tissues. Offload boots seem very adequate. 2) venous stasis and edema. 3) spider veins with thrombosis right LE Plan: Shahzad's ulcers were evaluated and he is healed. He has chronic edema and venous insufficiency. He is wearing offloading booties to decrease pressure to his heels. He should continue these measures to avoid further wounds/ulcers. Vascular testing showed decreased PATRIC in his right leg and incompetence of his GSV b/l and referral to Dr. Pearl has seen him and is planning an EVLA once his ulcer is healed. He will continue tubigrips for compression. Encouraged increased protein intake and offloading was again reviewed. He will be discharged and follow up if needed.
[2018-12-23 15:57] VITALS: BP 136/70; PULSE 80; RESP 18; TEMP 36.3; BMI 33.2
--- NOTE | 2018-12-23 20:42 | PCM.WC.PN ---
(1) Venous stasis ulcer of right ankle with fat layer exposed Status: Chronic Current Visit: Yes Qualifiers: Varicose vein presence: with varicose veins Qualified Code(s): I83.013 - Varicose veins of right lower extremity with ulcer of ankle; L97.312 - Non-pressure chronic ulcer of right ankle with fat layer exposed Code(s): I83.013 - Varicose veins of right lower extremity with ulcer of ankle; L97.312 - Non-pressure chronic ulcer of right ankle with fat layer exposed Comment: posterior and medial ankle (2) Venous (peripheral) insufficiency Status: Chronic Current Visit: Yes Code(s): I87.2 - Venous insufficiency (chronic) (peripheral) Type of Wound Date of Service: 12/23/18 Chief Complaint: recurrent R posterior ankle, 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 He has very damaged tissues of his legs and this is one of multiple recurrent pressure ulcers that he develops in this edematous R lower leg/ankle. He isn't sure when this reoccurred but thinks it has been since January or February. He has been treated by wound care nurse at [facility] where he resides. He has almost been healed several times but has never healed completely. It looks like Drawtex is what they have been using on the ulcer. A culture was done April 2018 which was positive for Pseudomonas. He was on an antibiotic but is no longer taking it. He reports that the ulcer is very painful. He reports that he has been in his bed mostly and elevates his legs/feet with a pillow under his calf and denies pressure on his heel. He underwent vascular testing which showed incompetence of veins in his right leg and was seen by Dr. Pearl who performed a venous ablation in mid November,. Progress of Wound: Shahzad returns today due to recurrence of ulceration of his Achilles area of his right ankle. He was discharged on December 02, 2018 due to healing of this ulcer and underwent a venous ablation about a week ago and several days ago this ulcer started to drain and his skin opened. Staff have been using hydrofera blue and covering with gauze. He continues to wear foam booties. He was not using compression after the ablation. He denies fever or chills and is not currently on any antibiotics. - Physical Exam Vital Signs Temp Pulse Resp BP 97.3 F L 80 18 136/70 H 12/23/18 15:57 12/23/18 15:57 12/23/18 15:57 12/23/18 15:57 General: Alert, Oriented x3, Cooperative, No apparent distress HEENT: Atraumatic, Normocephalic Oral: Moist Mucosa Abdomen: Soft, Non Tender, Obese Extremities: Edema Skin: Ulcer/ Wound Wound Measurements and Assessment WC - Nurse 1 - General Ulcer Measurement Start: 11/25/18 14:09 Freq: Status: Active Protocol: Activity Type Activity Date Activity User E-Sign Co-Sign Detail Recorded Client Recorded Date Recorded By Document 12/23/18 15:57 [facility] [id number] 12/23/18 16:06 [facility] 12/23/18 15:57 Wound Center Nurse 1 [Ulcer Assessment] #5 Right Achilles -Combined with other wound No -Current Size (cm) - Length 7 -Current Size (cm) - Width 6.8 -Current Size (cm) - Depth 0.1 -Total Square Cm 47.6 -Date of Last Picture (Recall this 12/23/18 field) -Photo Taken Yes -Epithelialization None Present -Tunneling No -Undermining/Tunneling No -Circular Undermining No -Exudate Amt Medium -Exudate Type Serosanguineous -Wound Margin Distinct, Outline Attached -Granulation Amt Medium (34-66%) -Granulation Quality Red -Slough/Fibrin Yes -Necrosis Amt Medium (34-66%) -Necrotic Tissue Type Adherent Slough -Texture (Sanam-wound Skin Appearance) Assessed, Scarring -Moisture (Sanam-wound Skin Appearance Assessed ) -Color (Sanam-wound Skin Appearance) Assessed, Erythema, Hemosiderin Staining -Temperature (Sanam-wound Skin Hot Appearance) -Tenderness on Palpation (Sanam-wound Yes Skin Appearance) -Ulcer Cleansing soap and water -Foul Odor after Cleansing No -Anesthetic Used 4% Lidocaine Solution [Edema Assessment] -Lower Limb Edema Present Yes -Right Calf (cm) 44.1 -Right Ankle (cm) 21 WC - Nurse 2 - General Ulcer CM Notes Start: 11/25/18 14:09 Freq: Status: Active Protocol: Activity Type Activity Date Activity User E-Sign Co-Sign Detail Recorded Client Recorded Date Recorded By Document 12/23/18 16:56 MW [id number] 12/23/18 16:58 MW 12/23/18 16:56 Wound Center Nurse 2 [Procedure/Treatment] #5 Right Achilles -Time 16:56 -Correct Patient Yes -Correct Side, Site, Position Yes -Correct Procedure Yes -Procedure Performed Yes -Type of Procedure Debridement -Clinical Debridement Subcutaneous -Post Debridement Size (cm) - Length 6.8 -Post Debridement Size (cm) - Width 5.0 -Post Debridement Size (cm) - Depth 0.1 -Total Square Cm 34.00 -Wound/Ulcer Outcome Not Healed -Ulcer Cleansing Rinsed/ Irrigated with Saline -Foul Odor after Cleansing No -Bioengineered Tissue No -Bleeding Controlled with Pressure -Offloading No -Treatment Response Procedure Tolerated Well [See Physician Procedure note for Specifics] Pain Scale: 0-10 Numeric [Pain] -Is Patient Pain Free? Yes Psych/Mental Status: Normal Affect, Appropriate Debridement Note Post-Debridement Measurements/Treatment WC - Nurse 2 - General Ulcer CM Notes Start: 11/25/18 14:09 Freq: Status: Active Protocol: Activity Type Activity Date Activity User E-Sign Co-Sign Detail Recorded Client Recorded Date Recorded By Document 11/25/18 15:29 DV [id number] 11/25/18 15:32 DV Document 12/02/18 16:36 DV [id number] 12/02/18 16:38 DV Document 12/23/18 16:56 MW [id number] 12/23/18 16:58 MW 11/25/18 12/02/18 12/23/18 15:29 16:36 16:56 Wound Center Nurse 2 #6 RIGHT ACHILLES SUPERIOR -Bleeding Controlled with Pressure #5 Right Achilles -Time 15:31 16:36 16:56 -Correct Patient Yes Yes Yes -Correct Side, Site, Position Yes Yes Yes -Correct Procedure Yes No Yes -Procedure Performed Yes No Yes -Type of Procedure Debridement Debridement -Clinical Debridement Subcutaneous Subcutaneous -Post Debridement Size (cm) - Length 0.1 0 6.8 -Post Debridement Size (cm) - Width 0.1 0 5.0 -Post Debridement Size (cm) - Depth 0.1 0 0.1 -Total Square Cm 0.01 0 34.00 -Wound/Ulcer Outcome Not Healed Healed- Not Healed Epithelialized -Ulcer Cleansing Rinsed/ Rinsed/ Irrigated with Irrigated with Saline Saline -Foul Odor after Cleansing No No -Bioengineered Tissue No No -Bleeding Controlled with Pressure Pressure -Offloading No No -Treatment Response Procedure Procedure Tolerated Well Tolerated Well Pain Scale: 0-10 Numeric Is Patient Pain Free? Yes Yes Yes Wound debrided: right Achilles Laterality: Right Type of Debridement: Excisional debridement Anesthesia Used: 4% Lidocaine Solution, 5% Lidocaine Gel Depth: Down to and including healthy tissue, in the subcutaneous layer Percentage of wound debrided: 100 Instrument Used: 7mm curette Tissue Removed: yellow slough, devitalized tissue Severity: Fat Layer Exposed Amount of bleeding with debridement: Mild Bleeding Controlled with: Compression and gauze Patient tolerated procedure well Assessment/Plan Active Problems Venous stasis ulcer of right ankle with fat layer exposed (Chronic) posterior and medial ankle Pressure ulcer of right ankle, stage 2 (Chronic) Venous (peripheral) insufficiency (Chronic) Assessment: 1) recurrent pressure ulcer of posterior leg in paraplegic w/spina bifida. Healing is very slow and likely because of poor quality of tissues. Offload boots seem very adequate. 2) venous stasis and edema. 3) spider veins with thrombosis right LE Plan: Shahzad's ulcer was evaluated and debrided today. Will continue using hydrofera blue and apply gentamicin ointment prior to application of Hydrofera blue. Encouraged compression. Consider Puraply or nushield. He has chronic edema and venous insufficiency. He is wearing offloading booties to decrease pressure to his heels. He should continue these measures. He will continue tubigrips for compression. Encouraged increased protein intake and offloading was again reviewed. F/U 1 week.
== END 2018-12-24 23:59 ==
LOC: WC 15:45
PROVIDERS: Family Provider Family Medicine; PCP Family Medicine; Referring Provider Family Medicine; Visit Provider Family Medicine
DX: I83.013 Varicose veins of right lower extremity with ulcer of ankle (principal); L89.512 Pressure ulcer of right ankle, stage 2; Q05.9 Spina bifida, unspecified; I87.2 Venous insufficiency (chronic) (peripheral); I89.0 Lymphedema, not elsewhere classified; Z91.19 Patient's noncompliance with other medical treatment and regimen
CPT/HCPCS: 11042; 11045; 99212; G0463

== ENCOUNTER 2019-01-20 09:00 | Outpatient (RCR) | payer MEDICARE, MEDICAID, SELFPAY ==
[2018-12-25 00:35] VITALS: BP 136/70; PULSE 80; RESP 18; TEMP 36.3
[2018-12-30 15:24] VITALS: BP 125/74; PULSE 98; RESP 18; TEMP 36.6; BMI 33.2
--- NOTE | 2018-12-30 15:32 | WC ---
unable to lift rle to measure circumference. pt too painful w/ leg movement and refused.
--- NOTE | 2018-12-30 19:15 | PN.PCM_ITS ---
(1) Venous stasis ulcer of right ankle with fat layer exposed Status: Chronic Current Visit: Yes Qualifiers: Varicose vein presence: with varicose veins Code(s): I83.013 - Varicose veins of right lower extremity with ulcer of ankle; L97.312 - Non-pressure chronic ulcer of right ankle with fat layer exposed Comment: posterior and medial ankle (2) Pressure ulcer of right ankle, stage 2 Status: Chronic Current Visit: Yes Code(s): L89.512 - Pressure ulcer of right ankle, stage 2 (3) Edema of both lower legs due to peripheral venous insufficiency Status: Chronic Current Visit: Yes Code(s): I87.2 - Venous insufficiency (chronic) (peripheral); R60.9 - Edema, unspecified (4) History of cerebral palsy Status: Chronic Current Visit: Yes Code(s): Z86.69 - Personal history of other diseases of the nervous system and sense organs Type of Wound Date of Service: 12/30/18 Chief Complaint: recurrent R posterior ankle, 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 He has very damaged tissues of his legs and this is one of multiple recurrent pressure ulcers that he develops in this edematous R lower leg/ankle. He isn't sure when this reoccurred but thinks it has been since January or February. He has been treated by wound care nurse at [facility] where he resides. He has almost been healed several times but has never healed completely. It looks like Drawtex is what they have been using on the ulcer. A culture was done April 2018 which was positive for Pseudomonas. He was on an antibiotic but is no longer taking it. He reports that the ulcer is very painful. He reports that he has been in his bed mostly and elevates his legs/feet with a pillow under his calf and denies pressure on his heel. He underwent vascular testing which showed incompetence of veins in his right leg and was seen by Dr. Pearl who performed a venous ablation in mid November,. Progress of Wound: Shahzad returns today due to recurrence of ulceration of his Achilles area of his right ankle. He has not been wearing tubigrip compression. He c/o some pain to his ulcer area. He continues to wear foam booties. He denies fever or chills and is not currently on any antibiotics. - Physical Exam Vital Signs Temp Pulse Resp BP 98 F 98 18 125/74 H 12/30/18 15:24 12/30/18 15:24 12/30/18 15:24 12/30/18 15:24 General: Alert, Oriented x3, Cooperative, No apparent distress HEENT: Atraumatic, Normocephalic Oral: Moist Mucosa Abdomen: Obese Extremities: Edema Skin: Ulcer/ Wound Wound Measurements and Assessment WC - Nurse 1 - General Ulcer Measurement Start: 12/30/18 15:24 Freq: Status: Active Protocol: Activity Type Activity Date Activity User E-Sign Co-Sign Detail Recorded Client Recorded Date Recorded By Document 12/30/18 15:24 [facility] [id number] 12/30/18 15:32 [facility] 12/30/18 15:24 Wound Center Nurse 1 [Ulcer Assessment] #5 Right Achilles -Combined with other wound No -Current Size (cm) - Length 5.1 -Current Size (cm) - Width 4.2 -Current Size (cm) - Depth 0.1 -Total Square Cm 21.42 -Photo Taken No -Epithelialization None Present -Tunneling No -Undermining/Tunneling No -Circular Undermining No -Exudate Amt Medium -Exudate Type Serosanguineous -Wound Margin Distinct, Outline Attached -Granulation Amt Small (1-33%) -Granulation Quality Pale,Red -Slough/Fibrin Yes -Necrosis Amt Medium (34-66%) -Necrotic Tissue Type Adherent Slough -Texture (Sanam-wound Skin Appearance) Assessed, Excoriation, Scarring -Moisture (Sanam-wound Skin Appearance Assessed ) -Color (Sanam-wound Skin Appearance) Assessed, Erythema -Temperature (Sanam-wound Skin No Abnormality Appearance) (Pt Warm) -Tenderness on Palpation (Sanam-wound Yes Skin Appearance) -Ulcer Cleansing soap and water -Foul Odor after Cleansing No -Anesthetic Used 5% Lidocaine Gel Psych/Mental Status: Normal Affect, Appropriate Debridement Note post-debridement measurements Right Achilles length 6.1 cm width 5.8 cm depth 0.1 cm total square cm - 35.38 cm Wound debrided: right Achilles Laterality: Right Type of Debridement: Excisional debridement Anesthesia Used: 4% Lidocaine Solution, 5% Lidocaine Gel Depth: Down to and including healthy tissue, in the subcutaneous layer Percentage of wound debrided: 100 Instrument Used: 7mm curette Tissue Removed: yellow slough, devitalized tissue Severity: Fat Layer Exposed Amount of bleeding with debridement: Mild Bleeding Controlled with: Compression and gauze Patient tolerated procedure well Assessment/Plan Active Problems Venous stasis ulcer of right ankle with fat layer exposed (Chronic) posterior and medial ankle Pressure ulcer of right ankle, stage 2 (Chronic) Edema of both lower legs due to peripheral venous insufficiency (Chronic) History of cerebral palsy (Chronic) Assessment: 1) recurrent pressure ulcer of posterior leg in paraplegic w/spina bifida. Healing is very slow and likely because of poor quality of tissues. Offload boots seem very adequate. 2) venous stasis and edema. 3) spider veins with thrombosis right LE Plan: Shahzad's ulcer was evaluated and debrided today. Will change to Santyl and cover with hydrofera blue moistened. Stressed importance of compression. Consider Puraply or nushield. He has chronic edema and venous insufficiency. He is wearing offloading booties to decrease pressure to his heels. He should continue these measures. He will continue tubigrips for compression. Encouraged increased protein intake and offloading was again reviewed. F/U 1 week.
[2019-01-13 14:19] VITALS: BP 137/70; PULSE 109; RESP 18; TEMP 37.2; BMI 33.2
--- NOTE | 2019-01-13 18:00 | PCM.WC.PN ---
(1) Venous stasis ulcer of right ankle with fat layer exposed Status: Chronic Current Visit: Yes Qualifiers: Varicose vein presence: with varicose veins Code(s): I83.013 - Varicose veins of right lower extremity with ulcer of ankle; L97.312 - Non-pressure chronic ulcer of right ankle with fat layer exposed Comment: posterior and medial ankle (2) Pressure ulcer of right ankle, stage 2 Status: Chronic Current Visit: Yes Code(s): L89.512 - Pressure ulcer of right ankle, stage 2 (3) Edema of both lower legs due to peripheral venous insufficiency Status: Chronic Current Visit: Yes Code(s): I87.2 - Venous insufficiency (chronic) (peripheral); R60.9 - Edema, unspecified (4) History of cerebral palsy Status: Chronic Current Visit: Yes Code(s): Z86.69 - Personal history of other diseases of the nervous system and sense organs Type of Wound Date of Service: 01/13/19 Chief Complaint: recurrent R posterior ankle, 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 He has very damaged tissues of his legs and this is one of multiple recurrent pressure ulcers that he develops in this edematous R lower leg/ankle. He isn't sure when this reoccurred but thinks it has been since January or February. He has been treated by wound care nurse at [facility] where he resides. He has almost been healed several times but has never healed completely. It looks like Drawtex is what they have been using on the ulcer. A culture was done April 2018 which was positive for Pseudomonas. He was on an antibiotic but is no longer taking it. He reports that the ulcer is very painful. He reports that he has been in his bed mostly and elevates his legs/feet with a pillow under his calf and denies pressure on his heel. He underwent vascular testing which showed incompetence of veins in his right leg and was seen by Dr. Pearl who performed a venous ablation in mid November,. Progress of Wound: Shahzad returns today due to recurrence of ulceration of his Achilles area of his right ankle. He was unable to attend last week's appointment due to transportation issues. He c/o some pain to his ulcer area. Denies increase in drainage this week. He continues to wear foam booties. He denies fever or chills and is not currently on any antibiotics. - Physical Exam Vital Signs Temp Pulse Resp BP 98.9 F 109 H 18 137/70 H 01/13/19 14:19 01/13/19 14:19 01/13/19 14:19 01/13/19 14:19 General: Alert, Oriented x3, Cooperative, No apparent distress HEENT: Atraumatic, Normocephalic Oral: Moist Mucosa Abdomen: Obese Extremities: Edema Skin: Ulcer/ Wound Wound Measurements and Assessment WC - Nurse 1 - General Ulcer Measurement Start: 12/30/18 15:24 Freq: Status: Active Protocol: Activity Type Activity Date Activity User E-Sign Co-Sign Detail Recorded Client Recorded Date Recorded By Document 01/13/19 14:19 RB [id number] 01/13/19 14:23 RB 01/13/19 14:19 Wound Center Nurse 1 [Ulcer Assessment] #5 Right Achilles -Combined with other wound No -Current Size (cm) - Length 5.3 -Current Size (cm) - Width 6 -Current Size (cm) - Depth 0.1 -Total Square Cm 31.8 -Tunneling No -Undermining/Tunneling No -Circular Undermining No -Exudate Amt Small -Exudate Type Serosanguineous -Wound Margin Flat & Intact -Granulation Amt Medium (34-66%) -Granulation Quality Hyper- granulation, [place],Red -Slough/Fibrin Yes -Necrosis Amt Medium (34-66%) -Necrotic Tissue Type Adherent Slough -Structure Exposed N/A -Texture (Sanam-wound Skin Appearance) Assessed -Moisture (Sanam-wound Skin Appearance Assessed ) -Color (Sanam-wound Skin Appearance) Erythema -Temperature (Sanam-wound Skin No Abnormality Appearance) (Pt Warm) -Tenderness on Palpation (Sanam-wound No Skin Appearance) -Ulcer Cleansing Wound Cleanser -Foul Odor after Cleansing No -Anesthetic Used 5% Lidocaine Gel [Edema Assessment] -Lower Limb Edema Present Yes -Right Calf (cm) 41.7 -Right Ankle (cm) 22 WC - Nurse 2 - General Ulcer CM Notes Start: 12/30/18 15:24 Freq: Status: Active Protocol: Activity Type Activity Date Activity User E-Sign Co-Sign Detail Recorded Client Recorded Date Recorded By Document 01/13/19 15:17 [id number] 01/13/19 15:19 01/13/19 15:17 Wound Center Nurse 2 [Procedure/Treatment] #5 Right Achilles -Time 15:17 -Correct Patient Yes -Correct Side, Site, Position Yes -Correct Procedure Yes -Procedure Performed Yes -Type of Procedure Debridement -Clinical Debridement Subcutaneous -Post Debridement Size (cm) - Length 5.9 -Post Debridement Size (cm) - Width 6.0 -Post Debridement Size (cm) - Depth 0.1 -Total Square Cm 35.40 -Wound/Ulcer Outcome Not Healed -Ulcer Cleansing Rinsed/ Irrigated with Saline -Foul Odor after Cleansing No -Bioengineered Tissue No -Bleeding Controlled with Pressure -Offloading Yes -Treatment Response Procedure Not Tolerated Well [See Physician Procedure note for Specifics] Pain Scale: 0-10 Numeric [Pain] -Is Patient Pain Free? No Psych/Mental Status: Normal Affect, Appropriate Debridement Note Post-Debridement Measurements/Treatment WC - Nurse 2 - General Ulcer CM Notes Start: 12/30/18 15:24 Freq: Status: Active Protocol: Activity Type Activity Date Activity User E-Sign Co-Sign Detail Recorded Client Recorded Date Recorded By Document 01/13/19 15:17 [id number] 01/13/19 15:19 01/13/19 15:17 Wound Center Nurse 2 #5 Right Achilles -Time 15:17 -Correct Patient Yes -Correct Side, Site, Position Yes -Correct Procedure Yes -Procedure Performed Yes -Type of Procedure Debridement -Clinical Debridement Subcutaneous -Post Debridement Size (cm) - Length 5.9 -Post Debridement Size (cm) - Width 6.0 -Post Debridement Size (cm) - Depth 0.1 -Total Square Cm 35.40 -Wound/Ulcer Outcome Not Healed -Ulcer Cleansing Rinsed/ Irrigated with Saline -Foul Odor after Cleansing No -Bioengineered Tissue No -Bleeding Controlled with Pressure -Offloading Yes -Treatment Response Procedure Not Tolerated Well Pain Scale: 0-10 Numeric Is Patient Pain Free? No Wound debrided: Right Achilles Laterality: Right Wound Grade/Stage: Stage II Type of Debridement: Excisional debridement Anesthesia Used: 4% Lidocaine Solution, 5% Lidocaine Gel Depth: Down to and including healthy tissue, in the subcutaneous layer Percentage of wound debrided: 100 Instrument Used: 7mm curette Tissue Removed: yellow slough, devitalized tissue Severity: Fat Layer Exposed Amount of bleeding with debridement: Mild Bleeding Controlled with: Compression and gauze Patient tolerated procedure well Assessment/Plan Active Problems Venous stasis ulcer of right ankle with fat layer exposed (Chronic) posterior and medial ankle Pressure ulcer of right ankle, stage 2 (Chronic) Edema of both lower legs due to peripheral venous insufficiency (Chronic) History of cerebral palsy (Chronic) Assessment: 1) recurrent pressure ulcer of posterior leg in paraplegic w/spina bifida. Healing is very slow and likely because of poor quality of tissues. Offload boots seem very adequate. 2) venous stasis and edema. 3) spider veins with thrombosis right LE Plan: Shahzad's ulcer was evaluated and debrided today. Will continue Santyl and cover with hydrofera blue moistened. Stressed importance of compression. Consider Nushield application to heal his ulcer. Wound culture taken today as there is increased erythema and pain to his ulcer. WIll treat based on results of culture. He has chronic edema and venous insufficiency. He is wearing offloading booties to decrease pressure to his heels. He should continue these measures. He will continue tubigrips for compression. Encouraged increased protein intake and offloading was again reviewed. F/U 1 week.
[2019-01-20 09:02] VITALS: BP 127/79; PULSE 101; RESP 18; TEMP 36.4; BMI 33.2
--- NOTE | 2019-01-20 09:58 | PN.PCM_ITS ---
(1) Venous stasis ulcer of right ankle with fat layer exposed Status: Chronic Current Visit: Yes Qualifiers: Varicose vein presence: with varicose veins Code(s): I83.013 - Varicose veins of right lower extremity with ulcer of ankle; L97.312 - Non-pressure chronic ulcer of right ankle with fat layer exposed Comment: posterior and medial ankle (2) Pressure ulcer of right ankle, stage 2 Status: Chronic Current Visit: Yes Code(s): L89.512 - Pressure ulcer of right ankle, stage 2 (3) Edema of both lower legs due to peripheral venous insufficiency Status: Chronic Current Visit: Yes Code(s): I87.2 - Venous insufficiency (chronic) (peripheral); R60.9 - Edema, unspecified (4) History of cerebral palsy Status: Chronic Current Visit: Yes Code(s): Z86.69 - Personal history of other diseases of the nervous system and sense organs Type of Wound Date of Service: 01/20/19 Chief Complaint: recurrent R posterior ankle, 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 He has very damaged tissues of his legs and this is one of multiple recurrent pressure ulcers that he develops in this edematous R lower leg/ankle. He isn't sure when this reoccurred but thinks it has been since January or February. He has been treated by wound care nurse at [facility] where he resides. He has almost been healed several times but has never healed completely. It looks like Drawtex is what they have been using on the ulcer. A culture was done April 2018 which was positive for Pseudomonas. He was on an antibiotic but is no longer taking it. He reports that the ulcer is very painful. He reports that he has been in his bed mostly and elevates his legs/feet with a pillow under his calf and denies pressure on his heel. He underwent vascular testing which showed incompetence of veins in his right leg and was seen by Dr. Pearl who performed a venous ablation in mid November,. Progress of Wound: Shahzad is here today for follow up of ulceration of his Achilles area of his right ankle. Wound culture last week was positive for Proteus, MRSA and Acetinobacter bacteria. He was started on Gentamicin IV and has received 2 doses and has a PICC line in place. He will be on the antibiotic x 10 days. He still c/o increased pain to his ulcer area. Denies increase in drainage this week. He continues to wear foam booties. He denies fever or chills. - Physical Exam Vital Signs Temp Pulse Resp BP 97.5 F L 101 H 18 127/79 H 01/20/19 09:02 01/20/19 09:02 01/20/19 09:02 01/20/19 09:02 General: Alert, Oriented x3, Cooperative, No apparent distress HEENT: Atraumatic, Normocephalic Oral: Moist Mucosa Abdomen: Obese Skin: Ulcer/ Wound Wound Measurements and Assessment WC - Nurse 1 - General Ulcer Measurement Start: 12/30/18 15:24 Freq: Status: Active Protocol: Activity Type Activity Date Activity User E-Sign Co-Sign Detail Recorded Client Recorded Date Recorded By Document 01/20/19 09:02 AN [id number] 01/20/19 09:15 AN 01/20/19 09:02 Wound Center Nurse 1 [Ulcer Assessment] #5 Right Achilles -Current Size (cm) - Length 4.7 -Current Size (cm) - Width 5.0 -Current Size (cm) - Depth 0.1 -Total Square Cm 23.50 -Photo Taken No -Classification - Thickness Full Thickness without Exposed Support Structure -Exudate Amt Medium -Exudate Type Yellow/Green -Wound Margin Flat & Intact -Granulation Amt Medium (34-66%) -Granulation Quality Hyper- granulation -Slough/Fibrin Yes -Necrosis Amt Medium (34-66%) -Necrotic Tissue Type Adherent Slough -Structure Exposed None/Limited to Skin Breakdown -Texture (Sanam-wound Skin Appearance) Assessed, Localized Edema -Moisture (Sanam-wound Skin Appearance Assessed, ) Maceration -Color (Sanam-wound Skin Appearance) Assessed, Erythema -Temperature (Sanam-wound Skin Hot Appearance) -Tenderness on Palpation (Sanam-wound Yes Skin Appearance) -Foul Odor after Cleansing Yes -Anesthetic Used 4% Lidocaine Solution,5% Lidocaine Gel WC - Nurse 2 - General Ulcer CM Notes Start: 12/30/18 15:24 Freq: Status: Active Protocol: Activity Type Activity Date Activity User E-Sign Co-Sign Detail Recorded Client Recorded Date Recorded By Document 01/20/19 09:25 DV [id number] 01/20/19 09:31 DV 01/20/19 09:25 Wound Center Nurse 2 [Procedure/Treatment] -Time 09:25 -Correct Patient Yes -Correct Side, Site, Position Yes -Correct Procedure Yes -Procedure Performed Yes -Type of Procedure Debridement -Clinical Debridement Subcutaneous -Post Debridement Size (cm) - Length 5.5 -Post Debridement Size (cm) - Width 5.9 -Post Debridement Size (cm) - Depth 0.1 -Total Square Cm 32.45 -Wound/Ulcer Outcome Not Healed -Ulcer Cleansing Rinsed/ Irrigated with Saline -Foul Odor after Cleansing No -Bioengineered Tissue No -Bleeding Controlled with Pressure -Offloading Yes -Treatment Response Procedure Tolerated Well [See Physician Procedure note for Specifics] Pain Scale: 0-10 Numeric [Pain] -Is Patient Pain Free? No [Location] Right Achilles -Description Sharp,Throbbing ,Cramping -Duration (hours) Acute -Pain Behavior Moaning,Crying, Irritability, Withdrawal from Touch,Facial Grimacing, Screaming -Pain Aggravating Factors ADL's -Alleviating Factors/Interventions Medication,Will continue to monitor -Effectiveness of Alleviating Factor/ Not effective Intervention Psych/Mental Status: Normal Affect, Appropriate Debridement Note Post-Debridement Measurements/Treatment WC - Nurse 2 - General Ulcer CM Notes Start: 12/30/18 15:24 Freq: Status: Active Protocol: Activity Type Activity Date Activity User E-Sign Co-Sign Detail Recorded Client Recorded Date Recorded By Document 01/13/19 15:17 [id number] 01/13/19 15:19 Document 01/20/19 09:25 DV [id number] 01/20/19 09:31 DV 01/13/19 01/20/19 15:17 09:25 Wound Center Nurse 2 #5 Right Achilles -Time 15:17 09:25 -Correct Patient Yes Yes -Correct Side, Site, Position Yes Yes -Correct Procedure Yes Yes -Procedure Performed Yes Yes -Type of Procedure Debridement Debridement -Clinical Debridement Subcutaneous Subcutaneous -Post Debridement Size (cm) - Length 5.9 5.5 -Post Debridement Size (cm) - Width 6.0 5.9 -Post Debridement Size (cm) - Depth 0.1 0.1 -Total Square Cm 35.40 32.45 -Wound/Ulcer Outcome Not Healed Not Healed -Ulcer Cleansing Rinsed/ Rinsed/ Irrigated with Irrigated with Saline Saline -Foul Odor after Cleansing No No -Bioengineered Tissue No No -Bleeding Controlled with Pressure Pressure -Offloading Yes Yes -Treatment Response Procedure Not Procedure Tolerated Well Tolerated Well Pain Scale: 0-10 Numeric Is Patient Pain Free? No No Right Achilles -Description Sharp,Throbbing ,Cramping -Duration (hours) Acute -Pain Behavior Moaning,Crying, Irritability, Withdrawal from Touch,Facial Grimacing, Screaming -Pain Aggravating Factors ADL's -Alleviating Factors/Interventions Medication,Will continue to monitor -Effectiveness of Alleviating Factor/ Not effective Intervention Wound debrided: right achilles Laterality: Right Type of Debridement: Excisional debridement Anesthesia Used: 4% Lidocaine Solution, 5% Lidocaine Gel Depth: Down to and including healthy tissue, in the subcutaneous layer Percentage of wound debrided: 100 Instrument Used: 7mm curette Tissue Removed: yellow slough, devitalized tissue Severity: Fat Layer Exposed Amount of bleeding with debridement: Mild Bleeding Controlled with: Compression and gauze Patient tolerated procedure well Assessment/Plan Active Problems Venous stasis ulcer of right ankle with fat layer exposed (Chronic) posterior and medial ankle Pressure ulcer of right ankle, stage 2 (Chronic) Edema of both lower legs due to peripheral venous insufficiency (Chronic) History of cerebral palsy (Chronic) Assessment: 1) recurrent pressure ulcer of posterior leg in paraplegic w/spina bifida. Healing is very slow and likely because of poor quality of tissues. Offload boots seem very adequate. 2) venous stasis and edema. 3) spider veins with thrombosis right LE Plan: Shahzad's ulcer was evaluated and debrided today. Will change to hydrofera blue moistened. Stressed importance of compression. Consider Nushield application to heal his ulcer. Continue Gentamicin. He has chronic edema and venous insufficiency. He is wearing offloading booties to decrease pressure to his heels. He should continue these measures. He will continue tubigrips for compression. Encouraged increased protein intake and offloading was again reviewed. F/U 1 week.
== END 2019-01-23 23:59 ==
LOC: WC 09:00
PROVIDERS: Family Provider Family Medicine; PCP Family Medicine; Referring Provider Family Medicine; Visit Provider Family Medicine
DX: I83.013 Varicose veins of right lower extremity with ulcer of ankle (principal); L89.512 Pressure ulcer of right ankle, stage 2; Q05.9 Spina bifida, unspecified; I89.0 Lymphedema, not elsewhere classified; Z91.19 Patient's noncompliance with other medical treatment and regimen; G80.9 Cerebral palsy, unspecified
CPT/HCPCS: 11042; 11045; 87070; 87075; 87077; 87186; 87205

== ENCOUNTER 2019-02-10 14:00 | Outpatient (RCR) | payer MEDICARE, MEDICAID, SELFPAY ==
[2019-01-24 00:37] VITALS: BP 127/79; PULSE 101; RESP 18; TEMP 36.4
[2019-01-27 13:10] VITALS: BP 134/50; PULSE 100; RESP 18; TEMP 37; BMI 33.2
--- NOTE | 2019-01-27 18:04 | PCM.WC.PN ---
(1) Venous stasis ulcer of right ankle with fat layer exposed Status: Chronic Current Visit: Yes Qualifiers: Varicose vein presence: with varicose veins Code(s): I83.013 - Varicose veins of right lower extremity with ulcer of ankle; L97.312 - Non-pressure chronic ulcer of right ankle with fat layer exposed Comment: posterior and medial ankle (2) Edema of both lower legs due to peripheral venous insufficiency Status: Chronic Current Visit: Yes Code(s): I87.2 - Venous insufficiency (chronic) (peripheral); R60.9 - Edema, unspecified (3) MRSA cellulitis Status: Acute Current Visit: Yes Code(s): L03.90 - Cellulitis, unspecified; B95.62 - Methicillin resistant Staphylococcus aureus infection as the cause of diseases classified elsewhere (4) Pressure ulcer of right ankle, stage 2 Status: Chronic Current Visit: Yes Code(s): L89.512 - Pressure ulcer of right ankle, stage 2 Type of Wound Date of Service: 01/27/19 Chief Complaint: recurrent R posterior ankle, 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 He has very damaged tissues of his legs and this is one of multiple recurrent pressure ulcers that he develops in this edematous R lower leg/ankle. He isn't sure when this reoccurred but thinks it has been since January or February. He has been treated by wound care nurse at [facility] where he resides. He has almost been healed several times but has never healed completely. It looks like Drawtex is what they have been using on the ulcer. A culture was done April 2018 which was positive for Pseudomonas. He was on an antibiotic but is no longer taking it. He reports that the ulcer is very painful. He reports that he has been in his bed mostly and elevates his legs/feet with a pillow under his calf and denies pressure on his heel. He underwent vascular testing which showed incompetence of veins in his right leg and was seen by Dr. Pearl who performed a venous ablation in mid November,. Progress of Wound: Shahzad is here today for follow up of ulceration of his Achilles area of his right ankle. He is scheduled to have his last dose of Gentamicin IV tomorrow and has a PICC line in place. He still c/o increased pain to his ulcer area. Denies increase in drainage this week. He continues to wear foam booties. He denies fever or chills. - Physical Exam Vital Signs Temp Pulse Resp BP 98.6 F 100 18 134/50 H 01/27/19 13:10 01/27/19 13:10 01/27/19 13:10 01/27/19 13:10 General: Alert, Oriented x3, Cooperative, No apparent distress HEENT: Atraumatic, Normocephalic Oral: Moist Mucosa Extremities: Edema Skin: Ulcer/ Wound Wound Measurements and Assessment WC - Nurse 1 - General Ulcer Measurement Start: 01/27/19 13:10 Freq: Status: Active Protocol: Activity Type Activity Date Activity User E-Sign Co-Sign Detail Recorded Client Recorded Date Recorded By Document 01/27/19 13:10 RB [id number] 01/27/19 13:12 RB 01/27/19 13:10 Wound Center Nurse 1 [Ulcer Assessment] #5 Right Achilles -Combined with other wound No -Current Size (cm) - Length 4.5 -Current Size (cm) - Width 4.5 -Current Size (cm) - Depth 0.1 -Total Square Cm 20.25 -Tunneling No -Undermining/Tunneling No -Circular Undermining No -Exudate Amt Small -Exudate Type Serosanguineous -Wound Margin Flat & Intact -Granulation Amt Large (67-100%) -Granulation Quality [place],Red -Slough/Fibrin Yes -Necrosis Amt Small (1-33%) -Necrotic Tissue Type Adherent Slough -Structure Exposed N/A -Texture (Sanam-wound Skin Appearance) Assessed, Scarring -Moisture (Sanam-wound Skin Appearance Assessed ) -Color (Sanam-wound Skin Appearance) Assessed -Temperature (Sanam-wound Skin No Abnormality Appearance) (Pt Warm) -Tenderness on Palpation (Sanam-wound No Skin Appearance) -Ulcer Cleansing Wound Cleanser -Foul Odor after Cleansing No -Anesthetic Used 5% Lidocaine Gel WC - Nurse 2 - General Ulcer CM Notes Start: 01/27/19 13:10 Freq: Status: Active Protocol: Activity Type Activity Date Activity User E-Sign Co-Sign Detail Recorded Client Recorded Date Recorded By Document 01/27/19 13:38 MW [id number] 01/27/19 13:39 MW 01/27/19 13:38 Wound Center Nurse 2 [Procedure/Treatment] -Time 13:38 -Correct Patient Yes -Correct Side, Site, Position Yes -Correct Procedure Yes -Procedure Performed Yes -Type of Procedure Debridement -Clinical Debridement Subcutaneous -Post Debridement Size (cm) - Length 5.0 -Post Debridement Size (cm) - Width 4.5 -Post Debridement Size (cm) - Depth 0.2 -Total Square Cm 22.50 -Wound/Ulcer Outcome Not Healed -Ulcer Cleansing Rinsed/ Irrigated with Saline -Foul Odor after Cleansing No -Bioengineered Tissue No -Injectable Lidocaine (%) 1 -Lidocaine (ml) 5 -Bleeding Controlled with Pressure -Offloading No -Treatment Response Procedure Tolerated Well [See Physician Procedure note for Specifics] Pain Scale: 0-10 Numeric [Pain] -Is Patient Pain Free? Yes Psych/Mental Status: Normal Affect, Appropriate Debridement Note Post-Debridement Measurements/Treatment WC - Nurse 2 - General Ulcer CM Notes Start: 01/27/19 13:10 Freq: Status: Active Protocol: Activity Type Activity Date Activity User E-Sign Co-Sign Detail Recorded Client Recorded Date Recorded By Document 01/27/19 13:38 MW [id number] 01/27/19 13:39 MW 01/27/19 13:38 Wound Center Nurse 2 #5 Right Achilles -Time 13:38 -Correct Patient Yes -Correct Side, Site, Position Yes -Correct Procedure Yes -Procedure Performed Yes -Type of Procedure Debridement -Clinical Debridement Subcutaneous -Post Debridement Size (cm) - Length 5.0 -Post Debridement Size (cm) - Width 4.5 -Post Debridement Size (cm) - Depth 0.2 -Total Square Cm 22.50 -Wound/Ulcer Outcome Not Healed -Ulcer Cleansing Rinsed/ Irrigated with Saline -Foul Odor after Cleansing No -Bioengineered Tissue No -Injectable Lidocaine (%) 1 -Lidocaine (ml) 5 -Bleeding Controlled with Pressure -Offloading No -Treatment Response Procedure Tolerated Well Pain Scale: 0-10 Numeric Is Patient Pain Free? Yes Wound debrided: Right Achilles Laterality: Right Wound Grade/Stage: Stage 2 Type of Debridement: Excisional debridement Anesthesia Used: 4% Lidocaine Solution, 5% Lidocaine Gel, Cetacaine Depth: Down to and including healthy tissue, in the subcutaneous layer Percentage of wound debrided: 100 Instrument Used: 7mm curette Tissue Removed: yellow slough, devitalized tissue Severity: Fat Layer Exposed Amount of bleeding with debridement: Mild Bleeding Controlled with: Compression and gauze Patient tolerated procedure well Assessment/Plan Active Problems Venous stasis ulcer of right ankle with fat layer exposed (Chronic) posterior and medial ankle Pressure ulcer of right ankle, stage 2 (Chronic) Edema of both lower legs due to peripheral venous insufficiency (Chronic) MRSA cellulitis (Acute) Assessment: 1) recurrent pressure ulcer of posterior leg in paraplegic w/spina bifida. Healing is very slow and likely because of poor quality of tissues. Offload boots seem very adequate. 2) venous stasis and edema. 3) spider veins with thrombosis right LE Plan: Shahzad's ulcer was evaluated and debrided today. Will change to Santyl and Adaptic. Stressed importance of compression. Consider Nushield or Epifix application to heal his ulcer. Continue Gentamicin for 4 additional days. He has chronic edema and venous insufficiency. He is wearing offloading booties to decrease pressure to his heels. He should continue these measures. He will continue tubigrips for compression. Encouraged increased protein intake and offloading was again reviewed. F/U 1 week.
[2019-02-03 14:44] VITALS: BP 132/88; PULSE 101; RESP 16; TEMP 37; BMI 33.2
--- NOTE | 2019-02-03 19:48 | PCM.WC.PN ---
(1) Venous stasis ulcer of right ankle with fat layer exposed Status: Chronic Current Visit: Yes Qualifiers: Varicose vein presence: with varicose veins Code(s): I83.013 - Varicose veins of right lower extremity with ulcer of ankle; L97.312 - Non-pressure chronic ulcer of right ankle with fat layer exposed Comment: posterior and medial ankle (2) Edema of both lower legs due to peripheral venous insufficiency Status: Chronic Current Visit: Yes Code(s): I87.2 - Venous insufficiency (chronic) (peripheral); R60.9 - Edema, unspecified (3) MRSA cellulitis Status: Resolved Current Visit: Yes Code(s): L03.90 - Cellulitis, unspecified; B95.62 - Methicillin resistant Staphylococcus aureus infection as the cause of diseases classified elsewhere (4) Pressure ulcer of right ankle, stage 2 Status: Chronic Current Visit: Yes Code(s): L89.512 - Pressure ulcer of right ankle, stage 2 Type of Wound Date of Service: 02/03/19 Chief Complaint: recurrent R posterior ankle, 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 He has very damaged tissues of his legs and this is one of multiple recurrent pressure ulcers that he develops in this edematous R lower leg/ankle. He isn't sure when this reoccurred but thinks it has been since January or February. He has been treated by wound care nurse at [facility] where he resides. He has almost been healed several times but has never healed completely. It looks like Drawtex is what they have been using on the ulcer. A culture was done April 2018 which was positive for Pseudomonas. He was on an antibiotic but is no longer taking it. He reports that the ulcer is very painful. He reports that he has been in his bed mostly and elevates his legs/feet with a pillow under his calf and denies pressure on his heel. He underwent vascular testing which showed incompetence of veins in his right leg and was seen by Dr. Pearl who performed a venous ablation in mid November,. Progress of Wound: Shahzad is here today for follow up of ulceration of his Achilles area of his right ankle. His PICC line is still in place. He received the last dose of his antibiotic 2 days ago. His pain is improved to his ulcer area. Denies increase in drainage this week. He continues to wear foam booties. He denies fever or chills. - Physical Exam Vital Signs Temp Pulse Resp BP 98.6 F 101 H 16 132/88 H 02/03/19 14:44 02/03/19 14:44 02/03/19 14:44 02/03/19 14:44 General: Alert, Oriented x3, Cooperative, No apparent distress HEENT: Atraumatic, Normocephalic Oral: Moist Mucosa Abdomen: Obese Extremities: Edema Skin: Ulcer/ Wound Wound Measurements and Assessment WC - Nurse 1 - General Ulcer Measurement Start: 01/27/19 13:10 Freq: Status: Active Protocol: Activity Type Activity Date Activity User E-Sign Co-Sign Detail Recorded Client Recorded Date Recorded By Document 02/03/19 14:44 [facility] [id number] 02/03/19 14:50 [facility] 02/03/19 14:44 Wound Center Nurse 1 [Ulcer Assessment] #5 Right Achilles -Combined with other wound No -Current Size (cm) - Length 5.9 -Current Size (cm) - Width 5.4 -Current Size (cm) - Depth 0.1 -Total Square Cm 31.86 -Photo Taken No -Epithelialization Small 1-33% -Tunneling No -Undermining/Tunneling No -Circular Undermining No -Exudate Amt Medium -Exudate Type Serosanguineous -Wound Margin Distinct, Outline Attached -Granulation Amt Small (1-33%) -Granulation Quality Red -Slough/Fibrin Yes -Necrosis Amt Medium (34-66%) -Necrotic Tissue Type Adherent Slough -Texture (Sanam-wound Skin Appearance) Assessed, Scarring -Moisture (Sanam-wound Skin Appearance Assessed,Dry/ ) Scaly -Color (Sanam-wound Skin Appearance) Assessed, Hemosiderin Staining -Temperature (Sanam-wound Skin No Abnormality Appearance) (Pt Warm) -Tenderness on Palpation (Sanam-wound Yes Skin Appearance) -Ulcer Cleansing Rinsed/ Irrigated with Saline -Foul Odor after Cleansing No -Anesthetic Used 4% Lidocaine Solution [Edema Assessment] -Lower Limb Edema Present Yes -Right Calf (cm) 44.5 -Right Ankle (cm) 20.5 WC - Nurse 2 - General Ulcer CM Notes Start: 01/27/19 13:10 Freq: Status: Active Protocol: Activity Type Activity Date Activity User E-Sign Co-Sign Detail Recorded Client Recorded Date Recorded By Document 02/03/19 16:39 MW [id number] 02/03/19 16:42 MW 02/03/19 16:39 Wound Center Nurse 2 [Procedure/Treatment] #5 Right Achilles -Time 16:10 -Correct Patient Yes -Correct Side, Site, Position Yes -Correct Procedure Yes -Procedure Performed Yes -Type of Procedure Debridement -Clinical Debridement Subcutaneous -Post Debridement Size (cm) - Length 5.0 -Post Debridement Size (cm) - Width 4.9 -Post Debridement Size (cm) - Depth 0.2 -Total Square Cm 24.50 -Wound/Ulcer Outcome Not Healed -Ulcer Cleansing Rinsed/ Irrigated with Saline -Foul Odor after Cleansing No -Bioengineered Tissue Yes -Type of bioengineered Tissue EPIFIX -Expiration Date 06/25/23 -Product Lot Number [id number] -Percent Used 100 -Bleeding Controlled with Pressure -Other HYDROGEL LOT# [id number] -Offloading No -Treatment Response Procedure Tolerated Well [See Physician Procedure note for Specifics] Pain Scale: 0-10 Numeric [Pain] -Is Patient Pain Free? Yes Psych/Mental Status: Normal Affect, Appropriate Debridement Note Post-Debridement Measurements/Treatment - Nurse 2 - General Ulcer CM Notes Start: 01/27/19 13:10 Freq: Status: Active Protocol: Activity Type Activity Date Activity User E-Sign Co-Sign Detail Recorded Client Recorded Date Recorded By Document 01/27/19 13:38 MW [id number] 01/27/19 13:39 MW Document 02/03/19 16:39 MW [id number] 02/03/19 16:42 MW 01/27/19 02/03/19 13:38 16:39 Wound Center Nurse 2 #5 Right Achilles -Time 13:38 16:10 -Correct Patient Yes Yes -Correct Side, Site, Position Yes Yes -Correct Procedure Yes Yes -Procedure Performed Yes Yes -Type of Procedure Debridement Debridement -Clinical Debridement Subcutaneous Subcutaneous -Post Debridement Size (cm) - Length 5.0 5.0 -Post Debridement Size (cm) - Width 4.5 4.9 -Post Debridement Size (cm) - Depth 0.2 0.2 -Total Square Cm 22.50 24.50 -Wound/Ulcer Outcome Not Healed Not Healed -Ulcer Cleansing Rinsed/ Rinsed/ Irrigated with Irrigated with Saline Saline -Foul Odor after Cleansing No No -Bioengineered Tissue No Yes -Type of bioengineered Tissue EPIFIX -Expiration Date 06/25/23 -Product Lot Number [id number] -Percent Used 100 -Injectable Lidocaine (%) 1 -Lidocaine (ml) 5 -Bleeding Controlled with Pressure Pressure -Other HYDROGEL LOT# [id number] -Offloading No No -Treatment Response Procedure Procedure Tolerated Well Tolerated Well Pain Scale: 0-10 Numeric Is Patient Pain Free? Yes Yes Wound debrided: Right Achilles Laterality: Right Wound Grade/Stage: Stage 2 Type of Debridement: Excisional debridement Anesthesia Used: 4% Lidocaine Solution, 5% Lidocaine Gel Depth: Down to and including healthy tissue, in the subcutaneous layer Percentage of wound debrided: 100 Instrument Used: 7mm curette Tissue Removed: yellow slough, devitalized tissue Severity: Fat Layer Exposed Amount of bleeding with debridement: Mild Bleeding Controlled with: Compression and gauze Patient tolerated procedure well Assessment/Plan Active Problems Venous stasis ulcer of right ankle with fat layer exposed (Chronic) posterior and medial ankle Pressure ulcer of right ankle, stage 2 (Chronic) Edema of both lower legs due to peripheral venous insufficiency (Chronic) Assessment: 1) recurrent pressure ulcer of posterior leg in paraplegic w/spina bifida. Healing is very slow and likely because of poor quality of tissues. Offload boots seem very adequate. 2) venous stasis and edema. 3) spider veins with thrombosis right LE Plan: Shahzad's ulcer was evaluated and debrided today. Epifix was approved by his insurance and a 4 x 4 mesh Epifix was applied to his ulcer today per job cost estimator guidelines and rehydrated with collagen hydrogel and covered with a wound veil and secured with steristrips. He tolerated this well. Stressed importance of compression. He has chronic edema and venous insufficiency. He is wearing offloading booties to decrease pressure to his heels. He should continue these measures. He will continue tubigrips for compression. Encouraged increased protein intake and offloading was again reviewed. F/U 1 week.
[2019-02-10 13:48] VITALS: BP 126/80; PULSE 122; RESP 18; TEMP 37.1; BMI 33.2
--- NOTE | 2019-02-10 18:53 | PN.PCM_ITS ---
(1) Venous stasis ulcer of right ankle with fat layer exposed Status: Chronic Current Visit: Yes Qualifiers: Varicose vein presence: with varicose veins Code(s): I83.013 - Varicose veins of right lower extremity with ulcer of ankle; L97.312 - Non-pressure chronic ulcer of right ankle with fat layer exposed Comment: posterior and medial ankle (2) Edema of both lower legs due to peripheral venous insufficiency Status: Chronic Current Visit: Yes Code(s): I87.2 - Venous insufficiency (chronic) (peripheral); R60.9 - Edema, unspecified (3) MRSA cellulitis Status: Resolved Current Visit: Yes Code(s): L03.90 - Cellulitis, unspecified; B95.62 - Methicillin resistant Staphylococcus aureus infection as the cause of diseases classified elsewhere (4) Pressure ulcer of right ankle, stage 2 Status: Chronic Current Visit: Yes Code(s): L89.512 - Pressure ulcer of right ankle, stage 2 Type of Wound Date of Service: 02/10/19 Chief Complaint: recurrent R posterior ankle, 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 He has very damaged tissues of his legs and this is one of multiple recurrent pressure ulcers that he develops in this edematous R lower leg/ankle. He isn't sure when this reoccurred but thinks it has been since January or February. He has been treated by wound care nurse at [facility] where he resides. He has almost been healed several times but has never healed completely. It looks like Drawtex is what they have been using on the ulcer. A culture was done April 2018 which was positive for Pseudomonas. He was on an antibiotic but is no longer taking it. He reports that the ulcer is very painful. He reports that he has been in his bed mostly and elevates his legs/feet with a pillow under his calf and denies pressure on his heel. He underwent vascular testing which showed in competence of veins in his right leg and was seen by Dr. Pearl who performed a venous ablation in mid November,. Progress of Wound: Shahzad is here today for follow up of ulceration of his Achilles area of his right ankle. His pain is improved to his ulcer area. Denies increase in drainage this week. He continues to wear foam booties. He denies fever or chills. - Physical Exam Vital Signs Temp Pulse Resp BP 98.7 F 122 H 18 126/80 H 02/10/19 13:48 02/10/19 13:48 02/10/19 13:48 02/10/19 13:48 General: Alert, Oriented x3, Cooperative, No apparent distress HEENT: Atraumatic, Normocephalic Oral: Moist Mucosa Neck: Supple Abdomen: Obese Extremities: Edema Skin: Ulcer/ Wound Wound Measurements and Assessment WC - Nurse 1 - General Ulcer Measurement Start: 01/27/19 13:10 Freq: Status: Active Protocol: Activity Type Activity Date Activity User E-Sign Co-Sign Detail Recorded Client Recorded Date Recorded By Document 02/10/19 13:48 [facility] [id number] 02/10/19 14:05 [facility] 02/10/19 13:48 Wound Center Nurse 1 [Ulcer Assessment] #5 Right Achilles -Combined with other wound No -Current Size (cm) - Length 6 -Current Size (cm) - Width 6.6 -Current Size (cm) - Depth 0.1 -Total Square Cm 39.6 -Photo Taken No -Epithelialization None Present -Tunneling No -Undermining/Tunneling No -Circular Undermining No -Exudate Amt Medium -Exudate Type Serosanguineous -Wound Margin Flat & Intact -Granulation Amt Small (1-33%) -Granulation Quality Red -Slough/Fibrin Yes -Necrosis Amt Large (67-100%) -Necrotic Tissue Type Adherent Slough -Texture (Sanam-wound Skin Appearance) Assessed, Scarring -Moisture (Sanam-wound Skin Appearance Assessed,Dry/ ) Scaly -Color (Sanam-wound Skin Appearance) Assessed, Erythema -Temperature (Sanam-wound Skin No Abnormality Appearance) (Pt Warm) -Tenderness on Palpation (Sanam-wound No Skin Appearance) -Ulcer Cleansing soap and water -Foul Odor after Cleansing No -Anesthetic Used 4% Lidocaine Solution [Edema Assessment] -Lower Limb Edema Present Yes -Right Calf (cm) 45 -Right Ankle (cm) 24.1 WC - Nurse 2 - General Ulcer CM Notes Start: 01/27/19 13:10 Freq: Status: Active Protocol: Activity Type Activity Date Activity User E-Sign Co-Sign Detail Recorded Client Recorded Date Recorded By Document 02/10/19 15:40 [id number] 02/10/19 15:45 02/10/19 15:40 Wound Center Nurse 2 [Procedure/Treatment] #5 Right Achilles -Time 15:41 -Correct Patient Yes -Correct Side, Site, Position Yes -Correct Procedure Yes -Procedure Performed Yes -Type of Procedure Debridement -Clinical Debridement Subcutaneous -Post Debridement Size (cm) - Length 4.3 -Post Debridement Size (cm) - Width 4.0 -Post Debridement Size (cm) - Depth 0.1 -Total Square Cm 17.20 -Wound/Ulcer Outcome Not Healed -Ulcer Cleansing Rinsed/ Irrigated with Saline -Foul Odor after Cleansing No -Bioengineered Tissue Yes -Type of bioengineered Tissue EPIFIX -Expiration Date 07/26/19 -Product Lot Number [id number] -Percent Used 100 -Injectable Lidocaine (%) 1 -Lidocaine (ml) 5 -Bleeding Controlled with Pressure -Other c. hydrogel [id number] -Offloading Yes -Treatment Response Procedure Not Tolerated Well [See Physician Procedure note for Specifics] Pain Scale: 0-10 Numeric [Pain] -Is Patient Pain Free? No Psych/Mental Status: Normal Affect, Appropriate Debridement Note Post-Debridement Measurements/Treatment WC - Nurse 2 - General Ulcer CM Notes Start: 01/27/19 13:10 Freq: Status: Active Protocol: Activity Type Activity Date Activity User E-Sign Co-Sign Detail Recorded Client Recorded Date Recorded By Document 01/27/19 13:38 MW [id number] 01/27/19 13:39 MW Document 02/03/19 16:39 MW [id number] 02/03/19 16:42 MW Document 02/10/19 15:40 [id number] 02/10/19 15:45 01/27/19 02/03/19 02/10/19 13:38 16:39 15:40 Wound Center Nurse 2 #5 Right Achilles -Time 13:38 16:10 15:41 -Correct Patient Yes Yes Yes -Correct Side, Site, Position Yes Yes Yes -Correct Procedure Yes Yes Yes -Procedure Performed Yes Yes Yes -Type of Procedure Debridement Debridement Debridement -Clinical Debridement Subcutaneous Subcutaneous Subcutaneous -Post Debridement Size (cm) - Length 5.0 5.0 4.3 -Post Debridement Size (cm) - Width 4.5 4.9 4.0 -Post Debridement Size (cm) - Depth 0.2 0.2 0.1 -Total Square Cm 22.50 24.50 17.20 -Wound/Ulcer Outcome Not Healed Not Healed Not Healed -Ulcer Cleansing Rinsed/ Rinsed/ Rinsed/ Irrigated with Irrigated with Irrigated with Saline Saline Saline -Foul Odor after Cleansing No No No -Bioengineered Tissue No Yes Yes -Type of bioengineered Tissue EPIFIX EPIFIX -Expiration Date 06/25/23 07/26/19 -Product Lot Number [id number] -Percent Used 100 100 -Injectable Lidocaine (%) 1 1 -Lidocaine (ml) 5 5 -Bleeding Controlled with Pressure Pressure Pressure -Other HYDROGEL LOT# c. hydrogel [id number] -Offloading No No Yes -Treatment Response Procedure Procedure Procedure Not Tolerated Well Tolerated Well Tolerated Well Pain Scale: 0-10 Numeric Is Patient Pain Free? Yes Yes No Wound debrided: Right Achilles Laterality: Right Wound Grade/Stage: Stage 2 Type of Debridement: Excisional debridement Anesthesia Used: 4% Lidocaine Solution, 5% Lidocaine Gel, Cetacaine - 5 ml Depth: Down to and including healthy tissue, in the subcutaneous layer Percentage of wound debrided: 100 Instrument Used: 5mm curette Tissue Removed: yellow slough, devitalized tissue Severity: Fat Layer Exposed Amount of bleeding with debridement: Mild Bleeding Controlled with: Compression and gauze Patient tolerated procedure well Assessment/Plan Active Problems Venous stasis ulcer of right ankle with fat layer exposed (Chronic) posterior and medial ankle Pressure ulcer of right ankle, stage 2 (Chronic) Edema of both lower legs due to peripheral venous insufficiency (Chronic) Assessment: 1) recurrent pressure ulcer of posterior leg in paraplegic w/spina bifida. Healing is very slow and likely because of poor quality of tissues. Offload boots seem very adequate. 2) venous stasis and edema. 3) spider veins with thrombosis right LE Plan: Glorys ulcer was evaluated and debrided today. Epifix was approved by his insurance and a 2 x 2 Epifix was applied to his ulcer today per studio couch frame builder guidelines and rehydrated with collagen hydrogel and covered with a wound veil and secured with steristrips. He tolerated this well. Stressed importance of compression. He has chronic edema and venous insufficiency. He is wearing offloading booties to decrease pressure to his heels. He should continue these measures. He will continue tubigrips for compression. Encouraged increased protein intake and offloading was again reviewed. F/U 2 weeks.
== END 2019-02-23 23:59 ==
LOC: WC 14:00
PROVIDERS: Family Provider Family Medicine; PCP Family Medicine; Referring Provider Family Medicine; Visit Provider Family Medicine
DX: I83.013 Varicose veins of right lower extremity with ulcer of ankle (principal); L89.512 Pressure ulcer of right ankle, stage 2; Q05.9 Spina bifida, unspecified; I89.0 Lymphedema, not elsewhere classified; Z91.19 Patient's noncompliance with other medical treatment and regimen; G80.9 Cerebral palsy, unspecified; Z86.14 Personal history of Methicillin resistant Staphylococcus aureus infection
CPT/HCPCS: 11042; 11045; 15271; Q4186

== ENCOUNTER 2019-03-17 13:00 | Outpatient (RCR) | payer MEDICARE, MEDICAID, SELFPAY ==
[2019-02-24 00:39] VITALS: BP 126/80; PULSE 122; RESP 18; TEMP 37.1
[2019-02-24 14:46] VITALS: BP 144/90; PULSE 110; RESP 16; TEMP 36.1; BMI 33.2
--- NOTE | 2019-02-24 19:32 | PCM.WC.PN ---
(1) Venous stasis ulcer of right ankle with fat layer exposed Status: Chronic Current Visit: Yes Qualifiers: Varicose vein presence: with varicose veins Code(s): I83.013 - Varicose veins of right lower extremity with ulcer of ankle; L97.312 - Non-pressure chronic ulcer of right ankle with fat layer exposed Comment: posterior and medial ankle (2) Pressure ulcer of right ankle, stage 2 Status: Chronic Current Visit: Yes Code(s): L89.512 - Pressure ulcer of right ankle, stage 2 (3) Spina bifida Status: Chronic Current Visit: Yes Qualifiers: Spinal region: unspecified Presence of hydrocephalus: unspecified hydrocephalus presence Qualified Code(s): Q05.9 - Spina bifida, unspecified Code(s): Q05.9 - Spina bifida, unspecified Type of Wound Date of Service: 02/24/19 Chief Complaint: recurrent R posterior ankle, 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 He has very damaged tissues of his legs and this is one of multiple recurrent pressure ulcers that he develops in this edematous R lower leg/ankle. He isn't sure when this reoccurred but thinks it has been since January or February. He has been treated by wound care nurse at [facility] where he resides. He has almost been healed several times but has never healed completely. It looks like Drawtex is what they have been using on the ulcer. A culture was done April 2018 which was positive for Pseudomonas. He was on an antibiotic but is no longer taking it. He reports that the ulcer is very painful. He reports that he has been in his bed mostly and elevates his legs/feet with a pillow under his calf and denies pressure on his heel. He underwent vascular testing which showed incompetence of veins in his right leg and was seen by Dr. Pearl who performed a venous ablation in mid November,. Progress of Wound: Shahzad is here today for follow up of ulceration of his Achilles area of his right ankle. His pain is improved to his ulcer area. He has tolerated application of Epifix. Denies increase in drainage this week. He continues to wear foam booties. He denies fever or chills. - Physical Exam Vital Signs Temp Pulse Resp BP 97 F L 110 H 16 144/90 H 02/24/19 14:46 02/24/19 14:46 02/24/19 14:46 02/24/19 14:46 General: Alert, Oriented x3, Cooperative, No apparent distress HEENT: Atraumatic, Normocephalic Oral: Moist Mucosa Abdomen: Obese Extremities: Edema Skin: Ulcer/ Wound Wound Measurements and Assessment WC - Nurse 1 - General Ulcer Measurement Start: 02/24/19 14:45 Freq: Status: Active Protocol: Activity Type Activity Date Activity User E-Sign Co-Sign Detail Recorded Client Recorded Date Recorded By Document 02/24/19 14:46 [facility] [id number] 02/24/19 14:50 [facility] 02/24/19 14:46 Wound Center Nurse 1 [Ulcer Assessment] #5 Right Achilles -Combined with other wound No -Current Size (cm) - Length 5.5 -Current Size (cm) - Width 5 -Current Size (cm) - Depth 0.1 -Total Square Cm 27.5 -Photo Taken No -Epithelialization Small 1-33% -Tunneling No -Undermining/Tunneling No -Circular Undermining No -Exudate Amt Medium -Exudate Type Serosanguineous -Wound Margin Distinct, Outline Attached -Granulation Amt Large (67-100%) -Granulation Quality Hyper- granulation,Red -Slough/Fibrin Yes -Necrosis Amt Small (1-33%) -Necrotic Tissue Type Adherent Slough -Texture (Sanam-wound Skin Appearance) Assessed, Scarring -Moisture (Sanam-wound Skin Appearance Assessed, ) Maceration -Color (Sanam-wound Skin Appearance) Assessed, Erythema -Temperature (Sanam-wound Skin No Abnormality Appearance) (Pt Warm) -Tenderness on Palpation (Sanam-wound Yes Skin Appearance) -Ulcer Cleansing soap and water -Foul Odor after Cleansing No -Anesthetic Used 5% Lidocaine Gel [Edema Assessment] -Lower Limb Edema Present Yes -Right Calf (cm) 45 -Right Ankle (cm) 21 WC - Nurse 2 - General Ulcer CM Notes Start: 02/24/19 14:45 Freq: Status: Active Protocol: Activity Type Activity Date Activity User E-Sign Co-Sign Detail Recorded Client Recorded Date Recorded By Document 02/24/19 15:49 MW [id number] 02/24/19 16:03 MW 02/24/19 15:49 Wound Center Nurse 2 [Procedure/Treatment] #5 Right Achilles -Time 15:50 -Correct Patient Yes -Correct Side, Site, Position Yes -Correct Procedure Yes -Procedure Performed Yes -Type of Procedure Debridement -Clinical Debridement Subcutaneous -Post Debridement Size (cm) - Length 5.6 -Post Debridement Size (cm) - Width 5.5 -Post Debridement Size (cm) - Depth 0.2 -Total Square Cm 30.80 -Wound/Ulcer Outcome Not Healed -Ulcer Cleansing Rinsed/ Irrigated with Saline -Foul Odor after Cleansing No -Bioengineered Tissue Yes -Type of bioengineered Tissue EPIFIX -Expiration Date 08/25/23 -Product Lot Number [id number] -Percent Used 100 -Bleeding Controlled with Pressure -Other HYDROGEL LOT # [id number] -Offloading No -Treatment Response Procedure Tolerated Well [See Physician Procedure note for Specifics] Pain Scale: 0-10 Numeric [Pain] -Is Patient Pain Free? Yes Psych/Mental Status: Normal Affect, Appropriate Debridement Note Post-Debridement Measurements/Treatment WC - Nurse 2 - General Ulcer CM Notes Start: 02/24/19 14:45 Freq: Status: Active Protocol: Activity Type Activity Date Activity User E-Sign Co-Sign Detail Recorded Client Recorded Date Recorded By Document 02/24/19 15:49 MW [id number] 02/24/19 16:03 MW 02/24/19 15:49 Wound Center Nurse 2 #5 Right Achilles -Time 15:50 -Correct Patient Yes -Correct Side, Site, Position Yes -Correct Procedure Yes -Procedure Performed Yes -Type of Procedure Debridement -Clinical Debridement Subcutaneous -Post Debridement Size (cm) - Length 5.6 -Post Debridement Size (cm) - Width 5.5 -Post Debridement Size (cm) - Depth 0.2 -Total Square Cm 30.80 -Wound/Ulcer Outcome Not Healed -Ulcer Cleansing Rinsed/ Irrigated with Saline -Foul Odor after Cleansing No -Bioengineered Tissue Yes -Type of bioengineered Tissue EPIFIX -Expiration Date 08/25/23 -Product Lot Number [id number] -Percent Used 100 -Bleeding Controlled with Pressure -Other HYDROGEL LOT # [id number] -Offloading No -Treatment Response Procedure Tolerated Well Pain Scale: 0-10 Numeric Is Patient Pain Free? Yes Wound debrided: right achilles Laterality: Right Wound Grade/Stage: Stage 2 Type of Debridement: Excisional debridement Anesthesia Used: 4% Lidocaine Solution, 5% Lidocaine Gel Depth: Down to and including healthy tissue, in the subcutaneous layer Percentage of wound debrided: 100 Instrument Used: 7mm curette Tissue Removed: yellow slough, devitalized tissue Severity: Fat Layer Exposed Amount of bleeding with debridement: Mild Bleeding Controlled with: Compression and gauze Patient tolerated procedure well Assessment/Plan Active Problems Venous stasis ulcer of right ankle with fat layer exposed (Chronic) posterior and medial ankle Pressure ulcer of right ankle, stage 2 (Chronic) Spina bifida (Chronic) Assessment: 1) recurrent pressure ulcer of posterior leg in paraplegic w/spina bifida. Healing is very slow and likely because of poor quality of tissues. Offload boots seem very adequate. 2) venous stasis and edema. 3) spider veins with thrombosis right LE Plan: Shahzad's ulcer was evaluated and debrided today. Epifix #3 was applied to his ulcer today per inspector toys guidelines and rehydrated with collagen hydrogel and covered with a wound veil and secured with steristrips. He tolerated this well. Stressed importance of compression. He has chronic edema and venous insufficiency. He is wearing offloading booties to decrease pressure to his heels. He should continue these measures. He will continue tubigrips for compression. Encouraged increased protein intake and offloading was again reviewed. F/U 1 week.
[2019-03-10 16:21] VITALS: BP 132/79; PULSE 99; RESP 18; TEMP 36.1; BMI 33.2
--- NOTE | 2019-03-10 18:11 | PN.PCM_ITS ---
(1) Venous stasis ulcer of right ankle with fat layer exposed Status: Chronic Current Visit: Yes Qualifiers: Varicose vein presence: with varicose veins Code(s): I83.013 - Varicose veins of right lower extremity with ulcer of ankle; L97.312 - Non-pressure chronic ulcer of right ankle with fat layer exposed Comment: posterior and medial ankle (2) Pressure ulcer of right ankle, stage 2 Status: Chronic Current Visit: Yes Code(s): L89.512 - Pressure ulcer of right ankle, stage 2 (3) Spina bifida Status: Chronic Current Visit: Yes Qualifiers: Spinal region: unspecified Presence of hydrocephalus: unspecified hyd rocephalus presence Qualified Code(s): Q05.9 - Spina bifida, unspecified Code(s): Q05.9 - Spina bifida, unspecified Type of Wound Date of Service: 03/10/19 Chief Complaint: recurrent R posterior ankle, 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 He has very damaged tissues of his legs and this is one of multiple recurrent pressure ulcers that he develops in this edematous R lower leg/ankle. He isn't sure when this reoccurred but thinks it has been since January or February. He has been treated by wound care nurse at [facility], [place] where he resides. He has almost been healed several times but has never healed completely. It looks like Drawtex is what they have been using on the ulcer. A culture was done April 2018 which was positive for Pseudomonas. He was on an antibiotic but is no longer taking it. He reports that the ulcer is very painful. He reports that he has been in his bed mostly and elevates his legs/feet with a pillow under his calf and denies pressure on his heel. He underwent vascular testing which showed incompetence of veins in his right leg and was seen by Dr. Pearl who performed a venous ablation in mid November,. Progress of Wound: Shahzad is here today for follow up of ulceration of his Achilles area of his right ankle. His pain is slightly improved to his ulcer area. He has tolerated application of Epifix. He was not seen for 2 weeks due to my absence and due to a transportation issue last week. Denies increase in drainage this week. He continues to wear foam booties. He denies fever or chills. - Physical Exam Vital Signs Temp Pulse Resp BP 97 F L 99 18 132/79 H 03/10/19 16:21 03/10/19 16:21 03/10/19 16:21 03/10/19 16:21 General: Alert, Oriented x3, Cooperative, No apparent distress HEENT: Atraumatic, Normocephalic Oral: Moist Mucosa Abdomen: Obese Extremities: Edema Skin: Ulcer/ Wound Wound Measurements and Assessment WC - Nurse 1 - General Ulcer Measurement Start: 02/24/19 14:45 Freq: Status: Active Protocol: Activity Type Activity Date Activity User E-Sign Co-Sign Detail Recorded Client Recorded Date Recorded By Document 03/10/19 16:21 RB [id number] 03/10/19 16:23 RB 03/10/19 16:21 Wound Center Nurse 1 [Ulcer Assessment] #5 Right Achilles -Combined with other wound No -Current Size (cm) - Length 3.4 -Current Size (cm) - Width 4 -Current Size (cm) - Depth 0.1 -Total Square Cm 13.6 -Tunneling No -Undermining/Tunneling No -Circular Undermining No -Exudate Amt Small -Exudate Type Serosanguineous -Wound Margin Thickened -Granulation Amt Medium (34-66%) -Granulation Quality [place],Red -Slough/Fibrin Yes -Necrosis Amt Medium (34-66%) -Necrotic Tissue Type Adherent Slough -Structure Exposed N/A -Texture (Sanam-wound Skin Appearance) Scarring -Moisture (Sanam-wound Skin Appearance Dry/Scaly ) -Color (Sanam-wound Skin Appearance) Assessed -Temperature (Sanam-wound Skin No Abnormality Appearance) (Pt Warm) -Tenderness on Palpation (Sanam-wound No Skin Appearance) -Ulcer Cleansing Wound Cleanser -Foul Odor after Cleansing No -Anesthetic Used 5% Lidocaine Gel WC - Nurse 2 - General Ulcer CM Notes Start: 02/24/19 14:45 Freq: Status: Active Protocol: Activity Type Activity Date Activity User E-Sign Co-Sign Detail Recorded Client Recorded Date Recorded By Document 03/10/19 17:04 DV [id number] 03/10/19 17:07 DV 03/10/19 17:04 Wound Center Nurse 2 [Procedure/Treatment] -Time 17:05 -Correct Patient Yes -Correct Side, Site, Position Yes -Correct Procedure Yes -Procedure Performed Yes -Type of Procedure Debridement -Clinical Debridement Subcutaneous -Post Debridement Size (cm) - Length 4.0 -Post Debridement Size (cm) - Width 3.8 -Post Debridement Size (cm) - Depth 0.1 -Total Square Cm 15.20 -Wound/Ulcer Outcome Not Healed -Ulcer Cleansing Rinsed/ Irrigated with Saline -Foul Odor after Cleansing No -Bioengineered Tissue Yes -Type of bioengineered Tissue EPIFIX -Expiration Date 04/26/23 -Product Lot Number [id number] -Percent Used 100 -Topical Lidocaine (%) 5 -Bleeding Controlled with Pressure -Other HYDROGEL -Offloading Yes -Treatment Response Procedure Tolerated Well [See Physician Procedure note for Specifics] Pain Scale: 0-10 Numeric [Pain] -Is Patient Pain Free? Yes Psych/Mental Status: Normal Affect, Appropriate Debridement Note Post-Debridement Measurements/Treatment WC - Nurse 2 - General Ulcer CM Notes Start: 02/24/19 14:45 Freq: Status: Active Protocol: Activity Type Activity Date Activity User E-Sign Co-Sign Detail Recorded Client Recorded Date Recorded By Document 02/24/19 15:49 MW [id number] 02/24/19 16:03 MW Document 03/10/19 17:04 DV [id number] 03/10/19 17:07 DV 02/24/19 03/10/19 15:49 17:04 Wound Center Nurse 2 #5 Right Achilles -Time 15:50 17:05 -Correct Patient Yes Yes -Correct Side, Site, Position Yes Yes -Correct Procedure Yes Yes -Procedure Performed Yes Yes -Type of Procedure Debridement Debridement -Clinical Debridement Subcutaneous Subcutaneous -Post Debridement Size (cm) - Length 5.6 4.0 -Post Debridement Size (cm) - Width 5.5 3.8 -Post Debridement Size (cm) - Depth 0.2 0.1 -Total Square Cm 30.80 15.20 -Wound/Ulcer Outcome Not Healed Not Healed -Ulcer Cleansing Rinsed/ Rinsed/ Irrigated with Irrigated with Saline Saline -Foul Odor after Cleansing No No -Bioengineered Tissue Yes Yes -Type of bioengineered Tissue EPIFIX EPIFIX -Expiration Date 08/25/23 04/26/23 -Product Lot Number [id number] -Percent Used 100 100 -Topical Lidocaine (%) 5 -Bleeding Controlled with Pressure Pressure -Other HYDROGEL LOT # [id number] -Offloading No Yes -Treatment Response Procedure Procedure Tolerated Well Tolerated Well Pain Scale: 0-10 Numeric Is Patient Pain Free? Yes Yes Wound debrided: Right achilles Laterality: Right Type of Debridement: Excisional debridement Anesthesia Used: 4% Lidocaine Solution Depth: Down to and including healthy tissue, in the subcutaneous layer Percentage of wound debrided: 100 Instrument Used: 5mm curette Tissue Removed: yellow slough, devitalized tissue Severity: Fat Layer Exposed Amount of bleeding with debridement: Mild Bleeding Controlled with: Compression and gauze Patient tolerated procedure well Assessment/Plan Active Problems Venous stasis ulcer of right ankle with fat layer exposed (Chronic) posterior and medial ankle Pressure ulcer of right ankle, stage 2 (Chronic) Spina bifida (Chronic) Assessment: 1) recurrent pressure ulcer of posterior leg in paraplegic w/spina bifida. Healing is very slow and likely because of poor quality of tissues. Offload boots seem very adequate. 2) venous stasis and edema. 3) spider veins with thrombosis right LE Plan: Shahzad's ulcer was evaluated and debrided today. Epifix #4 was applied to his ulcer today per olive grader guidelines and rehydrated with collagen hydrogel and covered with a wound veil and secured with steristrips. He tolerated this well. Stressed importance of compression. He has chronic edema and venous insufficiency. He is wearing offloading booties to decrease pressure to his heels. He should continue these measures. He will continue tubigrips for compression. Encouraged increased protein intake and offloading was again reviewed. F/U 1 week.
[2019-03-17 12:56] VITALS: BP 150/85; PULSE 104; RESP 16; TEMP 36.5; BMI 33.2
--- NOTE | 2019-03-17 16:08 | PN.PCM_ITS ---
(1) Venous stasis ulcer of right ankle with fat layer exposed Status: Chronic Current Visit: Yes Qualifiers: Varicose vein presence: with varicose veins Code(s): I83.013 - Varicose veins of right lower extremity with ulcer of ankle; L97.312 - Non-pressure chronic ulcer of right ankle with fat layer exposed Comment: posterior and medial ankle (2) Pressure ulcer of right ankle, stage 2 Status: Chronic Current Visit: Yes Code(s): L89.512 - Pressure ulcer of right ankle, stage 2 (3) Spina bifida Status: Chronic Current Visit: Yes Qualifiers: Spinal region: unspecified Presence of hydrocephalus: unspecified hyd rocephalus presence Qualified Code(s): Q05.9 - Spina bifida, unspecified Code(s): Q05.9 - Spina bifida, unspecified Type of Wound Date of Service: 03/17/19 Chief Complaint: recurrent R posterior ankle, 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 He has very damaged tissues of his legs and this is one of multiple recurrent pressure ulcers that he develops in this edematous R lower leg/ankle. He isn't sure when this reoccurred but thinks it has been since January or February. He has been treated by wound care nurse at [facility] [place] where he resides. He has almost been healed several times but has never healed completely. It looks like Drawtex is what they have been using on the ulcer. A culture was done April 2018 which was positive for Pseudomonas. He was on an antibiotic but is no longer taking it. He reports that the ulcer is very painful. He reports that he has been in his bed mostly and elevates his legs/feet with a pillow under his calf and denies pressure on his heel. He underwent vascular testing which showed incompetence of veins in his right leg and was seen by Dr. Pearl who performed a venous ablation in mid November,. Progress of Wound: Shahzad is here today for follow up of ulceration of his Achilles area of his right ankle. His pain is slightly improved to his ulcer area. He has tolerated application of Epifix. He has started to develop a pressure injury to his lateral right leg from offloading his heel on a pillow. Denies increase in drainage this week. He continues to wear foam booties. He denies fever or chills. - Physical Exam Vital Signs Temp Pulse Resp BP 97.7 F L 104 H 16 150/85 H 03/17/19 12:56 03/17/19 12:56 03/17/19 12:56 03/17/19 12:56 General: Alert, Oriented x3, Cooperative, No apparent distress HEENT: Atraumatic, Normocephalic Oral: Moist Mucosa Abdomen: Obese Extremities: Edema Skin: Ulcer/ Wound Wound Measurements and Assessment WC - Nurse 1 - General Ulcer Measurement Start: 02/24/19 14:45 Freq: Status: Active Protocol: Activity Type Activity Date Activity User E-Sign Co-Sign Detail Recorded Client Recorded Date Recorded By Document 03/17/19 12:56 [facility] [id number] 03/17/19 13:01 [facility] 03/17/19 12:56 Wound Center Nurse 1 [Ulcer Assessment] #5 Right Achilles -Combined with other wound No -Current Size (cm) - Length 3.4 -Current Size (cm) - Width 4 -Current Size (cm) - Depth 0.1 -Total Square Cm 13.6 -Date of Last Picture (Recall this 03/17/19 field) -Photo Taken Yes -Epithelialization None Present -Tunneling No -Undermining/Tunneling No -Circular Undermining No -Exudate Amt Medium -Exudate Type Serosanguineous -Wound Margin Distinct, Outline Attached -Granulation Amt Small (1-33%) -Granulation Quality Red -Slough/Fibrin Yes -Necrosis Amt Large (67-100%) -Necrotic Tissue Type Adherent Slough -Texture (Sanam-wound Skin Appearance) Assessed, Scarring -Moisture (Sanam-wound Skin Appearance Assessed ) -Color (Sanam-wound Skin Appearance) Assessed, Ecchymosis -Temperature (Sanam-wound Skin No Abnormality Appearance) (Pt Warm) -Tenderness on Palpation (Sanam-wound Yes Skin Appearance) -Ulcer Cleansing SOAPY WATER -Foul Odor after Cleansing No -Anesthetic Used 4% Lidocaine Solution WC - Nurse 2 - General Ulcer CM Notes Start: 02/24/19 14:45 Freq: Status: Active Protocol: Activity Type Activity Date Activity User E-Sign Co-Sign Detail Recorded Client Recorded Date Recorded By Document 03/17/19 13:23 DV [id number] 03/17/19 13:32 DV 03/17/19 13:23 Wound Center Nurse 2 [Procedure/Treatment] -Time 13:25 -Correct Patient Yes -Correct Side, Site, Position Yes -Correct Procedure Yes -Procedure Performed Yes -Type of Procedure Debridement -Clinical Debridement Subcutaneous -Post Debridement Size (cm) - Length 3.3 -Post Debridement Size (cm) - Width 3.3 -Post Debridement Size (cm) - Depth 0.1 -Total Square Cm 10.89 -Wound/Ulcer Outcome Not Healed -Ulcer Cleansing Rinsed/ Irrigated with Saline -Foul Odor after Cleansing No -Bioengineered Tissue No -Type of bioengineered Tissue EPIFIX -Expiration Date 08/25/23 -Product Lot Number [id number] -Percent Used 100 -Bleeding Controlled with Pressure -Offloading Yes -Treatment Response Procedure Tolerated Well [See Physician Procedure note for Specifics] Pain Scale: 0-10 Numeric [Pain] -Is Patient Pain Free? Yes Psych/Mental Status: Normal Affect, Appropriate Debridement Note Post-Debridement Measurements/Treatment WC - Nurse 2 - General Ulcer CM Notes Start: 02/24/19 14:45 Freq: Status: Active Protocol: Activity Type Activity Date Activity User E-Sign Co-Sign Detail Recorded Client Recorded Date Recorded By Document 02/24/19 15:49 MW [id number] 02/24/19 16:03 MW Document 03/10/19 17:04 DV [id number] 03/10/19 17:07 DV Document 03/17/19 13:23 DV [id number] 03/17/19 13:32 DV 02/24/19 03/10/19 03/17/19 15:49 17:04 13:23 Wound Center Nurse 2 #5 Right Achilles -Time 15:50 17:05 13:25 -Correct Patient Yes Yes Yes -Correct Side, Site, Position Yes Yes Yes -Correct Procedure Yes Yes Yes -Procedure Performed Yes Yes Yes -Type of Procedure Debridement Debridement Debridement -Clinical Debridement Subcutaneous Subcutaneous Subcutaneous -Post Debridement Size (cm) - Length 5.6 4.0 3.3 -Post Debridement Size (cm) - Width 5.5 3.8 3.3 -Post Debridement Size (cm) - Depth 0.2 0.1 0.1 -Total Square Cm 30.80 15.20 10.89 -Wound/Ulcer Outcome Not Healed Not Healed Not Healed -Ulcer Cleansing Rinsed/ Rinsed/ Rinsed/ Irrigated with Irrigated with Irrigated with Saline Saline Saline -Foul Odor after Cleansing No No No -Bioengineered Tissue Yes Yes No -Type of bioengineered Tissue EPIFIX EPIFIX EPIFIX -Expiration Date 08/25/23 04/26/23 08/25/23 -Product Lot Number [id number] -Percent Used 100 100 100 -Topical Lidocaine (%) 5 -Bleeding Controlled with Pressure Pressure Pressure -Other HYDROGEL LOT # [id number] -Offloading No Yes Yes -Treatment Response Procedure Procedure Procedure Tolerated Well Tolerated Well Tolerated Well Pain Scale: 0-10 Numeric Is Patient Pain Free? Yes Yes Yes Wound debrided: Right Achilles Laterality: Right Type of Debridement: Excisional debridement Anesthesia Used: 4% Lidocaine Solution, 5% Lidocaine Gel Depth: Down to and including healthy tissue, in the subcutaneous layer Percentage of wound debrided: 100 Instrument Used: 5mm curette Tissue Removed: yellow slough, devitalized tissue Severity: Fat Layer Exposed Amount of bleeding with debridement: Mild Bleeding Controlled with: Compression and gauze Patient tolerated procedure well Assessment/Plan Active Problems Venous stasis ulcer of right ankle with fat layer exposed (Chronic) posterior and medial ankle Pressure ulcer of right ankle, stage 2 (Chronic) Spina bifida (Chronic) Assessment: 1) recurrent pressure ulcer of posterior leg in paraplegic w/spina bifida. Healing is very slow and likely because of poor quality of tissues. Offload boots seem very adequate. 2) venous stasis and edema. 3) spider veins with thrombosis right LE Plan: Shahzad's ulcer was evaluated and debrided today. Epifix #5 was applied to his ulcer today per almond blancher operator guidelines and rehydrated with collagen hydrogel and covered with a wound veil and secured with steristrips. He tolerated this well. Stressed importance of compression. He has chronic edema and venous insufficiency. He is wearing offloading booties to decrease pressure to his heels. He should continue these measures. He will continue tubigrips for compression. Encouraged increased protein intake and offloading was again reviewed. F/U 2 weeks.
== END 2019-03-25 23:59 ==
LOC: WC 13:00
PROVIDERS: Family Provider Family Medicine; PCP Family Medicine; Referring Provider Family Medicine; Visit Provider Family Medicine
DX: I83.013 Varicose veins of right lower extremity with ulcer of ankle (principal); L89.512 Pressure ulcer of right ankle, stage 2; Q05.9 Spina bifida, unspecified; G82.20 Paraplegia, unspecified
CPT/HCPCS: 15271; 15275; Q4186

== ENCOUNTER 2019-04-21 15:30 | Outpatient (RCR) | payer MEDICARE, MEDICAID, SELFPAY ==
[2019-03-26 00:32] VITALS: BP 150/85; PULSE 104; RESP 16; TEMP 36.5
[2019-03-31 14:26] VITALS: BP 105/68; PULSE 106; RESP 18; TEMP 36.2; BMI 33.2
--- NOTE | 2019-03-31 18:48 | PN.PCM_ITS ---
(1) Venous stasis ulcer of right ankle with fat layer exposed Status: Chronic Current Visit: Yes Qualifiers: Varicose vein presence: with varicose veins Qualified Code(s): I83.013 - Varicose veins of right lower extremity with ulcer of ankle; L97.312 - Non-pressure chronic ulcer of right ankle with fat layer exposed Code(s): I83.013 - Varicose veins of right lower extremity with ulcer of ankle; L97.312 - Non-pressure chronic ulcer of right ankle with fat layer exposed Comment: posterior and medial ankle (2) Pressure ulcer of right ankle, stage 2 Status: Chronic Current Visit: Yes Code(s): L89.512 - Pressure ulcer of right ankle, stage 2 (3) Spina bifida Status: Chronic Current Visit: Yes Qualifiers: Spinal region: unspecified Code(s): Q05.9 - Spina bifida, unspecified Type of Wound Date of Service: 03/31/19 Chief Complaint: recurrent R posterior ankle, 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 He has very damaged tissues of his legs and this is one of multiple recurrent pressure ulcers that he develops in this edematous R lower leg/ankle. He isn't sure when this reoccurred but thinks it has been since January or February. He has been treated by wound care nurse at [facility] where he resides. He has almost been healed several times but has never healed completely. It looks like Drawtex is what they have been using on the ulcer. A culture was done April 2018 which was positive for Pseudomonas. He was on an antibiotic but is no longer taking it. He reports that the ulcer is very painful. He reports that he has been in his bed mostly and elevates his legs/feet with a pillow under his calf and denies pressure on his heel. He underwent vascular testing which showed incompetence of veins in his right leg and was seen by Dr. Pearl who performed a venous ablation in mid November,. Progress of Wound: Shahzad is here today for follow up of ulceration of his Achilles area of his right ankle. His pain is improved to his ulcer area. He has tolerated application of Epifix and has shown improvement of his ulcer. He has started to develop a pressure injury to his lateral right leg from offloading his heel on a pillow but it is improving this week. Denies increase in drainage this week. He continues to wear foam booties. He denies fever or chills. - Physical Exam Vital Signs Temp Pulse Resp BP 97.1 F L 106 H 18 105/68 03/31/19 14:26 03/31/19 14:26 03/31/19 14:26 03/31/19 14:26 General: Alert, Oriented x3, Cooperative, No apparent distress HEENT: Atraumatic, Normocephalic Oral: Moist Mucosa Abdomen: Obese Extremities: Edema Skin: Ulcer/ Wound Wound Measurements and Assessment WC - Nurse 1 - General Ulcer Measurement Start: 03/31/19 14:26 Freq: Status: Active Protocol: Activity Type Activity Date Activity User E-Sign Co-Sign Detail Recorded Client Recorded Date Recorded By Document 03/31/19 14:26 [id number] 03/31/19 14:28 RB 03/31/19 14:26 Wound Center Nurse 1 [Ulcer Assessment] #5 Right Achilles -Combined with other wound No -Current Size (cm) - Length 4 -Current Size (cm) - Width 5.5 -Current Size (cm) - Depth 0.1 -Total Square Cm 22.0 -Tunneling No -Undermining/Tunneling No -Circular Undermining No -Exudate Amt Medium -Exudate Type Serosanguineous -Wound Margin Flat & Intact -Granulation Amt Medium (34-66%) -Granulation Quality [place],Red -Slough/Fibrin Yes -Necrosis Amt Medium (34-66%) -Necrotic Tissue Type Adherent Slough -Structure Exposed N/A -Texture (Sanam-wound Skin Appearance) Assessed, Excoriation, Friable -Moisture (Sanam-wound Skin Appearance Assessed, ) Maceration,Dry/ Scaly -Color (Sanam-wound Skin Appearance) Assessed, Erythema -Temperature (Sanam-wound Skin No Abnormality Appearance) (Pt Warm) -Tenderness on Palpation (Sanam-wound No Skin Appearance) -Ulcer Cleansing Wound Cleanser -Foul Odor after Cleansing No -Anesthetic Used 4% Lidocaine Solution WC - Nurse 2 - General Ulcer CM Notes Start: 03/31/19 14:26 Freq: Status: Active Protocol: Activity Type Activity Date Activity User E-Sign Co-Sign Detail Recorded Client Recorded Date Recorded By Document 03/31/19 15:37 DV [id number] 03/31/19 15:49 DV 03/31/19 15:37 Wound Center Nurse 2 [Procedure/Treatment] -Time 15:38 -Correct Patient Yes -Correct Side, Site, Position Yes -Correct Procedure Yes -Procedure Performed Yes -Type of Procedure Debridement -Clinical Debridement Subcutaneous -Post Debridement Size (cm) - Length 4.3 -Post Debridement Size (cm) - Width 3.0 -Post Debridement Size (cm) - Depth 0.1 -Total Square Cm 12.90 -Wound/Ulcer Outcome Not Healed -Ulcer Cleansing Rinsed/ Irrigated with Saline -Foul Odor after Cleansing No -Bioengineered Tissue Yes -Type of bioengineered Tissue EPIFIX -Expiration Date 09/25/23 -Product Lot Number [id number] -Percent Used 100 -Bleeding Controlled with Pressure -Offloading No -Treatment Response Procedure Tolerated Well [See Physician Procedure note for Specifics] Pain Scale: 0-10 Numeric [Pain] -Is Patient Pain Free? Yes Psych/Mental Status: Normal Affect, Appropriate Debridement Note Post-Debridement Measurements/Treatment WC - Nurse 2 - General Ulcer CM Notes Start: 03/31/19 14:26 Freq: Status: Active Protocol: Activity Type Activity Date Activity User E-Sign Co-Sign Detail Recorded Client Recorded Date Recorded By Document 03/31/19 15:37 DV [id number] 03/31/19 15:49 DV 03/31/19 15:37 Wound Center Nurse 2 #5 Right Achilles -Time 15:38 -Correct Patient Yes -Correct Side, Site, Position Yes -Correct Procedure Yes -Procedure Performed Yes -Type of Procedure Debridement -Clinical Debridement Subcutaneous -Post Debridement Size (cm) - Length 4.3 -Post Debridement Size (cm) - Width 3.0 -Post Debridement Size (cm) - Depth 0.1 -Total Square Cm 12.90 -Wound/Ulcer Outcome Not Healed -Ulcer Cleansing Rinsed/ Irrigated with Saline -Foul Odor after Cleansing No -Bioengineered Tissue Yes -Type of bioengineered Tissue EPIFIX -Expiration Date 09/25/23 -Product Lot Number [id number] -Percent Used 100 -Bleeding Controlled with Pressure -Offloading No -Treatment Response Procedure Tolerated Well Pain Scale: 0-10 Numeric Is Patient Pain Free? Yes Wound debrided: right achilles Laterality: Right Type of Debridement: Excisional debridement Anesthesia Used: 4% Lidocaine Solution, 5% Lidocaine Gel Depth: Down to and including healthy tissue, in the subcutaneous layer Percentage of wound debrided: 100 Instrument Used: 5mm curette Tissue Removed: yellow slough, devitalized tissue Severity: Fat Layer Exposed Amount of bleeding with debridement: Mild Bleeding Controlled with: Compression and gauze Patient tolerated procedure well Assessment/Plan Active Problems Venous stasis ulcer of right ankle with fat layer exposed (Chronic) posterior and medial ankle Pressure ulcer of right ankle, stage 2 (Chronic) Spina bifida (Chronic) Assessment: 1) recurrent pressure ulcer of posterior leg in paraplegic w/spina bifida. Healing is very slow and likely because of poor quality of tissues. Offload boots seem very adequate. 2) venous stasis and edema. 3) spider veins with thrombosis right LE Plan: Shahzad's ulcer was evaluated and debrided today. Epifix #6 was applied to his ulcer today per it operations specialist guidelines and rehydrated with collagen hydrogel and covered with a wound veil and secured with steristrips. He tolerated this well and there has been improvement in his ulcer. Stressed importance of compression. He has chronic edema and venous insufficiency. He is wearing offloading booties to decrease pressure to his heels. He should continue these measures. He will continue tubigrips for compression. Encouraged increased protein intake and offloading was again reviewed. F/U 1 week.
[2019-04-07 14:41] VITALS: BP 111/65; PULSE 91; RESP 18; TEMP 36.1; BMI 33.2
--- NOTE | 2019-04-07 17:15 | PN.PCM_ITS ---
(1) Venous stasis ulcer of right ankle with fat layer exposed Status: Chronic Current Visit: Yes Qualifiers: Varicose vein presence: with varicose veins Qualified Code(s): I83.013 - Varicose veins of right lower extremity with ulcer of ankle; L97.312 - Non-pressure chronic ulcer of right ankle with fat layer exposed Code(s): I83.013 - Varicose veins of right lower extremity with ulcer of ankle; L97.312 - Non-pressure chronic ulcer of right ankle with fat layer exposed Comment: posterior and medial ankle (2) Pressure ulcer of right ankle, stage 2 Status: Chronic Current Visit: Yes Code(s): L89.512 - Pressure ulcer of right ankle, stage 2 (3) Spina bifida Status: Chronic Current Visit: Yes Qualifiers: Spinal region: unspecified Code(s): Q05.9 - Spina bifida, unspecified Type of Wound Date of Service: 04/07/19 Chief Complaint: recurrent R posterior ankle, 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 He has very damaged tissues of his legs and this is one of multiple recurrent pressure ulcers that he develops in this edematous R lower leg/ankle. He isn't sure when this reoccurred but thinks it has been since January or February. He has been treated by wound care nurse at [facility] where he resides. He has almost been healed several times but has never healed completely. It looks like Drawtex is what they have been using on the ulcer. A culture was done April 2018 which was positive for Pseudomonas. He was on an antibiotic but is no longer taking it. He reports that the ulcer is very painful. He reports that he has been in his bed mostly and elevates his legs/feet with a pillow under his calf and denies pressure on his heel. He underwent vascular testing which showed incompetence of veins in his right leg and was seen by Dr. Pearl who performed a venous ablation in mid November,. Progress of Wound: Shahzad is here today for follow up of ulceration of his Achilles area of his right ankle. His pain is improved to his ulcer area. He has tolerated application of Epifix and has shown improvement of his ulcer. Denies increase in drainage this week. He continues to wear foam booties. He denies fever or chills. - Physical Exam Vital Signs Temp Pulse Resp BP 97 F L 91 18 111/65 04/07/19 14:41 04/07/19 14:41 04/07/19 14:41 04/07/19 14:41 General: Alert, Oriented x3, Cooperative, No apparent distress HEENT: Atraumatic, Normocephalic Oral: Moist Mucosa Abdomen: Obese Extremities: Edema Skin: Ulcer/ Wound Wound Measurements and Assessment WC - Nurse 1 - General Ulcer Measurement Start: 03/31/19 14:26 Freq: Status: Active Protocol: Activity Type Activity Date Activity User E-Sign Co-Sign Detail Recorded Client Recorded Date Recorded By Document 04/07/19 14:41 RB [id number] 04/07/19 14:42 RB 04/07/19 14:41 Wound Center Nurse 1 [Ulcer Assessment] #5 Right Achilles -Combined with other wound No -Current Size (cm) - Length 1 -Current Size (cm) - Width 0.5 -Current Size (cm) - Depth 0.1 -Total Square Cm 0.5 -Tunneling No -Undermining/Tunneling No -Circular Undermining No -Exudate Amt Small -Exudate Type Serosanguineous -Wound Margin Flat & Intact -Granulation Amt Medium (34-66%) -Granulation Quality [place] -Slough/Fibrin Yes -Necrosis Amt Small (1-33%) -Necrotic Tissue Type Adherent Slough -Structure Exposed N/A -Texture (Sanam-wound Skin Appearance) Callus -Moisture (Sanam-wound Skin Appearance Dry/Scaly ) -Color (Sanam-wound Skin Appearance) Assessed -Temperature (Sanam-wound Skin No Abnormality Appearance) (Pt Warm) -Tenderness on Palpation (Sanam-wound No Skin Appearance) -Ulcer Cleansing Wound Cleanser -Foul Odor after Cleansing No -Anesthetic Used 4% Lidocaine Solution WC - Nurse 2 - General Ulcer CM Notes Start: 03/31/19 14:26 Freq: Status: Active Protocol: Activity Type Activity Date Activity User E-Sign Co-Sign Detail Recorded Client Recorded Date Recorded By Document 04/07/19 15:13 MW [id number] 04/07/19 15:26 MW 04/07/19 15:13 Wound Center Nurse 2 [Procedure/Treatment] -Time 15:14 -Correct Patient Yes -Correct Side, Site, Position Yes -Correct Procedure Yes -Procedure Performed Yes -Type of Procedure Debridement -Clinical Debridement Subcutaneous -Post Debridement Size (cm) - Length 4.4 -Post Debridement Size (cm) - Width 2.1 -Post Debridement Size (cm) - Depth 0.1 -Total Square Cm 9.24 -Wound/Ulcer Outcome Not Healed -Ulcer Cleansing Rinsed/ Irrigated with Saline -Foul Odor after Cleansing No -Bioengineered Tissue Yes -Type of bioengineered Tissue EPIFIX -Expiration Date 12/26/23 -Product Lot Number [id number] -Percent Used 100 -Bleeding Controlled with Pressure -Other C.HYDROGEL LOT #[id number] -Offloading No -Treatment Response Procedure Tolerated Well [See Physician Procedure note for Specifics] Pain Scale: 0-10 Numeric [Pain] -Is Patient Pain Free? Yes Psych/Mental Status: Normal Affect, Appropriate Debridement Note Post-Debridement Measurements/Treatment WC - Nurse 2 - General Ulcer CM Notes Start: 03/31/19 14:26 Freq: Status: Active Protocol: Activity Type Activity Date Activity User E-Sign Co-Sign Detail Recorded Client Recorded Date Recorded By Document 03/31/19 15:37 DV [id number] 03/31/19 15:49 DV Document 04/07/19 15:13 MW [id number] 04/07/19 15:26 MW 03/31/19 04/07/19 15:37 15:13 Wound Center Nurse 2 #5 Right Achilles -Time 15:38 15:14 -Correct Patient Yes Yes -Correct Side, Site, Position Yes Yes -Correct Procedure Yes Yes -Procedure Performed Yes Yes -Type of Procedure Debridement Debridement -Clinical Debridement Subcutaneous Subcutaneous -Post Debridement Size (cm) - Length 4.3 4.4 -Post Debridement Size (cm) - Width 3.0 2.1 -Post Debridement Size (cm) - Depth 0.1 0.1 -Total Square Cm 12.90 9.24 -Wound/Ulcer Outcome Not Healed Not Healed -Ulcer Cleansing Rinsed/ Rinsed/ Irrigated with Irrigated with Saline Saline -Foul Odor after Cleansing No No -Bioengineered Tissue Yes Yes -Type of bioengineered Tissue EPIFIX EPIFIX -Expiration Date 09/25/23 12/26/23 -Product Lot Number [id number] -Percent Used 100 100 -Bleeding Controlled with Pressure Pressure -Other C.HYDROGEL LOT #[id number] -Offloading No No -Treatment Response Procedure Procedure Tolerated Well Tolerated Well Pain Scale: 0-10 Numeric Is Patient Pain Free? Yes Yes Wound debrided: right achilles Laterality: Right Wound Grade/Stage: Stage 2 Type of Debridement: Excisional debridement Anesthesia Used: 4% Lidocaine Solution, 5% Lidocaine Gel Depth: Down to and including healthy tissue, in the subcutaneous layer Percentage of wound debrided: 100 Instrument Used: 5mm curette Tissue Removed: yellow slough, devitalized tissue Severity: Fat Layer Exposed Amount of bleeding with debridement: Mild Bleeding Controlled with: Compression and gauze Patient tolerated procedure well Assessment/Plan Active Problems Venous stasis ulcer of right ankle with fat layer exposed (Chronic) posterior and medial ankle Pressure ulcer of right ankle, stage 2 (Chronic) Spina bifida (Chronic) Assessment: 1) recurrent pressure ulcer of posterior leg in paraplegic w/spina bifida. Healing is very slow and likely because of poor quality of tissues. Offload boots seem very adequate. 2) venous stasis and edema. 3) spider veins with thrombosis right LE Plan: Shahzad's ulcer was evaluated and debrided today. Epifix #7 was applied to his ulcer today per senior formulation scientist guidelines and rehydrated with collagen hydrogel and covered with a wound veil and secured with steristrips. He tolerated this well and there has been improvement in his ulcer. Stressed importance of compression. He has chronic edema and venous insufficiency. He is wearing offloading booties to decrease pressure to his heels. He should continue these measures. He will continue tubigrips for compression. Encouraged increased protein intake and offloading was again reviewed. F/U 1 week.
[2019-04-14 09:21] VITALS: BP 127/68; PULSE 92; RESP 18; TEMP 36.6; BMI 33.2
--- NOTE | 2019-04-14 13:14 | PN.PCM_ITS ---
(1) Venous stasis ulcer of right ankle with fat layer exposed Status: Chronic Current Visit: Yes Qualifiers: Varicose vein presence: with varicose veins Qualified Code(s): I83.013 - Varicose veins of right lower extremity with ulcer of ankle; L97.312 - Non-pressure chronic ulcer of right ankle with fat layer exposed Code(s): I83.013 - Varicose veins of right lower extremity with ulcer of ankle; L97.312 - Non-pressure chronic ulcer of right ankle with fat layer exposed Comment: posterior and medial ankle (2) Pressure ulcer of right ankle, stage 2 Status: Chronic Current Visit: Yes Code(s): L89.512 - Pressure ulcer of right ankle, stage 2 (3) Spina bifida Status: Chronic Current Visit: Yes Qualifiers: Spinal region: unspecified Code(s): Q05.9 - Spina bifida, unspecified Type of Wound Date of Service: 04/14/19 Chief Complaint: recurrent R posterior ankle, 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 He has very damaged tissues of his legs and this is one of multiple recurrent pressure ulcers that he develops in this edematous R lower leg/ankle. He isn't sure when this reoccurred but thinks it has been since January or February. He has been treated by wound care nurse at [facility] where he resides. He has almost been healed several times but has never healed completely. It looks like Drawtex is what they have been using on the ulcer. A culture was done April 2018 which was positive for Pseudomonas. He was on an antibiotic but is no longer taking it. He reports that the ulcer is very painful. He reports that he has been in his bed mostly and elevates his legs/feet with a pillow under his calf and denies pressure on his heel. He underwent vascular testing which showed incompetence of veins in his right leg and was seen by Dr. Pearl who performed a venous ablation in mid November,. Progress of Wound: Shahzad is here today for follow up of ulceration of his Achilles area of his right ankle. His pain is improved somewhat to his ulcer area. He has tolerated application of Epifix and has shown improvement of his ulcer. Denies increase in drainage this week. He continues to wear foam booties. He denies fever or chills. - Physical Exam Vital Signs Temp Pulse Resp BP 97.8 F 92 18 127/68 H 04/14/19 09:21 04/14/19 09:21 04/14/19 09:21 04/14/19 09:21 General: Alert, Oriented x3, Cooperative, No apparent distress HEENT: Atraumatic, Normocephalic Oral: Moist Mucosa Abdomen: Obese Extremities: Edema Skin: Ulcer/ Wound Wound Measurements and Assessment WC - Nurse 1 - General Ulcer Measurement Start: 03/31/19 14:26 Freq: Status: Active Protocol: Activity Type Activity Date Activity User E-Sign Co-Sign Detail Recorded Client Recorded Date Recorded By Document 04/14/19 09:21 MW [id number] 04/14/19 09:26 MW 04/14/19 09:21 Wound Center Nurse 1 [Ulcer Assessment] #5 Right Achilles -Combined with other wound No -Current Size (cm) - Length 5.5 -Current Size (cm) - Width 3.1 -Current Size (cm) - Depth 0.1 -Total Square Cm 17.05 -Photo Taken No -Epithelialization None Present -Tunneling No -Undermining/Tunneling No -Circular Undermining No -Exudate Amt Small -Exudate Type Serosanguineous -Wound Margin Flat & Intact -Granulation Amt None Present (0 %) -Granulation Quality N/A -Slough/Fibrin Yes -Necrosis Amt Large (67-100%) -Necrotic Tissue Type Adherent Slough -Structure Exposed N/A -Texture (Sanam-wound Skin Appearance) Assessed, Scarring -Moisture (Sanam-wound Skin Appearance Assessed,Dry/ ) Scaly -Color (Sanam-wound Skin Appearance) Assessed, Ecchymosis -Temperature (Sanam-wound Skin No Abnormality Appearance) (Pt Warm) -Tenderness on Palpation (Sanam-wound No Skin Appearance) -Ulcer Cleansing SOAP AND WATER -Foul Odor after Cleansing No -Anesthetic Used 5% Lidocaine Gel [Edema Assessment] -Lower Limb Edema Present No WC - Nurse 2 - General Ulcer CM Notes Start: 03/31/19 14:26 Freq: Status: Active Protocol: Activity Type Activity Date Activity User E-Sign Co-Sign Detail Recorded Client Recorded Date Recorded By Document 04/14/19 10:20 MW [id number] 04/14/19 10:34 MW 04/14/19 10:20 Wound Center Nurse 2 [Procedure/Treatment] #5 Right Achilles -Time 10:24 -Correct Patient Yes -Correct Side, Site, Position Yes -Correct Procedure Yes -Procedure Performed Yes -Type of Procedure Debridement -Clinical Debridement Subcutaneous -Post Debridement Size (cm) - Length 4.5 -Post Debridement Size (cm) - Width 2.4 -Post Debridement Size (cm) - Depth 0.1 -Total Square Cm 10.80 -Wound/Ulcer Outcome Not Healed -Ulcer Cleansing Rinsed/ Irrigated with Saline -Foul Odor after Cleansing No -Bioengineered Tissue Yes -Type of bioengineered Tissue EPIFIX -Expiration Date 07/26/23 -Product Lot Number [id number] -Percent Used 100 -Bleeding Controlled with Pressure -Other C.HYDROGEL LOT# [id number] / EPIFIX 2X2 , 4UNITS -Offloading No -Treatment Response Procedure Tolerated Well [See Physician Procedure note for Specifics] Psych/Mental Status: Normal Affect, Appropriate Debridement Note Post-Debridement Measurements/Treatment WC - Nurse 2 - General Ulcer CM Notes Start: 03/31/19 14:26 Freq: Status: Active Protocol: Activity Type Activity Date Activity User E-Sign Co-Sign Detail Recorded Client Recorded Date Recorded By Document 03/31/19 15:37 DV [id number] 03/31/19 15:49 DV Document 04/07/19 15:13 MW [id number] 04/07/19 15:26 MW Document 04/14/19 10:20 MW [id number] 04/14/19 10:34 MW 03/31/19 04/07/19 04/14/19 15:37 15:13 10:20 Wound Center Nurse 2 #5 Right Achilles -Time 15:38 15:14 10:24 -Correct Patient Yes Yes Yes -Correct Side, Site, Position Yes Yes Yes -Correct Procedure Yes Yes Yes -Procedure Performed Yes Yes Yes -Type of Procedure Debridement Debridement Debridement -Clinical Debridement Subcutaneous Subcutaneous Subcutaneous -Post Debridement Size (cm) - Length 4.3 4.4 4.5 -Post Debridement Size (cm) - Width 3.0 2.1 2.4 -Post Debridement Size (cm) - Depth 0.1 0.1 0.1 -Total Square Cm 12.90 9.24 10.80 -Wound/Ulcer Outcome Not Healed Not Healed Not Healed -Ulcer Cleansing Rinsed/ Rinsed/ Rinsed/ Irrigated with Irrigated with Irrigated with Saline Saline Saline -Foul Odor after Cleansing No No No -Bioengineered Tissue Yes Yes Yes -Type of bioengineered Tissue EPIFIX EPIFIX EPIFIX -Expiration Date 09/25/23 12/26/23 07/26/23 -Product Lot Number [id number] -Percent Used 100 100 100 -Bleeding Controlled with Pressure Pressure Pressure -Other C.HYDROGEL LOT C.HYDROGEL LOT# #[id number] / EPIFIX 2X2 , 4UNITS -Offloading No No No -Treatment Response Procedure Procedure Procedure Tolerated Well Tolerated Well Tolerated Well Pain Scale: 0-10 Numeric Is Patient Pain Free? Yes Yes Wound debrided: Right Achilles Laterality: Right Type of Debridement: Excisional debridement Anesthesia Used: 4% Lidocaine Solution, 5% Lidocaine Gel Depth: Down to and including healthy tissue, in the subcutaneous layer Percentage of wound debrided: 100 Instrument Used: 5mm curette Tissue Removed: yellow slough, devitalized tissue Severity: Fat Layer Exposed Amount of bleeding with debridement: Mild Bleeding Controlled with: Compression and gauze Patient tolerated procedure well Assessment/Plan Active Problems Venous stasis ulcer of right ankle with fat layer exposed (Chronic) posterior and medial ankle Pressure ulcer of right ankle, stage 2 (Chronic) Spina bifida (Chronic) Assessment: 1) recurrent pressure ulcer of posterior leg in paraplegic w/spina bifida. Healing is very slow and likely because of poor quality of tissues. Offload boots seem very adequate. 2) venous stasis and edema. 3) spider veins with thrombosis right LE Plan: Shahzad's ulcer was evaluated and debrided today. Epifix #8 was applied to his ulcer today per profiling machine setup operator guidelines and rehydrated with collagen hydrogel and covered with a wound veil and secured with steristrips. He tolerated this well and there has been improvement in his ulcer. Stressed importance of compression. He has chronic edema and venous insufficiency. He is wearing offloading booties to decrease pressure to his heels. He should continue these measures. He shows evidence of pressure to his lateral right leg as well as to the ulcer area today. Stressed off-loading. He will continue tubigrips for compression. Encouraged increased protein intake and offloading was again reviewed. F/U 1 week.
[2019-04-21 15:16] VITALS: BP 122/67; PULSE 102; RESP 18; TEMP 36.6; BMI 33.2
--- NOTE | 2019-04-21 18:20 | PN.PCM_ITS ---
(1) Venous stasis ulcer of right ankle with fat layer exposed Status: Chronic Qualifiers: Varicose vein presence: with varicose veins Qualified Code(s): I83.013 - Varicose veins of right lower extremity with ulcer of ankle; L97.312 - Non- pressure chronic ulcer of right ankle with fat layer exposed Code(s): I83.013 - Varicose veins of right lower extremity with ulcer of ankle; L97.312 - Non-pressure chronic ulcer of right ankle with fat layer exposed Comment: posterior and medial ankle (2) Pressure ulcer of right ankle, stage 2 Status: Chronic Code(s): L89.512 - Pressure ulcer of right ankle, stage 2 (3) Spina bifida Status: Chronic Qualifiers: Spinal region: unspecified Code(s): Q05.9 - Spina bifida, unspecified Type of Wound Date of Service: 04/21/19 Chief Complaint: recurrent R posterior ankle, 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 He has very damaged tissues of his legs and this is one of multiple recurrent pressure ulcers that he develops in this edematous R lower leg/ankle. He isn't sure when this reoccurred but thinks it has been since January or February. He has been treated by wound care nurse at [facility] where he resides. He has almost been healed several times but has never healed completely. It looks like Drawtex is what they have been using on the ulcer. A culture was done April 2018 which was positive for Pseudomonas. He was on an antibiotic but is no longer taking it. He reports that the ulcer is very painful. He reports that he has been in his bed mostly and elevates his legs/feet with a pillow under his calf and denies pressure on his heel. He underwent vascular testing which showed incompetence of veins in his right leg and was seen by Dr. Pearl who performed a venous ablation in mid November,. Progress of Wound: Shahzad is here today for follow up of ulceration of his Achilles area of his right ankle. His pain is improved somewhat to his ulcer area. He has tolerated application of Epifix and has shown significant improvement of his ulcer. Denies increase in drainage this week. He continues to wear foam booties. He denies fever or chills. - Physical Exam Vital Signs Temp Pulse Resp BP 97.9 F 102 H 18 122/67 H 04/21/19 15:16 04/21/19 15:16 04/21/19 15:16 04/21/19 15:16 General: Alert, Oriented x3, Cooperative, No apparent distress HEENT: Atraumatic, Normocephalic Oral: Moist Mucosa Abdomen: Obese Extremities: Edema Skin: Ulcer/ Wound Wound Measurements and Assessment WC - Nurse 1 - General Ulcer Measurement Start: 03/31/19 14:26 Freq: Status: Active Protocol: Activity Type Activity Date Activity User E-Sign Co-Sign Detail Recorded Client Recorded Date Recorded By Document 04/21/19 15:16 RB [id number] 04/21/19 15:18 RB 04/21/19 15:16 Wound Center Nurse 1 [Ulcer Assessment] #5 Right Achilles -Combined with other wound No -Current Size (cm) - Length 0.1 -Current Size (cm) - Width 0.1 -Current Size (cm) - Depth 0.1 -Total Square Cm 0.01 -Tunneling No -Undermining/Tunneling No -Circular Undermining No -Exudate Amt Small -Exudate Type Serosanguineous -Wound Margin Flat & Intact -Granulation Amt Large (67-100%) -Granulation Quality [place],Red -Slough/Fibrin Yes -Necrosis Amt Small (1-33%) -Necrotic Tissue Type Adherent Slough -Structure Exposed N/A -Texture (Sanam-wound Skin Appearance) Friable, Scarring -Moisture (Sanam-wound Skin Appearance Assessed ) -Color (Sanam-wound Skin Appearance) Assessed -Temperature (Sanam-wound Skin No Abnormality Appearance) (Pt Warm) -Tenderness on Palpation (Sanam-wound No Skin Appearance) -Ulcer Cleansing Wound Cleanser -Foul Odor after Cleansing No -Anesthetic Used 5% Lidocaine Gel WC - Nurse 2 - General Ulcer CM Notes Start: 03/31/19 14:26 Freq: Status: Active Protocol: Activity Type Activity Date Activity User E-Sign Co-Sign Detail Recorded Client Recorded Date Recorded By Document 04/21/19 16:25 MW [id number] 04/21/19 16:33 MW 04/21/19 16:25 Wound Center Nurse 2 [Procedure/Treatment] -Time 16:28 -Correct Patient Yes -Correct Side, Site, Position Yes -Correct Procedure Yes -Procedure Performed Yes -Type of Procedure Debridement -Clinical Debridement Subcutaneous -Post Debridement Size (cm) - Length 1.0 -Post Debridement Size (cm) - Width 0.7 -Post Debridement Size (cm) - Depth 0.1 -Total Square Cm 0.70 -Wound/Ulcer Outcome Not Healed -Ulcer Cleansing Rinsed/ Irrigated with Saline -Foul Odor after Cleansing No -Bioengineered Tissue No -Bleeding Controlled with Pressure -Offloading No -Treatment Response Procedure Tolerated Well [See Physician Procedure note for Specifics] Pain Scale: 0-10 Numeric [Pain] -Is Patient Pain Free? Yes Psych/Mental Status: Normal Affect, Appropriate Debridement Note Post-Debridement Measurements/Treatment WC - Nurse 2 - General Ulcer CM Notes Start: 03/31/19 14:26 Freq: Status: Active Protocol: Activity Type Activity Date Activity User E-Sign Co-Sign Detail Recorded Client Recorded Date Recorded By Document 03/31/19 15:37 DV [id number] 03/31/19 15:49 DV Document 04/07/19 15:13 MW [id number] 04/07/19 15:26 MW Document 04/14/19 10:20 MW [id number] 04/14/19 10:34 MW Document 04/21/19 16:25 MW [id number] 04/21/19 16:33 MW 03/31/19 04/07/19 04/14/19 15:37 15:13 10:20 Wound Center Nurse 2 #5 Right Achilles -Time 15:38 15:14 10:24 -Correct Patient Yes Yes Yes -Correct Side, Site, Position Yes Yes Yes -Correct Procedure Yes Yes Yes -Procedure Performed Yes Yes Yes -Type of Procedure Debridement Debridement Debridement -Clinical Debridement Subcutaneous Subcutaneous Subcutaneous -Post Debridement Size (cm) - Length 4.3 4.4 4.5 -Post Debridement Size (cm) - Width 3.0 2.1 2.4 -Post Debridement Size (cm) - Depth 0.1 0.1 0.1 -Total Square Cm 12.90 9.24 10.80 -Wound/Ulcer Outcome Not Healed Not Healed Not Healed -Ulcer Cleansing Rinsed/ Rinsed/ Rinsed/ Irrigated with Irrigated with Irrigated with Saline Saline Saline -Foul Odor after Cleansing No No No -Bioengineered Tissue Yes Yes Yes -Type of bioengineered Tissue EPIFIX EPIFIX EPIFIX -Expiration Date 09/25/23 12/26/23 07/26/23 -Product Lot Number [id number] -Percent Used 100 100 100 -Bleeding Controlled with Pressure Pressure Pressure -Other C.HYDROGEL LOT C.HYDROGEL LOT# #[id number] / EPIFIX 2X2 , 4UNITS -Offloading No No No -Treatment Response Procedure Procedure Procedure Tolerated Well Tolerated Well Tolerated Well Pain Scale: 0-10 Numeric Is Patient Pain Free? Yes Yes 04/21/19 16:25 Wound Center Nurse 2 #5 Right Achilles -Time 16:28 -Correct Patient Yes -Correct Side, Site, Position Yes -Correct Procedure Yes -Procedure Performed Yes -Type of Procedure Debridement -Clinical Debridement Subcutaneous -Post Debridement Size (cm) - Length 1.0 -Post Debridement Size (cm) - Width 0.7 -Post Debridement Size (cm) - Depth 0.1 -Total Square Cm 0.70 -Wound/Ulcer Outcome Not Healed -Ulcer Cleansing Rinsed/ Irrigated with Saline -Foul Odor after Cleansing No -Bioengineered Tissue No -Type of bioengineered Tissue -Expiration Date -Product Lot Number -Percent Used -Bleeding Controlled with Pressure -Other -Offloading No -Treatment Response Procedure Tolerated Well Pain Scale: 0-10 Numeric Is Patient Pain Free? Yes Wound debrided: Right Achilles Laterality: Right Wound Grade/Stage: Stage 2 Type of Debridement: Excisional debridement Anesthesia Used: 4% Lidocaine Solution, 5% Lidocaine Gel Depth: Down to and including healthy tissue, in the subcutaneous layer Percentage of wound debrided: 100 Instrument Used: 5mm curette Tissue Removed: yellow slough, devitalized tissue Severity: Fat Layer Exposed Amount of bleeding with debridement: Mild Bleeding Controlled with: Compression and gauze Patient tolerated procedure well Assessment/Plan Assessment: 1) recurrent pressure ulcer of posterior leg in paraplegic w/spina b ifida. Healing is very slow and likely because of poor quality of tissues. Offload boots seem very adequate. 2) venous stasis and edema. 3) spider veins with thrombosis right LE Plan: Shahzad's ulcer was evaluated and debrided today. Epifix #9 was applied to his ulcer today per pharmacy tech customer service guidelines and rehydrated with collagen hydrogel and covered with a wound veil and secured with steristrips. He tolerated this well and there has been improvement in his ulcer. Stressed importance of compression. He has chronic edema and venous insufficiency. He is wearing offloading booties to decrease pressure to his heels. He should continue these measures. He shows evidence of pressure to his lateral right leg as well as to the ulcer area today. Stressed off-loading. He will continue tubigrips for compression. Encouraged increased protein intake and offloading was again reviewed. F/U 1 week.
== END 2019-04-25 23:59 ==
LOC: WC 15:30
PROVIDERS: Family Provider Family Medicine; PCP Family Medicine; Referring Provider Family Medicine; Visit Provider Family Medicine
DX: I83.013 Varicose veins of right lower extremity with ulcer of ankle (principal); Q05.9 Spina bifida, unspecified; L89.512 Pressure ulcer of right ankle, stage 2; Z91.19 Patient's noncompliance with other medical treatment and regimen
CPT/HCPCS: 11042; 15271; Q4186

== ENCOUNTER 2019-05-19 11:30 | Outpatient (RCR) | payer MEDICARE, MEDICAID, SELFPAY ==
[2019-04-26 00:27] VITALS: BP 122/67; PULSE 102; RESP 18; TEMP 36.6
[2019-04-28 09:36] VITALS: BP 132/77; PULSE 94; RESP 18; TEMP 36.2; BMI 33.2
--- NOTE | 2019-04-28 10:18 | PCM.WC.PN ---
(1) Venous stasis ulcer of right ankle with fat layer exposed Status: Chronic Current Visit: Yes Qualifiers: Varicose vein presence: with varicose veins Qualified Code(s): I83.013 - Varicose veins of right lower extremity with ulcer of ankle; L97.312 - Non-pressure chronic ulcer of right ankle with fat layer exposed Code(s): I83.013 - Varicose veins of right lower extremity with ulcer of ankle; L97.312 - Non-pressure chronic ulcer of right ankle with fat layer exposed Comment: posterior and medial ankle (2) Pressure ulcer of right ankle, stage 2 Status: Chronic Current Visit: Yes Code(s): L89.512 - Pressure ulcer of right ankle, stage 2 (3) Spina bifida Status: Chronic Current Visit: Yes Qualifiers: Spinal region: unspecified Presence of hydrocephalus: unspecified hydrocephalus presence Qualified Code(s): Q05.9 - Spina bifida, unspecified Code(s): Q05.9 - Spina bifida, unspecified Type of Wound Date of Service: 04/28/19 Chief Complaint: recurrent R posterior ankle, 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 He has very damaged tissues of his legs and this is one of multiple recurrent pressure ulcers that he develops in this edematous R lower leg/ankle. He isn't sure when this reoccurred but thinks it has been since January or February. He has been treated by wound care nurse at [facility] where he resides. He has almost been healed several times but has never healed completely. It looks like Drawtex is what they have been using on the ulcer. A culture was done April 2018 which was positive for Pseudomonas. He was on an antibiotic but is no longer taking it. He reports that the ulcer is very painful. He reports that he has been in his bed mostly and elevates his legs/feet with a pillow under his calf and denies pressure on his heel. He underwent vascular testing which showed incompetence of veins in his right leg and was seen by Dr. Pearl who performed a venous ablation in mid November,. Progress of Wound: Shahzad is here today for follow up of ulceration of his Achilles area of his right ankle. His pain is improved somewhat to his ulcer area. He tolerated Promogran but has not had any improvement in his ulcer. Denies increase in drainage this week. He continues to wear foam booties. He denies fever or chills. - Physical Exam Vital Signs Temp Pulse Resp BP 97.1 F L 94 18 132/77 H 04/28/19 09:36 04/28/19 09:36 04/28/19 09:36 04/28/19 09:36 General: Alert, Oriented x3, Cooperative, No apparent distress HEENT: Atraumatic, Normocephalic Oral: Moist Mucosa Abdomen: Obese Extremities: Edema Skin: Ulcer/ Wound Wound Measurements and Assessment WC - Nurse 1 - General Ulcer Measurement Start: 04/28/19 09:36 Freq: Status: Active Protocol: Activity Type Activity Date Activity User E-Sign Co-Sign Detail Recorded Client Recorded Date Recorded By Document 04/28/19 09:36 [id number] 04/28/19 09:37 MIRIAM 04/28/19 09:36 Wound Center Nurse 1 [Ulcer Assessment] #5 Right Achilles -Combined with other wound No -Current Size (cm) - Length 1.0 -Current Size (cm) - Width 0.5 -Current Size (cm) - Depth 0.1 -Total Square Cm 0.50 -Photo Taken No -Epithelialization Large 67-100% -Tunneling No -Undermining/Tunneling No -Circular Undermining No -Exudate Amt Small -Exudate Type Serosanguineous -Wound Margin Flat & Intact -Granulation Amt Medium (34-66%) -Granulation Quality Red -Slough/Fibrin Yes -Necrosis Amt Medium (34-66%) -Necrotic Tissue Type Adherent Slough -Structure Exposed N/A -Texture (Sanam-wound Skin Appearance) Assessed, Friable, Localized Edema -Moisture (Sanam-wound Skin Appearance Assessed,Dry/ ) Scaly -Color (Asnam-wound Skin Appearance) Assessed -Temperature (Sanam-wound Skin No Abnormality Appearance) (Pt Warm) -Tenderness on Palpation (Sanam-wound No Skin Appearance) -Ulcer Cleansing Rinsed/ Irrigated with Saline -Foul Odor after Cleansing No -Anesthetic Used 4% Lidocaine Solution [Edema Assessment] -Lower Limb Edema Present Yes -Right Calf (cm) 41.5 -Right Ankle (cm) 21.5 WC - Nurse 2 - General Ulcer CM Notes Start: 04/28/19 09:36 Freq: Status: Active Protocol: Activity Type Activity Date Activity User E-Sign Co-Sign Detail Recorded Client Recorded Date Recorded By Document 04/28/19 09:51 MW [id number] 04/28/19 10:04 MW 04/28/19 09:51 Wound Center Nurse 2 [Procedure/Treatment] #5 Right Achilles -Time 09:52 -Correct Patient Yes -Correct Side, Site, Position Yes -Correct Procedure Yes -Procedure Performed Yes -Type of Procedure Debridement -Clinical Debridement Subcutaneous -Post Debridement Size (cm) - Length 1.5 -Post Debridement Size (cm) - Width 1.7 -Post Debridement Size (cm) - Depth 0.1 -Total Square Cm 2.55 -Wound/Ulcer Outcome Not Healed -Ulcer Cleansing Rinsed/ Irrigated with Saline -Foul Odor after Cleansing No -Bioengineered Tissue Yes -Type of bioengineered Tissue EPIFIX -Expiration Date 12/26/23 -Product Lot Number [id number] -Percent Used 100 -Bleeding Controlled with Pressure -Other C.HYDROGEL LOT# [id number], EPIFIX 18.0MM DISC APPLIED -Offloading No -Treatment Response Procedure Tolerated Well [See Physician Procedure note for Specifics] Pain Scale: 0-10 Numeric [Pain] -Is Patient Pain Free? Yes Psych/Mental Status: Normal Affect, Appropriate Debridement Note Post-Debridement Measurements/Treatment - Nurse 2 - General Ulcer CM Notes Start: 04/28/19 09:36 Freq: Status: Active Protocol: Activity Type Activity Date Activity User E-Sign Co-Sign Detail Recorded Client Recorded Date Recorded By Document 04/28/19 09:51 MW [id number] 04/28/19 10:04 MW 04/28/19 09:51 Wound Center Nurse 2 #5 Right Achilles -Time 09:52 -Correct Patient Yes -Correct Side, Site, Position Yes -Correct Procedure Yes -Procedure Performed Yes -Type of Procedure Debridement -Clinical Debridement Subcutaneous -Post Debridement Size (cm) - Length 1.5 -Post Debridement Size (cm) - Width 1.7 -Post Debridement Size (cm) - Depth 0.1 -Total Square Cm 2.55 -Wound/Ulcer Outcome Not Healed -Ulcer Cleansing Rinsed/ Irrigated with Saline -Foul Odor after Cleansing No -Bioengineered Tissue Yes -Type of bioengineered Tissue EPIFIX -Expiration Date 12/26/23 -Product Lot Number [id number] -Percent Used 100 -Bleeding Controlled with Pressure -Other C.HYDROGEL LOT# [id number], EPIFIX 18.0MM DISC APPLIED -Offloading No -Treatment Response Procedure Tolerated Well Pain Scale: 0-10 Numeric Is Patient Pain Free? Yes Wound debrided: right achilles Laterality: Right Wound Grade/Stage: Stage 2 Type of Debridement: Excisional debridement Anesthesia Used: 4% Lidocaine Solution, 5% Lidocaine Gel Depth: Down to and including healthy tissue, in the subcutaneous layer Percentage of wound debrided: 100 Instrument Used: 5mm curette Tissue Removed: yellow slough, devitalized tissue Severity: Fat Layer Exposed Amount of bleeding with debridement: Mild Bleeding Controlled with: Compression and gauze Patient tolerated procedure well Assessment/Plan Active Problems Venous stasis ulcer of right ankle with fat layer exposed (Chronic) posterior and medial ankle Pressure ulcer of right ankle, stage 2 (Chronic) Spina bifida (Chronic) Assessment: 1) recurrent pressure ulcer of posterior leg in paraplegic w/spina bifida. Healing is very slow and likely because of poor quality of tissues. Offload boots seem very adequate. 2) venous stasis and edema. 3) spider veins with thrombosis right LE Plan: Glorys ulcer was evaluated and debrided today. Epifix #10 was applied to his ulcer today per residential property tax appraiser guidelines and rehydrated with collagen hydrogel and covered with a wound veil and secured with steristrips. He tolerated this well and there has been improvement in his ulcer. Stressed importance of compression. He has chronic edema and venous insufficiency. He is wearing offloading booties to decrease pressure to his heels. He should continue these measures. He shows evidence of pressure to his lateral right leg as well as to the ulcer area today. Stressed off-loading. He will continue tubigrips for compression. Encouraged increased protein intake and offloading was again reviewed. F/U 1 week.
[2019-05-05 12:00] VITALS: BP 134/78; PULSE 92; RESP 18; TEMP 36.4; BMI 33.2
--- NOTE | 2019-05-05 15:34 | PCM.WC.PN ---
(1) Venous stasis ulcer of right ankle with fat layer exposed Status: Chronic Current Visit: Yes Qualifiers: Varicose vein presence: with varicose veins Qualified Code(s): I83.013 - Varicose veins of right lower extremity with ulcer of ankle; L97.312 - Non-pressure chronic ulcer of right ankle with fat layer exposed Code(s): I83.013 - Varicose veins of right lower extremity with ulcer of ankle; L97.312 - Non-pressure chronic ulcer of right ankle with fat layer exposed Comment: posterior and medial ankle (2) Pressure ulcer of right ankle, stage 2 Status: Chronic Current Visit: Yes Code(s): L89.512 - Pressure ulcer of right ankle, stage 2 (3) Spina bifida Status: Chronic Current Visit: Yes Qualifiers: Spinal region: unspecified Presence of hydrocephalus: unspecified hydrocephalus presence Qualified Code(s): Q05.9 - Spina bifida, unspecified Code(s): Q05.9 - Spina bifida, unspecified Type of Wound Date of Service: 05/05/19 Chief Complaint: recurrent R posterior ankle, 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 He has very damaged tissues of his legs and this is one of multiple recurrent pressure ulcers that he develops in this edematous R lower leg/ankle. He isn't sure when this reoccurred but thinks it has been since January or February. He has been treated by wound care nurse at [facility], [place] where he resides. He has almost been healed several times but has never healed completely. It looks like Drawtex is what they have been using on the ulcer. A culture was done April 2018 which was positive for Pseudomonas. He was on an antibiotic but is no longer taking it. He reports that the ulcer is very painful. He reports that he has been in his bed mostly and elevates his legs/feet with a pillow under his calf and denies pressure on his heel. He underwent vascular testing which showed incompetence of veins in his right leg and was seen by Dr. Pearl who performed a venous ablation in mid November,. Progress of Wound: Shahzad is here today for follow up of ulceration of his Achilles area of his right ankle. His pain is improved somewhat to his ulcer area. He tolerated Epifix with improvement in his ulcer. Denies increase in drainage this week. He continues to wear foam booties. He denies fever or chills. - Physical Exam Vital Signs Temp Pulse Resp BP 97.5 F L 92 18 134/78 H 05/05/19 12:00 05/05/19 12:00 05/05/19 12:00 05/05/19 12:00 General: Alert, Oriented x3, Cooperative, No apparent distress HEENT: Atraumatic, Normocephalic Oral: Moist Mucosa Neck: Supple Abdomen: Obese Extremities: Edema Skin: Ulcer/ Wound Wound Measurements and Assessment WC - Nurse 1 - General Ulcer Measurement Start: 04/28/19 09:36 Freq: Status: Active Protocol: Activity Type Activity Date Activity User E-Sign Co-Sign Detail Recorded Client Recorded Date Recorded By Document 05/05/19 12:00 RB [id number] 05/05/19 12:02 RB 05/05/19 12:00 Wound Center Nurse 1 [Ulcer Assessment] #5 Right Achilles -Combined with other wound No -Current Size (cm) - Length 5 -Current Size (cm) - Width 5.5 -Current Size (cm) - Depth 0.1 -Total Square Cm 27.5 -Tunneling No -Undermining/Tunneling No -Circular Undermining No -Exudate Amt Small -Exudate Type Serosanguineous -Wound Margin Flat & Intact -Granulation Amt Medium (34-66%) -Granulation Quality [place],Red -Slough/Fibrin Yes -Necrosis Amt Medium (34-66%) -Necrotic Tissue Type Adherent Slough -Structure Exposed N/A -Texture (Sanam-wound Skin Appearance) Scarring -Moisture (Sanam-wound Skin Appearance Assessed ) -Color (Sanam-wound Skin Appearance) Assessed -Temperature (Sanam-wound Skin No Abnormality Appearance) (Pt Warm) -Tenderness on Palpation (Sanam-wound No Skin Appearance) -Foul Odor after Cleansing No -Anesthetic Used 4% Lidocaine Solution [Edema Assessment] -Lower Limb Edema Present Yes -Right Calf (cm) 42.5 -Right Ankle (cm) 20.5 WC - Nurse 2 - General Ulcer CM Notes Start: 04/28/19 09:36 Freq: Status: Active Protocol: Activity Type Activity Date Activity User E-Sign Co-Sign Detail Recorded Client Recorded Date Recorded By Document 05/05/19 12:43 DV [id number] 05/05/19 12:46 DV 05/05/19 12:43 Wound Center Nurse 2 [Procedure/Treatment] #5 Right Achilles -Time 12:43 -Correct Patient Yes -Correct Side, Site, Position Yes -Correct Procedure Yes -Procedure Performed Yes -Type of Procedure Debridement -Clinical Debridement Subcutaneous -Post Debridement Size (cm) - Length 0.5 -Post Debridement Size (cm) - Width 0.3 -Post Debridement Size (cm) - Depth 0.1 -Total Square Cm 0.15 -Wound/Ulcer Outcome Not Healed -Ulcer Cleansing Rinsed/ Irrigated with Saline -Foul Odor after Cleansing No -Bioengineered Tissue No -Bleeding Controlled with Pressure -Offloading No -Treatment Response Procedure Tolerated Well [See Physician Procedure note for Specifics] Pain Scale: 0-10 Numeric [Pain] -Is Patient Pain Free? Yes Psych/Mental Status: Normal Affect, Appropriate Debridement Note Post-Debridement Measurements/Treatment WC - Nurse 2 - General Ulcer CM Notes Start: 04/28/19 09:36 Freq: Status: Active Protocol: Activity Type Activity Date Activity User E-Sign Co-Sign Detail Recorded Client Recorded Date Recorded By Document 04/28/19 09:51 MW [id number] 04/28/19 10:04 MW Document 05/05/19 12:43 DV [id number] 05/05/19 12:46 DV 04/28/19 05/05/19 09:51 12:43 Wound Center Nurse 2 #5 Right Achilles -Time 09:52 12:43 -Correct Patient Yes Yes -Correct Side, Site, Position Yes Yes -Correct Procedure Yes Yes -Procedure Performed Yes Yes -Type of Procedure Debridement Debridement -Clinical Debridement Subcutaneous Subcutaneous -Post Debridement Size (cm) - Length 1.5 0.5 -Post Debridement Size (cm) - Width 1.7 0.3 -Post Debridement Size (cm) - Depth 0.1 0.1 -Total Square Cm 2.55 0.15 -Wound/Ulcer Outcome Not Healed Not Healed -Ulcer Cleansing Rinsed/ Rinsed/ Irrigated with Irrigated with Saline Saline -Foul Odor after Cleansing No No -Bioengineered Tissue Yes No -Type of bioengineered Tissue EPIFIX -Expiration Date 12/26/23 -Product Lot Number [id number] -Percent Used 100 -Bleeding Controlled with Pressure Pressure -Other C.HYDROGEL LOT# [id number], EPIFIX 18.0MM DISC APPLIED -Offloading No No -Treatment Response Procedure Procedure Tolerated Well Tolerated Well Pain Scale: 0-10 Numeric Is Patient Pain Free? Yes Yes Wound debrided: right Achilles Laterality: Right Type of Debridement: Excisional debridement Anesthesia Used: 4% Lidocaine Solution, 5% Lidocaine Gel Depth: Down to and including healthy tissue, in the subcutaneous layer Percentage of wound debrided: 100 Instrument Used: 5mm curette Tissue Removed: yellow slough, devitalized tissue Severity: Fat Layer Exposed Amount of bleeding with debridement: Mild Bleeding Controlled with: Compression and gauze Patient tolerated procedure well Assessment/Plan Active Problems Venous stasis ulcer of right ankle with fat layer exposed (Chronic) posterior and medial ankle Pressure ulcer of right ankle, stage 2 (Chronic) Spina bifida (Chronic) Assessment: 1) recurrent pressure ulcer of posterior leg in paraplegic w/spina bifida. Healing is very slow and likely because of poor quality of tissues. Offload boots seem very adequate. 2) venous stasis and edema. 3) spider veins with thrombosis right LE Plan: Shahzad's ulcer was evaluated and debrided today. Will return to treatment with Promogran as his ulcer is very small. Hopeful that he will be healed at next visit. He tolerated this well and there has been improvement in his ulcer. Stressed importance of compression. He has chronic edema and venous insufficiency. He is wearing offloading booties to decrease pressure to his heels. He should continue these measures. He shows evidence of pressure to his lateral right leg as well as to the ulcer area today. Stressed off-loading. He will continue tubigrips for compression. Encouraged increased protein intake and offloading was again reviewed. F/U 1 week.
[2019-05-12 10:55] VITALS: BP 115/78; PULSE 102; RESP 16; TEMP 36.3; BMI 33.2
--- NOTE | 2019-05-12 17:42 | PCM.WC.PN ---
(1) Venous stasis ulcer of right ankle with fat layer exposed Status: Chronic Current Visit: Yes Qualifiers: Varicose vein presence: with varicose veins Qualified Code(s): I83.013 - Varicose veins of right lower extremity with ulcer of ankle; L97.312 - Non-pressure chronic ulcer of right ankle with fat layer exposed Code(s): I83.013 - Varicose veins of right lower extremity with ulcer of ankle; L97.312 - Non-pressure chronic ulcer of right ankle with fat layer exposed Comment: posterior and medial ankle (2) Pressure ulcer of right ankle, stage 2 Status: Chronic Current Visit: Yes Code(s): L89.512 - Pressure ulcer of right ankle, stage 2 (3) Spina bifida Status: Chronic Current Visit: Yes Qualifiers: Spinal region: unspecified Presence of hydrocephalus: unspecified hydrocephalus presence Qualified Code(s): Q05.9 - Spina bifida, unspecified Code(s): Q05.9 - Spina bifida, unspecified Type of Wound Date of Service: 05/12/19 Chief Complaint: recurrent R posterior ankle, 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 He has very damaged tissues of his legs and this is one of multiple recurrent pressure ulcers that he develops in this edematous R lower leg/ankle. He isn't sure when this reoccurred but thinks it has been since January or February. He has been treated by wound care nurse at [facility] where he resides. He has almost been healed several times but has never healed completely. It looks like Drawtex is what they have been using on the ulcer. A culture was done April 2018 which was positive for Pseudomonas. He was on an antibiotic but is no longer taking it. He reports that the ulcer is very painful. He reports that he has been in his bed mostly and elevates his legs/feet with a pillow under his calf and denies pressure on his heel. He underwent vascular testing which showed incompetence of veins in his right leg and was seen by Dr. Pearl who performed a venous ablation in mid November,. Progress of Wound: Shahzad is here today for follow up of ulceration of his Achilles area of his right ankle. His pain is improved somewhat to his ulcer area. His ulcer is much improved and nearly healed. Denies increase in drainage this week. He continues to wear foam booties. He denies fever or chills. - Physical Exam Vital Signs Temp Pulse Resp BP 97.3 F L 102 H 16 115/78 05/12/19 10:55 05/12/19 10:55 05/12/19 10:55 05/12/19 10:55 General: Alert, Oriented x3, Cooperative, No apparent distress HEENT: Atraumatic, Normocephalic Oral: Moist Mucosa Abdomen: Obese Extremities: Edema Skin: Ulcer/ Wound Wound Measurements and Assessment - Nurse 1 - General Ulcer Measurement Start: 04/28/19 09:36 Freq: Status: Active Protocol: Activity Type Activity Date Activity User E-Sign Co-Sign Detail Recorded Client Recorded Date Recorded By Document 05/12/19 10:55 [facility] [id number] 05/12/19 10:59 [facility] 05/12/19 10:55 Wound Center Nurse 1 [Ulcer Assessment] #5 Right Achilles -Combined with other wound No -Current Size (cm) - Length 0.1 -Current Size (cm) - Width 0.1 -Current Size (cm) - Depth 0.1 -Total Square Cm 0.01 -Date of Last Picture (Recall this 05/12/19 field) -Photo Taken Yes -Epithelialization Large 67-100% -Tunneling No -Undermining/Tunneling No -Circular Undermining No -Exudate Amt None Present -Wound Margin Flat & Intact -Granulation Amt None Present (0 %) -Slough/Fibrin Yes -Necrosis Amt Small (1-33%) -Necrotic Tissue Type Adherent Slough -Texture (Sanam-wound Skin Appearance) Assessed, Scarring -Moisture (Sanam-wound Skin Appearance Assessed,Dry/ ) Scaly -Color (Sanam-wound Skin Appearance) Ecchymosis -Temperature (Sanam-wound Skin No Abnormality Appearance) (Pt Warm) -Tenderness on Palpation (Sanam-wound No Skin Appearance) -Ulcer Cleansing Rinsed/ Irrigated with Saline -Foul Odor after Cleansing No -Anesthetic Used 5% Lidocaine Gel - Nurse 2 - General Ulcer CM Notes Start: 04/28/19 09:36 Freq: Status: Active Protocol: Activity Type Activity Date Activity User E-Sign Co-Sign Detail Recorded Client Recorded Date Recorded By Document 05/12/19 11:28 DV [id number] 05/12/19 11:32 DV 05/12/19 11:28 Wound Center Nurse 2 [Procedure/Treatment] -Time 11:28 -Correct Patient Yes -Correct Side, Site, Position Yes -Correct Procedure Yes -Procedure Performed Yes -Type of Procedure Debridement -Clinical Debridement Subcutaneous -Post Debridement Size (cm) - Length 0.6 -Post Debridement Size (cm) - Width 0.2 -Post Debridement Size (cm) - Depth 0.1 -Total Square Cm 0.12 -Wound/Ulcer Outcome Not Healed -Ulcer Cleansing Rinsed/ Irrigated with Saline -Foul Odor after Cleansing No -Bioengineered Tissue No -Bleeding Controlled with Pressure -Offloading No -Treatment Response Procedure Tolerated Well [See Physician Procedure note for Specifics] Pain Scale: 0-10 Numeric [Pain] -Is Patient Pain Free? Yes Psych/Mental Status: Normal Affect, Appropriate Debridement Note Post-Debridement Measurements/Treatment WC - Nurse 2 - General Ulcer CM Notes Start: 04/28/19 09:36 Freq: Status: Active Protocol: Activity Type Activity Date Activity User E-Sign Co-Sign Detail Recorded Client Recorded Date Recorded By Document 04/28/19 09:51 MW [id number] 04/28/19 10:04 MW Document 05/05/19 12:43 DV [id number] 05/05/19 12:46 DV Document 05/12/19 11:28 DV [id number] 05/12/19 11:32 DV 04/28/19 05/05/19 05/12/19 09:51 12:43 11:28 Wound Center Nurse 2 #5 Right Achilles -Time 09:52 12:43 11:28 -Correct Patient Yes Yes Yes -Correct Side, Site, Position Yes Yes Yes -Correct Procedure Yes Yes Yes -Procedure Performed Yes Yes Yes -Type of Procedure Debridement Debridement Debridement -Clinical Debridement Subcutaneous Subcutaneous Subcutaneous -Post Debridement Size (cm) - Length 1.5 0.5 0.6 -Post Debridement Size (cm) - Width 1.7 0.3 0.2 -Post Debridement Size (cm) - Depth 0.1 0.1 0.1 -Total Square Cm 2.55 0.15 0.12 -Wound/Ulcer Outcome Not Healed Not Healed Not Healed -Ulcer Cleansing Rinsed/ Rinsed/ Rinsed/ Irrigated with Irrigated with Irrigated with Saline Saline Saline -Foul Odor after Cleansing No No No -Bioengineered Tissue Yes No No -Type of bioengineered Tissue EPIFIX -Expiration Date 12/26/23 -Product Lot Number [id number] -Percent Used 100 -Bleeding Controlled with Pressure Pressure Pressure -Other C.HYDROGEL LOT# [id number], EPIFIX 18.0MM DISC APPLIED -Offloading No No No -Treatment Response Procedure Procedure Procedure Tolerated Well Tolerated Well Tolerated Well Pain Scale: 0-10 Numeric Is Patient Pain Free? Yes Yes Yes Wound debrided: right achilles Laterality: Right Wound Grade/Stage: Stage 2 Type of Debridement: Excisional debridement Anesthesia Used: 4% Lidocaine Solution, 5% Lidocaine Gel Depth: Down to and including healthy tissue, in the subcutaneous layer Percentage of wound debrided: 100 Instrument Used: 3mm curette Tissue Removed: yellow slough, devitalized tissue Severity: Fat Layer Exposed Amount of bleeding with debridement: Mild Bleeding Controlled with: Compression and gauze Patient tolerated procedure well Assessment/Plan Active Problems Venous stasis ulcer of right ankle with fat layer exposed (Chronic) posterior and medial ankle Pressure ulcer of right ankle, stage 2 (Chronic) Spina bifida (Chronic) Assessment: 1) recurrent pressure ulcer of posterior leg in paraplegic w/spina bifida. Healing is very slow and likely because of poor quality of tissues. Offload boots seem very adequate. 2) venous stasis and edema. 3) spider veins with thrombosis right LE Plan: Shahzad's ulcer was evaluated and debrided today. Will continue treatment with Promogran as his ulcer is very small. Hopeful that he will be healed at next visit. He tolerated this well and there has been improvement in his ulcer. Stressed importance of compression and offloading. He has chronic edema and venous insufficiency. He is wearing offloading booties to decrease pressure to his heels. He should continue these measures. He shows evidence of pressure to his lateral right leg as well as to the ulcer area today. Stressed off-loading. He will continue tubigrips for compression. Encouraged increased protein intake and offloading was again reviewed. F/U 1 week.
[2019-05-19 11:47] VITALS: BP 125/81; PULSE 100; RESP 18; TEMP 37.2; BMI 33.2
--- NOTE | 2019-05-19 17:06 | PCM.WC.PN ---
(1) Venous stasis ulcer of right ankle with fat layer exposed Status: Chronic Current Visit: Yes Qualifiers: Varicose vein presence: with varicose veins Qualified Code(s): I83.013 - Varicose veins of right lower extremity with ulcer of ankle; L97.312 - Non-pressure chronic ulcer of right ankle with fat layer exposed Code(s): I83.013 - Varicose veins of right lower extremity with ulcer of ankle; L97.312 - Non-pressure chronic ulcer of right ankle with fat layer exposed Comment: posterior and medial ankle (2) Pressure ulcer of right ankle, stage 2 Status: Chronic Current Visit: Yes Code(s): L89.512 - Pressure ulcer of right ankle, stage 2 (3) Spina bifida Status: Chronic Current Visit: Yes Qualifiers: Spinal region: unspecified Presence of hydrocephalus: unspecified hydrocephalus presence Qualified Code(s): Q05.9 - Spina bifida, unspecified Code(s): Q05.9 - Spina bifida, unspecified Type of Wound Date of Service: 05/19/19 Chief Complaint: recurrent R posterior ankle, 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 He has very damaged tissues of his legs and this is one of multiple recurrent pressure ulcers that he develops in this edematous R lower leg/ankle. He isn't sure when this reoccurred but thinks it has been since January or February. He has been treated by wound care nurse at [facility] where he resides. He has almost been healed several times but has never healed completely. It looks like Drawtex is what they have been using on the ulcer. A culture was done April 2018 which was positive for Pseudomonas. He was on an antibiotic but is no longer taking it. He reports that the ulcer is very painful. He reports that he has been in his bed mostly and elevates his legs/feet with a pillow under his calf and denies pressure on his heel. He underwent vascular testing which showed incompetence of veins in his right leg and was seen by Dr. Pearl who performed a venous ablation in mid November,. Progress of Wound: Shahzad is here today for follow up of ulceration of his Achilles area of his right ankle. This is healed. - Physical Exam Vital Signs Temp Pulse Resp BP 98.9 F 100 18 125/81 H 05/19/19 11:47 05/19/19 11:47 05/19/19 11:47 05/19/19 11:47 General: Alert, Oriented x3, Cooperative, No apparent distress HEENT: Atraumatic, Normocephalic Oral: Moist Mucosa Skin: Ulcer/ Wound Wound Measurements and Assessment WC - Nurse 1 - General Ulcer Measurement Start: 04/28/19 09:36 Freq: Status: Active Protocol: Activity Type Activity Date Activity User E-Sign Co-Sign Detail Recorded Client Recorded Date Recorded By Document 05/19/19 11:47 RB [id number] 05/19/19 11:48 RB 05/19/19 11:47 Wound Center Nurse 1 [Ulcer Assessment] #5 Right Achilles -Combined with other wound No -Current Size (cm) - Length 0.1 -Current Size (cm) - Width 0.1 -Current Size (cm) - Depth 0.1 -Total Square Cm 0.01 -Tunneling No -Undermining/Tunneling No -Circular Undermining No -Exudate Amt None Present -Wound Margin Fibrotic Scar, Thickened Scar -Granulation Amt Large (67-100%) -Granulation Quality Schubert -Slough/Fibrin Yes -Necrosis Amt Small (1-33%) -Necrotic Tissue Type Adherent Slough -Structure Exposed N/A -Texture (Sanam-wound Skin Appearance) Assessed -Moisture (Sanam-wound Skin Appearance Assessed,Dry/ ) Scaly -Color (Sanam-wound Skin Appearance) Assessed -Temperature (Sanam-wound Skin No Abnormality Appearance) (Pt Warm) -Tenderness on Palpation (Sanam-wound No Skin Appearance) -Ulcer Cleansing Wound Cleanser -Foul Odor after Cleansing No -Anesthetic Used 4% Lidocaine Solution WC - Nurse 2 - General Ulcer CM Notes Start: 04/28/19 09:36 Freq: Status: Active Protocol: Activity Type Activity Date Activity User E-Sign Co-Sign Detail Recorded Client Recorded Date Recorded By Document 05/19/19 11:54 DV [id number] 05/19/19 11:55 DV 05/19/19 11:54 Wound Center Nurse 2 [Procedure/Treatment] -Time 11:54 -Correct Patient Yes -Correct Side, Site, Position Yes -Correct Procedure Yes -Procedure Performed Yes -Type of Procedure Debridement -Clinical Debridement Subcutaneous -Post Debridement Size (cm) - Length 0 -Post Debridement Size (cm) - Width 0 -Post Debridement Size (cm) - Depth 0 -Total Square Cm 0 -Wound/Ulcer Outcome Healed- Epithelialized [See Physician Procedure note for Specifics] Pain Scale: 0-10 Numeric [Pain] -Is Patient Pain Free? Yes Psych/Mental Status: Normal Affect, Appropriate Debridement Note Post-Debridement Measurements/Treatment WC - Nurse 2 - General Ulcer CM Notes Start: 04/28/19 09:36 Freq: Status: Active Protocol: Activity Type Activity Date Activity User E-Sign Co-Sign Detail Recorded Client Recorded Date Recorded By Document 04/28/19 09:51 MW [id number] 04/28/19 10:04 MW Document 05/05/19 12:43 DV [id number] 05/05/19 12:46 DV Document 05/12/19 11:28 DV [id number] 05/12/19 11:32 DV Document 05/19/19 11:54 DV [id number] 05/19/19 11:55 DV 04/28/19 05/05/19 05/12/19 09:51 12:43 11:28 Wound Center Nurse 2 #5 Right Achilles -Time 09:52 12:43 11:28 -Correct Patient Yes Yes Yes -Correct Side, Site, Position Yes Yes Yes -Correct Procedure Yes Yes Yes -Procedure Performed Yes Yes Yes -Type of Procedure Debridement Debridement Debridement -Clinical Debridement Subcutaneous Subcutaneous Subcutaneous -Post Debridement Size (cm) - Length 1.5 0.5 0.6 -Post Debridement Size (cm) - Width 1.7 0.3 0.2 -Post Debridement Size (cm) - Depth 0.1 0.1 0.1 -Total Square Cm 2.55 0.15 0.12 -Wound/Ulcer Outcome Not Healed Not Healed Not Healed -Ulcer Cleansing Rinsed/ Rinsed/ Rinsed/ Irrigated with Irrigated with Irrigated with Saline Saline Saline -Foul Odor after Cleansing No No No -Bioengineered Tissue Yes No No -Type of bioengineered Tissue EPIFIX -Expiration Date 12/26/23 -Product Lot Number [id number] -Percent Used 100 -Bleeding Controlled with Pressure Pressure Pressure -Other C.HYDROGEL LOT# [id number], EPIFIX 18.0MM DISC APPLIED -Offloading No No No -Treatment Response Procedure Procedure Procedure Tolerated Well Tolerated Well Tolerated Well Pain Scale: 0-10 Numeric Is Patient Pain Free? Yes Yes Yes 05/19/19 11:54 Wound Center Nurse 2 #5 Right Achilles -Time 11:54 -Correct Patient Yes -Correct Side, Site, Position Yes -Correct Procedure Yes -Procedure Performed Yes -Type of Procedure Debridement -Clinical Debridement Subcutaneous -Post Debridement Size (cm) - Length 0 -Post Debridement Size (cm) - Width 0 -Post Debridement Size (cm) - Depth 0 -Total Square Cm 0 -Wound/Ulcer Outcome Healed- Epithelialized -Ulcer Cleansing -Foul Odor after Cleansing -Bioengineered Tissue -Type of bioengineered Tissue -Expiration Date -Product Lot Number -Percent Used -Bleeding Controlled with -Other -Offloading -Treatment Response Pain Scale: 0-10 Numeric Is Patient Pain Free? Yes Wound debrided: right achilles Laterality: Right No debridement was completed today - ulcer is healed Assessment/Plan Active Problems Venous stasis ulcer of right ankle with fat layer exposed (Chronic) posterior and medial ankle Pressure ulcer of right ankle, stage 2 (Chronic) Spina bifida (Chronic) Assessment: 1) recurrent pressure ulcer of posterior leg in paraplegic w/spina bifida. Healing is very slow and likely because of poor quality of tissues. Offload boots seem very adequate. 2) venous stasis and edema. 3) spider veins with thrombosis right LE Plan: Shahzad's ulcer was evaluated and he is healed today. Stressed importance of compression and offloading. He has chronic edema and venous insufficiency. He is wearing offloading booties to decrease pressure to his heels. He should continue these measures. He shows evidence of pressure to his lateral right leg as well as to the ulcer area today. Stressed off-loading. He will continue tubigrips for compression. Encouraged increased protein intake and offloading was again reviewed. F/U 1 week.
== END 2019-05-26 23:59 ==
LOC: WC 11:30
PROVIDERS: Family Provider Family Medicine; PCP Family Medicine; Referring Provider Family Medicine; Visit Provider Family Medicine
DX: I83.018 Varicose veins of right lower extremity with ulcer other part of lower leg (principal); Q05.9 Spina bifida, unspecified; L89.512 Pressure ulcer of right ankle, stage 2
CPT/HCPCS: 11042; 15271; 99212; Q4186; G0463

== ENCOUNTER 2019-06-23 10:44 | Outpatient (RCR) | payer MEDICARE, MEDICAID, SELFPAY ==
[2019-05-27 00:32] VITALS: BP 125/81; PULSE 100; RESP 18; TEMP 37.2
[2019-06-23 11:10] VITALS: BP 112/72; PULSE 86; RESP 18; TEMP 36.1; BMI 40.5
--- NOTE | 2019-06-25 17:54 | PCM.WC.HP ---
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 He has very damaged tissues of his legs and this is one of multiple recurrent pressure ulcers that he develops in this edematous R lower leg/ankle. This was healed approximately a little over 1 month ago and it opened back up last week. He has been treated by wound care nurse at [facility] where he resides with [employer] [facility]. He reports that the ulcer is very painful. He reports that he has been in his bed mostly and elevates his legs/feet with a pillow under his calf and denies pressure on his heel but there does appear to be evidence of pressure. He underwent vascular testing which showed incompetence of veins in his right leg and was seen by Dr. Pearl who performed a venous ablation in mid November 2018. Past Medical History Past Medical History: Chronic Problems Venous stasis ulcer of right ankle with fat layer exposed (Chronic) posterior and medial ankle Pressure ulcer of right ankle, stage 2 (Chronic) PAD (peripheral artery disease) (Chronic) Venous (peripheral) insufficiency (Chronic) Edema of both lower legs due to peripheral venous insufficiency (Chronic) Spina bifida (Chronic) Venous stasis dermatitis of both lower extremities (Chronic) History of cerebral palsy (Chronic) Surgical History: - - fasciotomies to both feet, surgical debridement Allergies/Adverse Reactions: Allergies clindamycin Allergy (Verified 06/10/18 14:54) Other Penicillins Allergy (Verified 06/10/18 14:54) Other Home Medications: Ambulatory Orders Medication Instructions Recorded Acetaminophen [Tylenol Suppository] 650 mg RECTAL Q4H PRN PRN 01/23/13 Acetaminophen [Tylenol Tablet] 325 - 650 mg PO Q6H PRN PRN 01/23/13 Montelukast [Singulair] 10 mg PO DAILY 01/23/13 Multivitamins,Ther W-Minerals 1 tab PO DAILY 01/23/13 Omeprazole [Prilosec] 20 mg PO DAILY 01/23/13 Pseudoephedrine [Sudafed] 60 mg PO Q4H PRN PRN 01/23/13 Magnesium Hydroxide [Milk Of 30 ml PO DAILY PRN PRN 06/05/14 Magnesia] Ammonium Lactate [Amlactin] 1 applicatio TP UD 12/07/17 Bisacodyl 10 mg RC DAILY PRN 12/07/17 Fluticasone/Vilanterol [Breo 1 each IH DAILY 12/07/17 Ellipta Inhaler] Guaifenesin [Robitussin] 10 ml PO Q4H PRN PRN 12/07/17 Nystatin Powder 1 dose TOPICAL BID 12/07/17 Tramadol HCl [Ultram] 100 mg PO Q8H PRN 12/07/17 Cholecalciferol (Vitamin D3) 2,000 unit PO DAILY 06/10/18 [Vitamin D3] Gabapentin [Neurontin] 300 mg PO BIDCM 06/10/18 Ibuprofen 600 mg PO 4X/DAY PRN 06/10/18 Mag Hydrox/Al Hydrox/Simeth 30 ml PO Q4H PRN PRN 06/10/18 [Mylanta II] Na Phos,M-B/Na Phos,Di-Ba [Fleet 1 bottle RECTAL DAILY PRN 06/10/18 Enema] - Family History Paternal Dementia Maternal No pertinent history Lives: [facility] Smoking Status: Never smoker Tobacco Use: Non-smoker Alcohol: None Drugs: None Review of Systems Constitutional: Denies: Chills, Fever, Weight Change HEENT: Denies: Difficulty Hearing, Difficulty Swallowing, Sinus Congestion Cardiovascular: Denies: Chest Pain, Palpitations Respiratory: Denies: Cough, Shortness of Breath Gastrointestinal: Denies: Diarrhea, Nausea, Vomiting Genitourinary: Denies: Dysuria, Hematuria Musculoskeletal: Reports: Foot Pain Skin: Reports: Wounds Endocrine: Denies: Heat/ Cold Intolerance, Polydipsia, Polyuria Hematologic/ Lymphatic: Denies: Easy Bruising, Easy Bleeding - Physical Exam Vital Signs Temp Pulse Resp BP 97 F L 86 18 112/72 06/23/19 11:10 06/23/19 11:10 06/23/19 11:10 06/23/19 11:10 General: Alert, Oriented x3, Cooperative, No apparent distress HEENT: Atraumatic, Normocephalic Oral: Moist Mucosa Neck: Supple Lungs: Clear to auscultation, Normal air movement Cardiovascular: Regular rate Abdomen: Soft, Non Tender, Obese Extremities: Edema Skin: Ulcer/ Wound Wound Measurements and Assessment WC - Nurse 1 - General Ulcer Measurement Start: 06/23/19 11:05 Freq: Status: Active Protocol: Activity Type Activity Date Activity User E-Sign Co-Sign Detail Recorded Client Recorded Date Recorded By Document 06/23/19 11:10 RB [id number] 06/23/19 11:31 RB 06/23/19 11:10 Wound Center Nurse 1 [Ulcer Assessment] 8. R achilles superior -Combined with other wound No -Current Size (cm) - Length 3.5 -Current Size (cm) - Width 2.8 -Current Size (cm) - Depth 0.1 -Total Square Cm 9.80 -Photo Taken Yes -Tunneling No -Undermining/Tunneling No -Circular Undermining No -Exudate Amt Medium -Exudate Type Serosanguineous -Wound Margin Flat & Intact -Granulation Amt Medium (34-66%) -Granulation Quality Red -Slough/Fibrin Yes -Necrosis Amt Small (1-33%) -Necrotic Tissue Type Adherent Slough -Structure Exposed N/A -Texture (Sanam-wound Skin Appearance) Assessed, Friable, Scarring -Moisture (Sanam-wound Skin Appearance Assessed ) -Color (Sanam-wound Skin Appearance) Assessed -Temperature (Sanam-wound Skin No Abnormality Appearance) (Pt Warm) -Tenderness on Palpation (Sanam-wound No Skin Appearance) -Ulcer Cleansing Wound Cleanser -Foul Odor after Cleansing No -Anesthetic Used 5% Lidocaine Gel 7. R achilles -Combined with other wound No -Current Size (cm) - Length 1.7 -Current Size (cm) - Width 1.4 -Current Size (cm) - Depth 0.1 -Total Square Cm 2.38 -Photo Taken Yes -Tunneling No -Undermining/Tunneling No -Circular Undermining No -Exudate Amt Small -Exudate Type Serosanguineous -Wound Margin Flat & Intact -Granulation Amt Medium (34-66%) -Granulation Quality Red -Slough/Fibrin Yes -Necrosis Amt Small (1-33%) -Necrotic Tissue Type Adherent Slough -Structure Exposed N/A -Texture (Sanam-wound Skin Appearance) Friable, Scarring -Moisture (Sanam-wound Skin Appearance Assessed ) -Color (Sanam-wound Skin Appearance) Assessed -Temperature (Sanam-wound Skin No Abnormality Appearance) (Pt Warm) -Tenderness on Palpation (Sanam-wound No Skin Appearance) -Ulcer Cleansing Wound Cleanser -Foul Odor after Cleansing No -Anesthetic Used 5% Lidocaine Gel [Edema Assessment] -Lower Limb Edema Present Yes -Right Calf (cm) 43.5 -Right Ankle (cm) 22.5 -Left Calf (cm) 38.5 -Left Ankle (cm) 26 WC - Nurse 2 - General Ulcer CM Notes Start: 06/23/19 11:05 Freq: Status: Active Protocol: Activity Type Activity Date Activity User E-Sign Co-Sign Detail Recorded Client Recorded Date Recorded By Document 06/23/19 12:07 MW [id number] 06/23/19 12:17 MW 06/23/19 12:07 Wound Center Nurse 2 [Procedure/Treatment] 8. R achilles superior -Time 12:07 -Correct Patient Yes -Correct Side, Site, Position Yes -Correct Procedure Yes -Procedure Performed Yes -Type of Procedure Debridement -Clinical Debridement Subcutaneous -Post Debridement Size (cm) - Length 2.9 -Post Debridement Size (cm) - Width 2.9 -Post Debridement Size (cm) - Depth 0.1 -Total Square Cm 8.41 -Wound/Ulcer Outcome Not Healed -Ulcer Cleansing Rinsed/ Irrigated with Saline -Foul Odor after Cleansing No -Bioengineered Tissue No -Bleeding Controlled with Pressure -Offloading No -Treatment Response Procedure Tolerated Well 7. R achilles -Time 12:07 -Correct Patient Yes -Correct Side, Site, Position Yes -Correct Procedure Yes -Procedure Performed Yes -Type of Procedure Debridement -Clinical Debridement Subcutaneous -Post Debridement Size (cm) - Length 2.0 -Post Debridement Size (cm) - Width 1.9 -Post Debridement Size (cm) - Depth 0.2 -Total Square Cm 3.80 -Wound/Ulcer Outcome Not Healed -Ulcer Cleansing Rinsed/ Irrigated with Saline -Foul Odor after Cleansing No -Bioengineered Tissue No -Bleeding Controlled with Pressure -Offloading No -Treatment Response Procedure Tolerated Well [See Physician Procedure note for Specifics] Pain Scale: 0-10 Numeric [Pain] -Is Patient Pain Free? Yes Psych/Mental Status: Normal Affect, Appropriate Debridement Note Post-Debridement Measurements/Treatment WC - Nurse 2 - General Ulcer CM Notes Start: 06/23/19 11:05 Freq: Status: Active Protocol: Activity Type Activity Date Activity User E-Sign Co-Sign Detail Recorded Client Recorded Date Recorded By Document 06/23/19 12:07 MW [id number] 06/23/19 12:17 MW 06/23/19 12:07 Wound Center Nurse 2 8. R achilles superior -Time 12:07 -Correct Patient Yes -Correct Side, Site, Position Yes -Correct Procedure Yes -Procedure Performed Yes -Type of Procedure Debridement -Clinical Debridement Subcutaneous -Post Debridement Size (cm) - Length 2.9 -Post Debridement Size (cm) - Width 2.9 -Post Debridement Size (cm) - Depth 0.1 -Total Square Cm 8.41 -Wound/Ulcer Outcome Not Healed -Ulcer Cleansing Rinsed/ Irrigated with Saline -Foul Odor after Cleansing No -Bioengineered Tissue No -Bleeding Controlled with Pressure -Offloading No -Treatment Response Procedure Tolerated Well 7. R achilles -Time 12:07 -Correct Patient Yes -Correct Side, Site, Position Yes -Correct Procedure Yes -Procedure Performed Yes -Type of Procedure Debridement -Clinical Debridement Subcutaneous -Post Debridement Size (cm) - Length 2.0 -Post Debridement Size (cm) - Width 1.9 -Post Debridement Size (cm) - Depth 0.2 -Total Square Cm 3.80 -Wound/Ulcer Outcome Not Healed -Ulcer Cleansing Rinsed/ Irrigated with Saline -Foul Odor after Cleansing No -Bioengineered Tissue No -Bleeding Controlled with Pressure -Offloading No -Treatment Response Procedure Tolerated Well Pain Scale: 0-10 Numeric Is Patient Pain Free? Yes Wound debrided: right achilles superior Laterality: Right Type of Debridement: Excisional debridement Anesthesia Used: 4% Lidocaine Solution, 5% Lidocaine Gel Depth: Down to and including healthy tissue, in the subcutaneous layer Percentage of wound debrided: 100 Instrument Used: 5mm curette Tissue Removed: yellow slough, devitalized tissue Severity: Fat Layer Exposed Amount of bleeding with debridement: Mild Bleeding Controlled with: Compression and gauze Patient tolerated procedure well - Additional Wound Wound debrided: right achilles Laterality: Right Type of Debridement: Excisional debridement Anesthesia Used: 4% Lidocaine Solution, 5% Lidocaine Gel Depth: Down to and including healthy tissue, in the subcutaneous layer Percentage of wound debrided: 100 Instrument Used: 5mm curette Tissue Removed: yellow slough, devitalized tissue Severity: Fat Layer Exposed Amount of bleeding with debridement: Mild Bleeding Controlled with: Pressure, Compression and gauze Patient tolerated procedure: Patient tolerated procedure well Assessment/Plan Assessment: 1) recurrent pressure ulcer of posterior leg in paraplegic w/spina bifida. Healing is very slow and likely because of poor quality of tissues. Offload boots seem very adequate. 2) venous stasis and edema. 3) spider veins with thrombosis right LE Plan: Shahzad's ulcer was evaluated and debrided today. Wound culture was taken today. Will have him use dressings with Santyl and Aquacel Ag. Stressed importance of compression and offloading. He has chronic edema and venous insufficiency. He is wearing offloading booties to decrease pressure to his heels. He should continue these measures. He shows evidence of pressure to his lateral right leg as well as to the ulcer area today. Stressed off-loading. He will continue tubigrips for compression. Encouraged increased protein intake and offloading was again reviewed. F/U 1 week.
== END 2019-06-24 23:59 ==
LOC: WC 10:44
PROVIDERS: Family Provider Family Medicine; PCP Family Medicine; Referring Provider Family Medicine; Visit Provider Family Medicine
DX: I83.018 Varicose veins of right lower extremity with ulcer other part of lower leg (principal); L89.512 Pressure ulcer of right ankle, stage 2; Q05.9 Spina bifida, unspecified; Z91.19 Patient's noncompliance with other medical treatment and regimen; Z79.899 Other long term (current) drug therapy
CPT/HCPCS: 11042; 87070; 87075; 87077; 87186; 87205; 99213; G0463

== ENCOUNTER 2019-07-07 13:00 | Outpatient (RCR) | payer MEDICARE, MEDICAID, SELFPAY ==
[2019-06-25 00:27] VITALS: BP 112/72; PULSE 86; RESP 18; TEMP 36.1
[2019-06-30 13:40] VITALS: BP 133/81; PULSE 85; RESP 18; TEMP 36.3; BMI 40.5
--- NOTE | 2019-06-30 17:05 | PCM.WC.PN ---
(1) Pressure ulcer of right ankle, stage 2 Status: Chronic Current Visit: Yes Code(s): L89.512 - Pressure ulcer of right ankle, stage 2 (2) Venous (peripheral) insufficiency Status: Chronic Current Visit: Yes Code(s): I87.2 - Venous insufficiency (chronic) (peripheral) (3) Spina bifida Status: Chronic Current Visit: Yes Qualifiers: Spinal region: unspecified Presence of hydrocephalus: unspecified hydrocephalus presence Qualified Code(s): Q05.9 - Spina bifida, unspecified Code(s): Q05.9 - Spina bifida, unspecified (4) History of cerebral palsy Status: Chronic Current Visit: Yes Code(s): Z86.69 - Personal history of other diseases of the nervous system and sense organs Type of Wound Date of Service: 06/30/19 Chief Complaint: recurrent R posterior ankle, 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 He has very damaged tissues of his legs and this is one of multiple recurrent pressure ulcers that he develops in this edematous R lower leg/ankle. This was healed approximately a little over 1 month ago and it opened back up last week. He has been treated by wound care nurse at [facility] where he resides with [employer]. He reports that the ulcer is very painful. He reports that he has been in his bed mostly and elevates his legs/feet with a pillow under his calf and denies pressure on his heel but there does appear to be evidence of pressure. He underwent vascular testing which showed incompetence of veins in his right leg and was seen by Dr. Pearl who performed a venous ablation in mid November 2018. Progress of Wound: Shahzad is here today for follow up of ulceration of his Achilles area of his right ankle. He tolerated treatment with Santyl and Aquacel but the SNF wasn't changing his dressings daily and there is question as to how well he is offloading. He arrived to our facility today with only his right foot in an offloading bootie. He admits there is still pain and drainage. Denies fever or chills. - Physical Exam Vital Signs Temp Pulse Resp BP 97.4 F L 85 18 133/81 H 06/30/19 13:40 06/30/19 13:40 06/30/19 13:40 06/30/19 13:40 General: Alert, Oriented x3, Cooperative, No apparent distress HEENT: Atraumatic, Normocephalic Oral: Moist Mucosa Neck: Supple Extremities: Edema Skin: Ulcer/ Wound Wound Measurements and Assessment WC - Nurse 1 - General Ulcer Measurement Start: 06/30/19 13:40 Freq: Status: Active Protocol: Activity Type Activity Date Activity User E-Sign Co-Sign Detail Recorded Client Recorded Date Recorded By Document 06/30/19 13:40 RB [id number] 06/30/19 13:44 RB 06/30/19 13:40 Wound Center Nurse 1 [Ulcer Assessment] 8. R achilles superior -Combined with other wound No -Current Size (cm) - Length 3.6 -Current Size (cm) - Width 3.8 -Current Size (cm) - Depth 0.1 -Total Square Cm 13.68 -Tunneling No -Undermining/Tunneling No -Circular Undermining No -Exudate Amt Small -Exudate Type Serosanguineous -Wound Margin Flat & Intact -Granulation Amt Medium (34-66%) -Granulation Quality Red -Slough/Fibrin Yes -Necrosis Amt Small (1-33%) -Necrotic Tissue Type Adherent Slough -Structure Exposed N/A -Texture (Sanam-wound Skin Appearance) Assessed, Friable -Moisture (Sanam-wound Skin Appearance Maceration ) -Color (Sanam-wound Skin Appearance) Assessed, Erythema -Temperature (Sanam-wound Skin No Abnormality Appearance) (Pt Warm) -Tenderness on Palpation (Sanam-wound No Skin Appearance) -Ulcer Cleansing Wound Cleanser -Foul Odor after Cleansing No -Anesthetic Used 4% Lidocaine Solution 7. R achilles -Combined with other wound No -Current Size (cm) - Length 1.4 -Current Size (cm) - Width 1.4 -Current Size (cm) - Depth 0.1 -Total Square Cm 1.96 -Tunneling No -Undermining/Tunneling No -Circular Undermining No -Exudate Amt Small -Exudate Type Serosanguineous -Wound Margin Flat & Intact -Granulation Amt Medium (34-66%) -Granulation Quality [place],Red -Slough/Fibrin Yes -Necrosis Amt Small (1-33%) -Necrotic Tissue Type Adherent Slough -Structure Exposed N/A -Texture (Sanam-wound Skin Appearance) Assessed, Friable -Moisture (Sanam-wound Skin Appearance Maceration ) -Color (Sanam-wound Skin Appearance) Assessed, Erythema -Temperature (Sanam-wound Skin No Abnormality Appearance) (Pt Warm) -Tenderness on Palpation (Sanam-wound No Skin Appearance) -Ulcer Cleansing Wound Cleanser -Foul Odor after Cleansing No -Anesthetic Used 4% Lidocaine Solution [Edema Assessment] -Lower Limb Edema Present Yes -Right Calf (cm) 44 -Right Ankle (cm) 20.5 WC - Nurse 2 - General Ulcer CM Notes Start: 06/30/19 13:40 Freq: Status: Active Protocol: Activity Type Activity Date Activity User E-Sign Co-Sign Detail Recorded Client Recorded Date Recorded By Document 06/30/19 13:55 DV [id number] 06/30/19 13:58 DV 06/30/19 13:55 Wound Center Nurse 2 [Procedure/Treatment] 8. R achilles superior -Time 13:55 -Correct Patient Yes -Correct Side, Site, Position Yes -Correct Procedure Yes -Procedure Performed Yes -Type of Procedure Debridement -Clinical Debridement Subcutaneous -Post Debridement Size (cm) - Length 3.5 -Post Debridement Size (cm) - Width 3.0 -Post Debridement Size (cm) - Depth 0.1 -Total Square Cm 10.50 -Wound/Ulcer Outcome Not Healed -Ulcer Cleansing Rinsed/ Irrigated with Saline -Foul Odor after Cleansing No -Bioengineered Tissue No -Bleeding Controlled with Pressure -Offloading Yes -Treatment Response Procedure Tolerated Well 7. R achilles -Time 13:56 -Correct Patient Yes -Correct Side, Site, Position Yes -Correct Procedure Yes -Procedure Performed Yes -Type of Procedure Debridement -Clinical Debridement Subcutaneous -Post Debridement Size (cm) - Length 1.8 -Post Debridement Size (cm) - Width 1.7 -Post Debridement Size (cm) - Depth 0.1 -Total Square Cm 3.06 -Wound/Ulcer Outcome Not Healed -Ulcer Cleansing Rinsed/ Irrigated with Saline -Foul Odor after Cleansing No -Bioengineered Tissue No -Bleeding Controlled with Pressure -Offloading Yes -Treatment Response Procedure Tolerated Well [See Physician Procedure note for Specifics] Pain Scale: 0-10 Numeric [Pain] -Is Patient Pain Free? Yes Psych/Mental Status: Normal Affect, Appropriate Debridement Note Post-Debridement Measurements/Treatment WC - Nurse 2 - General Ulcer CM Notes Start: 06/30/19 13:40 Freq: Status: Active Protocol: Activity Type Activity Date Activity User E-Sign Co-Sign Detail Recorded Client Recorded Date Recorded By Document 06/30/19 13:55 DV [id number] 06/30/19 13:58 DV 06/30/19 13:55 Wound Center Nurse 2 8. R achilles superior -Time 13:55 -Correct Patient Yes -Correct Side, Site, Position Yes -Correct Procedure Yes -Procedure Performed Yes -Type of Procedure Debridement -Clinical Debridement Subcutaneous -Post Debridement Size (cm) - Length 3.5 -Post Debridement Size (cm) - Width 3.0 -Post Debridement Size (cm) - Depth 0.1 -Total Square Cm 10.50 -Wound/Ulcer Outcome Not Healed -Ulcer Cleansing Rinsed/ Irrigated with Saline -Foul Odor after Cleansing No -Bioengineered Tissue No -Bleeding Controlled with Pressure -Offloading Yes -Treatment Response Procedure Tolerated Well 7. R achilles -Time 13:56 -Correct Patient Yes -Correct Side, Site, Position Yes -Correct Procedure Yes -Procedure Performed Yes -Type of Procedure Debridement -Clinical Debridement Subcutaneous -Post Debridement Size (cm) - Length 1.8 -Post Debridement Size (cm) - Width 1.7 -Post Debridement Size (cm) - Depth 0.1 -Total Square Cm 3.06 -Wound/Ulcer Outcome Not Healed -Ulcer Cleansing Rinsed/ Irrigated with Saline -Foul Odor after Cleansing No -Bioengineered Tissue No -Bleeding Controlled with Pressure -Offloading Yes -Treatment Response Procedure Tolerated Well Pain Scale: 0-10 Numeric Is Patient Pain Free? Yes Wound debrided: right achilles superior Laterality: Right Wound Grade/Stage: Stage 2 Type of Debridement: Excisional debridement Anesthesia Used: 4% Lidocaine Solution, 5% Lidocaine Gel Depth: Down to and including healthy tissue, in the subcutaneous layer Percentage of wound debrided: 100 Instrument Used: 5mm curette Tissue Removed: yellow slough, devitalized tissue Severity: Fat Layer Exposed Amount of bleeding with debridement: Mild Bleeding Controlled with: Compression and gauze Patient tolerated procedure well Assessment/Plan Active Problems Pressure ulcer of right ankle, stage 2 (Chronic) Venous (peripheral) insufficiency (Chronic) Spina bifida (Chronic) History of cerebral palsy (Chronic) Assessment: 1) recurrent pressure ulcer of posterior leg in paraplegic w/spina bifida. Healing is very slow and likely because of poor quality of tissues. Offload boots seem very adequate. 2) venous stasis and edema. 3) spider veins with thrombosis right LE Plan: Shahzad's ulcer was evaluated and debrided today. Wound culture was positive for Pseudomonas. He was started on Ciprofloxacin 500 mg x 14 days today. Will have him continue to use dressings with Santyl and Aquacel Ag. Stressed importance of compression and offloading. He has chronic edema and venous insufficiency. He is wearing offloading booties to decrease pressure to his heels. He should continue these measures. He shows evidence of pressure to his lateral right leg as well as to the ulcer area today. Stressed off-loading. He will continue tubigrips for compression. Encouraged increased protein intake and offloading was again reviewed. F/U 1 week.
[2019-07-07 12:54] VITALS: BP 124/88; PULSE 91; RESP 16; TEMP 36.6; BMI 40.5
--- NOTE | 2019-07-07 18:18 | PN.PCM_ITS ---
(1) Pressure ulcer of right ankle, stage 2 Status: Chronic Current Visit: Yes Code(s): L89.512 - Pressure ulcer of right ankle, stage 2 (2) Venous (peripheral) insufficiency Status: Chronic Current Visit: Yes Code(s): I87.2 - Venous insufficiency (chronic) (peripheral) (3) Spina bifida Status: Chronic Current Visit: Yes Qualifiers: Spinal region: unspecified Presence of hydrocephalus: unspecified hydrocephalus presence Qualified Code(s): Q05.9 - Spina bifida, unspecified Code(s): Q05.9 - Spina bifida, unspecified (4) History of cerebral palsy Status: Chronic Current Visit: Yes Code(s): Z86.69 - Personal history of other diseases of the nervous system and sense organs Type of Wound Date of Service: 07/07/19 Chief Complaint: recurrent R posterior ankle, 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 He has very damaged tissues of his legs and this is one of multiple recurrent pressure ulcers that he develops in this edematous R lower leg/ankle. This was healed approximately a little over 1 month ago and it opened back up last week. He has been treated by wound care nurse at [facility], [place] where he resides with [employer]. He reports that the ulcer is very painful. He reports that he has been in his bed mostly and elevates his legs/feet with a pillow under his calf and denies pressure on his heel but there does appear to be evidence of pressure. He underw ent vascular testing which showed incompetence of veins in his right leg and was seen by Dr. Pearl who performed a venous ablation in mid November 2018. Progress of Wound: Shahzad is here today for follow up of ulceration of his Achilles area of his right ankle. He tolerated treatment with Santyl and Aquacel but the SNF wasn't changing his dressings daily and there is question as to how well he is offloading. He admits there is still pain and drainage. Denies fever or chills. - Physical Exam Vital Signs Temp Pulse Resp BP 98 F 91 16 124/88 H 07/07/19 12:54 07/07/19 12:54 07/07/19 12:54 07/07/19 12:54 General: Alert, Oriented x3, Cooperative, No apparent distress HEENT: Atraumatic, Normocephalic Oral: Moist Mucosa Abdomen: Obese Extremities: Edema Skin: Ulcer/ Wound Wound Measurements and Assessment WC - Nurse 1 - General Ulcer Measurement Start: 06/30/19 13:40 Freq: Status: Active Protocol: Activity Type Activity Date Activity User E-Sign Co-Sign Detail Recorded Client Recorded Date Recorded By Document 07/07/19 12:54 [facility] [id number] 07/07/19 12:59 [facility] 07/07/19 12:54 Wound Center Nurse 1 [Ulcer Assessment] 8. R achilles superior -Combined with other wound No -Current Size (cm) - Length 3.2 -Current Size (cm) - Width 2.5 -Current Size (cm) - Depth 0.1 -Total Square Cm 8.00 -Photo Taken No -Epithelialization Small 1-33% -Tunneling No -Undermining/Tunneling No -Circular Undermining No -Exudate Amt Small -Exudate Type Serosanguineous -Wound Margin Distinct, Outline Attached -Granulation Amt Medium (34-66%) -Granulation Quality Red -Slough/Fibrin Yes -Necrosis Amt Medium (34-66%) -Necrotic Tissue Type Adherent Slough -Texture (Sanam-wound Skin Appearance) Assessed, Scarring -Moisture (Sanam-wound Skin Appearance Assessed,Dry/ ) Scaly -Color (Sanam-wound Skin Appearance) Assessed -Temperature (Sanam-wound Skin No Abnormality Appearance) (Pt Warm) -Tenderness on Palpation (Sanam-wound Yes Skin Appearance) -Ulcer Cleansing SOAPY WATER -Foul Odor after Cleansing No -Anesthetic Used 5% Lidocaine Gel 7. R achilles -Combined with other wound No -Current Size (cm) - Length 1.3 -Current Size (cm) - Width 1.4 -Current Size (cm) - Depth 0.1 -Total Square Cm 1.82 -Photo Taken No -Epithelialization Small 1-33% -Tunneling No -Undermining/Tunneling No -Circular Undermining No -Exudate Amt Small -Exudate Type Serosanguineous -Wound Margin Distinct, Outline Attached -Granulation Amt Medium (34-66%) -Granulation Quality Red -Slough/Fibrin Yes -Necrosis Amt Medium (34-66%) -Necrotic Tissue Type Adherent Slough -Texture (Sanam-wound Skin Appearance) Assessed, Scarring -Moisture (Sanam-wound Skin Appearance Assessed ) -Color (Sanam-wound Skin Appearance) Assessed -Temperature (Sanam-wound Skin No Abnormality Appearance) (Pt Warm) -Tenderness on Palpation (Sanam-wound No Skin Appearance) -Ulcer Cleansing SOAPY WATER -Foul Odor after Cleansing No -Anesthetic Used 4% Lidocaine Solution [Edema Assessment] -Lower Limb Edema Present Yes -Right Calf (cm) 42 -Right Ankle (cm) 21.5 WC - Nurse 2 - General Ulcer CM Notes Start: 06/30/19 13:40 Freq: Status: Active Protocol: Activity Type Activity Date Activity User E-Sign Co-Sign Detail Recorded Client Recorded Date Recorded By Document 07/07/19 13:08 DV [id number] 07/07/19 13:17 DV 07/07/19 13:08 Wound Center Nurse 2 [Procedure/Treatment] 8. R achilles superior -Time 13:12 -Correct Patient Yes -Correct Side, Site, Position Yes -Correct Procedure Yes -Procedure Performed Yes -Type of Procedure Debridement -Clinical Debridement Subcutaneous -Post Debridement Size (cm) - Length 2.5 -Post Debridement Size (cm) - Width 2.2 -Post Debridement Size (cm) - Depth 0.1 -Total Square Cm 5.50 -Wound/Ulcer Outcome Not Healed -Ulcer Cleansing Rinsed/ Irrigated with Saline -Foul Odor after Cleansing No -Bioengineered Tissue No -Bleeding Controlled with Pressure -Offloading Yes -Treatment Response Procedure Tolerated Well 7. R achilles -Time 13:12 -Correct Patient Yes -Correct Side, Site, Position Yes -Correct Procedure Yes -Procedure Performed Yes -Type of Procedure Debridement -Clinical Debridement Subcutaneous -Post Debridement Size (cm) - Length 1.0 -Post Debridement Size (cm) - Width 1.1 -Post Debridement Size (cm) - Depth 0.1 -Total Square Cm 1.10 -Wound/Ulcer Outcome Not Healed -Ulcer Cleansing Rinsed/ Irrigated with Saline -Foul Odor after Cleansing No -Bioengineered Tissue No -Bleeding Controlled with Pressure -Offloading Yes -Treatment Response Procedure Tolerated Well [See Physician Procedure note for Specifics] Pain Scale: 0-10 Numeric [Pain] -Is Patient Pain Free? Yes Psych/Mental Status: Normal Affect, Appropriate Debridement Note Post-Debridement Measurements/Treatment WC - Nurse 2 - General Ulcer CM Notes Start: 06/30/19 13:40 Freq: Status: Active Protocol: Activity Type Activity Date Activity User E-Sign Co-Sign Detail Recorded Client Recorded Date Recorded By Document 06/30/19 13:55 DV [id number] 06/30/19 13:58 DV Document 07/07/19 13:08 DV [id number] 07/07/19 13:17 DV 06/30/19 07/07/19 13:55 13:08 Wound Center Nurse 2 8. R achilles superior -Time 13:55 13:12 -Correct Patient Yes Yes -Correct Side, Site, Position Yes Yes -Correct Procedure Yes Yes -Procedure Performed Yes Yes -Type of Procedure Debridement Debridement -Clinical Debridement Subcutaneous Subcutaneous -Post Debridement Size (cm) - Length 3.5 2.5 -Post Debridement Size (cm) - Width 3.0 2.2 -Post Debridement Size (cm) - Depth 0.1 0.1 -Total Square Cm 10.50 5.50 -Wound/Ulcer Outcome Not Healed Not Healed -Ulcer Cleansing Rinsed/ Rinsed/ Irrigated with Irrigated with Saline Saline -Foul Odor after Cleansing No No -Bioengineered Tissue No No -Bleeding Controlled with Pressure Pressure -Offloading Yes Yes -Treatment Response Procedure Procedure Tolerated Well Tolerated Well 7. R achilles -Time 13:56 13:12 -Correct Patient Yes Yes -Correct Side, Site, Position Yes Yes -Correct Procedure Yes Yes -Procedure Performed Yes Yes -Type of Procedure Debridement Debridement -Clinical Debridement Subcutaneous Subcutaneous -Post Debridement Size (cm) - Length 1.8 1.0 -Post Debridement Size (cm) - Width 1.7 1.1 -Post Debridement Size (cm) - Depth 0.1 0.1 -Total Square Cm 3.06 1.10 -Wound/Ulcer Outcome Not Healed Not Healed -Ulcer Cleansing Rinsed/ Rinsed/ Irrigated with Irrigated with Saline Saline -Foul Odor after Cleansing No No -Bioengineered Tissue No No -Bleeding Controlled with Pressure Pressure -Offloading Yes Yes -Treatment Response Procedure Procedure Tolerated Well Tolerated Well Pain Scale: 0-10 Numeric Is Patient Pain Free? Yes Yes Wound debrided: right achilles superior Laterality: Right Type of Debridement: Excisional debridement Anesthesia Used: 4% Lidocaine Solution, 5% Lidocaine Gel Depth: Down to and including healthy tissue, in the subcutaneous layer Percentage of wound debrided: 100 Instrument Used: 5mm curette Tissue Removed: yellow slough, devitalized tissue Severity: Fat Layer Exposed Amount of bleeding with debridement: Mild Bleeding Controlled with: Compression and gauze Patient tolerated procedure well - Additional Wound Wound debrided: right achilles Laterality: Right Type of Debridement: Excisional debridement Anesthesia Used: 4% Lidocaine Solution, 5% Lidocaine Gel Depth: Down to and including healthy tissue, in the subcutaneous layer Percentage of wound debrided: 100 Instrument Used: 5mm curette Tissue Removed: yellow slough, devitalized tissue Severity: Fat Layer Exposed Amount of bleeding with debridement: Mild Bleeding Controlled with: Compression and gauze Patient tolerated procedure: Patient tolerated procedure well Assessment/Plan Active Problems Pressure ulcer of right ankle, stage 2 (Chronic) Venous (peripheral) insufficiency (Chronic) Spina bifida (Chronic) History of cerebral palsy (Chronic) Assessment: 1) recurrent pressure ulcer of posterior leg in paraplegic w/spina bifida. Healing is very slow and likely because of poor quality of tissues. Offload boots seem very adequate. 2) venous stasis and edema. 3) spider veins with thrombosis right LE Plan: Shahzad's ulcer was evaluated and debrided today. Wound culture was positive for Pseudomonas. He is taking Ciprofloxacin 500 mg x 14 days today is his 7th day of treatment. Will have him continue to use dressings with Santyl and Aquacel Ag. Stressed importance of compression and offloading. He has chronic edema and venous insufficiency. He is wearing offloading booties to decrease pressure to his heels. He should continue these measures. He shows evidence of pressure to his lateral right leg as well as to the ulcer area today. Stressed off-loading. He will continue tubigrips for compression. Encouraged increased protein intake and offloading was again reviewed. F/U 1 week.
== END 2019-07-25 23:59 ==
LOC: WC 13:00
PROVIDERS: Family Provider Family Medicine; PCP Family Medicine; Referring Provider Family Medicine; Visit Provider Family Medicine
DX: L89.512 Pressure ulcer of right ankle, stage 2 (principal); Q05.9 Spina bifida, unspecified; Z91.19 Patient's noncompliance with other medical treatment and regimen; I87.2 Venous insufficiency (chronic) (peripheral)
CPT/HCPCS: 11042

== ENCOUNTER 2019-08-11 12:00 | Outpatient (RCR) | payer MEDICARE, MEDICAID, SELFPAY ==
[2019-07-26 00:23] VITALS: BP 124/88; PULSE 91; RESP 16; TEMP 36.6
[2019-07-28 13:08] VITALS: BP 90/69; PULSE 100; RESP 18; TEMP 36.6; BMI 40.5
--- NOTE | 2019-07-28 17:13 | PN.PCM_ITS ---
(1) Venous stasis ulcer of right ankle with fat layer exposed Status: Chronic Current Visit: Yes Qualifiers: Varicose vein presence: with varicose veins Code(s): I83.013 - Varicose veins of right lower extremity with ulcer of ankle; L97.312 - Non-pressure chronic ulcer of right ankle with fat layer exposed Comment: posterior and medial ankle (2) Pressure ulcer of right ankle, stage 2 Status: Chronic Current Visit: Yes Code(s): L89.512 - Pressure ulcer of right ankle, stage 2 (3) Spina bifida Status: Chronic Current Visit: Yes Qualifiers: Spinal region: unspecified Code(s): Q05.9 - Spina bifida, unspecified Type of Wound Date of Service: 07/28/19 Chief Complaint: recurrent R posterior ankle, 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 He has very damaged tissues of his legs and this is one of multiple recurrent pressure ulcers that he develops in this edematous R lower leg/ankle. He isn't sure when this reoccurred but thinks it has been since January or February. He has been treated by wound care nurse at [facility] where he resides. He has almost been healed several times but has never healed completely. It looks like Drawtex is what they have been using on the ulcer. A culture was done April 2018 which was positive for Pseudomonas. He was on an antibiotic but is no longer taking it. He reports that the ulcer is very painful. He reports that he has been in his bed mostly and elevates his legs/feet with a pillow under his calf and denie s pressure on his heel. He underwent vascular testing which showed incompetence of veins in his right leg and was seen by Dr. Pearl who performed a venous ablation in mid November,. Progress of Wound: Shahzad is here today for follow up of ulceration of his Achilles area of his right ankle. He tolerated treatment with Santyl and there is epithelialization over the areas but unfortuantely they are boggy and there is accumulation of blood as would be caused from pressure and there is question as to how well he is offloading. He admits there is still pain and denies pre ssure to his ankle. Denies fever or chills. - Physical Exam Vital Signs Temp Pulse Resp BP 97.8 F 100 18 90/69 07/28/19 13:08 07/28/19 13:08 07/28/19 13:08 07/28/19 13:08 General: Alert, Oriented x3, Cooperative, No apparent distress HEENT: Atraumatic, Normocephalic Oral: Moist Mucosa Abdomen: Obese Extremities: Edema Skin: Ulcer/ Wound Wound Measurements and Assessment WC - Nurse 1 - General Ulcer Measurement Start: 07/28/19 13:07 Freq: Status: Active Protocol: Activity Type Activity Date Activity User E-Sign Co-Sign Detail Recorded Client Recorded Date Recorded By Document 07/28/19 13:08 PL [id number] 07/28/19 13:22 PL 07/28/19 13:08 Wound Center Nurse 1 [Ulcer Assessment] 8. R achilles superior -Combined with other wound No -Current Size (cm) - Length 3.0 -Current Size (cm) - Width 1.5 -Current Size (cm) - Depth 0.1 -Total Square Cm 4.50 -Photo Taken No -Tunneling No -Undermining/Tunneling No -Exudate Amt None Present -Granulation Amt None Present (0 %) -Slough/Fibrin Yes -Necrosis Amt Large (67-100%) -Necrotic Tissue Type Eschar -Texture (Sanam-wound Skin Appearance) No Abnormality -Moisture (Sanam-wound Skin Appearance No Abnormality ) -Anesthetic Used 4% Lidocaine Solution 7. R achilles -Combined with other wound No -Current Size (cm) - Length 1.0 -Current Size (cm) - Width 1.0 -Current Size (cm) - Depth 0.1 -Total Square Cm 1.00 -Photo Taken No -Epithelialization None Present -Tunneling No -Undermining/Tunneling No -Exudate Amt None Present -Granulation Amt None Present (0 %) -Slough/Fibrin Yes -Necrosis Amt Large (67-100%) -Necrotic Tissue Type Adherent Slough WC - Nurse 2 - General Ulcer CM Notes Start: 07/28/19 13:07 Freq: Status: Active Protocol: Activity Type Activity Date Activity User E-Sign Co-Sign Detail Recorded Client Recorded Date Recorded By Document 07/28/19 14:00 DV [id number] 07/28/19 14:10 DV 07/28/19 14:00 Wound Center Nurse 2 [Procedure/Treatment] 8. R achilles superior -Time 14:01 -Correct Patient Yes -Correct Side, Site, Position Yes -Correct Procedure No -Procedure Performed No -Post Debridement Size (cm) - Length 0 -Post Debridement Size (cm) - Width 0 -Post Debridement Size (cm) - Depth 0 -Total Square Cm 0 -Wound/Ulcer Outcome Healed- Epithelialized 7. R achilles -Time 14:03 -Correct Patient Yes -Correct Side, Site, Position Yes -Correct Procedure Yes -Procedure Performed Yes -Type of Procedure Debridement -Clinical Debridement Subcutaneous -Post Debridement Size (cm) - Length 1.5 -Post Debridement Size (cm) - Width 1.0 -Post Debridement Size (cm) - Depth 0.1 -Total Square Cm 1.50 -Wound/Ulcer Outcome Not Healed -Ulcer Cleansing Rinsed/ Irrigated with Saline -Foul Odor after Cleansing No -Bioengineered Tissue No -Bleeding Controlled with Pressure -Offloading No -Treatment Response Procedure Tolerated Well [See Physician Procedure note for Specifics] Psych/Mental Status: Normal Affect, Appropriate Debridement Note Post-Debridement Measurements/Treatment WC - Nurse 2 - General Ulcer CM Notes Start: 07/28/19 13:07 Freq: Status: Active Protocol: Activity Type Activity Date Activity User E-Sign Co-Sign Detail Recorded Client Recorded Date Recorded By Document 07/28/19 14:00 [id number] 07/28/19 14:10 DV 07/28/19 14:00 Wound Center Nurse 2 8. R achilles superior -Time 14:01 -Correct Patient Yes -Correct Side, Site, Position Yes -Correct Procedure No -Procedure Performed No -Post Debridement Size (cm) - Length 0 -Post Debridement Size (cm) - Width 0 -Post Debridement Size (cm) - Depth 0 -Total Square Cm 0 -Wound/Ulcer Outcome Healed- Epithelialized 7. R achilles -Time 14:03 -Correct Patient Yes -Correct Side, Site, Position Yes -Correct Procedure Yes -Procedure Performed Yes -Type of Procedure Debridement -Clinical Debridement Subcutaneous -Post Debridement Size (cm) - Length 1.5 -Post Debridement Size (cm) - Width 1.0 -Post Debridement Size (cm) - Depth 0.1 -Total Square Cm 1.50 -Wound/Ulcer Outcome Not Healed -Ulcer Cleansing Rinsed/ Irrigated with Saline -Foul Odor after Cleansing No -Bioengineered Tissue No -Bleeding Controlled with Pressure -Offloading No -Treatment Response Procedure Tolerated Well Wound debrided: right Achilles Laterality: Right Type of Debridement: Excisional debridement Anesthesia Used: 4% Lidocaine Solution, 5% Lidocaine Gel Depth: Down to and including healthy tissue, in the subcutaneous layer Percentage of wound debrided: 100 Instrument Used: #15 blade, Forceps Tissue Removed: yellow slough, devitalized tissue Severity: Fat Layer Exposed Amount of bleeding with debridement: Mild Bleeding Controlled with: Compression and gauze Patient tolerated procedure well Assessment/Plan Active Problems Venous stasis ulcer of right ankle with fat layer exposed (Chronic) posterior and medial ankle Pressure ulcer of right ankle, stage 2 (Chronic) Spina bifida (Chronic) Assessment: 1) recurrent pressure ulcer of posterior leg in paraplegic w/spina b ifida. Healing is very slow and likely because of poor quality of tissues. Offload boots seem very adequate. 2) venous stasis and edema. 3) spider veins with thrombosis right LE Plan: Shahzad's ulcer was evaluated and debrided today. Wound culture done today to evaluate for infection. He was seen by Dr. Pearl and the ablation was effective but he still has spider veins in the ankle that are causing ulcers. Will contact Dr. Pearl to see if sclerotherapy might be something to consider. Shahzad and I also discussed other treatments such as amputation which he is not opposed to considering at this time. Will have him continue to use dressings with Santyl and Aquacel Ag. Stressed importance of compression and offloading. He has chronic edema and venous insufficiency. He is wearing offloading booties to decrease pressure to his heels. He should continue these measures. He shows evidence of pressure to his lateral right leg as well as to the ulcer area today. Stressed off-loading. He will continue tubigrips for compression. Encouraged increased protein intake and offloading was again reviewed. F/U 1 week.
[2019-08-11 11:59] VITALS: BP 115/50; PULSE 89; RESP 18; TEMP 36.2; BMI 40.5
--- NOTE | 2019-08-11 16:46 | PCM.WC.PN ---
(1) Venous stasis ulcer of right ankle with fat layer exposed Status: Chronic Current Visit: Yes Qualifiers: Varicose vein presence: with varicose veins Code(s): I83.013 - Varicose veins of right lower extremity with ulcer of ankle; L97.312 - Non-pressure chronic ulcer of right ankle with fat layer exposed Comment: posterior and medial ankle (2) Pressure ulcer of right ankle, stage 2 Status: Chronic Current Visit: Yes Code(s): L89.512 - Pressure ulcer of right ankle, stage 2 (3) Spina bifida Status: Chronic Current Visit: Yes Qualifiers: Spinal region: unspecified Code(s): Q05.9 - Spina bifida, unspecified Type of Wound Date of Service: 08/11/19 Chief Complaint: recurrent R posterior ankle, 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 He has very damaged tissues of his legs and this is one of multiple recurrent pressure ulcers that he develops in this edematous R lower leg/ankle. He isn't sure when this reoccurred but thinks it has been since January or February. He has been treated by wound care nurse at [facility] where he resides. He has almost been healed several times but has never healed completely. It looks like Drawtex is what they have been using on the ulcer. A culture was done April 2018 which was positive for Pseudomonas. He was on an antibiotic but is no longer taking it. He reports that the ulcer is very painful. He reports that he has been in his bed mostly and elevates his legs/feet with a pillow under his calf and denies pressure on his heel. He underwent vascular testing which showed incompetence of veins in his right leg and was seen by Dr. Pearl who performed a venous ablation in mid November,. Progress of Wound: Shahzad is here today for follow up of ulceration of his Achilles area of his right ankle. He tolerated treatment with Santyl and they are improved. He admits there is still pain and denies pressure to his ankle. Denies fever or chills. - Physical Exam Vital Signs Temp Pulse Resp BP 97.2 F L 89 18 115/50 L 08/11/19 11:59 08/11/19 11:59 08/11/19 11:59 08/11/19 11:59 General: Alert, Oriented x3, Cooperative, No apparent distress HEENT: Atraumatic, Normocephalic Oral: Moist Mucosa Abdomen: Obese Extremities: Edema Skin: Ulcer/ Wound Wound Measurements and Assessment WC - Nurse 1 - General Ulcer Measurement Start: 07/28/19 13:07 Freq: Status: Active Protocol: Activity Type Activity Date Activity User E-Sign Co-Sign Detail Recorded Client Recorded Date Recorded By Document 08/11/19 11:59 MW [id number] 08/11/19 12:07 MW 08/11/19 11:59 Wound Center Nurse 1 [Ulcer Assessment] 7. R achilles -Combined with other wound No -Current Size (cm) - Length 3.0 -Current Size (cm) - Width 4.0 -Current Size (cm) - Depth 0.1 -Total Square Cm 12.00 -Photo Taken Yes -Epithelialization None Present -Tunneling No -Undermining/Tunneling No -Circular Undermining No -Exudate Amt Small -Exudate Type Serosanguineous -Wound Margin Flat & Intact -Granulation Amt Small (1-33%) -Granulation Quality [facility] -Slough/Fibrin Yes -Necrosis Amt Large (67-100%) -Necrotic Tissue Type Adherent Slough -Structure Exposed N/A -Texture (Sanam-wound Skin Appearance) Assessed, Localized Edema ,Scarring -Moisture (Sanam-wound Skin Appearance Assessed,Dry/ ) Scaly -Color (Sanam-wound Skin Appearance) No Abnormality, Assessed -Temperature (Sanam-wound Skin No Abnormality Appearance) (Pt Warm) -Tenderness on Palpation (Sanam-wound Yes Skin Appearance) -Ulcer Cleansing soap and water -Foul Odor after Cleansing No -Anesthetic Used 4% Lidocaine Solution [Edema Assessment] -Lower Limb Edema Present No WC - Nurse 2 - General Ulcer CM Notes Start: 07/28/19 13:07 Freq: Status: Active Protocol: Activity Type Activity Date Activity User E-Sign Co-Sign Detail Recorded Client Recorded Date Recorded By Document 08/11/19 12:33 DV [id number] 08/11/19 12:41 DV 08/11/19 12:33 Wound Center Nurse 2 [Procedure/Treatment] 7. R achilles -Time 12:35 -Correct Patient Yes -Correct Side, Site, Position Yes -Correct Procedure Yes -Procedure Performed Yes -Type of Procedure Debridement -Clinical Debridement Subcutaneous -Post Debridement Size (cm) - Length 0.6 -Post Debridement Size (cm) - Width 0.3 -Post Debridement Size (cm) - Depth 0.1 -Total Square Cm 0.18 -Wound/Ulcer Outcome Not Healed -Ulcer Cleansing Rinsed/ Irrigated with Saline -Foul Odor after Cleansing No -Bioengineered Tissue No -Bleeding Controlled with Pressure -Offloading No -Treatment Response Procedure Tolerated Well [See Physician Procedure note for Specifics] Pain Scale: 0-10 Numeric [Pain] -Is Patient Pain Free? Yes Psych/Mental Status: Normal Affect, Appropriate Debridement Note Post-Debridement Measurements/Treatment WC - Nurse 2 - General Ulcer CM Notes Start: 07/28/19 13:07 Freq: Status: Active Protocol: Activity Type Activity Date Activity User E-Sign Co-Sign Detail Recorded Client Recorded Date Recorded By Document 07/28/19 14:00 DV [id number] 07/28/19 14:10 DV Document 08/11/19 12:33 DV [id number] 08/11/19 12:41 DV 07/28/19 08/11/19 14:00 12:33 Wound Center Nurse 2 8. R achilles superior -Time 14:01 -Correct Patient Yes -Correct Side, Site, Position Yes -Correct Procedure No -Procedure Performed No -Post Debridement Size (cm) - Length 0 -Post Debridement Size (cm) - Width 0 -Post Debridement Size (cm) - Depth 0 -Total Square Cm 0 -Wound/Ulcer Outcome Healed- Epithelialized 7. R achilles -Time 14:03 12:35 -Correct Patient Yes Yes -Correct Side, Site, Position Yes Yes -Correct Procedure Yes Yes -Procedure Performed Yes Yes -Type of Procedure Debridement Debridement -Clinical Debridement Subcutaneous Subcutaneous -Post Debridement Size (cm) - Length 1.5 0.6 -Post Debridement Size (cm) - Width 1.0 0.3 -Post Debridement Size (cm) - Depth 0.1 0.1 -Total Square Cm 1.50 0.18 -Wound/Ulcer Outcome Not Healed Not Healed -Ulcer Cleansing Rinsed/ Rinsed/ Irrigated with Irrigated with Saline Saline -Foul Odor after Cleansing No No -Bioengineered Tissue No No -Bleeding Controlled with Pressure Pressure -Offloading No No -Treatment Response Procedure Procedure Tolerated Well Tolerated Well Pain Scale: 0-10 Numeric Is Patient Pain Free? Yes Wound debrided: right achilles Laterality: Right Type of Debridement: Excisional debridement Anesthesia Used: 4% Lidocaine Solution, 5% Lidocaine Gel Depth: Down to and including healthy tissue, in the subcutaneous layer Percentage of wound debrided: 100 Instrument Used: 3mm curette Tissue Removed: yellow slough, devitalized tissue Severity: Fat Layer Exposed Amount of bleeding with debridement: Mild Bleeding Controlled with: Compression and gauze Patient tolerated procedure well Assessment/Plan Active Problems Venous stasis ulcer of right ankle with fat layer exposed (Chronic) posterior and medial ankle Pressure ulcer of right ankle, stage 2 (Chronic) Spina bifida (Chronic) Assessment: 1) recurrent pressure ulcer of posterior leg in paraplegic w/spina bifida. Healing is very slow and likely because of poor quality of tissues. Offload boots seem very adequate. 2) venous stasis and edema. 3) spider veins with thrombosis right LE Plan: Shahzad's ulcer was evaluated and debrided today. He was seen by Dr. Pearl and the ablation was effective but he still has spider veins in the ankle that are causing ulcers. Will contact Dr. Pearl to see if sclerotherapy might be something to consider. Shahzad and I also discussed other treatments such as amputation which he is not opposed to considering at this time. Will have him continue to use dressings with Santyl. Stressed importance of compression and offloading. He has chronic edema and venous insufficiency. He is wearing offloading booties to decrease pressure to his heels. He should continue these measures. He shows evidence of pressure to his lateral right leg as well as to the ulcer area today. Stressed off-loading. He will continue tubigrips for compression. Encouraged increased protein intake and offloading was again reviewed. F/U 1 week.
== END 2019-08-24 23:59 ==
LOC: WC 12:00
PROVIDERS: Family Provider Family Medicine; PCP Family Medicine; Referring Provider Family Medicine; Visit Provider Family Medicine
DX: I83.213 Varicose veins of right lower extremity with both ulcer of ankle and inflammation (principal); L89.512 Pressure ulcer of right ankle, stage 2; Q05.9 Spina bifida, unspecified; G82.20 Paraplegia, unspecified; I89.0 Lymphedema, not elsewhere classified
CPT/HCPCS: 11042; 87070; 87075; 87077; 87186; 87205

== ENCOUNTER → 2019-08-19 16:13 | Outpatient (CLI) | payer MEDICARE, MEDICAID, SELFPAY ==
[2019-08-11 11:59] VITALS: BMI 40.5
== END ==
PROVIDERS: PCP Family Medicine; Visit Provider Nurse Practitioner Adult Health
DX: J98.8 Other specified respiratory disorders (principal)
CPT/HCPCS: 87635; U0004

== ENCOUNTER 2019-09-15 08:31 | Outpatient (RCR) | payer MEDICARE, MEDICAID, SELFPAY ==
[2019-08-25 00:09] VITALS: BP 115/50; PULSE 89; RESP 18; TEMP 36.2
--- NOTE | 2019-09-15 18:52 | PCM.WC.PN ---
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 He has very damaged tissues of his legs and this is one of multiple recurrent pressure ulcers that he develops in this edematous R lower leg/ankle. He isn't sure when this reoccurred but thinks it has been since January or February. He has been treated by wound care nurse at [facility] where he resides. He has almost been healed several times but has never healed completely. It looks like Drawtex is what they have been using on the ulcer. A culture was done April 2018 which was positive for Pseudomonas. He was on an antibiotic but is no longer taking it. He reports that the ulcer is very painful. He reports that he has been in his bed mostly and elevates his legs/feet with a pillow under his calf and denies pressure on his heel. He underwent vascular testing which showed incompetence of veins in his right leg and was seen by Dr. Pearl who performed a venous ablation in mid November,. Progress of Wound: TELEHEALTH VISIT. This visit occurred during the [place] [id number] [facility]. Patient verbally provided informed consent for this visit to be conducted via telemedicine. He is aware that this will not be recorded and that myself and Darcy Barillas RN are present during this visit. . - Type of Communication: Audio and Video via [employer]. -Time Started: 3:32PM. - Time Ended : Shahzad is being seen today for follow up of ulceration of his Achilles area of his right ankle. He tolerated treatment with Santyl and they are healed. He admits there is still pain and denies pressure to his ankle. Denies fever or chills. Nursing staff at his SNF present and operating video to evaluate the ulcer site. - Physical Exam Vital Signs Temp Pulse Resp BP 97.2 F L 89 18 115/50 L 08/25/19 00:09 08/25/19 00:09 08/25/19 00:09 08/25/19 00:09 General: Alert, Oriented x3, Cooperative, No apparent distress HEENT: Atraumatic, Normocephalic Skin: Ulcer/ Wound Psych/Mental Status: Normal Affect, Appropriate Debridement Note Wound debrided: right ankle ulcers Laterality: Right No debridement was completed today - patient seen via telehealth Assessment/Plan Assessment: 1) recurrent pressure ulcer of posterior leg in paraplegic w/spina bifida. Healing is very slow and likely because of poor quality of tissues. Offload boots seem very adequate. 2) venous stasis and edema. 3) spider veins with thrombosis right LE Plan: Shahzad's ulcer was evaluated and is healed today. He was seen by Dr. Pearl and the ablation was effective but he still has spider veins in the ankle that are causing ulcers. Shahzad and I also discussed other treatments such as amputation which he is not opposed to considering at this time. Stressed importance of compression and offloading. He has chronic edema and venous insufficiency. He is wearing offloading booties to decrease pressure to his heels. He should continue these measures. Stressed off-loading. He will continue tubigrips for compression. Encouraged increased protein intake and offloading was again reviewed. He is discharged at this time and will follow up as needed.
== END 2019-09-24 23:59 ==
LOC: WC 08:31
PROVIDERS: Family Provider Family Medicine; PCP Family Medicine; Referring Provider Family Medicine; Visit Provider Family Medicine
DX: I83.213 Varicose veins of right lower extremity with both ulcer of ankle and inflammation (principal); L89.512 Pressure ulcer of right ankle, stage 2; Q05.9 Spina bifida, unspecified; G82.20 Paraplegia, unspecified; I89.0 Lymphedema, not elsewhere classified; Z91.19 Patient's noncompliance with other medical treatment and regimen; I82.4Z1 Acute embolism and thrombosis of unspecified deep veins of right distal lower extremity

== ENCOUNTER 2019-09-25 10:41 | Observation (INO) | payer MEDICARE, MEDICAID, SELFPAY ==
[2019-09-25] VITALS (11 sets, daily range): BP systolic 108–154; BP diastolic 62–95; PULSE 100–121; RESP 17–23; TEMP 36.3–37.1; O2SAT 97–100; BMI 57.4; BMI 40.0; BMI 40.1
--- NOTE | 2019-09-25 11:03 | EKG12_ITS ---
Test Reason : CP Blood Pressure : / mmHG Vent. Rate : 114 BPM Atrial Rate : 114 BPM P-R Int : 156 ms QRS Dur : 076 ms QT Int : 310 ms P-R-T Axes : 021 -05 041 degrees QTc Int : 427 ms Sinus tachycardia Low voltage QRS Poor R wave progression Nonspecific T wave abnormality Borderline ECG Confirmed by ADRIA FITZGERALD, SOPHIE ([id number]), editor school photograph NEGAR WHITT ([id number]) on 09/28/2019 10:33:09 AM Referred By: FAHAD/MR Confirmed By:SOPHIE COVINGTON MD
--- NOTE | 2019-09-25 11:20 | RAD_ITS ---
STUDY: X-RAY CHEST REASON FOR EXAM: Male, 53 years old. Chest pain, Hx COVID TECHNIQUE: Single AP portable view of the chest. COMPARISON: Comparison is made with prior study dated May 04, 2011. FINDINGS: EKG electrodes are seen. The lungs are clear and expanded. There is no demonstrated pleural abnormality. Normal size heart. Normal mediastinum and sanam. Normal visualized pulmonary arteries. Normal visualized aortic arch and descending thoracic aorta. Normal visualized thoracic spine. Normal visualized ribs, clavicles, and shoulders. There is no demonstrated abnormality of the visualized soft tissue structures of the upper abdomen. RAD/Chest 1 View (Portable) IMPRESSION: Normal x-ray examination of the chest. Electronically Signed: Cesar King, at 12:15 EDT , Service support ,
[2019-09-25 11:28] LABS: Absolute Lymphocyte Count 2.16 X10^3/uL (0.83-4.51); Basophil# 0.08 X10^3/uL; Basophil% 0.6 % (0-1); Eosinophil# 0.25 X10^3/uL; Eosinophils% 1.7 % (0-5); Hematocrit 51.7 % (40-54); Hemoglobin 15.3 g/dL (13.0-16.5); Lymphocyte # 2.16 X10^3/ul (4.0); Mean Corp Hgb Conc 29.6 g/dL (32-36); Mean Corpuscular Hgb 24.6 pg (27.0-32.0); Mean Corpuscular Volume 83.1 fL (80-94); Monocyte# 0.86 X10^3/uL; NRBC Flagged by Analyzer 0 % (0-5); Neutrophil # 11.02 X10^3/uL (2.7-7.7); Neutrophil % 76.3 % (47-70); Platelet Count 477 K/mm3 (150-450); RBC Distribution Width CV 15.6 % (11.6-14.6); RBC Distribution Width SD 45.8 fl (35.1-43.9); Red Blood Count 6.22 M/mm3 (4.6-6.2); White Blood Count 14.4 K/mm3 (4.4-11.0)
--- NOTE | 2019-09-25 11:31 | NURSING ---
CHEMISTRIES HEMOLIZED PER LAB
--- NOTE | 2019-09-25 11:33 | ED.DCSUM_ITS ---
History of Present Illness Chief Complaint: Chest Pain Informant: Patient Narrative: Patient presenting for evaluation secondary to chest pain. Patient has an underlying history of cerebral palsy and spina bifida and is bedbound. Patient reports that he developed intense chest pain at about 930. He states that it is left-sided and seems to be worse with taking a deep breath. Patient denies any short of breath. He denies any fever cough nausea vomiting or diarrhea associated with this. He was given nitroglycerin at the detention and did not have improvement of his chest pain. Of note, the patient did test positive for coronavirus around a month ago, but currently is not exhibiting any symptoms. He denies any history of DVT or PE although he is bedbound. He is not anticoagulated. 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 Surgical History: - - fasciotomies to both feet, surgical debridement Lives: Senior Living Smoking Status: Never smoker - Family History Paternal Family History: Reports: Dementia Maternal Family History: Reports: No pertinent history Review of Systems All systems negative except as indicated General: Denies: Chills, Fever, Sweats Eyes: Denies: Visual changes - bilaterally, Diplopia ENT: Denies: Rhinorrhea, Sore throat Cardiovascular: Reports: Chest pain Respiratory: Denies: Dyspnea, Cough, Dyspnea on exertion Gastrointestinal: Denies: Abdominal pain, Nausea, Vomiting, Diarrhea, Melena, Hematochezia Genitourinary: Denies: Dysuria, Hematuria, Frequency Musculoskeletal: Denies: Back pain, Extremity Pain Skin: Denies: Rash, Wounds Neurological: Denies: Headache, Weakness, Numbness Physical Exam Vital Signs/Narrative: Vital Signs Temp Pulse Resp BP Pulse Ox 09/25/19 10:42 98.8 F 121 H 22 H 137/74 H 97 Inital Vital Signs reviewed: Yes General: Well nourished, Well developed, No Acute Distress Head: Normocephalic, Atraumatic Eyes: Perrl, EOMI ENT: Moist mucous membranes, No rhinorrhea Neck: Supple, Nontender Cardiovascular: Regular rhythm, Tachycardia, - - 2+ radial pulses bilaterally symmetric Respiratory: No distress, CTA bilaterally, Chest nontender Abdomen: Soft, Nontender, Nondistended, Normal bowel sounds Extremities: - - +1 bilateral lower extremity edema that is symmetric. Wounds on patient's right feet are wrapped, not draining. Skin: Normal color, No rash Neurological: Alert, Oriented x3, Cranial nerves II-XII grossly intact, Normal Strength, Normal Sensation Diagnostic/Tx/Re-eval Clinical Impression(s) from Imaging Studies Chest X-Ray 09/25/19 11:20 IMPRESSION: Normal x-ray examination of the chest. Electronically Signed: Cesar King, at 12:15 EDT , Service support , Laboratory Data 09/25/19 09/25/19 11:00 11:00 WBC 14.4 H RBC 6.22 H Hgb 15.3 Hct 51.7 MCV 83.1 MCH 24.6 L MCHC 29.6 L RDW Std Deviation 45.8 H RDW Coeff of Gideon 15.6 H Plt Count 477 H MPV 9.0 Immature Gran % (Auto) 0.400 Neut % (Auto) 76.3 H Lymph % (Auto) 15.0 L Dougherty % (Auto) 6.0 Eos % (Auto) 1.7 Baso % (Auto) 0.6 Absolute Neuts (auto) 11.0 H Absolute Lymphs (auto) 2.16 Nucleated RBC % 0 Sodium Cancelled Potassium Cancelled Chloride Cancelled Carbon Dioxide Cancelled Anion Gap Cancelled BUN Cancelled Creatinine Cancelled Estim Creat Clear Calc Cancelled Est GFR (MDRD) Af Amer Cancelled Est GFR (MDRD) Non-Af Cancelled BUN/Creatinine Ratio Cancelled Glucose Cancelled Calcium Cancelled Troponin I Cancelled - EKG Initial EKG Interpretation: - - Sinus tachycardia with a rate of 114, isoelectric ST segments normal T waves, diffuse low voltage is noted, no evidence of acute ischemia. - Medical Decision Making Patient presented secondary to chest pain. He does have a history of peripheral artery disease, work-up was obtained. EKG demonstrates tachycardia but no evidence of acute ischemic changes. Chest x-ray by my personal review as well as radiology is negative. Patient was difficult to obtain IV access on, I was able to get a CBC on the patient which showed new onset leukocytosis of 14. Remainder the patient's lab work was hemolyzed despite multiple trial attempts. We did order for the patient to receive a midline as he is tachycardic has a leukocytosis has underlying disease with chest pain and I believe that he will require admission regardless of what his laboratory study shows. He has no other signs of infection, but he does have a history of MRSA so the patient will be empirically ordered antibiotics. Patient's chest pain work-up is still underway, and he may potentially require CT angiogram imaging but his midline will not be able to be placed for another 4 hours. I believe the patient's work-up can successfully be completed in the inpatient basis. I will discuss this with hospitalist. ED Disposition - Plan for ED Patient: Disposition: Acute Care Hospital [facility] Diagnosis: Chest pain, Tachycardia, Leukocytosis, PAD (peripheral artery disease), History of MRSA infection
--- NOTE | 2019-09-25 13:03 | ED.RN ---
PICC LINE NURSE WILL BE HERE BETWEEN [phone]
[2019-09-25] MEDS: Aspirin 81 MG TAB.CHEW 324 MG PO (13:22)
--- NOTE | 2019-09-25 13:24 | ED.RN ---
UNABLE TO OBTAIN BLOOD THRU MULTIPLE ATTEMPTS PER RN AND LAB. DR POST AWARE. PLAN TO HAVE IV TEAM COME PLACE MIDLINE. PT AWARE. UNABLE TO ARRIVE U NTIL 1730 OR LATER. AWARE. HOLDING OFF ON ANTIBIOTICS
--- NOTE | 2019-09-25 14:51 | NURSING ---
PCU OBS EDILONIS CP, TACHYCARDIA, LEUKOCYTOSIS
--- NOTE | 2019-09-25 15:45 | PCM.HP.STD ---
<Tomas Vogt - Last Filed: 09/25/19 15:45> Problem List (1) Chest pain Status: Acute (2) PAD (peripheral artery disease) Status: Chronic (3) GERD (gastroesophageal reflux disease) Status: Chronic (4) Venous stasis Status: Chronic (5) History of cerebral palsy Status: Chronic (6) Spina bifida Status: Chronic History of Present Illness Date of Admission: 09/25/19 Chief Complaint: chest pain The patient is a 53 year old M with pmhx of cerebral palsy and spina bifida, recent covid19 infection, venous stasis with multiple venous stasis wounds with infections including Pseudomonas/multiple Staph species including MRSA/Proteus/Corynebacterium/Acinetobacter, recent COVID19 infection, GERD, who presented to the ER from [facility] with chest pain. This occured today and was described as a severe left sided sharp pain that has since resolved. It was worth with deep breath. He has no shortness of breath. He has a cough that has been ongoing since his recent infection. He denies fever/chills, dysuria, nausea/vomiting/diarrhea, lightheadedness. 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) Venous stasis (Chronic) GERD (gastroesophageal reflux disease) (Chronic) History of cerebral palsy (Chronic) Allergies clindamycin Allergy (Verified 06/10/18 14:54) Other Penicillins Allergy (Verified 06/10/18 14:54) Other Home Medications: Ambulatory Orders Medication Instructions Recorded Montelukast [Singulair] 10 mg PO DAILY 01/23/13 Omeprazole [Prilosec] 20 mg PO DAILY 01/23/13 Ammonium Lactate [Amlactin] 1 applicatio TP UD 12/07/17 Fluticasone/Vilanterol [Breo 1 each IH DAILY 12/07/17 Ellipta Inhaler] Cholecalciferol (Vitamin D3) 4,000 unit PO DAILY 06/10/18 [Vitamin D3] Gabapentin [Neurontin] 300 mg PO BIDCM 06/10/18 Ascorbic Acid [C-1000] 1,000 mg PO DAILY 09/25/19 Cholestyramine (with Sugar) 4 gm PO DAILY 09/25/19 [Questran Packet] Multivitamin,Therapeutic [Therems] 1 tab PO DAILY 09/25/19 Surgical History: - - fasciotomies to both feet, surgical debridement Psychiatric History: No pertinent psych hx Lives: Assisted Smoking Status: Never smoker Tobacco Use: Non-smoker Alcohol: None Drugs: None - *Family History Paternal History Items: Dementia Maternal History Items: No pertinent history Review of Systems Constitutional: Denies: Chills, Fever, Weight Change HEENT: Denies: Head Aches, Sinus Congestion, Sinus Drainage Cardiovascular: Reports: Chest Pain. Denies: Chest Pressure, Chest Tightness, Heaviness, Light Headedness, Orthopnea, Palpitations, Paroxysmal Noc. Dyspnea Respiratory: Reports: Cough. Denies: Shortness of Breath, Shortness of breath at rest, Sputum production, Wheezing Gastrointestinal: Denies: Abdominal Pain, Diarrhea, Nausea, Vomiting Genitourinary: Denies: Dysuria, Frequency, Hesitancy, Urgency Musculoskeletal: Denies: Joint Pain, Joint Tenderness Skin: Reports: Wounds - chronic LE wounds healing well. Denies: Rash Neurological: Denies: Numbness, Tingling, Focal weakness Psychiatric: Denies: Anxiety, Depression, Homicidal Ideations, Suicidal Ideations Hematologic/ Lymphatic: Denies: Easy Bruising, Easy Bleeding VTE Information - Inpt Only VTE Present on Admission: No VTE Mechan Device Prophylaxis: None VTE Pharm Prophylaxis ordered?: Yes Patient Problems: Active and Suspected Problems Chest pain (Acute) Tachycardia (Acute) Leukocytosis (Acute) History of MRSA infection (Acute) - Physical Exam Vitals/I&O's: Vital Signs Temp Pulse Resp BP Pulse Ox 98.8 F 121 H 22 H 137/74 H 97 09/25/19 10:42 09/25/19 10:42 09/25/19 10:42 09/25/19 10:42 09/25/19 10:42 Oxygen Delivery Method Room Air Weight: 195 lb 15.855 oz Body Mass Index (BMI) 57.4 General: Alert, Oriented x3, Cooperative HEENT: Atraumatic, PERRLA, EOMI, Normocephalic Neck: Supple, No JVD, Negative Carotid Bruits Lungs: Clear to auscultation, Normal air movement Cardiovascular: Regular rate, No murmurs Abdomen: Bowel Sounds Present, Soft, Non Tender Extremities: No edema, Capillary Refill Less than 3 Seconds Skin: No rashes, No breakdown Musculoskeletal: No Tenderness to Palpation of Joints or Extremities Neurological: Cranial nerves II-XII grossly intact Psych/Mental Status: Normal Affect, Appropriate, Alert and oriented to time, place, person, mood and affect Laboratory Results 09/25/19 11:00: WBC 14.4 H, RBC 6.22 H, Hgb 15.3, Hct 51.7, MCV 83.1, MCH 24.6 L, MCHC 29.6 L, RDW Std Deviation 45.8 H, RDW Coeff of Gideon 15.6 H, Plt Count 477 H, MPV 9.0, Immature Gran % (Auto) 0.400, Neut % (Auto) 76.3 H, Lymph % (Auto) 15.0 L, Tompkins % (Auto) 6.0, Eos % (Auto) 1.7, Baso % (Auto) 0.6, Absolute Neuts (auto) 11.0 H, Absolute Lymphs (auto) 2.16, Nucleated RBC % 0 09/25/19 11:00: Sodium Cancelled, Potassium Cancelled, Chloride Cancelled, Carbon Dioxide Cancelled, Anion Gap Cancelled, BUN Cancelled, Creatinine Cancelled, Estim Creat Clear Calc Cancelled, Est GFR (MDRD) Af Amer Cancelled, Est GFR (MDRD) Non-Af Cancelled, BUN/Creatinine Ratio Cancelled, Glucose Cancelled, Calcium Cancelled, Troponin I Cancelled Assessment/Plan All Active Problems Chest pain (Acute) Tachycardia (Acute) Leukocytosis (Acute) History of MRSA infection (Acute) MRSA cellulitis (Resolved) 1. Chest pain - EKG neg for acute ischemia, blood work is pending as initial draw hemolyzed. With tachycardia and venous insufficiency, paraplegia will check CTA chest for PE, and check LE for DVTs with venous US. Need to assess renal function before CTA. Cycle enzymes. Repeat AM EKG. May need stress test. 2. Leukocytosis - with CP and cough, recent covid, need to assess for possible underlying infectious process. Also has a hx of MRSA/Pseudomonas wounds, other bacteria as noted above. These however do not look actively infected. He has been started on empiric abx with vanc/zosyn. He is afebrile with no specific complaints other than ongoing cough for several months. 3. Recent COVID 19 - no SOB. chronic cough since. initial infection was in june so he should not be actively contagious. 4. Cerebral palsy, Spina bifida, paraplegia - PTOT. 5. Chronic LE wounds - consult wound care and plan for continued o/p wound care center f/u 6. Hx Asthma - no SOB or wheezing. continue aerosols and singulair 7. GERD - ppi DVT ppx: lovenox - therapeutic while awaiting workup for clots DC planning: return to [facility] when appropriate This patient was seen by Tomas Vogt PA-C under the supervision of Dr. Beltrán. <Micheal Beltrán F - Last Filed: 09/25/19 18:23> History of Present Illness The patient is a 53 year old M [] Past Medical History Allergies clindamycin Allergy (Verified 06/10/18 14:54) Other Penicillins Allergy (Verified 06/10/18 14:54) Other - Physical Exam Vitals/I&O's: Vital Signs Temp Pulse Resp BP Pulse Ox 98.8 F 116 H 17 114/91 H 98 09/25/19 16:44 09/25/19 16:44 09/25/19 16:44 09/25/19 16:44 09/25/19 16:44 Oxygen Delivery Method Room Air Weight: 185 lb 3.013 oz Body Mass Index (BMI) 40.0 Laboratory Results 09/25/19 11:00: WBC 14.4 H, RBC 6.22 H, Hgb 15.3, Hct 51.7, MCV 83.1, MCH 24.6 L, MCHC 29.6 L, RDW Std Deviation 45.8 H, RDW Coeff of Gideon 15.6 H, Plt Count 477 H, MPV 9.0, Immature Gran % (Auto) 0.400, Neut % (Auto) 76.3 H, Lymph % (Auto) 15.0 L, Tompkins % (Auto) 6.0, Eos % (Auto) 1.7, Baso % (Auto) 0.6, Absolute Neuts (auto) 11.0 H, Absolute Lymphs (auto) 2.16, Nucleated RBC % 0 09/25/19 11:00: Sodium Cancelled, Potassium Cancelled, Chloride Cancelled, Carbon Dioxide Cancelled, Anion Gap Cancelled, BUN Cancelled, Creatinine Cancelled, Estim Creat Clear Calc Cancelled, Est GFR (MDRD) Af Amer Cancelled, Est GFR (MDRD) Non-Af Cancelled, BUN/Creatinine Ratio Cancelled, Glucose Cancelled, Calcium Cancelled, Troponin I Cancelled Current Medications Acetaminophen (Tylenol) 650 mg PO Q6H PRN PRN PRN Reason: Pain Score 1-10/Temp > 100.7 F Albuterol Sulfate (Ventolin Aerosols) 2.5 mg INHALATION Q6HWA.RT [facility] Budesonide (Pulmicort Aerosol) 0.5 mg INHALATION Q12H.RT [facility] Cholestyramine Resin (Questran 4gm Packet) 4 gm PO DAILY@1100 [facility] Enoxaparin Sodium (Lovenox) 90 mg SC BID [facility] Last Admin: 09/25/19 18:16 Dose: 90 mg Documented by: Gabapentin (Neurontin) 300 mg PO BIDCM [facility] Last Admin: 09/25/19 18:16 Dose: 300 mg Documented by: Sodium Chloride () 1,000 mls @ 100 mls/hr IV .Q10H [facility] Last Admin: 09/25/19 17:27 Dose: 100 mls/hr Documented by: Cefepime HCl 2 gm/ Sodium (Chloride) 100 mls @ 200 mls/hr IV Q12 [facility] Last Admin: 09/25/19 18:16 Dose: 200 mls/hr Documented by: Vancomycin IV Pharmacy to Dose (1 ea/ Sodium Chloride) 500 mls @ 250 mls/hr IV X1 PRN; Protocol PRN Reason: Rx to Dose Sodium Chloride () 250 mls @ 15 mls/hr IV .[id number] PRN PRN Reason: Saline Flush Sodium Chloride () 250 mls @ 15 mls/hr IV .[id number] PRN PRN Reason: Additional IVPB Infusion Melatonin (Melatonin) 3 mg PO QHS PRN PRN PRN Reason: INSOMNIA Montelukast Sodium (Singulair) 10 mg PO DAILY [facility] Ondansetron HCl (Zofran) 4 mg IV Q8H PRN PRN PRN Reason: NAUSEA/VOMITING Pantoprazole Sodium (Protonix) 20 mg PO DAILY [facility] Sodium Chloride () 10 - 40 ml IV UD PRN PRN Reason: SALINE FLUSH Addendum: Dr. Beltrán I personally examined the patient and reviewed the chart. I agree with the above. 53-year-old male with cerebral palsy and spina bifida who recently was infected with COVID-19 presents to the hospital with left-sided chest pain that was pleuritic in nature. He was also tachycardic with an elevated white count. Chest x-ray was unremarkable however there was concern for possible PE. However his IVs in the ER went bad and we were unable to obtain lab work or to insert a second IV for contrast to perform a CTA. He also has extensive history with previous wounds that he says are actually healing very well and with his white count, his tachycardia, and his tachypnea there is concern for possible sepsis therefore he was started on IV fluids as well as broad-spectrum antibiotics. Currently we are waiting for IV team to place midline so a BMP as well as a troponin and a d-dimer could be obtained. In the meantime he was also started on therapeutic Lovenox given the history of COVID-19, there is a potential for PE since it is a hypercoagulable state especially with his cerebral palsy and spina bifida. Urinalysis is also pending to investigate a source of infection if any, blood cultures will also be pending. Because he does not demonstrate any symptoms and he is successfully recovered from COVID, he has not been tested for COVID however he is still in the cohort unit at [facility] and therefore under an abundance of caution he was placed on the cohort floor here in the hospital. Once he is ready for discharge home it may be reasonable to obtain a COVID simply for ease of placement once returned to the care home facility. OBSV E&M: [id number] Initial observation care L3
--- NOTE | 2019-09-25 16:25 | NURSING ---
NEW ROOM CVICU 203
[2019-09-25] MEDS: 0.9% Normal Saline 1,000 ML 100 ML IV (17:27)
[2019-09-25] MEDS: Enoxaparin 100 MG/ML Syringe 90 MG SC (18:16)
[2019-09-25] MEDS: Gabapentin 300 MG Capsule PO (18:16)
[2019-09-25] MEDS: Budesonide Respules 0.5 MG/2 ML AMPUL.NEB. INHALATION (18:52)
[2019-09-25] MEDS: Albuterol 2.5 MG/3 ML VIAL.NEB. INHALATION (18:53)
[2019-09-25 21:48] LABS: Bacteria 0 SEEN /hpf (None Seen); Mucous, Urine 0 SEEN /hpf (<or=2+)
[2019-09-25 21:54] LABS: Color, Urine Yellow (Yellow); Glucose, Dipstick Normal (Normal); Ketone-Dipstick Negative (Negative); Leukocyte Esterase-Dipstick 25 /ul (Negative); Nitrite-Dipstick Negative (Negative); Occult Blood-Urine 150 /ul (Negative); Protein-Dipstick 30 mg/dl (Negative); Urine Bilirubin Dipstick Negative (Negative); Urine Clarity Cloudy (Clear); Urine Urobilinogen Normal (Normal)
[2019-09-25 22:09] LABS: Amorphous Sediment 4+
[2019-09-25 22:10] LABS: D-Dimer Quantitative (DVT/PE) <= 0.27 FEU/ug/m (0.27-0.49); Red Blood Cells-Urine 10-25 SEEN /hpf (0-5)
[2019-09-25 22:11] LABS: Renal Epithelial Cells 0-5 SEEN /hpf (0-5); Squamous Epithelial Cells - UA 5-10 SEEN /hpf (0-5); White Blood Cells 5-10 SEEN /hpf (0-5)
[2019-09-25 22:22] LABS: Anion Gap 8 (5-15); BUN 15 mg/dL (7-18); BUN/Creat Ratio 28.8 RATIO (10-20); Calcium,Total 8.5 mg/dL (8.5-10.1); Chloride 108 mmol/L (98-107); Creatinine, Serum 0.52 mg/dL (0.70-1.30); EST Glomerular Filtration Rate 177 mL/min (>60); Est Glom Filt Rate - Afr Amer 215 mL/min (>60); Estimated Creatinine Clearance 199.68 ml/min; Glucose 148 mg/dL (74-106); Potassium 3.4 mmol/L (3.5-5.1); Sodium Level 143 mmol/L (136-145)
--- NOTE | 2019-09-25 23:48 | PCM.RX.CS ---
<Eh Potter - Last Filed: 09/25/19 23:48> Consult Pharmacy has been consulted to manage selected antiobiotic: Vancomycin Type of Consult: New start Suspected Infection: Other Prior Doses of Antibiotics Received/Current Regimen: Medications Vancomycin HCl (Vancomycin) 1,000 mg in 200 mls @ 200 mls/hr IV Q8H [facility] Discontinued Medications Vancomycin HCl 1,250 mg/ (Sodium Chloride) 275 mls @ 167 mls/hr IV X1 ONE Stop: 09/25/19 15:08 Last Admin: 09/25/19 20:29 Dose: Infused Labs: Sodium 143 mmol/L (136-145) 09/25/19 21:10 Potassium 3.4 mmol/L (3.5-5.1) L 09/25/19 21:10 Chloride 108 mmol/L (98-107) H 09/25/19 21:10 Carbon Dioxide 27.0 mmol/L (21.0-32.0) 09/25/19 21:10 Anion Gap 8 (5-15) 09/25/19 21:10 BUN 15 mg/dL (7-18) 09/25/19 21:10 Creatinine 0.52 mg/dL (0.70-1.30) L 09/25/19 21:10 Est GFR (MDRD) Af Amer 215 mL/min (>60) 09/25/19 21:10 Est GFR (MDRD) Non-Af 177 mL/min (>60) 09/25/19 21:10 BUN/Creatinine Ratio 28.8 RATIO (10-20) H 09/25/19 21:10 Glucose 148 mg/dL (74-106) H 09/25/19 21:10 Weight used for dosin lb 3.013 oz Estimated Creatinine Clearance: >110 Goal Trough: 15-20 mcg/mL Pharmacy Plan for Drug Dosing: Pharmacy Service will continue to monitor and adjust dosing as required. Follow-Up Labs: Trough Vancomycin Labs to be done on [date and time ordered]: 09/27/19 @0230 <Airam Brito - Last Filed: 09/26/19 15:32> Consult Labs: Sodium 142 mmol/L (136-145) 09/26/19 03:35 Potassium 4.0 mmol/L (3.5-5.1) 06/02/20 03:35 Chloride 109 mmol/L (98-107) H 09/26/19 03:35 Carbon Dioxide 27.0 mmol/L (21.0-32.0) 09/26/19 03:35 Anion Gap 6 (5-15) 09/26/19 03:35 BUN 14 mg/dL (7-18) 09/26/19 03:35 Creatinine 0.45 mg/dL (0.70-1.30) L 09/26/19 03:35 Est GFR (MDRD) Af Amer 256 mL/min (>60) 09/26/19 03:35 Est GFR (MDRD) Non-Af 212 mL/min (>60) 09/26/19 03:35 BUN/Creatinine Ratio 31.4 RATIO (10-20) H 09/26/19 03:35 Glucose 106 mg/dL (74-106) 09/26/19 03:35 Pharmacy Plan for Drug Dosing: Pharmacy Service will continue to monitor and adjust dosing as required.
[2019-09-26] VITALS (14 sets, daily range): BP systolic 98–139; BP diastolic 60–99; PULSE 70–103; RESP 14–23; TEMP 36.1–36.9; O2SAT 94–100
[2019-09-26] MEDS: Vancomycin IV 1,000 MG/200 ML BAG 200 MG IV ×2 (03:37→11:15)
[2019-09-26 04:29] LABS: Absolute Lymphocyte Count 2.28 X10^3/uL (0.83-4.51); Absolute Neutrophil Count 7.4 X10^3/uL (2.0-7.7); Basophil# 0.05 X10^3/uL; Basophil% 0.5 % (0-1); Eosinophil# 0.23 X10^3/uL; Eosinophils% 2.1 % (0-5); Hematocrit 42.4 % (40-54); Lymphocyte # 2.28 X10^3/ul (4.0); Lymphocyte % 20.7 % (19-41); Mean Corp Hgb Conc 30.7 g/dL (32-36); Mean Corpuscular Hgb 25.4 pg (27.0-32.0); Monocyte# 0.98 X10^3/uL; Monocyte% 8.9 % (0-10); NRBC Flagged by Analyzer 0 % (0-5); Neutrophil # 7.44 X10^3/uL (2.7-7.7); Neutrophil % 67.3 % (47-70); Platelet Count 401 K/mm3 (150-450); RBC Distribution Width CV 15.2 % (11.6-14.6); RBC Distribution Width SD 45.8 fl (35.1-43.9); Red Blood Count 5.11 M/mm3 (4.6-6.2)
[2019-09-26 04:42] LABS: Anion Gap 6 (5-15); BUN 14 mg/dL (7-18); BUN/Creat Ratio 31.4 RATIO (10-20); Calcium,Total 8.1 mg/dL (8.5-10.1); Chloride 109 mmol/L (98-107); Creatinine, Serum 0.45 mg/dL (0.70-1.30); EST Glomerular Filtration Rate 212 mL/min (>60); Est Glom Filt Rate - Afr Amer 256 mL/min (>60); Estimated Creatinine Clearance 230.74 ml/min; Glucose 106 mg/dL (74-106); Sodium Level 142 mmol/L (136-145)
[2019-09-26] MEDS: 0.9% Normal Saline 1,000 ML 100 ML IV (06:06)
--- NOTE | 2019-09-26 06:41 | CT_ITS ---
STUDY: CTA CHEST REASON FOR EXAM: Male, 53 years old. LEFT SIDE CHEST PAIN,COUGH -- HX-CEREBRAL PALSY,SPINA BIFIDA,PARAPLEGIA,ASTHMA,RECENT COVID 06/2019 RADIATION DOSAGE (If Supplied By Facility): CTDIvol = ( 11.38 ) mGy, DLP = ( 390.60 ) mGycm TECHNIQUE: The examination was performed with the intravenous administration of 100CC ISOVUE 370. Post-processing of the angiographic images was performed, with multiplanar reformation and 3D reconstruction. Individualized dose optimization techniques were used for this CT. COMPARISON: None. FINDINGS: Normal enhancement of the main pulmonary artery and right and left pulmonary arteries. Normal enhancement of the bilateral peripheral pulmonary arteries. There is no demonstrated pulmonary embolism. Normal thoracic aorta and visualized great vessels. There is no demonstrated aortic dissection. Normal heart and pericardium. Normal mediastinum. Normal hilar regions. Normal visualized trachea and bronchi. The lungs are well expanded. Minimal linear atelectasis at the right lung base. Normal pleura. Normal chest wall structures. There are degenerative changes of thoracic spine. Small hiatal hernia. CT/CTA Chest W/WO Contrast IMPRESSION: No acute abnormalities. Electronically Signed: Cesar King, at 9:38 EDT , Service support ,
[2019-09-26] MEDS: Albuterol 2.5 MG/3 ML VIAL.NEB. INHALATION ×3 (07:40→19:30)
[2019-09-26] MEDS: Budesonide Respules 0.5 MG/2 ML AMPUL.NEB. INHALATION ×2 (07:40→19:40)
[2019-09-26] MEDS: Enoxaparin 100 MG/ML Syringe 90 MG SC (09:21)
[2019-09-26] MEDS: Montelukast 10 MG Tablet PO (09:22)
[2019-09-26] MEDS: Pantoprazole Sodium 20 MG Tablet PO (09:22)
[2019-09-26] MEDS: Gabapentin 300 MG Capsule PO ×2 (09:22→16:34)
--- NOTE | 2019-09-26 10:29 | CASEMGMT ---
Addendum entered by Tracy Chicas 09/26/19 11:28: CHANTALE placed another call to pt's room. Pt available. Pt confirms he is from [facility] and plan is to return at discharge. Original Note: Social Work Note Pt is listed as being from [facility]. CHANTALE attempted to call pt's room to discuss discharge plans, no answer. Pt recently had COVID in June 2019, SW not going into pt's room. CHANTALE placed a call to [facility] and spoke with Jeimy in admissions. Jeimy confirms pt is [facility], is able to return when medically cleared. Jeimy asked if it was possible for pt to be re swabbed for COVID while at [facility]. Jeimy states pt was on the list to get retested at [facility] but pt was admitted to [facility] before they could re test him. CHANTALE informed Jeimy that this worker will ask physician regarding COVID test. Jeimy states pt is able to return regardless if pt gets tested or not and when pt is medically cleared. CHANTALE asked physician about COVID test. Physician states COVID test has been ordered for pt. CHANTALE faxed updated clinicals to [facility], wrote on fax coversheet that COVID test has been ordered. Plan: Return to [facility] once medically cleared Tracy Chicas GAMBLING COUNSELLOR, POLICE LIAISON
[2019-09-26] MEDS: Cholestyramine/Sucrose 4 GM/PACKET PO (11:16)
--- NOTE | 2019-09-26 12:47 | PN_ITS ---
Patient Problems: Active and Suspected Problems Chest pain (Acute) Tachycardia (Acute) Leukocytosis (Acute) History of MRSA infection (Acute) Reason for Visit: Follow-up for chest pain Subjective: Patient seen and examined. He was admitted from his [facility] with a complaint of chest pain which started on the day of admission and was described as left-sided, sharp and pleuritic in nature. He had no associated shortness of breath. Patient was diagnosed with COVID-19 infection ENT June 2019. He had a cough but he states that been ongoing since he was diagnosed with COVID. Cough was nonproductive. Troponins x3 were negative. He has no complaints this morning. CT of the chest done was negative for any PE. Review of symptoms otherwise negative. Labs and vitals reviewed. He has remained hemodynamically stable. Vitals/I&O's: Vital Signs Temp Pulse Resp BP Pulse Ox 97.8 F 100 19 H 98/60 100 09/26/19 09:30 09/26/19 09:30 09/26/19 09:30 09/26/19 09:30 09/26/19 09:30 Oxygen Delivery Method Room Air Weight: 185 lb 3.013 oz Body Mass Index (BMI) 40.0 Intake and Output for Last 24 Hours 09/24/19 09/25/19 09/26/19 23:59 23:59 23:59 Intake Total 480 / 720 2218.33 / 2218.33 Output Total 950 / 950 Balance 480 / 520 1268.33 / 1268.33 General: Alert, Oriented x3, Cooperative, No apparent distress HEENT: Atraumatic, PERRLA, EOMI, Normocephalic Oral: Dry Mucosa Neck: Supple, No JVD, Negative Carotid Bruits Lungs: Clear to auscultation, Normal air movement, No rhonchi, No wheeze Cardiovascular: Regular rate, Regular Rhythm, Normal S1, Normal S2, No murmurs Abdomen: Bowel Sounds Present, Soft, Non Tender, Non-Distended, No Hepato- splenomegaly Extremities: No clubbing, No cyanosis, No edema, Capillary Refill Less than 3 Seconds Skin: - - RLE wrapped in bandage due to chronic wounds. Musculoskeletal: No Tenderness to Palpation of Joints or Extremities Lymphatic: No Cervical, Supraclavicular, or Inguinal Adenopathy Neurological: Cranial nerves II-XII grossly intact, Neuro grossly intact, Motor Exam 5/5 strength throughout Psych/Mental Status: Normal Affect, Appropriate Laboratory Results 09/25/19 21:10: D-Dimer Quant (PE/DVT) <= 0.27 09/25/19 21:10: Sodium 143, Potassium 3.4 L, Chloride 108 H, Carbon Dioxide 27.0, Anion Gap 8, BUN 15, Creatinine 0.52 L, Estim Creat Clear Calc 199.68, Est GFR (MDRD) Af Amer 215, Est GFR (MDRD) Non-Af 177, BUN/Creatinine Ratio 28.8 H, Glucose 148 H, Calcium 8.5, Troponin I < 0.015 09/25/19 21:10: Urine Color Yellow, Urine Clarity Cloudy, Urine pH 6.0, Ur Specific Golden 1.020, Urine Protein 30 H, Urine Glucose (UA) Normal, Urine Ketones Negative, Urine Occult Blood 150 H, Urine Nitrite Negative, Urine Bilirubin Negative, Urine Urobilinogen Normal, Ur Leukocyte Esterase 25 H, Urine RBC 10-25 SEEN, Urine WBC 5-10 SEEN, Ur Squamous Epith Cells 5-10 SEEN, Ur Renal Epithelial Cell 0-5 SEEN, Amorphous Sediment 4+, Urine Bacteria 0 SEEN, Urine Mucus 0 SEEN 09/25/19 23:35: Troponin I < 0.015 09/26/19 03:35: WBC 11.0, RBC 5.11, Hgb 13.0, Hct 42.4, MCV 83.0, MCH 25.4 L, MCHC 30.7 L, RDW Std Deviation 45.8 H, RDW Coeff of Gideon 15.2 H, Plt Count 401, MPV 9.0, Immature Gran % (Auto) 0.500, Neut % (Auto) 67.3, Lymph % (Auto) 20.7, [place] % (Auto) 8.9, Eos % (Auto) 2.1, Baso % (Auto) 0.5, Absolute Neuts (auto) 7.4, Absolute Lymphs (auto) 2.28, Nucleated RBC % 0 09/26/19 03:35: Sodium 142, Potassium 4.0, Chloride 109 H, Carbon Dioxide 27.0, Anion Gap 6, BUN 14, Creatinine 0.45 L, Estim Creat Clear Calc 230.74, Est GFR (MDRD) Af Amer 256, Est GFR (MDRD) Non-Af 212, BUN/Creatinine Ratio 31.4 H, Glucose 106, Calcium 8.1 L 09/26/19 03:35: Troponin I < 0.015 09/26/19 11:05: COVID-19 ([facility]EM) Pending Current Medications Acetaminophen (Tylenol) 650 mg PO Q6H PRN PRN PRN Reason: Pain Score 1-10/Temp > 100.7 F Albuterol Sulfate (Ventolin Aerosols) 2.5 mg INHALATION Q6HWA.RT [facility] Last Admin: 09/26/19 07:40 Dose: 2.5 mg Documented by: Budesonide (Pulmicort Aerosol) 0.5 mg INHALATION Q12H.RT [facility] Last Admin: 09/26/19 07:40 Dose: 0.5 mg Documented by: Cholestyramine Resin (Questran 4gm Packet) 4 gm PO DAILY@1100 [facility] Last Admin: 09/26/19 11:16 Dose: 4 gm Documented by: Enoxaparin Sodium (Lovenox) 90 mg SC BID [facility] Last Admin: 09/26/19 09:21 Dose: 90 mg Documented by: Gabapentin (Neurontin) 300 mg PO BIDCM [facility] Last Admin: 09/26/19 09:22 Dose: 300 mg Documented by: Sodium Chloride () 1,000 mls @ 100 mls/hr IV .Q10H [facility] Last Infusion: 09/26/19 12:25 Dose: 100 mls/hr Documented by: Cefepime HCl 2 gm/ Sodium (Chloride) 100 mls @ 200 mls/hr IV Q12 [facility] Last Infusion: 09/26/19 09:53 Dose: Infused Documented by: Vancomycin IV Pharmacy to Dose (1 ea/ Sodium Chloride) 500 mls @ 250 mls/hr IV PRN PRN; Protocol PRN Reason: Rx to Dose Sodium Chloride () 250 mls @ 15 mls/hr IV .[id number] PRN PRN Reason: Saline Flush Sodium Chloride () 250 mls @ 15 mls/hr IV .[id number] PRN PRN Reason: Additional IVPB Infusion Vancomycin HCl (Vancomycin) 1,000 mg in 200 mls @ 200 mls/hr IV Q8H [facility] Last Infusion: 09/26/19 12:25 Dose: Infused Documented by: Melatonin (Melatonin) 3 mg PO QHS PRN PRN PRN Reason: INSOMNIA Montelukast Sodium (Singulair) 10 mg PO DAILY [facility] Last Admin: 09/26/19 09:22 Dose: 10 mg Documented by: Ondansetron HCl (Zofran) 4 mg IV Q8H PRN PRN PRN Reason: NAUSEA/VOMITING Pantoprazole Sodium (Protonix) 20 mg PO DAILY [facility] Last Admin: 09/26/19 09:22 Dose: 20 mg Documented by: Sodium Chloride () 10 - 40 ml IV UD PRN PRN Reason: SALINE FLUSH STROKE Vital Signs/Narrative: Vital Signs Temp Pulse Resp BP Pulse Ox 09/26/19 09:30 97.8 F 100 19 H 98/60 100 Medical Necessity - Tobacco Use Smoking Status: Never smoker Tobacco Use: Non-smoker Assessment/Plan All Active Problems Chest pain (Acute) Tachycardia (Acute) Leukocytosis (Acute) History of MRSA infection (Acute) MRSA cellulitis (Resolved) 1. Chest pain to r/o ACS * chest pain has resolved * troponins x 3 were negative * EKG showed no acute ST changes * on SL nitroglycerin prn. PO aspirin 81mg daily * CTA of the chest was negative for PE * in light of his recent positive COVID infection 2 month ago, and his being still in the COVID cohort in the SNF since then, will check for COVID so he can have stress test if it is negative * 2. Recent COVID infection: Repeat COVID test pending. 3. Leukocytosis: * White cell count was 14 on admission but is now down to 11. * He was also tachypneic and tachycardic and met SIRS criteria. * There was no clear infectious process going to order though he had a history of chronic wounds of the lower extremity, did not look actively infected. Currently on IV vancomycin and Zosyn empirically. * Blood cultures pending. * CTA of the chest showed no evidence of pneumonia. We will therefore DC antibiotics. 4. Cerebral palsy and spina bifida with paraplegia: Stable. PT OT on board. 5. Chronic lower extremity wounds: Wound care on board. Stable 6. Asthma: Not in exacerbation. On Singulair and breathing treatments with bronchodilators. 7. GERD: On PPI DVT prophylaxis: lovenox; kiki dc therapeutic lovenox which was started whilst PE was being ruled out, and continue with 40mg sq of lovenox daily. OBSV E&M: 17316 Subsequent observation care L2
[2019-09-27] VITALS (7 sets, daily range): BP systolic 129–140; BP diastolic 64–82; PULSE 77–94; RESP 16–18; TEMP 36.6–36.8; O2SAT 94–99
[2019-09-27] MEDS: 0.9% Saline Lock 10 ML Syringe IV (04:56)
--- NOTE | 2019-09-27 05:55 | EKG12_ITS ---
Test Reason : AM EKG Blood Pressure : / mmHG Vent. Rate : 103 BPM Atrial Rate : 103 BPM P-R Int : 158 ms QRS Dur : 078 ms QT Int : 366 ms P-R-T Axes : 044 -02 059 degrees QTc Int : 479 ms Sinus tachycardia Low voltage QRS Borderline ECG When compared with ECG of 25-SEP-2019 10:47, MANUAL COMPARISON REQUIRED, DATA IS UNCONFIRMED Confirmed by ROMEL SHULTZ ([id number]), international editorial producer MACKENZIE ELLSWORTH ([id number]) on 10/05/2019 7:51:30 AM Referred By: CHAYITO Confirmed By:ROMEL SHULTZ
[2019-09-27] MEDS: Albuterol 2.5 MG/3 ML VIAL.NEB. INHALATION (07:19)
[2019-09-27] MEDS: Budesonide Respules 0.5 MG/2 ML AMPUL.NEB. INHALATION (07:19)
--- NOTE | 2019-09-27 09:30 | CASEMGMT ---
This RN CM to room to complete BYERS form at this time and pt is out of the dept for stress test at this time. Will attempt again later. SStaten ROBER CM
--- NOTE | 2019-09-27 10:09 | CASEMGMT ---
This ROBER SCHWARZ to room with BYERS form at this time, explanation done-pt voices understanding, and signs BYERS form at this time. Original to chart and copy to pt at this time. Pt voices no further questions/concerns/needs at this time and states 'feels much better.' SStaten ROBER SCHWARZ
--- NOTE | 2019-09-27 11:20 | CASEMGMT ---
CHANTALE notified Nadja at [facility] that patient is having a stress test today and if it is fine he may return today. CHANTALE also told her we did to a COVID test and it was negative. Vivienne PIERRE MSW
--- NOTE | 2019-09-27 12:57 | STRESSREP ---
Stress Test Report Date: 09-27-2019 Procedure: Pharmacologic stress nuclear imaging study Indications: Chest pain; PAD; reported as COVID positive Consent: Per the patient Procedure: The patient underwent pharmacologic (Regadenoson) evaluation with a peak heart rate of 144 beats per minute (85 %predicted maximal heart rate) and a peak blood pressure of 140/102 mmHg. The baseline ECG demonstrated sinus tachycardia; low voltage QRS; poor R wave progression. The peak pharmacologic ECG demonstrated no obvious ECG changes. [There were no cardiac dysrhythmias pretest, during pharmacologic infusion, or recovery]. [There was no complaint of chest discomfort during pharmacologic infusion or recovery]. The examination was discontinued secondary to completion of protocol. Impression: 1. Pharmacologic (Regadenoson) evaluation 2. Peak pharmacologic ECG with no obvious ECG changes. 3. [There were no cardiac dysrhythmias pretest, during pharmacologic infusion, or recovery]. 4. Nuclear images pending Myocardial perfusion imaging study: Technique: The patient was injected with 12.0 millicuries of technetium 99m Cardiolite and subsequently rest SPECT Cardiolite nuclear imaging was obtained in the horizontal long, vertical long, and short axis views. The patient underwent pharmacologic (Regadenoson) evaluation with a peak heart rate of 144 beats per minute (85 % percent predicted maximal heart rate) and a peak blood pressure of 140/102 mmHg. The patient was injected with 36.0 millicuries of technetium 99m Cardiolite and subsequently stress SPECT Cardiolite nuclear imaging was obtained in the horizontal long, vertical long, and short axis views. A gated Cardiolite study at peak stress was obtained. Interpretation: Rest and stress SPECT Cardiolite nuclear imaging status post realignment, normalization, and attenuation correction demonstrate relative uniform tracer uptake and myocardial perfusion appearing within normal limits. [There is end systolic thickening and brightening]. [The gated Cardiolite study demonstrates myocardial thickening and inward wall motion]. The reported LVEF is 75 %. Impression: 1. Relative uniform tracer uptake and myocardial perfusion appearing within normal limits. 2. The gated Cardiolite study reports an LVEF of 75 %. This note was generated with PingMDation software. It may contain incorrect words, spelling, and punctuation that were not noted in checking the note before signing.
--- NOTE | 2019-09-27 13:09 | CASEMGMT ---
This RN CM to room with BYERS form at this time, explanation done-pt voices understanding, and pt signed BYERS form at this time. Original to chart and copy to pt at this time. Pt voices no further questions/concerns/needs at this time. SStaten ROBER CM
--- NOTE | 2019-09-27 13:41 | DCINST_ITS ---
- Discharge Diagnoses Current Active Problems: Current Active and Chronic Problems PAD (peripheral artery disease) (Chronic) Chest pain (Acute) Tachycardia (Acute) Leukocytosis (Acute) History of MRSA infection (Acute) You will use the following diet at home:: Cardiac Your food should be the consistency of: Regular Your liquids should be the consistency of: Regular/Thin Discharge Activity: Return to Normal Activity Weight Bearing Status: Weight bearing as tolerated Call your doctor if you observe: Fever of 101 or Higher, Shortness of breath, Dizziness, Fainting spells, Swelling in the ankles, Increased palpitations (irregular heartbeat) Instructions: Warning Signs of a Heart Attack, ED Chest Pain NonCardiac, Recognizing a Heart Attack or Angina Allergies/Adverse Reactions: Allergies clindamycin Allergy (Verified 06/10/18 14:54) Other Penicillins Allergy (Verified 06/10/18 14:54) Other Medications to take at Discharge Montelukast [Singulair] 10 mg PO DAILY 01/23/13 Omeprazole [Prilosec] 20 mg PO DAILY 01/23/13 Ammonium Lactate [Amlactin] 1 applicatio TP UD 12/07/17 Fluticasone/Vilanterol [Breo Ellipta 100-25 Mcg INH] 1 each IH DAILY 12/07/17 Cholecalciferol (Vitamin D3) [Vitamin D3] 4,000 unit PO DAILY 06/10/18 Gabapentin [Neurontin] 300 mg PO BIDCM 06/10/18 Ascorbic Acid [C-1000] 1,000 mg PO DAILY 09/25/19 Cholestyramine (with Sugar) [Questran Packet] 4 gm PO DAILY 09/25/19 Multivitamin,Therapeutic [Therems] 1 tab PO DAILY 09/25/19 Primary Care Physician: Mulu Cali MD [Primary Care Provider] - Please follow up with your Primary Care Physician in: 1-2 weeks Test Results: Test results from this visit will be discussed in further detail at your follow- up appointment, if applicable. Proposed Discharge Date: 09/27/19
--- NOTE | 2019-09-27 13:51 | PCM.TXEXTCAR ---
- Diet 09/27/19 Breakfast Diet: Nothing Per Oral Is pt able to select menu?: Yes - Routine Orders/Code Status Enema Type: Fleetz Enema Frequency: Daily PRN Suppository Type: Dulcolax 10mg Suppository Frequency: Daily PRN O2 Frequency: PRN Keep PO Greater than or Equal to (%): 90 - Wound(s) Right Ankle Wound Type: Pressure Injury - Therapies Weight Bearing: Weight bearing as tolerated Physical Therapy: Eval and Treat Occupational Therapy: Eval and Treat - Allergies/Procedures Done in Hospital Allergies/Adverse Reactions: Allergies clindamycin Allergy (Verified 06/10/18 14:54) Other Penicillins Allergy (Verified 06/10/18 14:54) Other Procedures: None - Type of Care/Length of Stay Estimated LOS: More Than 30 Days Type of Care Needed: Skilled Rehab Potential: Fair Prognosis: Fair - Additional Orders/Day of Discharge Day of Discharge: 09/27/19 - Follow Up Care Primary Care Physician: Mulu Cali MD [Primary Care Provider] - Please follow up with your Primary Care Physician in: 1-2 weeks
--- NOTE | 2019-09-27 13:57 | PHA.DC.MR ---
Pharmacy Service has performed discharge medication reconciliation for this patient. The patient's discharge medication list was reviewed for discrepancies and discrepancies were resolved. Home Medications Montelukast [Singulair] 10 mg PO DAILY 01/23/13 Omeprazole [Prilosec] 20 mg PO DAILY 01/23/13 Ammonium Lactate [Amlactin] 1 applicatio TP UD 12/07/17 Fluticasone/Vilanterol [Breo Ellipta 100-25 Mcg INH] 1 each IH DAILY 12/07/17 Cholecalciferol (Vitamin D3) [Vitamin D3] 4,000 unit PO DAILY 06/10/18 Gabapentin [Neurontin] 300 mg PO BIDCM 06/10/18 Ascorbic Acid [C-1000] 1,000 mg PO DAILY 09/25/19 Cholestyramine (with Sugar) [Questran Packet] 4 gm PO DAILY 09/25/19 Multivitamin,Therapeutic [Therems] 1 tab PO DAILY 09/25/19
--- NOTE | 2019-09-27 14:04 | PCM.DC.SUM ---
Discharge Date and Diagnosis - Problem List Patient Problems: Active and Suspected Problems Chest pain (Acute) Tachycardia (Acute) Leukocytosis (Acute) History of MRSA infection (Acute) Date of Admission: 09/25/19 Date of Discharge: 09/27/19 - Primary Discharge Diagnosis Acute Problems: Active Problems Chest pain (Acute) Tachycardia (Acute) Leukocytosis (Acute) History of MRSA infection (Acute) - Secondary Discharge Diagnosis Chronic Problems: Chronic Problems Venous stasis ulcer of right ankle with fat layer exposed (Chronic) posterior and medial ankle Pressure ulcer of right ankle, stage 2 (Chronic) PAD (peripheral artery disease) (Chronic) Venous (peripheral) insufficiency (Chronic) Edema of both lower legs due to peripheral venous insufficiency (Chronic) Spina bifida (Chronic) Venous stasis dermatitis of both lower extremities (Chronic) Venous stasis (Chronic) GERD (gastroesophageal reflux disease) (Chronic) History of cerebral palsy (Chronic) Hospital Course and Treatment Imaging Results: 09/27/19 05:55 Nuclear Stress Test - Chemical [NM] AM (NON MEDS) Diagnostic Data Chest X-Ray 09/25/19 11:20 IMPRESSION: Normal x-ray examination of the chest. Electronically Signed: Cesar King, at 12:15 EDT , Service support , Chest CTA 09/26/19 06:41 IMPRESSION: No acute abnormalities. Electronically Signed: Cesar King, at 9:38 EDT , Service support , Operations: None Procedures: Stress test Summary of Care Provided: The patient is a 53 year old M with a past medical history as outlined who was admitted through the ED on 09/25/2019 from his retirement with a complaint of chest pain. To have started on day of admission and was left-sided, sharp and pleuritic in nature. He had no associated shortness of breath but had a cough which has been ongoing since he was diagnosed with COVID-19 infection in June 2019. He denied any fever, chills, nausea vomiting or diarrhea or any urinary symptoms. Patient had a history of multiple venous stasis ulcers which he said were healing well. On admission, he was found to be tachycardic and also having leukocytosis. Chest x-ray showed no acute cardiopulmonary process. Also concern for sepsis because of his tachycardia and leukocytosis. Was no clear source of infection as his wounds were healing well. He was started on IV vancomycin and Zosyn and cover test was ordered as he was still in the COVID unit as his retirement. Chest pain did not recur during admission and tachycardia and leukocytosis resolved. CTA was done which was negative for PE and showed no evidence of pneumonia. COVID test came back negative. Patient had a stress test on 09/27/2019 on account of chest pain which was his original admitting complaint. Stress test was negative for any evidence of ischemia. Patient remained stable and was discharged back to his retirement on 09/27/2019. He is to follow-up with his primary care doctor within 1 to 2 weeks. Patient seen and examined prior to discharge. He had no complaints. Review of systems otherwise negative. Labs and vitals reviewed. Home medications reviewed and reconciled. O/e: Vital Signs Temp Pulse Resp BP Pulse Ox 98.2 F 86 18 129/64 H 96 09/27/19 04:55 09/27/19 07:58 09/27/19 07:20 09/27/19 04:55 09/27/19 07:19 [] General: Alert, Oriented x3, Cooperative, No apparent distress HEENT: Atraumatic, PERRLA, EOMI, Normocephalic Oral: Dry Mucosa Neck: Supple, No JVD, Negative Carotid Bruits Lungs: Clear to auscultation, Normal air movement, No rhonchi, No wheeze Cardiovascular: Regular rate, Regular Rhythm, Normal S1, Normal S2, No murmurs Abdomen: Bowel Sounds Present, Soft, Non Tender, Non-Distended, No Hepato-splenomegaly Extremities: No clubbing, No cyanosis, No edema, Capillary Refill Less than 3 Seconds Skin: - - RLE wrapped in bandage due to chronic wounds. Musculoskeletal: No Tenderness to Palpation of Joints or Extremities Lymphatic: No Cervical, Supraclavicular, or Inguinal Adenopathy Neurological: Cranial nerves II-XII grossly intact, Neuro grossly intact, Motor Exam 5/5 strength throughout Psych/Mental Status: Normal Affect, Appropriate Plan is for dc to his SNF today Patient Problems: Active and Suspected Problems Chest pain (Acute) Tachycardia (Acute) Leukocytosis (Acute) History of MRSA infection (Acute) - Physical Exam Vitals/I&O's: Vital Signs Temp Pulse Resp BP Pulse Ox 98.2 F 86 18 129/64 H 96 09/27/19 04:55 09/27/19 07:58 09/27/19 07:20 09/27/19 04:55 09/27/19 07:19 Oxygen Delivery Method Room Air Weight: 185 lb 3.013 oz Body Mass Index (BMI) 40.0 Intake and Output for Last 24 Hours 09/25/19 09/26/19 09/27/19 23:59 23:59 23:59 Intake Total 480 / 720 2326.66 / 2326.66 0 / 0 Output Total 1100 / 1100 150 / 150 Balance 480 / 520 1226.66 / 1226.66 -150 / -150 Laboratory Results 09/26/19 11:05: COVID-19 (CEM) Not Detected Current Medications Acetaminophen (Tylenol) 650 mg PO Q6H PRN PRN PRN Reason: Pain Score 1-10/Temp > 100.7 F Albuterol Sulfate (Ventolin Aerosols) 2.5 mg INHALATION Q6HWA.RT [facility] Last Admin: 09/27/19 13:19 Dose: Not Given Documented by: Budesonide (Pulmicort Aerosol) 0.5 mg INHALATION Q12H.RT [facility] Last Admin: 09/27/19 07:19 Dose: 0.5 mg Documented by: Cholestyramine Resin (Questran 4gm Packet) 4 gm PO DAILY@1100 [facility] Last Admin: 09/26/19 11:16 Dose: 4 gm Documented by: Gabapentin (Neurontin) 300 mg PO BIDCM [facility] Last Admin: 09/26/19 16:34 Dose: 300 mg Documented by: Sodium Chloride () 250 mls @ 15 mls/hr IV .[id number] PRN PRN Reason: Saline Flush Sodium Chloride () 250 mls @ 15 mls/hr IV .[id number] PRN PRN Reason: Additional IVPB Infusion Melatonin (Melatonin) 3 mg PO QHS PRN PRN PRN Reason: INSOMNIA Montelukast Sodium (Singulair) 10 mg PO DAILY [facility] Last Admin: 09/26/19 09:22 Dose: 10 mg Documented by: Ondansetron HCl (Zofran) 4 mg IV Q8H PRN PRN PRN Reason: NAUSEA/VOMITING Pantoprazole Sodium (Protonix) 20 mg PO DAILY [facility] Last Admin: 09/26/19 09:22 Dose: 20 mg Documented by: Sodium Chloride () 10 - 40 ml IV UD PRN PRN Reason: SALINE FLUSH Last Admin: 09/27/19 04:56 Dose: 30 ml Documented by: Discharge Diet: Low fat/ Low Cholesterol Discharge Activity: Return to Normal Activity Weight Bearing Status: Weight bearing as tolerated Call your doctor if you observe: Fever of 101 or Higher, Shortness of breath, Dizziness, Fainting spells, Swelling in the ankles, Increased palpitations (irregular heartbeat) Home Medications: Medications to take at Discharge Montelukast [Singulair] 10 mg PO DAILY 01/23/13 Omeprazole [Prilosec] 20 mg PO DAILY 01/23/13 Ammonium Lactate [Amlactin] 1 applicatio TP UD 12/07/17 Fluticasone/Vilanterol [Breo Ellipta 100-25 Mcg INH] 1 each IH DAILY 12/07/17 Cholecalciferol (Vitamin D3) [Vitamin D3] 4,000 unit PO DAILY 06/10/18 Gabapentin [Neurontin] 300 mg PO BIDCM 06/10/18 Ascorbic Acid [C-1000] 1,000 mg PO DAILY 09/25/19 Cholestyramine (with Sugar) [Questran Packet] 4 gm PO DAILY 09/25/19 Multivitamin,Therapeutic [Therems] 1 tab PO DAILY 09/25/19 Primary Care Physician: Mulu Cali MD [Primary Care Provider] - Please follow up with your Primary Care Physician in: 1-2 weeks Patient Instructions: Recognizing a Heart Attack or Angina, Warning Signs of a Heart Attack, ED Chest Pain NonCardiac Disposition: [facility] facility Minutes spent on discharge:: 40 Patient Condition:: Stable Medical Necessity - Tobacco Use Smoking Status: Never smoker Tobacco Use: Non-smoker Meaningful Use Info Meaningful Use Diagnoses (Choose all that apply): None applicable Inpatient E&M: 40945 Disch Hosp
--- NOTE | 2019-09-27 14:34 | CASEMGMT ---
Patient is ready for discharge back to [facility]. CHANTALE called [facility] and arranged for patient to get picked up at 530 via cot. CHANTALE notified Nadja at [facility], patient, RN, and trigonometry teacher. Patient did not want his family called, he said he would manage this. Await orders to fax to [facility]. Plan: d/c back to [facility] under intermediate level of care. [facility] transported him via cot.
--- NOTE | 2019-09-27 14:47 | NURSING ---
Picc dc'd. Site noted with edema and eccymosis.
[2019-09-27] MEDS: Cholestyramine/Sucrose 4 GM/PACKET PO (15:04)
[2019-09-27] MEDS: Montelukast 10 MG Tablet PO (15:10)
[2019-09-27] MEDS: Pantoprazole Sodium 20 MG Tablet PO (15:10)
[2019-09-27] MEDS: Gabapentin 300 MG Capsule PO (15:10)
== END 2019-09-27 13:47 | disposition skilled nursing facility (03) ==
LOC: ED 14:29 → ICU 09-26 06:59 → PCU 09-26 17:21
PROVIDERS: Admitting Provider Family Medicine; Emergency Provider Emergency Medicine; PCP Family Medicine; Visit Provider Student in an Organized Health Care Education/Training Program
DX: R07.89 Other chest pain (principal); G80.9 Cerebral palsy, unspecified; Q05.9 Spina bifida, unspecified; R00.0 Tachycardia, unspecified; I73.9 Peripheral vascular disease, unspecified; K21.9 Gastro-esophageal reflux disease without esophagitis; D72.829 Elevated white blood cell count, unspecified; J45.909 Unspecified asthma, uncomplicated; Z86.14 Personal history of Methicillin resistant Staphylococcus aureus infection; Z74.01 Bed confinement status; Z79.899 Other long term (current) drug therapy; Z86.19 Personal history of other infectious and parasitic diseases
CPT/HCPCS: 36569; 71045; 71275; 78452; 80048; 81001; 84484; 85025; 85379; 87040; 87635; 93005; 93017; 94640; 94799; 96361; 96365; 96366; 96367; 96372; 99218; 99285; A9500; J7030; J7050; Q9967; A4216; G0378; J2785; U0003